=== PATIENT | male | born 1945 | race Caucasian/White ===

== ENCOUNTER → 2017-12-03 08:34 | Outpatient (CLI) | payer MEDICARE, OTHER, SELFPAY ==
[2017-12-03 10:02] LABS: Alanine Aminotransferase 72 IU/L (21-72); Albumin 3.9 g/dL (3.5-5.0); Albumin Globulin Ratio 1.3 (1.0-2.8); Alkaline Phosphatase 65 U/L (38-126); Aspartate Aminotransferase 57 IU/L (17-59); BUN Creatinine Ratio 17.8 (6-22); Bilirubin Total 0.4 mg/dL (0.2-1.3); Blood Urea Nitrogen 16 mg/dL (9-20); Calcium 9.6 mg/dL (8.4-10.2); Carbon Dioxide 31 mmol/L (22-32); Chloride 102 mmol/L (98-107); Cholesterol 186 mg/dL (140-199); Estimated Glomerular Filt Rate > 60.0 mL/min (>60); Glucose 83 mg/dL (80-110); HDL Cholesterol 80 mg/dL (40-60); HEMOLYSIS < 15 (0-50); LDL Cholesterol Calculated 55 mg/dL (<100); Magnesium 1.9 mg/dL (1.6-2.3); Potassium 4.3 mmol/L (3.4-5.1); Sodium 141 mmol/L (137-145); Total Protein 6.9 g/dL (6.3-8.2); Triglycerides 257 mg/dL (35-150)
[2017-12-03 10:33] LABS: Thyroid Stimulating Hormone 1.64 uIU/mL (0.47-4.68)
== END ==
PROVIDERS: PCP Internal Medicine; Visit Provider Internal Medicine Cardiovascular Disease
DX: I10 Essential (primary) hypertension (principal); R00.0 Tachycardia, unspecified; E78.5 Hyperlipidemia, unspecified; C61 Malignant neoplasm of prostate
CPT/HCPCS: 36415; 80053; 80061; 83735; 84153; 84443

== ENCOUNTER → 2018-01-29 13:43 | Outpatient (CLI) | payer MEDICARE, OTHER, SELFPAY ==
[2018-01-29 14:48] LABS: Prostate Specific Antigen 0.615 ng/mL (0.10-4.00)
== END ==
PROVIDERS: Family Provider Internal Medicine; PCP Internal Medicine; Visit Provider Urology
DX: C61 Malignant neoplasm of prostate (principal)
CPT/HCPCS: 36415; 84153

== ENCOUNTER → 2018-04-10 15:48 | Outpatient (CLI) | payer MEDICARE, OTHER, SELFPAY ==
[2018-04-10 18:02] LABS: Prostate Specific Antigen 0.889 ng/mL (0.10-4.00)
== END ==
PROVIDERS: Family Provider Internal Medicine; PCP Internal Medicine; Visit Provider Urology
DX: C61 Malignant neoplasm of prostate (principal)
CPT/HCPCS: 36415; 84153

== ENCOUNTER 2018-06-16 01:01 | Emergency (ER) | payer MEDICARE, OTHER, SELFPAY ==
[2018-06-16 01:12] VITALS: BP 146/94; PULSE 85; RESP 18; TEMP 36.3; O2SAT 96
--- NOTE | 2018-06-16 01:21 | DI.CT.S_ITS ---
PROCEDURE: CT HEAD/BRAIN WO CON INDICATIONS: fall, head injury, alcohol TECHNIQUE: Noncontrast 4.5 mm thick angled axial sections acquired from the foramen magnum to the vertex, with coronal and sagittal reformats. For radiation dose reduction, the following was used: automated exposure control, adjustment of mA and/or kV according to patient size. COMPARISON: None. FINDINGS: Image quality: Excellent. CSF spaces: Basal cisterns are patent. No extra-axial fluid collections. The ventricles are symmetric in size and shape. Brain: No intracranial bleeds or masses. There is cerebral volume loss for age, with resultant ventricular and sulcal prominence. There are periventricular and deep white matter chronic small vessel ischemic changes. There is intracranial internal carotid artery atherosclerosis. Skull and face: Surgical mendez over left high frontal scalp are seen. Calvarium and visualized facial bones appear intact, without suspicious lesions. Sinuses: Visualized sinuses and mastoids are clear. IMPRESSION: #1. No CT evidence of acute intracranial pathology. #2. Age-appropriate atrophy and mild to moderate periventricular white matter likely traumatic changes. #3. Left high frontal scalp laceration with no underlying skull fracture. No discrepancies. Dictated by: Rafita Sol M.D. on 06/16/2018 at 9:09 Approved by: Rafita Sol M.D. on 06/16/2018 at 9:10
--- NOTE | 2018-06-16 01:21 | DI.CT.S_ITS ---
PROCEDURE: CT CERVICAL SPINE WO CON INDICATIONS: fall with head injury, heavy alcohol TECHNIQUE: Noncontrast 3 mm thick sections acquired from the skull base to the T4 level. Sagittal and coronal reformats were then constructed. For radiation dose reduction, the following was used: automated exposure control, adjustment of mA and/or kV according to patient size. COMPARISON: None. FINDINGS: Image quality: Excellent. Bones: There is minimal retrolisthesis of C4 on C5. No acute cervical spine fracture or dislocation is seen. Degenerative endplate changes and bilateral facet hypertrophic changes are noted throughout cervical spine with suggestion of broad-based disc bulge at C3-4 through C6-7 levels causing mild to moderate central canal stenosis and bilateral neuroforaminal narrowing. Visualized superior ribs are intact. Soft tissues: Prevertebral soft tissues are normal in thickness. No paravertebral hematomas. No apical pneumothoraces. IMPRESSION: 1. No acute cervical spine fracture or traumatic spondylolisthesis. 2. Likely degenerative retrolisthesis at C4-5 level. Degenerative disc disease throughout cervical spine. No significant discrepancies. Dictated by: Rafita Sol M.D. on 06/16/2018 at 9:10 Approved by: Rafita Sol M.D. on 06/16/2018 at 9:12
--- NOTE | 2018-06-16 01:49 | ED_ITS ---
HPI - Fall General Chief Complaint: Fall Stated Complaint: GLF, head lac Time Seen by Provider: 06/16/18 01:03 Source: patient, family and EMS Mode of arrival: EMS Limitations: no limitations History of Present Illness HPI Narrative: 73-year-old male nonsmoker with history of prostate cancer presents by EMS for evaluation head injury after he tripped and fell just prior to his arrival. He drinks about half bottle wine per night and a bit of a buzz and in doing so tripped and fell, striking his head. He has full recall of the event denies loss of consciousness, nausea or vomiting. He takes no blood thinners. He denies any neck or back pain. He denies chest pain, shortness of breath or any extremity injuries though he does have some small superficial skin tears his left hand. MD complaint: fall Onset (ago): minute(s) Fall from: standing Fall witnessed: yes, by family Place fall occurred: home Loss of consciousness: none Prolonged down time: no Symptoms prior to fall: none Context: tripped/slipped and alcohol use Location of injury: head Severity: mild Quality: dull Associated symptoms (after fall): denies Related Data Home Medications Medication Instructions Recorded Confirmed tamsulosin 0.4 mg capsule 0.4 mg PO BEDTIME cap 11/02/17 06/16/18 magnesium oxide 400 mg capsule 400 mg PO BID cap 12/27/17 06/16/18 metoprolol succinate ER 25 mg 25 mg PO BID 90 Days #180 tab 12/27/17 06/16/18 tablet,extended release 24 hr alprazolam 0.25 mg PO BID PRN 06/16/18 06/16/18 atorvastatin 40 mg PO DAILY 06/16/18 06/16/18 bupropion HCl 75 mg PO BID 06/16/18 06/16/18 melatonin 2 tab PO BEDTIME 06/16/18 06/16/18 trazodone 50 - 100 mg PO HS PRN 06/16/18 06/16/18 Previous Rx's Medication Instructions Recorded tiotropium bromide [Spiriva with 18 mcg INH 0600 #90 cap 09/04/16 HandiHaler] buspirone 7.5 mg PO BID #60 tab 12/01/16 hydrochlorothiazide 25 mg PO QDAY #30 tab 12/04/16 calcitriol 0.5 mcg PO Q DAY #90 cap 12/11/16 Disabled [address]ing Permit ea #1 01/24/17 salmeterol 50 mcg/dose blister 1 inhalation INHALATION Q12H #60 11/02/17 powder for inhalation each clonazepam 1 mg tablet 1 mg PO Q12H #60 tab 01/09/18 nitroglycerin 0.4 mg sublingual 0.4 mg SUBLINGUAL PRN PRN #4 bot 03/28/18 tablet hydrocortisone 2.5 % topical cream 1 applictn TOP BID #30 gram 05/10/18 Allergies Allergy/AdvReac Type Severity Reaction Status Date / Time No Known Drug Allergies Allergy Verified 05/10/18 11:17 Review of Systems Review of Systems ROS Unobtainable: All systems reviewed & are unremarkable except as noted in HPI and below Constitutional Denies chills, Denies fever(s), Denies lethargy and Denies weakness Eyes Denies change in vision, Denies eye discharge, Denies irritation and Denies loss of vision ENT Ears, Nose, Mouth, and Throat: Denies change in voice, Denies neck pain and Denies sore throat Cardiovascular Denies chest pain, Denies irregular heart rhythm, Denies lightheadedness, Denies palpitations, Denies dyspnea, Denies dyspnea on exertion and Denies orthopnea Respiratory Denies cough, Denies dyspnea, Denies dyspnea on exertion and Denies wheezing Gastrointestinal Gastrointestinal: Denies abdominal pain, Denies change in bowel habits, Denies diarrhea, Denies nausea and Denies vomiting Genitourinary Denies hematuria, Denies flank pain, Denies urinary incontinence and Denies urinary urgency Musculoskeletal Denies neck pain Integumentary/Breasts Denies pruritus, Denies erythema, Denies rash and Reports wounds Neurologic Denies confusion, Denies loss of vision and Denies weakness Psychiatric Denies anxiety, Denies confusion, Denies depression, Denies homicidal ideation and Denies suicidal ideation Endocrine Denies palpitations Hematologic/Lymphatic Denies easy bruising Allergic/Immunologic Denies wheezing Exam Narrative Exam Narrative: GENERAL: 73M is AOx3. GCS 15. Clear speech This is a well- nourished, well-developed patient, in mild distress. HEAD: 7cm linear, deep laceration starting just left of midline and above hairline and extending postiorly. Minimal active bleeding. Once numbed with lido/epi, it is visualized in bloodless field and small galea defect noted. EYES: Pupils equal round and reactive. Extraocular motions intact. No scleral icterus. No injection or drainage. ENT: Nose without bleeding, purulent drainage or septal hematoma. Throat without erythema, tonsillar hypertrophy or exudate. Uvula midline. Airway patent. NECK: Trachea midline. No JVD or lymphadenopathy. Supple, nontender, no meningeal signs. CARDIOVASCULAR: Regular rate and rhythm without murmurs, gallops, or rubs. RESPIRATORY: Clear to auscultation. Breath sounds equal bilaterally. No wheezes, rales, or rhonchi. GASTROINTESTINAL: Abdomen soft, non-tender, nondistended. No hepato- splenomegaly, or palpable masses. No guarding. EXTREMITIES: No clubbing, cyanosis, or edema. No joint tenderness, effusion, or edema noted. SKin tear on dorsum of L hand BACK: Nontender without deformity or crepitance. No flank tenderness. NEURO: AOx3. SKIN: No rash or erythema. Initial Vital Signs Initial Vital Signs: Vital Signs Temperature 97.4 F L 06/16/18 01:12 Pulse Rate 85 06/16/18 01:12 Respiratory Rate 18 06/16/18 01:12 Blood Pressure 146/94 H 06/16/18 01:12 Pulse Oximetry 96 06/16/18 01:12 [facility] Medical History Alcoholism (Chronic) Atherosclerosis of [place] coronary artery of [place] heart without angina pectoris (Chronic 12/22/14) Paroxysmal atrial fibrillation (Chronic 12/22/14) Pulmonary emphysema (Chronic 12/22/14) Essential hypertension (Chronic 12/22/14) Hyperlipidemia (Chronic) Depression (Chronic 12/22/14) Generalized anxiety disorder (Chronic) Atrial flutter (Resolved) Urinary retention (Inactive) Malignant neoplasm of prostate (Chronic 12/22/10) 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 (Inactive 12/22/14) Former smoker (Inactive 01/15/15) Hx of adenomatous colonic polyps (Chronic 12/22/10) MRSA (methicillin resistant staph aureus) culture positive (Inactive) Alcoholism in recovery (Inactive 01/10/16) Surgical History Inguinal hernia (Resolved) History of angioplasty (10/06/14) Status post appendectomy Status post transurethral resection of prostate (~05/2016) Social History Smoking Status: Former smoker Social History Smoking Status: Former smoker Procedures Laceration Repair Laceration 1: Site: scalp Side (If applicable): left Size (cm): 7 Description: linear Depth: involves muscle layer Local Anesthetic: lidocaine 1% and with epi Amount of anesthesia used (mL): 5 Pre-repair: wound explored and irrigated extensively Skin layer closed with: mendez Subcutaneous layer closed with: vicryl Size: 4-0 Number of sutures: 1 Technique: simple, interrupted Course Course Narrative: c collar placed on arrival Orders Ordered: ED Orders 06/16/18 01:21 CT cervical spine wo con Stat CT head/brain wo con Stat Vital Signs - 8 hr 06/16/18 01:12 06/16/18 02:01 Temperature 97.4 F L Pulse Rate 85 82 Respiratory Rate 18 18 Blood Pressure 146/94 H Blood Pressure [Right Arm] 164/85 H Pulse Oximetry 96 97 MDM - Fall Imaging Data CT Head / C Spine: My impression: NAP No bleed No fracture Discharge Plan Departure Patient Disposition: Home Clinical Impression: Laceration of scalp Qualifiers: Encounter type: initial encounter Qualified Code(s): S01.01XA - Laceration without foreign body of scalp, initial encounter Closed head injury Qualifiers: Encounter type: initial encounter Qualified Code(s): S09.90XA - Unspecified injury of head, initial encounter Activity Restrictions/Additional Instructions: *You have been diagnosed with [ scalp laceration ] *What to do: *Take medications as directed *Follow up with your primary care provider in 2-3 days, call for an appointment. Let them know you were seen in the Emergency Department and that we ask that you be seen in follow up *Return to ER if you should have any new, worsening or concerning symptoms Please keep the wound clean and dry to the best of your ability. Please monitor for signs of infection such as redness to the skin or increasing pain. Have the mendez removed by your doctor in about 7 days. If you are unable to get into your doctor, we would be happy to remove the mendez in that same timeframe. Prescriptions: No Action tiotropium bromide [Spiriva with HandiHaler] 18 MCG capsule, w/inhalation device 18 mcg INH 0600 Qty: 90 RF: 3 buspirone 7.5 MG tablet 7.5 mg PO BID Qty: 60 RF: 3 hydrochlorothiazide 25 MG tablet 25 mg PO QDAY Qty: 30 RF: 3 calcitriol 0.5 MCG capsule 0.5 mcg PO Q DAY Qty: 90 RF: 0 Disabled Parking Permit Qty: 1 RF: 0 clonazepam 1 mg tablet 1 mg PO Q12H Qty: 60 RF: 2 tamsulosin [Flomax] 0.4 mg capsule 0.4 mg PO BEDTIME RF: 0 salmeterol [Serevent Diskus] 50 mcg/dose blister with device 1 inhalation INHALATION Q12H Qty: 60 RF: 3 metoprolol succinate 25 mg tablet extended release 24 hr 25 mg PO BID 90 Days Qty: 180 RF: 0 magnesium oxide 400 mg capsule 400 mg PO BID RF: 0 nitroglycerin [Nitrostat] 0.4 mg tablet, sublingual 0.4 mg Sublingual PRN PRN (Reason: chest pain) Qty: 4 RF: PRN hydrocortisone 2.5 % cream 1 applictn TOP BID Qty: 30 RF: 1 bupropion HCl 150 mg tablet sustained-release 12 hr 75 mg PO BID RF: 0 atorvastatin 40 mg Tablet 40 mg PO DAILY RF: 0 alprazolam 0.25 mg Tablet 0.25 mg PO BID PRN (Reason: Anxiety) RF: 0 melatonin 10 mg Tablet 2 tab PO BEDTIME RF: 0 trazodone 50 MG tablet 50 - 100 mg PO HS PRN (Reason: Sleep) RF: 0 Referrals: Tim Pemberton MD [Primary Care Provider] -
[2018-06-16 02:01] VITALS: BP 164/85; PULSE 82; RESP 18; O2SAT 97
--- NOTE | 2018-06-16 02:46 | PC.NURSE ---
c collar removed by Dr. Baker.
[2018-06-16 02:56] VITALS: BP 143/76; PULSE 87; RESP 16; TEMP 36.4; O2SAT 97
== END 2018-06-16 02:57 | disposition home or self-care (01) ==
PROVIDERS: Emergency Provider Emergency Medicine; PCP Internal Medicine
DX: S01.01XA Laceration without foreign body of scalp, initial encounter (principal); S09.90XA Unspecified injury of head, initial encounter; W19.XXXA Unspecified fall, initial encounter
CPT/HCPCS: 12032; 70450; 72125; 99283; 99284

== ENCOUNTER 2018-06-21 13:24 | Emergency (ER) | payer MEDICARE, OTHER, SELFPAY ==
[2018-06-21 13:29] VITALS: BP 179/80; PULSE 88; RESP 17; TEMP 36.6; O2SAT 99; BMI 26.4
--- NOTE | 2018-06-21 13:46 | DI.RAD.S_ITS ---
PROCEDURE: XR CHEST 2V INDICATIONS: chest pain TECHNIQUE: 2 views of the chest were acquired. COMPARISON: None. FINDINGS: Surgical changes and devices: None. Lungs and pleura: Lungs are clear. No pleural effusions or pneumothorax. Mediastinum: Mediastinal contours are normal. Heart size is normal. Bones and chest wall: No suspicious bony abnormalities. Soft tissues appear unremarkable. IMPRESSION: No acute cardiopulmonary disease process. Dictated by: Katrina Crowell MD, PhD on 06/21/2018 at 14:07 Approved by: Katrina Crowell MD, PhD on 06/21/2018 at 14:08
[2018-06-21 14:40] LABS: Add Manual Diff / Slide Review NO; Basophils Absolute Auto 100 /uL (0-100); Basophils Percent Auto 0.7 % (0-2); Eosinophils Absolute Auto 300 /uL (0-450); Eosinophils Percent Auto 3.4 % (2-4); Hematocrit 43.8 % (41-53); Hemoglobin 14.8 g/dL (13.5-17.5); Lymphocytes Absolute Auto 1600 /uL (1100-4500); Lymphocytes Percent Auto 18.2 % (25-40); Mean Corpuscular HGB Conc 33.7 % (30-36); Mean Corpuscular Hemoglobin 33.5 PG (26-34); Mean Corpuscular Volume 99.3 fL (80-100); Monocytes Absolute Auto 700 /uL (0-900); Monocytes Percent Auto 7.8 % (3-14); Neutrophils Absolute Auto 6300 /uL (1500-7000); Neutrophils Percent Auto 69.9 % (50-75); Platelet Count 246 X10^3/uL (150-400); Red Blood Cell Count 4.41 X10^6/uL (4.5-5.9); Red Cell Distribution Width 12.8 % (11.6-14.8); White Blood Cell Count 8.9 X10^3/uL (4.5-11.0)
[2018-06-21 14:52] LABS: Alanine Aminotransferase 87 IU/L (21-72); Albumin 4.4 g/dL (3.5-5.0); Albumin Globulin Ratio 1.3 (1.0-2.8); Alkaline Phosphatase 98 U/L (38-126); Aspartate Aminotransferase 114 IU/L (17-59); BUN Creatinine Ratio 11.3 (6-22); Bilirubin Total 0.7 mg/dL (0.2-1.3); Blood Urea Nitrogen 9 mg/dL (9-20); Calcium 9.6 mg/dL (8.4-10.2); Carbon Dioxide 30 mmol/L (22-32); Chloride 93 mmol/L (98-107); Creatine Kinase 87 U/L (55-170); Estimated Glomerular Filt Rate > 60.0 mL/min (>60); Globulin 3.5 g/dL (1.7-4.1); Glucose 119 mg/dL (80-110); HEMOLYSIS < 15 (0-50); Lipase 283 U/L (23-300); Potassium 3.6 mmol/L (3.4-5.1); Sodium 133 mmol/L (137-145); Total Protein 7.9 g/dL (6.3-8.2)
[2018-06-21 15:00] VITALS: BP 133/79; PULSE 88; RESP 19; O2SAT 96
[2018-06-21 15:04] LABS: Troponin I < 0.012 ng/mL (0.01-0.034)
[2018-06-21] MEDS: ASPIRIN 81 MG TAB 324 MG PO (15:15)
[2018-06-21 15:30] VITALS: BP 127/78; PULSE 86; RESP 22; O2SAT 94
--- NOTE | 2018-06-21 15:39 | ED_ITS ---
HPI - Chest Pain <Tesha Howard PA-C - Last Filed: 06/21/18 22:01> General Chief Complaint: Chest Pain Stated Complaint: CHEST PAIN Time Seen by Provider: 06/21/18 15:37 Source: patient and family Mode of arrival: ambulatory Limitations: no limitations History of Present Illness HPI narrative: This 73-year-old male comes to ED today secondary to right-sided chest pain. He states that he lost his balance getting off the toilet last night which is not unusual for him, and he pitched forward. He came down on the hardwood floor and he thinks he had his hand under his chest, also hit his face. He denies any head contusion or LOC. He denies any headache, vision change, nausea or vomiting today. He states that he thought he was okay last night but then noted pain today when he moved into a reclined position in his easy chair, and also notes pain in the chest with deep breath and cough. He states this is not typical of his previous cardiac pain but given his history thought he should have this checked out. He has not noted any dyspnea or wheeze. He denies any new pain or swelling in his extremities. No abdominal pain or any other new complaints on systems review. He notes that he did have a few drinks last night, did not take his clonazepam due to that. He notes that he is starting in alcoholics anonymous today. He also requests to have mendez removed that were placed here last week. Related Data Home Medications Medication Instructions Recorded Confirmed tamsulosin 0.4 mg capsule 0.4 mg PO BEDTIME cap 11/02/17 06/16/18 magnesium oxide 400 mg capsule 400 mg PO BID cap 12/27/17 06/16/18 metoprolol succinate ER 25 mg 25 mg PO BID 90 Days #180 tab 12/27/17 06/16/18 tablet,extended release 24 hr alprazolam 0.25 mg PO BID PRN 06/16/18 06/16/18 atorvastatin 40 mg PO DAILY 06/16/18 06/16/18 bupropion HCl 75 mg PO BID 06/16/18 06/16/18 melatonin 2 tab PO BEDTIME 06/16/18 06/16/18 trazodone 50 - 100 mg PO HS PRN 06/16/18 06/16/18 Previous Rx's Medication Instructions Recorded tiotropium bromide [Spiriva with 18 mcg INH 0600 #90 cap 09/04/16 HandiHaler] buspirone 7.5 mg PO BID #60 tab 12/01/16 hydrochlorothiazide 25 mg PO QDAY #30 tab 12/04/16 calcitriol 0.5 mcg PO Q DAY #90 cap 12/11/16 Disabled Parking Permit ea #1 01/24/17 salmeterol 50 mcg/dose blister 1 inhalation INHALATION Q12H #60 11/02/17 powder for inhalation each clonazepam 1 mg tablet 1 mg PO Q12H #60 tab 01/09/18 nitroglycerin 0.4 mg sublingual 0.4 mg SUBLINGUAL PRN PRN #4 bot 03/28/18 tablet hydrocortisone 2.5 % topical cream 1 applictn TOP BID #30 gram 05/10/18 Allergies Allergy/AdvReac Type Severity Reaction Status Date / Time No Known Drug Allergies Allergy Verified 05/10/18 11:17 Review of Systems <Tesha Howard PA-C - Last Filed: 06/21/18 22:01> Review of Systems ROS Unobtainable: All systems reviewed & are unremarkable except as noted in HPI and below PFSH <Tesha Howard PA-C - Last Filed: 06/21/18 22:01> Medical History Alcoholism (Chronic) Atherosclerosis of [place] coronary artery of [place] heart without angina pectoris (Chronic 12/22/14) Paroxysmal atrial fibrillation (Chronic 12/22/14) Pulmonary emphysema (Chronic 12/22/14) Essential hypertension (Chronic 12/22/14) Hyperlipidemia (Chronic) Depression (Chronic 12/22/14) Generalized anxiety disorder (Chronic) Atrial flutter (Resolved) Urinary retention (Inactive) Malignant neoplasm of prostate (Chronic 12/22/10) 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 (Inactive 12/22/14) Former smoker (Inactive 01/15/15) Hx of adenomatous colonic polyps (Chronic 12/22/10) MRSA (methicillin resistant staph aureus) culture positive (Inactive) Alcoholism in recovery (Inactive 01/10/16) Surgical History Inguinal hernia (Resolved) History of angioplasty (10/06/14) Status post appendectomy Status post transurethral resection of prostate (~05/2016) Social History Smoking Status: Former smoker Social History Smoking Status: Former smoker Exam <Tesha Howard PA-C - Last Filed: 06/21/18 22:01> Narrative Exam Narrative: GENERAL APPEARANCE: Patient sitting comfortably, in no distress. NECK/THYROID: Neck supple, no JVD. LUNGS: Clear to auscultation bilaterally. CHEST: Moderate tenderness along the right mid anterior to lateral ribs most along the 4th and 5th ribs. No tenderness elsewhere over the chest, anterior right shoulder or clavicle HEART: Regular rate and rhythm without murmur, normal S1, S2, no S3 or S4. Heart tones are somewhat distant ABDOMEN: Soft, NT, ND, + BS x 4 quadrants EXTREMITIES: No edema. No calf tenderness NEUROLOGIC: Alert and oriented, normal speech and coordination. DERMATOLOGIC: No ecchymoses or abrasions noted on the face or chest. He does have well-healed midline frontal wound with mendez in place Initial Vital Signs Initial Vital Signs: Vital Signs Temperature 97.8 F 06/21/18 13:29 Pulse Rate 88 06/21/18 13:29 Respiratory Rate 17 06/21/18 13:29 Blood Pressure 179/80 H 06/21/18 13:29 Pulse Oximetry 99 06/21/18 13:29 <Nani Goodwin DO - Last Filed: 06/22/18 17:59> Initial Vital Signs Initial Vital Signs: Vital Signs Temperature 97.8 F 06/21/18 13:29 Pulse Rate 88 06/21/18 13:29 Respiratory Rate 17 06/21/18 13:29 Blood Pressure 179/80 H 06/21/18 13:29 Pulse Oximetry 99 06/21/18 13:29 Course <Tesha Howard PA-C - Last Filed: 06/21/18 22:01> Orders Ordered: Discontinued Medications Aspirin (Aspirin Chew) 324 mg PO NOW ONE Stop: 06/21/18 13:47 Last Admin: 06/21/18 15:15 Dose: 324 mg Sodium Chloride (Normal Saline 0.9%) 1,000 mls @ 150 mls/hr IV CONT SCOTT Last Admin: 06/21/18 16:21 Dose: Not Given Vital Signs - 8 hr 06/21/18 15:00 06/21/18 15:30 06/21/18 16:36 Pulse Rate 88 86 88 Respiratory Rate 19 22 16 Blood Pressure [Right Arm] 133/79 127/78 160/75 H Pulse Oximetry 96 94 96 <Nani Goodwin DO - Last Filed: 06/22/18 17:59> Orders Ordered: Discontinued Medications Aspirin (Aspirin Chew) 324 mg PO NOW ONE Stop: 06/21/18 13:47 Last Admin: 06/21/18 15:15 Dose: 324 mg Sodium Chloride (Normal Saline 0.9%) 1,000 mls @ 150 mls/hr IV CONT SCOTT Last Admin: 06/21/18 16:21 Dose: Not Given Vital Signs - 8 hr 06/21/18 15:00 06/21/18 15:30 06/21/18 16:36 Pulse Rate 88 86 88 Respiratory Rate 19 22 16 Blood Pressure [Right Arm] 133/79 127/78 160/75 H Pulse Oximetry 96 94 96 MDM - Chest Pain <Tesha Howard PA-C - Last Filed: 06/21/18 22:01> Lab Data Attestation: I reviewed the patient's lab results. Result diagrams: 06/21/18 14:20 06/21/18 14:20 Lab Results 06/21/18 06/21/18 06/21/18 Range/Units 14:20 14:20 15:57 WBC 8.9 (4.5-11.0) X10^3/uL RBC 4.41 L (4.5-5.9) X10^6/uL Hgb 14.8 (13.5-17.5) g/dL Hct 43.8 (41-53) % MCV 99.3 (80-100) fL MCH 33.5 (26-34) PG MCHC 33.7 (30-36) % RDW 12.8 (11.6-14.8) % Plt Count 246 (150-400) X10^3/uL Neut % (Auto) 69.9 (50-75) % Lymph % (Auto) 18.2 L (25-40) % Parmer % (Auto) 7.8 (3-14) % Eos % (Auto) 3.4 (2-4) % Baso % (Auto) 0.7 (0-2) % Neut # (Auto) 6300 (6102-0125) /uL Lymph # (Auto) 1600 (6824-6062) /uL Parmer # (Auto) 700 (0-900) /uL Eos # (Auto) 300 (0-450) /uL Baso # (Auto) 100 (0-100) /uL Sodium 133 L (137-145) mmol/L Potassium 3.6 (3.4-5.1) mmol/L Chloride 93 L (98-107) mmol/L Carbon Dioxide 30 (22-32) mmol/L BUN 9 (9-20) mg/dL Creatinine 0.80 (0.66-1.25) mg/dL Estimated GFR > 60.0 (>60) mL/min BUN/Creatinine Ratio 11.3 (6-22) Glucose 119 H (80-110) mg/dL Calcium 9.6 (8.4-10.2) mg/dL Total Bilirubin 0.7 (0.2-1.3) mg/dL AST 114 H (17-59) IU/L ALT 87 H (21-72) IU/L Alkaline Phosphatase 98 (38-126) U/L Total Creatine Kinase 87 (55-170) U/L CK-MB (CK-2) TNP CK-MB (CK-2) Rel Index TNP Troponin I < 0.012 (0.01-0.034) ng/mL Total Protein 7.9 (6.3-8.2) g/dL Albumin 4.4 (3.5-5.0) g/dL Globulin 3.5 (1.7-4.1) g/dL Albumin/Globulin Ratio 1.3 (1.0-2.8) Lipase 283 (23-300) U/L Urine RBC None seen (0-5/HPF) Urine WBC 10-30/hpf H (0-5/HPF) Ur Squamous Epith Cells 0-1 /hpf Amorphous Sediment 1+ Urine Bacteria Moderate (10-30) H (None) Urine Mucus 1+ H (Negative) Ur Culture Indicated? Specimen cultured Urine Dip Bedside Urine Glucose Negative Bedside Urine Bilirubin - Negative Bedside Urine Ketone - Negative Urine Specific [place] 1.015 Bedside Urine Occult Blood - Negative Bedside Urine pH 7.5 Bedside Urine Protein - Negative Bedside Urine Urobilinogen - Negative Bedside Urine Nitrite - Negative Bedside Urine Leukocytes +++ 500 Esterase Imaging Data Chest x-ray: Radiologist's impression: [address] [address] XRay Report Signed Patient: Papa Perez EMR#: [id number] : 5Acct:[id number] Age/Sex: 73 / MDate of Service: 06/21/18 Loc: ED Accession Number: [id number] Procedure: XR chest 2V Ordering Provider: Nani Goodwin D.O. PROCEDURE: XR CHEST 2V INDICATIONS: chest pain TECHNIQUE: 2 views of the chest were acquired. COMPARISON: None. FINDINGS: Surgical changes and devices: None. Lungs and pleura: Lungs are clear. No pleural effusions or pneumothorax. Mediastinum: Mediastinal contours are normal. Heart size is normal. Bones and chest wall: No suspicious bony abnormalities. Soft tissues appear unremarkable. IMPRESSION: No acute cardiopulmonary disease process. Dictated by: Katrina Crowell MD, PhD on 06/21/2018 at 14:07 Approved by: Katrina Crowell MD, PhD on 06/21/2018 at 14:08 ECG Data Attestation: I personally reviewed and interpreted this ECG as follows: (Normal sinus rhythm with rate 89, normal axis, no ST changes) <Nani Goodwin, DO - Last Filed: 06/22/18 17:59> Lab Data Lab Results 06/21/18 06/21/18 06/21/18 Range/Units 14:20 14:20 15:57 WBC 8.9 (4.5-11.0) X10^3/uL RBC 4.41 L (4.5-5.9) X10^6/uL Hgb 14.8 (13.5-17.5) g/dL Hct 43.8 (41-53) % MCV 99.3 (80-100) fL MCH 33.5 (26-34) PG MCHC 33.7 (30-36) % RDW 12.8 (11.6-14.8) % Plt Count 246 (150-400) X10^3/uL Neut % (Auto) 69.9 (50-75) % Lymph % (Auto) 18.2 L (25-40) % Parmer % (Auto) 7.8 (3-14) % Eos % (Auto) 3.4 (2-4) % Baso % (Auto) 0.7 (0-2) % Neut # (Auto) 6300 (5541-0842) /uL Lymph # (Auto) 1600 (2214-7750) /uL Parmer # (Auto) 700 (0-900) /uL Eos # (Auto) 300 (0-450) /uL Baso # (Auto) 100 (0-100) /uL Sodium 133 L (137-145) mmol/L Potassium 3.6 (3.4-5.1) mmol/L Chloride 93 L (98-107) mmol/L Carbon Dioxide 30 (22-32) mmol/L BUN 9 (9-20) mg/dL Creatinine 0.80 (0.66-1.25) mg/dL Estimated GFR > 60.0 (>60) mL/min BUN/Creatinine Ratio 11.3 (6-22) Glucose 119 H (80-110) mg/dL Calcium 9.6 (8.4-10.2) mg/dL Total Bilirubin 0.7 (0.2-1.3) mg/dL AST 114 H (17-59) IU/L ALT 87 H (21-72) IU/L Alkaline Phosphatase 98 (38-126) U/L Total Creatine Kinase 87 (55-170) U/L CK-MB (CK-2) TNP CK-MB (CK-2) Rel Index TNP Troponin I < 0.012 (0.01-0.034) ng/mL Total Protein 7.9 (6.3-8.2) g/dL Albumin 4.4 (3.5-5.0) g/dL Globulin 3.5 (1.7-4.1) g/dL Albumin/Globulin Ratio 1.3 (1.0-2.8) Lipase 283 (23-300) U/L Urine RBC None seen (0-5/HPF) Urine WBC 10-30/hpf H (0-5/HPF) Ur Squamous Epith Cells 0-1 /hpf Amorphous Sediment 1+ Urine Bacteria Moderate (10-30) H (None) Urine Mucus 1+ H (Negative) Ur Culture Indicated? Specimen cultured Urine Dip Bedside Urine Glucose Negative Bedside Urine Bilirubin - Negative Bedside Urine Ketone - Negative Urine Specific [place] 1.015 Bedside Urine Occult Blood - Negative Bedside Urine pH 7.5 Bedside Urine Protein - Negative Bedside Urine Urobilinogen - Negative Bedside Urine Nitrite - Negative Bedside Urine Leukocytes +++ 500 Esterase Discharge Plan Departure Patient Disposition: Home Clinical Impression: Rib pain on right side, Contusion of chest wall with intact skin, Removal of mendez Discharge Date/Time: 06/21/18 16:45 Interventions: ED Discharge Assessment Last Done: 06/21/18 16:45 Instructions: DI for Rib Contusion Activity Restrictions/Additional Instructions: As we talked about, I think your pain today is due to hitting your ribs on the right side. Please use the incentive spirometer like the respiratory therapist showed you several times daily to make sure you are expanding her lungs. You can had a pillow to your side like I showed you as needed to help with pain. take [id number] Tylenol as needed, and you can use [id number] lidocaine patches as well on the rib area if needed. Please make sure that you return right away should you have any acutely worsening pain, or new symptoms such as difficulty breathing or wheezing as we discussed. Good luck with AA! Prescriptions: No Action tiotropium bromide [Spiriva with HandiHaler] 18 MCG capsule, w/inhalation dev ice 18 mcg INH 0600 Qty: 90 RF: 3 buspirone 7.5 MG tablet 7.5 mg PO BID Qty: 60 RF: 3 hydrochlorothiazide 25 MG tablet 25 mg PO QDAY Qty: 30 RF: 3 calcitriol 0.5 MCG capsule 0.5 mcg PO Q DAY Qty: 90 RF: 0 Disabled Parking Permit Qty: 1 RF: 0 clonazepam 1 mg tablet 1 mg PO Q12H Qty: 60 RF: 2 tamsulosin [Flomax] 0.4 mg capsule 0.4 mg PO BEDTIME RF: 0 salmeterol [Serevent Diskus] 50 mcg/dose blister with device 1 inhalation INHALATION Q12H Qty: 60 RF: 3 metoprolol succinate 25 mg tablet extended release 24 hr 25 mg PO BID 90 Days Qty: 180 RF: 0 magnesium oxide 400 mg capsule 400 mg PO BID RF: 0 nitroglycerin [Nitrostat] 0.4 mg tablet, sublingual 0.4 mg Sublingual PRN PRN (Reason: chest pain) Qty: 4 RF: PRN hydrocortisone 2.5 % cream 1 applictn TOP BID Qty: 30 RF: 1 bupropion HCl 150 mg tablet sustained-release 12 hr 75 mg PO BID RF: 0 atorvastatin 40 mg Tablet 40 mg PO DAILY RF: 0 alprazolam 0.25 mg Tablet 0.25 mg PO BID PRN (Reason: Anxiety) RF: 0 melatonin 10 mg Tablet 2 tab PO BEDTIME RF: 0 trazodone 50 MG tablet 50 - 100 mg PO HS PRN (Reason: Sleep) RF: 0 Referrals: Tim Pemberton MD [Primary Care Provider] - <Nani Goodwin DO - Last Filed: 06/22/18 17:59> Cosign ED Attending Cosignature Attestation: I was immediately available in the department for consultation. This documentation has been reviewed and I agree with assessment and plan. Supervised by Nani Goodwin DO
[2018-06-21 16:27] LABS: RBC Urine None Seen (0-5/HPF)
[2018-06-21 16:36] VITALS: BP 160/75; PULSE 88; RESP 16; O2SAT 96
[2018-06-21 16:38] LABS: Amorphous Sediment Urine 1+; Bacteria Urine Moderate (10-30); Culture Indicated Urine Specimen Cultured; Mucus Urine 1+ (Negative); Squamous Epithelial Cell Urine 0-1 /HPF; WBC Urine 10-30/HPF (0-5/HPF)
== END 2018-06-21 16:45 | disposition home or self-care (01) ==
PROVIDERS: Emergency Medicine; Emergency Provider Internal Medicine; PCP Internal Medicine
DX: R07.81 Pleurodynia (principal); S20.219A Contusion of unspecified front wall of thorax, initial encounter; W19.XXXA Unspecified fall, initial encounter; Z48.02 Encounter for removal of sutures
CPT/HCPCS: 36415; 71046; 80053; 81003; 81015; 82550; 83690; 84484; 85025; 87077; 87086; 87147; 87186; 93005; 99283; 99284

== ENCOUNTER 2018-08-05 08:16 | Emergency (ER) | payer MEDICARE, OTHER, SELFPAY ==
[2018-08-05 08:20] VITALS: BP 111/69; PULSE 62; RESP 19; TEMP 36.6; O2SAT 97; BMI 26.4
[2018-08-05 09:00] VITALS: BP 120/64; PULSE 61; RESP 14; O2SAT 97
--- NOTE | 2018-08-05 09:15 | ED.MALEGU ---
HPI - Male Genitourinary General Chief complaint: Urogenital-Male Stated complaint: 'need a cath very bad' Time Seen by Provider: 08/05/18 08:50 Source: patient and family () Mode of arrival: ambulatory Limitations: no limitations History of Present Illness HPI Narrative: This is a 73-year-old male comes to the emergency department with complaint of inability to urinate. Patient states that he has not urinated since last night. He states he did have a bowel movement this morning a very small amount urine came out when he was straining. Patient denies any fevers. He states he sometimes have chills at night but he states this is been going on for years. States he felt a little short of breath getting ready this morning states that happens occasionally. Patient denies any nausea no vomiting. He typically has loose stools and has been taking Imodium regularly. He denies any constipation. He has known prostate cancer, he is receiving radiation therapy, he also has a known bladder infection he was initially on Macrobid and this was changed to Cipro about 3 days ago secondary to sensitivities. Patient states that he has had some increasing urinary discomfort over the past couple weeks. He states today he was unable to urinate and so came in. He has had prostate biopsies as well as a TURP in the past. He states he used to have a lot of issues with urinary retention until his TURP. He also quit drinking alcohol about 40 days ago and has continued to be successful. He has not had any other medication changes although he was given a medication to help him with urination but the co-pay was too expensive so he did not fill it. He is taking Flomax daily. He sees Dr. Castanon for his urologist, he sees Oncology through [facility] and Dr. Pemberton is his primary care. Related Data Home Medications Medication Instructions Recorded Confirmed tamsulosin 0.4 mg capsule 0.4 mg PO BEDTIME cap 11/02/17 06/27/18 magnesium oxide 400 mg capsule 400 mg PO BID cap 12/27/17 06/27/18 metoprolol succinate ER 25 mg 25 mg PO BID 90 Days #180 tab 12/27/17 06/27/18 tablet,extended release 24 hr alprazolam 0.25 mg PO BID PRN 06/16/18 06/27/18 atorvastatin 40 mg PO DAILY 06/16/18 06/27/18 melatonin 2 tab PO BEDTIME 06/16/18 06/27/18 trazodone 50 - 100 mg PO HS PRN 06/16/18 06/27/18 Previous Rx's Medication Instructions Recorded tiotropium bromide [Spiriva with 18 mcg INH 0600 #90 cap 09/04/16 HandiHaler] buspirone 7.5 mg PO BID #60 tab 12/01/16 hydrochlorothiazide 25 mg PO QDAY #30 tab 12/04/16 calcitriol 0.5 mcg PO Q DAY #90 cap 12/11/16 Disabled Parking Permit ea #1 01/24/17 nitroglycerin 0.4 mg sublingual 0.4 mg SUBLINGUAL PRN PRN #4 bot 03/28/18 tablet hydrocortisone 2.5 % topical cream 1 applictn TOP BID #30 gram 05/10/18 bupropion HCl SR 150 mg tablet,12 75 mg PO BID #180 each 06/26/18 hr sustained-release clonazepam 1 mg tablet 1 mg PO Q12H #60 tab 07/09/18 Allergies Allergy/AdvReac Type Severity Reaction Status Date / Time No Known Drug Allergies Allergy Verified 08/05/18 09:15 Review of Systems Review of Systems ROS Unobtainable: All systems reviewed & are unremarkable except as noted in HPI and below Constitutional Reports chills (Every night for many years), Denies fever(s), Denies lethargy and Denies weakness Cardiovascular Denies chest pain, Denies diaphoresis, Denies syncope, Denies edema, Denies irregular heart rhythm, Denies leg edema, Denies lightheadedness, Denies palpitations, Reports dyspnea (While getting ready this morning. States it happened sometime), Denies dyspnea on exertion and Denies orthopnea Respiratory Denies change in phlegm color, Denies chest congestion, Denies cough, Denies excessive phlegm production, Reports dyspnea (While getting ready this morning. States it happened sometime), Denies dyspnea on exertion and Denies wheezing Gastrointestinal Gastrointestinal: Denies abdominal pain, Denies change in bowel habits, Denies constipation, Denies diarrhea, Reports loose stools, Denies nausea and Denies vomiting Genitourinary Reports as per HPI, Denies hematuria, Reports difficulty urinating, Denies genital pain, Reports dysuria, Denies flank pain, Denies urinary frequency, Reports urinary hesitancy, Denies urinary incontinence and Denies urinary urgency Neurologic Denies syncope and Denies weakness Endocrine Denies palpitations Allergic/Immunologic Denies wheezing PFSH Medical History Alcoholism (Chronic) Atherosclerosis of [place] coronary artery of [place] heart without angina pectoris (Chronic 12/22/14) Paroxysmal atrial fibrillation (Chronic 12/22/14) Pulmonary emphysema (Chronic 12/22/14) Essential hypertension (Chronic 12/22/14) Hyperlipidemia (Chronic) Depression (Chronic 12/22/14) Generalized anxiety disorder (Chronic) Atrial flutter (Resolved) Urinary retention (Inactive) Malignant neoplasm of prostate (Chronic 12/22/10) 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 (Inactive 12/22/14) Former smoker (Inactive 01/15/15) Hx of adenomatous colonic polyps (Chronic 12/22/10) MRSA (methicillin resistant staph aureus) culture positive (Inactive) Alcoholism in recovery (Inactive 01/10/16) Surgical History Inguinal hernia (Resolved) History of angioplasty (10/06/14) Status post appendectomy Status post transurethral resection of prostate (~05/2016) Social History Smoking Status: Former smoker Social History Smoking Status: Former smoker Exam Narrative Exam Narrative: GENERAL: Alert and oriented x three, well-nourished, well-appearing male in mild distress. HEENT: Head normocephalic, atraumatic, EOMI, pupils reactive, face symmetric, moist mucous membranes NECK: Supple, full range of motion CARDIOVASCULAR: Regular rate and rhythm without murmurs, rubs or gallops. RESPIRATORY: Breath sounds equal bilaterally, no wheezes rales or rhonchi. ABDOMEN: Soft, nontender. Normoactive bowel sounds all 4 quadrants. No guarding or rebound, rigidity, no mass : No CVA tenderness. Male: normal external examination, Castanon catheter placed by nursing while I was in the room, no penile discharge or lesions EXTREMITIES: Normal range of motion, no clubbing or edema. Neurovascularly intact NEUROLOGICAL: Cranial nerves II through XII grossly intact. Moving all extremities SKIN: Warm, dry, no petechiae, no rashes or lesions. Initial Vital Signs Initial Vital Signs: Vital Signs Temperature 97.9 F 08/05/18 08:20 Pulse Rate 62 08/05/18 08:20 Respiratory Rate 19 08/05/18 08:20 Blood Pressure 111/69 08/05/18 08:20 Pulse Oximetry 97 08/05/18 08:20 Course Vital Signs - 8 hr 08/05/18 08:20 Temperature 97.9 F Pulse Rate 62 Respiratory Rate 19 Blood Pressure 111/69 Pulse Oximetry 97 MDM - Male Genitourinary Lab Data Lab Results 08/05/18 Range/Units 09:08 Urine Color Yellow Urine Appearance Clear Urine pH 6.5 (4.5-8.0) Ur Specific Bynum 1.015 (1.000-1.035) Urine Protein 1+ H (Negative) Urine Glucose (UA) Negative (Negative) g/dL Urine Ketones Negative (NEGATIVE) Urine Occult Blood Trace-intact (Negative) Urine Nitrate Negative (Negative) Urine Bilirubin Negative (NEGATIVE) Urine Urobilinogen 0.2 (0.2) E.U./dL Ur Leukocyte Esterase Trace H (NEGATIVE) Urine RBC 1-5/hpf (0-5/HPF) Urine WBC 5-10/hpf H (0-5/HPF) Ur Squamous Epith Cells 0-1 /hpf (0-5/HPF) Urine Bacteria Few (2-10) H (None) Ur Culture Indicated? Specimen cultured ECG Data Attestation: I personally reviewed and interpreted this ECG as follows: Prior ECG tracings: available for review Interpretation: Sinus rhythm with sinus arrhythmia, rate of 61 P are 193 QRS 89 and QTC of 454. No ST elevation or depression. The patient has a prior EKG from 06/21/2018 although it did not have sinus arrhythmia. [facility] Narrative Medical decision making narrative: The patient comes in with complaint of urinary retention he had over 300 cc on bladder scan fully catheter was placed he had immediate urine out and had relief. Patient has had 2 antibiotics so a urinalysis was sent, patient is currently on ciprofloxacin but has only been on for 3 days. Patient did have a little bit complaint shortness of breath while he was getting ready, he does have history of cardiac stents we did discuss doing further workup but he defers and states that this is sorted normal for him. Patient and I discussed that we would likely not change his antibiotic. We did discuss pyridium for some of his dysuria type symptoms. He was placed on a medication he is not sure the name was supposed to help with urination, he is already taking Flomax regularly but the co-pay was too large so he did not start this medication. Discharge Plan Departure Patient Disposition: Home Clinical Impression: Acute urinary retention Discharge Date/Time: 08/05/18 10:11 Interventions: ED Discharge Assessment Last Done: 08/05/18 10:09 Instructions: DI for Urinary Retention in Men Activity Restrictions/Additional Instructions: Follow up with Dr. Meredith this week, call for an appointment. Continue home medications as prescribed. Continue your antibiotics. You may take Pyridium 1 tablet every 8 hours as needed. This medication will make your urine bright orange Return to ER for fevers greater than 100.4F, persistent vomiting, new or worsening abdominal pain, shortness of breath, chest pain, pain with urination, if you are having large blood clots or unable to drain urine from your catheter or other new or concerning symptoms. Prescriptions: No Action tiotropium bromide [Spiriva with HandiHaler] 18 MCG capsule, w/inhalation device 18 mcg INH 0600 Qty: 90 RF: 3 buspirone 7.5 MG tablet 7.5 mg PO BID Qty: 60 RF: 3 hydrochlorothiazide 25 MG tablet 25 mg PO QDAY Qty: 30 RF: 3 calcitriol 0.5 MCG capsule 0.5 mcg PO Q DAY Qty: 90 RF: 0 Disabled Parking Permit Qty: 1 RF: 0 bupropion HCl 150 mg tablet sustained-release 12 hr 75 mg PO BID Qty: 180 RF: 0 clonazepam 1 mg tablet 1 mg PO Q12H Qty: 60 RF: 3 tamsulosin [Flomax] 0.4 mg capsule 0.4 mg PO BEDTIME RF: 0 metoprolol succinate 25 mg tablet extended release 24 hr 25 mg PO BID 90 Days Qty: 180 RF: 0 magnesium oxide 400 mg capsule 400 mg PO BID RF: 0 nitroglycerin [Nitrostat] 0.4 mg tablet, sublingual 0.4 mg Sublingual PRN PRN (Reason: chest pain) Qty: 4 RF: PRN hydrocortisone 2.5 % cream 1 applictn TOP BID Qty: 30 RF: 1 atorvastatin 40 mg Tablet 40 mg PO DAILY RF: 0 alprazolam 0.25 mg Tablet 0.25 mg PO BID PRN (Reason: Anxiety) RF: 0 melatonin 10 mg Tablet 2 tab PO BEDTIME RF: 0 trazodone 50 MG tablet 50 - 100 mg PO HS PRN (Reason: Sleep) RF: 0 Referrals: Tim Pemberton MD [Primary Care Provider] -
[2018-08-05 09:34] LABS: Appearance Urine UA CLEAR; Bilirubin Urine UA NEGATIVE (NEGATIVE); Color Urine UA YELLOW; Glucose Urine UA NEGATIVE (Negative); Ketones Urine UA NEGATIVE (NEGATIVE); Leukocyte Esterase Urine UA TRACE (NEGATIVE); Nitrite Urine UA NEGATIVE (Negative); Occult Blood Urine UA TRACE-INTACT (Negative); Protein Urine UA 1+ (Negative); Specific Gravity Urine UA 1.015 (1.000-1.035); Urobilinogen Urine UA 0.2 E.U./dL (0.2); pH Urine UA 6.5 (4.5-8.0)
[2018-08-05 09:37] VITALS: BP 122/58; PULSE 58; RESP 12; O2SAT 98
[2018-08-05 09:47] LABS: Bacteria Urine Few (2-10); Culture Indicated Urine Specimen Cultured; RBC Urine 1-5/HPF (0-5/HPF); Squamous Epithelial Cell Urine 0-1 /HPF (0-5/HPF); WBC Urine 5-10/HPF (0-5/HPF)
== END 2018-08-05 10:11 | disposition home or self-care (01) ==
PROVIDERS: Emergency Provider Emergency Medicine; PCP Internal Medicine
DX: R33.8 Other retention of urine (principal); R06.02 Shortness of breath
CPT/HCPCS: 51701; 51705; 51798; 81001; 87086; 93005; 93010; 99283

== ENCOUNTER → 2018-12-26 14:48 | Outpatient (CLI) | payer MEDICARE, OTHER, SELFPAY ==
[2018-12-26 17:16] LABS: Prostate Specific Antigen < 0.064 ng/mL (0.10-4.00)
== END ==
PROVIDERS: Family Provider Urology; PCP Internal Medicine; Visit Provider Radiology Radiation Oncology
DX: C61 Malignant neoplasm of prostate (principal)
CPT/HCPCS: 36415; 84153

== ENCOUNTER → 2019-04-28 10:47 | Outpatient (CLI) | payer MEDICARE, OTHER, SELFPAY ==
[2019-04-28 12:55] LABS: Alanine Aminotransferase 19 IU/L (<50); Albumin 4.4 g/dL (3.5-5.0); Albumin Globulin Ratio 1.3 (1.0-2.8); Alkaline Phosphatase 72 U/L (38-126); Aspartate Aminotransferase 27 IU/L (17-59); Bilirubin Total 0.5 mg/dL (0.2-1.3); Blood Urea Nitrogen 10 mg/dL (9-20); Calcium 9.8 mg/dL (8.4-10.2); Carbon Dioxide 28 mmol/L (22-32); Chloride 103 mmol/L (98-107); Cholesterol 197 mg/dL (140-199); Estimated Glomerular Filt Rate > 60.0 mL/min (>60); Globulin 3.5 g/dL (1.7-4.1); Glucose 115 mg/dL (80-110); HDL Cholesterol 46 mg/dL (40-60); HEMOLYSIS < 15 (0-50); LDL Cholesterol Calculated 115 mg/dL (<100); Potassium 3.6 mmol/L (3.4-5.1); Sodium 142 mmol/L (137-145); Total Protein 7.9 g/dL (6.3-8.2); Triglycerides 182 mg/dL (35-150)
[2019-04-30 18:04] LABS: PSA Post Prostatectomy 0.02 ng/mL
== END ==
PROVIDERS: PCP Internal Medicine; Referring Provider Internal Medicine; Visit Provider Internal Medicine
DX: E78.5 Hyperlipidemia, unspecified (principal); I10 Essential (primary) hypertension; I48.0 Paroxysmal atrial fibrillation; C61 Malignant neoplasm of prostate
CPT/HCPCS: 36415; 80053; 80061; 84153

== ENCOUNTER 2019-05-22 13:45 | Outpatient (RCR) | payer MEDICARE, OTHER, SELFPAY ==
--- NOTE | 2019-03-27 18:43 | PT.OIE ---
Current Diagnoses Unspecified abnormalities of gait and mobility (03/27/19) Past Medical History (Last Updated 08/08/18 @ 15:10 by Tim Pemberton MD) Alcoholism (Inactive) Alcoholism in recovery (Inactive 01/10/16) Atherosclerosis of [place] coronary artery of [place] heart without angina pectoris (Chronic 12/22/14) Atrial flutter (Resolved) Depression (Chronic 12/22/14) Essential hypertension (Chronic 12/22/14) Former smoker (Inactive 01/15/15) Generalized anxiety disorder (Chronic) Hx of adenomatous colonic polyps (Chronic 12/22/10) Hyperlipidemia (Chronic) Malignant neoplasm of prostate (Chronic 12/22/10) MRSA (methicillin resistant staph aureus) culture positive (Inactive) Paroxysmal atrial fibrillation (Chronic 12/22/14) 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 (Inactive 12/22/14) Pulmonary emphysema (Chronic 12/22/14) Urinary retention (Inactive) Past Surgical History (Last Reviewed 08/05/18 @ 09:19 by Nani Goodwin DO) History of angioplasty (10/06/14) Inguinal hernia (Resolved) Status post appendectomy Status post transurethral resection of prostate (~05/2016) Visit Care Team Role Provider Type Tim Pemberton MD Attending Provider Physician Primary Care Provider Specialty: Internal Medicine Address: [address] [place] [address], [address], [facility] Email: [email or web address] Physical Therapy Initial Evaluation PT-OP-A Visit Information Start: 03/27/19 18:05 Freq: Status: Active Protocol: Document 03/27/19 15:20 HH (Rec: 03/27/19 18:43 [email or web address]) Out-Patient Physical Therapy Visit Information Visit Information Visit Type Initial Evaluation Visit Note Pt's spouse attended session Visit Start Time 15:20 Visit Stop Time 16:00 Total Visit Minutes 40 Visit Number 04/07 Number of SAMPLE CLERK Visits 0 Evaluation Information Evaluation Date 03/27/19 Precautions Precautions Pt has 2 stent surgery due to hx of heart attack COPD PT-OP-B Current Condition Start: 03/27/19 18:05 Freq: Status: Active Protocol: Document 03/27/19 15:20 HH (Rec: 03/27/19 18:43 [email or web address]) Current Condition History of Current Condition Onset Date 3 years ago Current Complaints Poor activity tolerance, decreased balance, fall risks History of Current Condition Pt is a 74 yo presented to clinic with primary c/o poor activity tolerance and decreased balance. Pt stated this is primarily due to his previous heart attack and dx with COPD 3-4 years ago which caused him to have 2 stent surgery. Pt was a former smoker but he stopped 3 years ago and switched to e- cigarette, who reports his lung function has been improving since then as his medical team stated. However, pt stated his endurance and strength has been declining since and he often felt lazy to be physically activie. He currently is only able to tolerate walking for few blocks before rest. He tends to get fatigue from grocery shopping and needed to use cart for support. He also has poor balance who tends to lose his balance while reaching forward and bending down. Pt has a drinking habit for >40 years who recently stopped drinking since June 2018 and has been visiting [facility] support [facility] twice every week. He has been using a hurrycane to amb on uneven surface such as parking lot, grass/ long distance walk, but able to amb without AD at home. 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 To improve activity tolerance in order to grocery shop without rest 2. To improve balance and able to take long steps. Personal Factors Other Personal Factors That May Effect Pt has 2 stent surgery due to Therapy/Recovery hx of heart attack COPD PT-OP-C Subjective Start: 03/27/19 18:05 Freq: Status: Active Protocol: Document 03/27/19 15:20 (Rec: 03/27/19 18:43 [email or web address]) OP-PT Subjective Patient Comments Patient Comments I want to get my stamina better. Patient Questionnaires Lower Extremity Functional Scale LEFS Score 40 LEFS Impairment 40 to 59% Impaired (Score 32- 47) PT-OP-D Balance Start: 03/27/19 18:05 Freq: Status: Active Protocol: Document 03/27/19 15:20 (Rec: 03/27/19 18:43 [email or web address]) Zayas Balance Assessment Evaluation Sitting to Standing Ability Independent w/out Hands Unsupported Stance Safely- 2 minutes Sitting Unsupported, Feet on Floor Safely- 2 minutes Standing to Sitting Ability Safely, Minimal Hand Use Transfer Ability Safely, Minimal Hand Use Unsupported Stance- Eyes Closed Safely, 10 seconds Unsupported Stance- Eyes Open Independent, 1 minute Reaching Forward Standing Safely, 5 inches Pick- Up Object From Floor Supervision Look Behind Shoulder - Standing Shifts Weight Well Turning 360 Degrees Turns slowly, but safely Unsupported Stance, Alternating Feet on (I)- 8 Steps in 20 secs Stair Unsupported Tandem Stance Balance Lost- Step/Stand Unilateral Leg Stance Lifts Leg/Unable to Hold Total Score Zyaas Total Score (out of 56 points) 45 Zayas Impairment Rating 1 to 19% Impaired (Score 45-55 ) PT-OP-E Functional Tests Start: 03/27/19 18:05 Freq: Status: Active Protocol: Document 03/27/19 15:20 (Rec: 03/27/19 18:43 [email or web address]) Functional Tests Dynamic Gait Index (DGI) Score 19 DGI Impairment Rating 20 to <40% Impaired (Score 15- 19) PT-OP-G Mobility & Gait Start: 03/27/19 18:05 Freq: Status: Active Protocol: Document 03/27/19 15:20 (Rec: 03/27/19 18:43 [email or web address]) OP Gait Assessment Gait Deviations General Gait Pattern Wide Based Gait Factors Limiting Gait Function Factors Limiting Gait Function Decreased Activity Tolerance, Poor Balance Comments Gait Comments pt tends to look down to floor during amb Stair Climbing Evaluation Devices Stair Climbing Assistive Devices Right Railing Technique/Endurance Stair Climbing Direction Ascend and Descend Stair Climbing Technique Step Over Step PT-OP-T Assessment and Plan Start: 03/27/19 18:05 Freq: Status: Active Protocol: Document 03/27/19 15:20 (Rec: 03/27/19 18:43 [email or web address]) Physical Therapy Assessment Rehab Potential Rehabilitation Potential Good Evaluation Complexity Number of Personal Factors/Comorbidities 3 or More Number of Body Systems Impaired 3 Clinical Presentation at Evaluation Stable Impairments Impairments Activity Tolerance,Balance, Functional Activities, Functional Mobility,Gait, Posture,Soft Tissue Mobility, Strength,Transfers Goals activity tolerance Impairment 6MWT= will assess on03/28 Mcfp Goal (LTG) Pt will be able to complete LTG Duration 10 weeks DGI Impairment pt scores 19 on DGI Mcfp Goal (LTG) Pt will score >22 for DGI in order to improve his gait stability and dynamic balance, in order to negotiate uneven surface without AD. LTG Duration 10 weeks ZAYAS Impairment pt scores 45 on ZAYAS Mcfp Goal (LTG) Pt will score >50 on ZAYAS to improve his overall balance and reduce his fall risks, in order for him to climb stair without using rails. LTG Duration 10 weeks LEFS Impairment Pt scores 40 for LEFS Short Term Goal (STG) Pt will score >48 (20-39%) on LEFS to improve his quality of life STG Duration 5 weeks Mcfp Goal (LTG) Pt will score >63 (1-19%) on LEFS to improve his overall functional mobility in a safe manner. LTG Duration 10 weeks Assessment Summary Assessment Pt is a mod complexity 74yo male presented to clinic with primariy c/o decreased activity tolerance and balance . Pt has a hx of heart attack, COPD and chronic alcohol abuse. Upon assessment, pt scores 45/56 for ZAYAS and 19/ 24 for DGI which both indicate low fall risks. Pt completed both tests safely and he primarily has difficulty in NBO, head turns during gait, obstacle course and multi tasking during gait. He did c/ o SOB and fatigue after both tests who was unable to complete 6MWT but will assess his endurance during next visit. Pt also has noticeable weakness on RLE during single leg stance which will be assessed as well for next visit. Pt will be a good candidate for skilled therapy to improve his overall cardiovascular endurance, static and dynamic balance, B LE strength and gait efficiency. Physical Therapy Plan Frequency and Duration Frequency of Treatment 2x/Week Duration of Treatment 10 weeks Plan of Care Start Date 03/27/19 Plan of Care End Date 06/10/19 Therapeutic Interventions Therapeutic Interventions Balance Training,Coordination Training,Gait Training,Home Exercise Program,Joint Mobilizations,Manual Therapy, Neuromuscular Re-education, Patient/Caregiver Education, Self-Care/Home Management,Soft Tissue Mobilization,Taping, Therapeutic Activities, Therapeutic Exercises, Vestibular Rehabilitation Modalities Cold Pack/Ice Massage,Electric Stimulation,Hot Packs, Infrared Therapy,Iontophoresis ,Ultrasound Next Visit Focus/Plan Next Note Type Treatment Note Next Visit Plan 6MWT, hip and knee strength, ankle ROM strength check BP/ VSS start with machine bike/ stepper balance board leg press walking
--- NOTE | 2019-03-27 18:43 | PT.OPPOC ---
Physical, Occupational & Speech Therapy At [facility] Current Diagnoses Unspecified abnormalities of gait and mobility (03/27/19) Visit Care Team Role Provider Type Tim Pemberton MD Attending Provider Physician Primary Care Provider Specialty: Internal Medicine Address: [address] [place] [address], [facility] [address], [address] Email: [email or web address] Plan Of Care PT-OP-T Assessment and Plan Start: 03/27/19 18:05 Freq: Status: Active Protocol: Document 03/27/19 15:20 HH (Rec: 03/27/19 18:43 [email or web address]) Physical Therapy Assessment Rehab Potential Rehabilitation Potential Good Evaluation Complexity Number of Personal Factors/Comorbidities 3 or More Number of Body Systems Impaired 3 Clinical Presentation at Evaluation Stable Impairments Impairments Activity Tolerance,Balance, Functional Activities, Functional Mobility,Gait, Posture,Soft Tissue Mobility, Strength,Transfers Goals activity tolerance Impairment 6MWT= will assess on03/28 Senior Living Goal (LTG) Pt will be able to complete LTG Duration 10 weeks DGI Impairment pt scores 19 on DGI Senior Living Goal (LTG) Pt will score >22 for DGI in order to improve his gait stability and dynamic balance, in order to negotiate uneven surface without AD. LTG Duration 10 weeks ZAYAS Impairment pt scores 45 on ZAYAS Technical Sme Goal (LTG) Pt will score >50 on ZAYAS to improve his overall balance and reduce his fall risks, in order for him to climb stair without using rails. LTG Duration 10 weeks LEFS Impairment Pt scores 40 for LEFS Short Term Goal (STG) Pt will score >48 (20-39%) on LEFS to improve his quality of life STG Duration 5 weeks Technical Sme Goal (LTG) Pt will score >63 (1-19%) on LEFS to improve his overall functional mobility in a safe manner. LTG Duration 10 weeks Assessment Summary Assessment Pt is a mod complexity 74yo male presented to clinic with primariy c/o decreased activity tolerance and balance . Pt has a hx of heart attack, COPD and chronic alcohol abuse. Upon assessment, pt scores 45/56 for ZAYAS and 19/ 24 for DGI which both indicate low fall risks. Pt completed both tests safely and he primarily has difficulty in NBO, head turns during gait, obstacle course and multi tasking during gait. He did c/ o SOB and fatigue after both tests who was unable to complete 6MWT but will assess his endurance during next visit. Pt also has noticeable weakness on RLE during single leg stance which will be assessed as well for next visit. Pt will be a good candidate for skilled therapy to improve his overall cardiovascular endurance, static and dynamic balance, B LE strength and gait efficiency. Physical Therapy Plan Frequency and Duration Frequency of Treatment 2x/Week Duration of Treatment 10 weeks Plan of Care Start Date 03/27/19 Plan of Care End Date 06/10/19 Therapeutic Interventions Therapeutic Interventions Balance Training,Coordination Training,Gait Training,Home Exercise Program,Joint Mobilizations,Manual Therapy, Neuromuscular Re-education, Patient/Caregiver Education, Self-Care/Home Management,Soft Tissue Mobilization,Taping, Therapeutic Activities, Therapeutic Exercises, Vestibular Rehabilitation Modalities Cold Pack/Ice Massage,Electric Stimulation,Hot Packs, Infrared Therapy,Iontophoresis ,Ultrasound Next Visit Focus/Plan Next Note Type Treatment Note Next Visit Plan 6MWT, hip and knee strength, ankle ROM strength check BP/ VSS start with machine bike/ stepper balance board leg press walking Plan of Care Dates Plan of Care Start Date 03/27/19 Plan of Care End Date 06/10/19 Electronically Signed by: Josh Colvin PT 03/27/19 [id number] Please Sign and Return: I have reviewed this Plan of Care and certify that the skilled therapy services above are required to meet the patient?s needs. Physician Signature Date Printed Name and Credentials Clinical Instructor Signature Printed Name and Credentials
--- NOTE | 2019-03-28 16:20 | PT.OTN ---
Current Diagnoses Unspecified abnormalities of gait and mobility (03/28/19) Physical Therapy Treatment Note PT-OP-A Visit Information Start: 03/27/19 18:05 Freq: Status: Active Protocol: Document 03/27/19 15:20 (Rec: 03/27/19 18:43 [email or web address]) Out-Patient Physical Therapy Visit Information Visit Information Visit Type Initial Evaluation Visit Note Pt's spouse attended session Visit Start Time 15:20 Visit Stop Time 16:00 Total Visit Minutes 40 Visit Number 04/07 Number of CORRECTIONAL OFFICER Visits 0 Evaluation Information Evaluation Date 03/27/19 Precautions Precautions Pt has 2 stent surgery due to hx of heart attack COPD PT-OP-B Current Condition Start: 03/27/19 18:05 Freq: Status: Active Protocol: Document 03/27/19 15:20 (Rec: 03/27/19 18:43 [email or web address]) Current Condition History of Current Condition Onset Date 3 years ago Current Complaints Poor activity tolerance, decreased balance, fall risks History of Current Condition Pt is a 74 yo presented to clinic with primary c/o poor activity tolerance and decreased balance. Pt stated this is primarily due to his previous heart attack and dx with COPD 3-4 years ago which caused him to have 2 stent surgery. Pt was a former smoker but he stopped 3 years ago and switched to e- cigarette, who reports his lung function has been improving since then as his medical team stated. However, pt stated his endurance and strength has been declining since and he often felt lazy to be physically activie. He currently is only able to tolerate walking for few blocks before rest. He tends to get fatigue from grocery shopping and needed to use cart for support. He also has poor balance who tends to lose his balance while reaching forward and bending down. Pt has a drinking habit for >40 years who recently stopped drinking since June 2018 and has been visiting [facility] support group twice every week. He has been using a hurrycane to amb on uneven surface such as parking lot, grass/ long distance walk, but able to amb without AD at home. 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 To improve activity tolerance in order to grocery shop without rest 2. To improve balance and able to take long steps. Personal Factors Other Personal Factors That May Effect Pt has 2 stent surgery due to Therapy/Recovery hx of heart attack COPD PT-OP-C Subjective Start: 03/27/19 18:05 Freq: Status: Active Protocol: Document 03/28/19 13:45 (Rec: 03/28/19 16:19 [id number]) OP-PT Subjective Patient Comments Patient Comments PT-OP-D Balance Start: 03/27/19 18:05 Freq: Status: Active Protocol: Document 03/27/19 15:20 (Rec: 03/27/19 18:43 [email or web address]) Zayas Balance Assessment Evaluation Sitting to Standing Ability Independent w/out Hands Unsupported Stance Safely- 2 minutes Sitting Unsupported, Feet on Floor Safely- 2 minutes Standing to Sitting Ability Safely, Minimal Hand Use Transfer Ability Safely, Minimal Hand Use Unsupported Stance- Eyes Closed Safely, 10 seconds Unsupported Stance- Eyes Open Independent, 1 minute Reaching Forward Standing Safely, 5 inches Pick- Up Object From Floor Supervision Look Behind Shoulder - Standing Shifts Weight Well Turning 360 Degrees Turns slowly, but safely Unsupported Stance, Alternating Feet on (I)- 8 Steps in 20 secs Stair Unsupported Tandem Stance Balance Lost- Step/Stand Unilateral Leg Stance Lifts Leg/Unable to Hold Total Score Zayas Total Score (out of 56 points) 45 Zayas Impairment Rating 1 to 19% Impaired (Score 45-55 ) PT-OP-E Functional Tests Start: 03/27/19 18:05 Freq: Status: Active Protocol: Document 03/28/19 13:45 (Rec: 03/28/19 16:19 [id number]) Functional Tests 6 Minute Walk Test Distance 851 Device Used none Comments first break at 1min 40 sec jaun, 2nd at 1min 30 sec, 3rd at 40 sec, 4th @30 PT-OP-G Mobility & Gait Start: 03/27/19 18:05 Freq: Status: Active Protocol: Document 03/27/19 15:20 (Rec: 03/27/19 18:43 [email or web address]) OP Gait Assessment Gait Deviations General Gait Pattern Wide Based Gait Factors Limiting Gait Function Factors Limiting Gait Function Decreased Activity Tolerance, Poor Balance Comments Gait Comments pt tends to look down to floor during amb Stair Climbing Evaluation Devices Stair Climbing Assistive Devices Right Railing Technique/Endurance Stair Climbing Direction Ascend and Descend Stair Climbing Technique Step Over Step PT-OP-M Strength Start: 03/27/19 18:05 Freq: Status: Active Protocol: Document 03/28/19 13:45 (Rec: 03/28/19 16:19 [id number]) Hip Strength Hip Manual Muscle Testing Left Flexion (L2) 4+ Good+ Extension (S1) 4 Good Abduction 4 Good Right Flexion (L2) 3+ Fair+ Extension (S1) 3+ Fair+ Abduction 3+ Fair+ Knee Strength Knee Manual Muscle Testing Left Flexion (S2) 4+ Good+ Extension (L3) 4+ Good+ Right Flexion (S2) 4+ Good+ Extension (L3) 4 Good Ankle/Foot Strength Ankle and Foot Manual Muscle Testing Right Dorsiflexion (L4) 4 Good Plantarflexion (S1) 4 Good Left Dorsiflexion (L4) 4 Good Plantarflexion (S1) 4 Good PT-OP-Q Treatments Start: 03/27/19 18:05 Freq: Status: Active Protocol: Document 03/28/19 13:45 (Rec: 03/28/19 16:19 [id number]) Cardio Equipment Recumbent Stepper (Sci-Fit) Duration (Minutes) 5 Resistance RPM 50 Therapeutic Exercises Sitting Exercises seated hip flexion Side bilateral Reps/Minutes 10 x2 Comments cues on avoiding trunk lean Standing Exercises standing hip flexion Side bilateral Equipment Used support on grab bar. Reps/Minutes 10 x2 Comments cues on avoiding trunk lean PT-OP-T Assessment and Plan Start: 03/27/19 18:05 Freq: Status: Active Protocol: Document 03/28/19 13:45 (Rec: 03/28/19 16:19 [id number]) Physical Therapy Assessment Goals activity tolerance Impairment 6MWT= 851 ft without AD Short Term Goal (STG) Pt will be able to complete 1000 ft without AD with 3 breaks for 6 MWT to improve overall stamina for grocery shop and community walking STG Duration 5 weeks Dispatcher Relay Goal (LTG) Pt will be able to complete 1200 ft without AD with 2 breaks for 6 MWT to improve overall stamina for grocery shop and community walking LTG Duration 10 weeks DGI Impairment pt scores 19 on DGI Group Home Goal (LTG) Pt will score >22 for DGI in order to improve his gait stability and dynamic balance, in order to negotiate uneven surface without AD. LTG Duration 10 weeks ZAYAS Impairment pt scores 45 on ZAYAS Group Home Goal (LTG) Pt will score >50 on ZAYAS to improve his overall balance and reduce his fall risks, in order for him to climb stair without using rails. LTG Duration 10 weeks LEFS Impairment Pt scores 40 for LEFS Short Term Goal (STG) Pt will score >48 (20-39%) on LEFS to improve his quality of life STG Duration 5 weeks Dispatcher Relay Goal (LTG) Pt will score >63 (1-19%) on LEFS to improve his overall functional mobility in a safe manner. LTG Duration 10 weeks Assessment Summary Assessment 6MWT= 851 without AD but took 5 rest breaks due to fatigue. HR reached to >90s and O2 Sat at >95%. There's noticeable R hip weakness for flexion and abd 3+/5 which possibly caused his antalgic gait during 6MWT . Added daily walking program x20 mins, seated hip flexion and standing hip flexion for HEP. Physical Therapy Plan Next Visit Focus/Plan Next Note Type Treatment Note Next Visit Plan check tolerance start with machine bike/ stepper hip strengthening flexion and abd balance board leg press walking
--- NOTE | 2019-04-04 16:12 | PT.OTN ---
Current Diagnoses Unspecified abnormalities of gait and mobility (04/04/19) Physical Therapy Treatment Note PT-OP-A Visit Information Start: 03/27/19 18:05 Freq: Status: Active Protocol: Document 04/04/19 13:46 HH (Rec: 04/04/19 15:19 HH [id number]) Out-Patient Physical Therapy Visit Information Visit Information Visit Type Treatment Note Visit Start Time 13:50 Visit Stop Time 14:30 Total Visit Minutes 40 Visit Number 06/05 Number of TALENT ACQUISITION LEAD Visits 0 PT-OP-B Current Condition Start: 03/27/19 18:05 Freq: Status: Active Protocol: Document 03/27/19 15:20 HH (Rec: 03/27/19 18:43 HH [email or web address]) Current Condition History of Current Condition Onset Date 3 years ago Current Complaints Poor activity tolerance, decreased balance, fall risks History of Current Condition Pt is a 74 yo presented to clinic with primary c/o poor activity tolerance and decreased balance. Pt stated this is primarily due to his previous heart attack and dx with COPD 3-4 years ago which caused him to have 2 stent surgery. Pt was a former smoker but he stopped 3 years ago and switched to e- cigarette, who reports his lung function has been improving since then as his medical team stated. However, pt stated his endurance and strength has been declining since and he often felt lazy to be physically activie. He currently is only able to tolerate walking for few blocks before rest. He tends to get fatigue from grocery shopping and needed to use cart for support. He also has poor balance who tends to lose his balance while reaching forward and bending down. Pt has a drinking habit for >40 years who recently stopped drinking since June 2018 and has been visiting [facility] support group twice every week. He has been using a hurrycane to amb on uneven surface such as parking lot, grass/ long distance walk, but able to amb without AD at home. 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 To improve activity tolerance in order to grocery shop without rest 2. To improve balance and able to take long steps. Personal Factors Other Personal Factors That May Effect Pt has 2 stent surgery due to Therapy/Recovery hx of heart attack COPD PT-OP-C Subjective Start: 03/27/19 18:05 Freq: Status: Active Protocol: Document 04/04/19 13:46 HH (Rec: 04/04/19 15:19 [id number]) OP-PT Subjective Patient Comments Patient Comments i havent been doing my ex and walking due to the weather. PT-OP-D Balance Start: 03/27/19 18:05 Freq: Status: Active Protocol: Document 03/27/19 15:20 HH (Rec: 03/27/19 18:43 [email or web address]) Zayas Balance Assessment Evaluation Sitting to Standing Ability Independent w/out Hands Unsupported Stance Safely- 2 minutes Sitting Unsupported, Feet on Floor Safely- 2 minutes Standing to Sitting Ability Safely, Minimal Hand Use Transfer Ability Safely, Minimal Hand Use Unsupported Stance- Eyes Closed Safely, 10 seconds Unsupported Stance- Eyes Open Independent, 1 minute Reaching Forward Standing Safely, 5 inches Pick- Up Object From Floor Supervision Look Behind Shoulder - Standing Shifts Weight Well Turning 360 Degrees Turns slowly, but safely Unsupported Stance, Alternating Feet on (I)- 8 Steps in 20 secs Stair Unsupported Tandem Stance Balance Lost- Step/Stand Unilateral Leg Stance Lifts Leg/Unable to Hold Total Score Zayas Total Score (out of 56 points) 45 Zayas Impairment Rating 1 to 19% Impaired (Score 45-55 ) PT-OP-E Functional Tests Start: 03/27/19 18:05 Freq: Status: Active Protocol: Document 03/28/19 13:45 (Rec: 03/28/19 16:19 [id number]) Functional Tests 6 Minute Walk Test Distance 851 Device Used none Comments first break at 1min 40 sec jaun, 2nd at 1min 30 sec, 3rd at 40 sec, 4th @30 PT-OP-G Mobility & Gait Start: 03/27/19 18:05 Freq: Status: Active Protocol: Document 03/27/19 15:20 (Rec: 03/27/19 18:43 [email or web address]) OP Gait Assessment Gait Deviations General Gait Pattern Wide Based Gait Factors Limiting Gait Function Factors Limiting Gait Function Decreased Activity Tolerance, Poor Balance Comments Gait Comments pt tends to look down to floor during amb Stair Climbing Evaluation Devices Stair Climbing Assistive Devices Right Railing Technique/Endurance Stair Climbing Direction Ascend and Descend Stair Climbing Technique Step Over Step PT-OP-M Strength Start: 03/27/19 18:05 Freq: Status: Active Protocol: Document 03/28/19 13:45 HH (Rec: 03/28/19 16:19 [id number]) Hip Strength Hip Manual Muscle Testing Left Flexion (L2) 4+ Good+ Extension (S1) 4 Good Abduction 4 Good Right Flexion (L2) 3+ Fair+ Extension (S1) 3+ Fair+ Abduction 3+ Fair+ Knee Strength Knee Manual Muscle Testing Left Flexion (S2) 4+ Good+ Extension (L3) 4+ Good+ Right Flexion (S2) 4+ Good+ Extension (L3) 4 Good Ankle/Foot Strength Ankle and Foot Manual Muscle Testing Right Dorsiflexion (L4) 4 Good Plantarflexion (S1) 4 Good Left Dorsiflexion (L4) 4 Good Plantarflexion (S1) 4 Good PT-OP-Q Treatments Start: 03/27/19 18:05 Freq: Status: Active Protocol: Document 04/04/19 13:46 HH (Rec: 04/04/19 15:19 [id number]) Cardio Equipment Recumbent Stepper (Sci-Fit) Duration (Minutes) 5 Resistance RPM 50 Recumbent Bicycle Duration (Minutes) 5 Resistance 5 Gym Equipment Shuttle Recovery SL squat Resistance 50# Shuttle Recovery Platform Stable Reps/Time alternate, B squat Resistance 75# Shuttle Recovery Platform Stable Reps/Time 20 x1 Shuttle Rebound red Exercise Details with gait belt, red color, Reps/Duration 6 mins Comments ankle rock with 1 UE/ w/o support Therapeutic Exercises Standing Exercises toe tap Standing Exercise Name on stairs (6 inch) Side bilateral Reps/Minutes 8 x 3 standing hip flexion Standing Exercise Name 1 UE support Side bilateral Equipment Used support on grab bar, hurdles Reps/Minutes 10 x5 Comments cues on avoiding trunk lean Gait Training Gait Activity interval walking Description 1 min walk f/b 30 secs break x 5 Device Used no AD Surface ground level Comments pt is able to amb ~150 ft every minute PT-OP-T Assessment and Plan Start: 03/27/19 18:05 Freq: Status: Active Protocol: Document 04/04/19 13:46 (Rec: 04/04/19 15:19 [id number]) Physical Therapy Assessment Goals activity tolerance Impairment 6MWT= 851 ft without AD Short Term Goal (STG) Pt will be able to complete 1000 ft without AD with 3 breaks for 6 MWT to improve overall stamina for grocery shop and community walking STG Duration 5 weeks Railroad Car Truck Builder Goal (LTG) Pt will be able to complete 1200 ft without AD with 2 breaks for 6 MWT to improve overall stamina for grocery shop and community walking LTG Duration 10 weeks DGI Impairment pt scores 19 on DGI Alf Goal (LTG) Pt will score >22 for DGI in order to improve his gait stability and dynamic balance, in order to negotiate uneven surface without AD. LTG Duration 10 weeks ZAYAS Impairment pt scores 45 on ZAYAS Alf Goal (LTG) Pt will score >50 on ZAYAS to improve his overall balance and reduce his fall risks, in order for him to climb stair without using rails. LTG Duration 10 weeks LEFS Impairment Pt scores 40 for LEFS Short Term Goal (STG) Pt will score >48 (20-39%) on LEFS to improve his quality of life STG Duration 5 weeks Alf Goal (LTG) Pt will score >63 (1-19%) on LEFS to improve his overall functional mobility in a safe manner. LTG Duration 10 weeks Assessment Summary Assessment Pt wilson tx very well. He tends to take break for every 5-6 mins of therex. Started interval walking program today 1min walk f/b 30 break x 5. Physical Therapy Plan Next Visit Focus/Plan Next Note Type Treatment Note Next Visit Plan check tolerance start with machine bike/ stepper hip strengthening flexion and abd balance board leg press walking
--- NOTE | 2019-04-07 15:14 | PT.OTN ---
Current Diagnoses Unspecified abnormalities of gait and mobility (04/07/19) Physical Therapy Treatment Note PT-OP-A Visit Information Start: 03/27/19 18:05 Freq: Status: Active Protocol: Document 04/07/19 14:30 DCW (Rec: 04/07/19 15:14 DCW [id number]) Out-Patient Physical Therapy Visit Information Visit Information Visit Type Treatment Note Visit Note Pt's spouse attended session Visit Start Time 14:30 Visit Stop Time 15:15 Total Visit Minutes 45 Visit Number 07/06 Number of LICENSED VOCATIONAL NURSE Visits 0 Evaluation Information Evaluation Date 03/27/19 Precautions Precautions Pt has 2 stent surgery due to hx of heart attack COPD PT-OP-B Current Condition Start: 03/27/19 18:05 Freq: Status: Active Protocol: Document 03/27/19 15:20 HH (Rec: 03/27/19 18:43 HH [email or web address]) Current Condition History of Current Condition Onset Date 3 years ago Current Complaints Poor activity tolerance, decreased balance, fall risks History of Current Condition Pt is a 74 yo presented to clinic with primary c/o poor activity tolerance and decreased balance. Pt stated this is primarily due to his previous heart attack and dx with COPD 3-4 years ago which caused him to have 2 stent surgery. Pt was a former smoker but he stopped 3 years ago and switched to e- cigarette, who reports his lung function has been improving since then as his medical team stated. However, pt stated his endurance and strength has been declining since and he often felt lazy to be physically activie. He currently is only able to tolerate walking for few blocks before rest. He tends to get fatigue from grocery shopping and needed to use cart for support. He also has poor balance who tends to lose his balance while reaching forward and bending down. Pt has a drinking habit for >40 years who recently stopped drinking since June 2018 and has been visiting [facility] support group twice every week. He has been using a hurrycane to amb on uneven surface such as parking lot, grass/ long distance walk, but able to amb without AD at home. 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 To improve activity tolerance in order to grocery shop without rest 2. To improve balance and able to take long steps. Personal Factors Other Personal Factors That May Effect Pt has 2 stent surgery due to Therapy/Recovery hx of heart attack COPD PT-OP-C Subjective Start: 03/27/19 18:05 Freq: Status: Active Protocol: Document 04/07/19 14:30 DCW (Rec: 04/07/19 15:14 DCW [id number]) OP-PT Subjective Patient Comments Patient Comments So far it's been going okay. I've been doing the exercises at home, not every day, but probably every other day. I haven't really been able to get out walking because of the snow. PT-OP-D Balance Start: 03/27/19 18:05 Freq: Status: Active Protocol: Document 03/27/19 15:20 HH (Rec: 03/27/19 18:43 HH [email or web address]) Zayas Balance Assessment Evaluation Sitting to Standing Ability Independent w/out Hands Unsupported Stance Safely- 2 minutes Sitting Unsupported, Feet on Floor Safely- 2 minutes Standing to Sitting Ability Safely, Minimal Hand Use Transfer Ability Safely, Minimal Hand Use Unsupported Stance- Eyes Closed Safely, 10 seconds Unsupported Stance- Eyes Open Independent, 1 minute Reaching Forward Standing Safely, 5 inches Pick- Up Object From Floor Supervision Look Behind Shoulder - Standing Shifts Weight Well Turning 360 Degrees Turns slowly, but safely Unsupported Stance, Alternating Feet on (I)- 8 Steps in 20 secs Stair Unsupported Tandem Stance Balance Lost- Step/Stand Unilateral Leg Stance Lifts Leg/Unable to Hold Total Score Zayas Total Score (out of 56 points) 45 Zayas Impairment Rating 1 to 19% Impaired (Score 45-55 ) PT-OP-E Functional Tests Start: 03/27/19 18:05 Freq: Status: Active Protocol: Document 03/28/19 13:45 HH (Rec: 03/28/19 16:19 HH [id number]) Functional Tests 6 Minute Walk Test Distance 851 Device Used none Comments first break at 1min 40 sec jaun, 2nd at 1min 30 sec, 3rd at 40 sec, 4th @30 PT-OP-G Mobility & Gait Start: 03/27/19 18:05 Freq: Status: Active Protocol: Document 03/27/19 15:20 HH (Rec: 03/27/19 18:43 HH [email or web address]) OP Gait Assessment Gait Deviations General Gait Pattern Wide Based Gait Factors Limiting Gait Function Factors Limiting Gait Function Decreased Activity Tolerance, Poor Balance Comments Gait Comments pt tends to look down to floor during amb Stair Climbing Evaluation Devices Stair Climbing Assistive Devices Right Railing Technique/Endurance Stair Climbing Direction Ascend and Descend Stair Climbing Technique Step Over Step PT-OP-M Strength Start: 03/27/19 18:05 Freq: Status: Active Protocol: Document 03/28/19 13:45 HH (Rec: 03/28/19 16:19 HH [id number]) Hip Strength Hip Manual Muscle Testing Left Flexion (L2) 4+ Good+ Extension (S1) 4 Good Abduction 4 Good Right Flexion (L2) 3+ Fair+ Extension (S1) 3+ Fair+ Abduction 3+ Fair+ Knee Strength Knee Manual Muscle Testing Left Flexion (S2) 4+ Good+ Extension (L3) 4+ Good+ Right Flexion (S2) 4+ Good+ Extension (L3) 4 Good Ankle/Foot Strength Ankle and Foot Manual Muscle Testing Right Dorsiflexion (L4) 4 Good Plantarflexion (S1) 4 Good Left Dorsiflexion (L4) 4 Good Plantarflexion (S1) 4 Good PT-OP-Q Treatments Start: 03/27/19 18:05 Freq: Status: Active Protocol: Document 04/07/19 14:30 DCW (Rec: 04/07/19 15:14 DCW [id number]) Cardio Equipment Recumbent Bicycle Duration (Minutes) 5 Resistance 5 Seat Position 8 Gym Equipment Shuttle Recovery SL squat Resistance 50# Shuttle Recovery Platform Stable Reps/Time 2x10 B squat Resistance 75# Shuttle Recovery Platform Stable Reps/Time 2x10 Shuttle Rebound red Exercise Details with gait belt, red color, Reps/Duration 10 mins Comments Wide NAKUL, Staggered Therapeutic Exercises Sitting Exercises Hip Abduction Sitting Exercise Name Abduction Side bilateral Resistance Lv 2 Equipment Used T-band Standing Exercises toe tap Standing Exercise Name on stairs (6 inch) Side bilateral Resistance 3# Reps/Minutes 8 x 3 standing hip flexion Standing Exercise Name 1 UE support Side bilateral Equipment Used support on grab bar, hurdles Reps/Minutes 10 x5 Comments cues on avoiding trunk lean PT-OP-T Assessment and Plan Start: 03/27/19 18:05 Freq: Status: Active Protocol: Document 04/07/19 14:30 DCW (Rec: 04/07/19 15:14 DCW [id number]) Physical Therapy Assessment Goals activity tolerance Impairment 6MWT= 851 ft without AD Short Term Goal (STG) Pt will be able to complete 1000 ft without AD with 3 breaks for 6 MWT to improve overall stamina for grocery shop and community walking STG Duration 5 weeks Mcfp Goal (LTG) Pt will be able to complete 1200 ft without AD with 2 breaks for 6 MWT to improve overall stamina for grocery shop and community walking LTG Duration 10 weeks DGI Impairment pt scores 19 on DGI Envelope Press Operator Goal (LTG) Pt will score >22 for DGI in order to improve his gait stability and dynamic balance, in order to negotiate uneven surface without AD. LTG Duration 10 weeks ZAYAS Impairment pt scores 45 on ZAYAS Mcfp Goal (LTG) Pt will score >50 on ZAYAS to improve his overall balance and reduce his fall risks, in order for him to climb stair without using rails. LTG Duration 10 weeks LEFS Impairment Pt scores 40 for LEFS Short Term Goal (STG) Pt will score >48 (20-39%) on LEFS to improve his quality of life STG Duration 5 weeks Envelope Press Operator Goal (LTG) Pt will score >63 (1-19%) on LEFS to improve his overall functional mobility in a safe manner. LTG Duration 10 weeks Assessment Summary Assessment Pt continues to fatigue quickly during treatment, however is back to work after minimal work break. At this time, pt's fatigue appears to limit him more than his weakness or gait. Physical Therapy Plan Frequency and Duration Frequency of Treatment 2x/Week Duration of Treatment 10 weeks Plan of Care Start Date 03/27/19 Plan of Care End Date 06/10/19 Next Visit Focus/Plan Next Note Type Treatment Note Next Visit Plan hip strengthening flexion and abd balance board leg press walking
--- NOTE | 2019-04-15 17:41 | PT.OTN ---
Current Diagnoses Unspecified abnormalities of gait and mobility (04/15/19) Physical Therapy Treatment Note PT-OP-A Visit Information Start: 03/27/19 18:05 Freq: Status: Active Protocol: Document 04/15/19 16:55 MB (Rec: 04/15/19 17:41 MB [id number]) Out-Patient Physical Therapy Visit Information Visit Information Visit Type Treatment Note Visit Note Pt arrives late to appointment Visit Start Time 16:55 Visit Stop Time 17:40 Total Visit Minutes 45 Visit Number 08/05 Number of MOTOR CHECKER Visits 0 PT-OP-B Current Condition Start: 03/27/19 18:05 Freq: Status: Active Protocol: Document 03/27/19 15:20 HH (Rec: 03/27/19 18:43 HH [email or web address]) Current Condition History of Current Condition Onset Date 3 years ago Current Complaints Poor activity tolerance, decreased balance, fall risks History of Current Condition Pt is a 74 yo presented to clinic with primary c/o poor activity tolerance and decreased balance. Pt stated this is primarily due to his previous heart attack and dx with COPD 3-4 years ago which caused him to have 2 stent surgery. Pt was a former smoker but he stopped 3 years ago and switched to e- cigarette, who reports his lung function has been improving since then as his medical team stated. However, pt stated his endurance and strength has been declining since and he often felt lazy to be physically activie. He currently is only able to tolerate walking for few blocks before rest. He tends to get fatigue from grocery shopping and needed to use cart for support. He also has poor balance who tends to lose his balance while reaching forward and bending down. Pt has a drinking habit for >40 years who recently stopped drinking since June 2018 and has been visiting [facility] support group twice every week. He has been using a hurrycane to amb on uneven surface such as parking lot, grass/ long distance walk, but able to amb without AD at home. 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 To improve activity tolerance in order to grocery shop without rest 2. To improve balance and able to take long steps. Personal Factors Other Personal Factors That May Effect Pt has 2 stent surgery due to Therapy/Recovery hx of heart attack COPD PT-OP-C Subjective Start: 03/27/19 18:05 Freq: Status: Active Protocol: Document 04/15/19 16:55 MB (Rec: 04/15/19 17:41 MB [id number]) OP-PT Subjective Patient Comments Patient Comments Pt states that he is late d/t eye doctor appointment. PT-OP-D Balance Start: 03/27/19 18:05 Freq: Status: Active Protocol: Document 03/27/19 15:20 (Rec: 03/27/19 18:43 HH [email or web address]) Zayas Balance Assessment Evaluation Sitting to Standing Ability Independent w/out Hands Unsupported Stance Safely- 2 minutes Sitting Unsupported, Feet on Floor Safely- 2 minutes Standing to Sitting Ability Safely, Minimal Hand Use Transfer Ability Safely, Minimal Hand Use Unsupported Stance- Eyes Closed Safely, 10 seconds Unsupported Stance- Eyes Open Independent, 1 minute Reaching Forward Standing Safely, 5 inches Pick- Up Object From Floor Supervision Look Behind Shoulder - Standing Shifts Weight Well Turning 360 Degrees Turns slowly, but safely Unsupported Stance, Alternating Feet on (I)- 8 Steps in 20 secs Stair Unsupported Tandem Stance Balance Lost- Step/Stand Unilateral Leg Stance Lifts Leg/Unable to Hold Total Score Zayas Total Score (out of 56 points) 45 Zayas Impairment Rating 1 to 19% Impaired (Score 45-55 ) PT-OP-E Functional Tests Start: 03/27/19 18:05 Freq: Status: Active Protocol: Document 03/28/19 13:45 (Rec: 03/28/19 16:19 [id number]) Functional Tests 6 Minute Walk Test Distance 851 Device Used none Comments first break at 1min 40 sec jaun, 2nd at 1min 30 sec, 3rd at 40 sec, 4th @30 PT-OP-G Mobility & Gait Start: 03/27/19 18:05 Freq: Status: Active Protocol: Document 03/27/19 15:20 (Rec: 03/27/19 18:43 [email or web address]) OP Gait Assessment Gait Deviations General Gait Pattern Wide Based Gait Factors Limiting Gait Function Factors Limiting Gait Function Decreased Activity Tolerance, Poor Balance Comments Gait Comments pt tends to look down to floor during amb Stair Climbing Evaluation Devices Stair Climbing Assistive Devices Right Railing Technique/Endurance Stair Climbing Direction Ascend and Descend Stair Climbing Technique Step Over Step PT-OP-M Strength Start: 03/27/19 18:05 Freq: Status: Active Protocol: Document 03/28/19 13:45 HH (Rec: 03/28/19 16:19 HH [id number]) Hip Strength Hip Manual Muscle Testing Left Flexion (L2) 4+ Good+ Extension (S1) 4 Good Abduction 4 Good Right Flexion (L2) 3+ Fair+ Extension (S1) 3+ Fair+ Abduction 3+ Fair+ Knee Strength Knee Manual Muscle Testing Left Flexion (S2) 4+ Good+ Extension (L3) 4+ Good+ Right Flexion (S2) 4+ Good+ Extension (L3) 4 Good Ankle/Foot Strength Ankle and Foot Manual Muscle Testing Right Dorsiflexion (L4) 4 Good Plantarflexion (S1) 4 Good Left Dorsiflexion (L4) 4 Good Plantarflexion (S1) 4 Good PT-OP-Q Treatments Start: 03/27/19 18:05 Freq: Status: Active Protocol: Document 04/15/19 16:55 MB (Rec: 04/15/19 17:41 MB [id number]) Cardio Equipment Upper Body Ergometer (UBE) Duration (Minutes) 5 Other 2.5' forward and 2.5' backwards Recumbent Stepper (Sci-Fit) Duration (Minutes) 5 Resistance 1.5-2 Gym Equipment Shuttle Recovery SL squat Resistance 62#, 75# Reps/Time 15x2 then 15'x1 Therapeutic Exercises Sitting Exercises Sit to stands Comments 30 sec: 6 reps, also reviewed for HEP and provided handout Gait Training Gait Activity Gait with SPC left hand Comments Pt arrives with tall upright cane in right hand and he moves it every 4 steps. 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 He is able to hold SPC with left hand. 10 trials of gait with SPC in left hand and pt requires tactile and VCs PT-OP-T Assessment and Plan Start: 03/27/19 18:05 Freq: Status: Active Protocol: Document 04/15/19 16:55 MB (Rec: 04/15/19 17:41 MB [id number]) Physical Therapy Assessment Goals activity tolerance Impairment 6MWT= 851 ft without AD Short Term Goal (STG) Pt will be able to complete 1000 ft without AD with 3 breaks for 6 MWT to improve overall stamina for grocery shop and community walking STG Duration 5 weeks Dispatcher Service Or Work Goal (LTG) Pt will be able to complete 1200 ft without AD with 2 breaks for 6 MWT to improve overall stamina for grocery shop and community walking LTG Duration 10 weeks DGI Impairment pt scores 19 on DGI Dispatcher Service Or Work Goal (LTG) Pt will score >22 for DGI in order to improve his gait stability and dynamic balance, in order to negotiate uneven surface without AD. LTG Duration 10 weeks ZAYAS Impairment pt scores 45 on ZAYAS Retirement Goal (LTG) Pt will score >50 on ZAYAS to improve his overall balance and reduce his fall risks, in order for him to climb stair without using rails. LTG Duration 10 weeks LEFS Impairment Pt scores 40 for LEFS Short Term Goal (STG) Pt will score >48 (20-39%) on LEFS to improve his quality of life STG Duration 5 weeks Dispatcher Service Or Work Goal (LTG) Pt will score >63 (1-19%) on LEFS to improve his overall functional mobility in a safe manner. LTG Duration 10 weeks Assessment Summary Assessment Added sit to stands to HEP this date. Initiated UBE for cardio today and to help functional use of left UE to help with arm swing with gait to clear right hip as well as to prepare for using cane in left hand. Physical Therapy Plan Frequency and Duration Frequency of Treatment 2x/Week Duration of Treatment 10 weeks Plan of Care Start Date 03/27/19 Plan of Care End Date 06/10/19 Next Visit Focus/Plan Next Note Type Treatment Note Next Visit Plan hip strengthening flexion and abd balance board con't gait training with cane in left hand, 6MWT
--- NOTE | 2019-04-23 16:02 | PT.OTN ---
Current Diagnoses Unspecified abnormalities of gait and mobility (04/23/19) Physical Therapy Treatment Note PT-OP-A Visit Information Start: 03/27/19 18:05 Freq: Status: Active Protocol: Document 04/23/19 15:16 (Rec: 04/23/19 16:02 [id number]) Out-Patient Physical Therapy Visit Information Visit Information Visit Type Treatment Note Visit Start Time 15:16 Visit Stop Time 16:00 Total Visit Minutes 44 Visit Number 09/05 Number of INSIDE SALES RECRUITER Visits 0 PT-OP-B Current Condition Start: 03/27/19 18:05 Freq: Status: Active Protocol: Document 03/27/19 15:20 HH (Rec: 03/27/19 18:43 [email or web address]) Current Condition History of Current Condition Onset Date 3 years ago Current Complaints Poor activity tolerance, decreased balance, fall risks History of Current Condition Pt is a 74 yo presented to clinic with primary c/o poor activity tolerance and decreased balance. Pt stated this is primarily due to his previous heart attack and dx with COPD 3-4 years ago which caused him to have 2 stent surgery. Pt was a former smoker but he stopped 3 years ago and switched to e- cigarette, who reports his lung function has been improving since then as his medical team stated. However, pt stated his endurance and strength has been declining since and he often felt lazy to be physically activie. He currently is only able to tolerate walking for few blocks before rest. He tends to get fatigue from grocery shopping and needed to use cart for support. He also has poor balance who tends to lose his balance while reaching forward and bending down. Pt has a drinking habit for >40 years who recently stopped drinking since June 2018 and has been visiting [facility] support group twice every week. He has been using a hurrycane to amb on uneven surface such as parking lot, grass/ long distance walk, but able to amb without AD at home. 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 To improve activity tolerance in order to grocery shop without rest 2. To improve balance and able to take long steps. Personal Factors Other Personal Factors That May Effect Pt has 2 stent surgery due to Therapy/Recovery hx of heart attack COPD PT-OP-C Subjective Start: 03/27/19 18:05 Freq: Status: Active Protocol: Document 04/23/19 15:16 (Rec: 04/23/19 16:02 [id number]) OP-PT Subjective Patient Comments Patient Comments Serenity been doing my ex and sit to stand is the easiest since i dont have any problem with that. PT-OP-D Balance Start: 03/27/19 18:05 Freq: Status: Active Protocol: Document 03/27/19 15:20 (Rec: 03/27/19 18:43 [email or web address]) Zayas Balance Assessment Evaluation Sitting to Standing Ability Independent w/out Hands Unsupported Stance Safely- 2 minutes Sitting Unsupported, Feet on Floor Safely- 2 minutes Standing to Sitting Ability Safely, Minimal Hand Use Transfer Ability Safely, Minimal Hand Use Unsupported Stance- Eyes Closed Safely, 10 seconds Unsupported Stance- Eyes Open Independent, 1 minute Reaching Forward Standing Safely, 5 inches Pick- Up Object From Floor Supervision Look Behind Shoulder - Standing Shifts Weight Well Turning 360 Degrees Turns slowly, but safely Unsupported Stance, Alternating Feet on (I)- 8 Steps in 20 secs Stair Unsupported Tandem Stance Balance Lost- Step/Stand Unilateral Leg Stance Lifts Leg/Unable to Hold Total Score Zayas Total Score (out of 56 points) 45 Zyaas Impairment Rating 1 to 19% Impaired (Score 45-55 ) PT-OP-E Functional Tests Start: 03/27/19 18:05 Freq: Status: Active Protocol: Document 03/28/19 13:45 (Rec: 03/28/19 16:19 [id number]) Functional Tests 6 Minute Walk Test Distance 851 Device Used none Comments first break at 1min 40 sec jaun, 2nd at 1min 30 sec, 3rd at 40 sec, 4th @30 PT-OP-G Mobility & Gait Start: 03/27/19 18:05 Freq: Status: Active Protocol: Document 03/27/19 15:20 (Rec: 03/27/19 18:43 [email or web address]) OP Gait Assessment Gait Deviations General Gait Pattern Wide Based Gait Factors Limiting Gait Function Factors Limiting Gait Function Decreased Activity Tolerance, Poor Balance Comments Gait Comments pt tends to look down to floor during amb Stair Climbing Evaluation Devices Stair Climbing Assistive Devices Right Railing Technique/Endurance Stair Climbing Direction Ascend and Descend Stair Climbing Technique Step Over Step PT-OP-M Strength Start: 03/27/19 18:05 Freq: Status: Active Protocol: Document 03/28/19 13:45 (Rec: 03/28/19 16:19 [id number]) Hip Strength Hip Manual Muscle Testing Left Flexion (L2) 4+ Good+ Extension (S1) 4 Good Abduction 4 Good Right Flexion (L2) 3+ Fair+ Extension (S1) 3+ Fair+ Abduction 3+ Fair+ Knee Strength Knee Manual Muscle Testing Left Flexion (S2) 4+ Good+ Extension (L3) 4+ Good+ Right Flexion (S2) 4+ Good+ Extension (L3) 4 Good Ankle/Foot Strength Ankle and Foot Manual Muscle Testing Right Dorsiflexion (L4) 4 Good Plantarflexion (S1) 4 Good Left Dorsiflexion (L4) 4 Good Plantarflexion (S1) 4 Good PT-OP-Q Treatments Start: 03/27/19 18:05 Freq: Status: Active Protocol: Document 04/23/19 15:16 (Rec: 04/23/19 16:02 [id number]) Cardio Equipment Recumbent Bicycle Duration (Minutes) 6 Resistance 5 Seat Position 5 Gym Equipment Shuttle Recovery SL squat Resistance 50# 75# Reps/Time 15x2 for #50 then 15'x1 then 8 x1 Shuttle Rebound red Exercise Details with gait belt, red color, Reps/Duration 5 mins Comments Wide NAKUL, Staggered Therapeutic Exercises Standing Exercises toe tap Standing Exercise Name on stairs (6 inch) Side bilateral Resistance 3# Reps/Minutes 10 x2 Gait Training Gait Activity interval walking Description 6MWT = 788ft today Surface without AD Comments break at 274 ft, 555 ft PT-OP-T Assessment and Plan Start: 03/27/19 18:05 Freq: Status: Active Protocol: Document 04/23/19 15:16 (Rec: 04/23/19 16:02 [id number]) Physical Therapy Assessment Goals activity tolerance Impairment 6MWT= 851 ft without AD Short Term Goal (STG) Pt will be able to complete 1000 ft without AD with 3 breaks for 6 MWT to improve overall stamina for grocery shop and community walking STG Duration 5 weeks Bander And Cellophaner Helper Machine Goal (LTG) Pt will be able to complete 1200 ft without AD with 2 breaks for 6 MWT to improve overall stamina for grocery shop and community walking LTG Duration 10 weeks DGI Impairment pt scores 19 on DGI Bander And Cellophaner Helper Machine Goal (LTG) Pt will score >22 for DGI in order to improve his gait stability and dynamic balance, in order to negotiate uneven surface without AD. LTG Duration 10 weeks ZAYAS Impairment pt scores 45 on ZAYAS Bander And Cellophaner Helper Machine Goal (LTG) Pt will score >50 on ZAYAS to improve his overall balance and reduce his fall risks, in order for him to climb stair without using rails. LTG Duration 10 weeks LEFS Impairment Pt scores 40 for LEFS Short Term Goal (STG) Pt will score >48 (20-39%) on LEFS to improve his quality of life STG Duration 5 weeks Bander And Cellophaner Helper Machine Goal (LTG) Pt will score >63 (1-19%) on LEFS to improve his overall functional mobility in a safe manner. LTG Duration 10 weeks Assessment Summary Assessment 6MWT = 788 ft today without AD which is less than IE. His primary c/o is out of breath and fatigue easily. Pt reports he has not been walking much d/t weather but started to do home exercise more regularly recently. Educated pt to be consistent for walking program at home/ grocery store in order to improve stamina and strength. Pt reports he is not able to afford gym membership. Physical Therapy Plan Next Visit Focus/Plan Next Note Type Treatment Note Next Visit Plan hip strengthening for flexion and abd leg press balance board con't gait training with cane in left hand
--- NOTE | 2019-04-25 14:41 | PT.OTN ---
Current Diagnoses Unspecified abnormalities of gait and mobility (04/25/19) Physical Therapy Treatment Note PT-OP-A Visit Information Start: 03/27/19 18:05 Freq: Status: Active Protocol: Document 04/25/19 13:53 MB (Rec: 04/25/19 14:41 MB [id number]) Out-Patient Physical Therapy Visit Information Visit Information Visit Type Treatment Note Visit Start Time 13:53 Visit Stop Time 16:33 Total Visit Minutes 40 Visit Number 10/05 Number of COMMISSARY REPRESENTATIVE Visits 0 PT-OP-B Current Condition Start: 03/27/19 18:05 Freq: Status: Active Protocol: Document 03/27/19 15:20 HH (Rec: 03/27/19 18:43 HH [email or web address]) Current Condition History of Current Condition Onset Date 3 years ago Current Complaints Poor activity tolerance, decreased balance, fall risks History of Current Condition Pt is a 74 yo presented to clinic with primary c/o poor activity tolerance and decreased balance. Pt stated this is primarily due to his previous heart attack and dx with COPD 3-4 years ago which caused him to have 2 stent surgery. Pt was a former smoker but he stopped 3 years ago and switched to e- cigarette, who reports his lung function has been improving since then as his medical team stated. However, pt stated his endurance and strength has been declining since and he often felt lazy to be physically activie. He currently is only able to tolerate walking for few blocks before rest. He tends to get fatigue from grocery shopping and needed to use cart for support. He also has poor balance who tends to lose his balance while reaching forward and bending down. Pt has a drinking habit for >40 years who recently stopped drinking since June 2018 and has been visiting [facility] support group twice every week. He has been using a hurrycane to amb on uneven surface such as parking lot, grass/ long distance walk, but able to amb without AD at home. 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 To improve activity tolerance in order to grocery shop without rest 2. To improve balance and able to take long steps. Personal Factors Other Personal Factors That May Effect Pt has 2 stent surgery due to Therapy/Recovery hx of heart attack COPD PT-OP-C Subjective Start: 03/27/19 18:05 Freq: Status: Active Protocol: Document 04/25/19 13:53 MB (Rec: 04/25/19 14:41 MB [id number]) OP-PT Subjective Patient Comments Patient Comments Pt states that he thinks that he is doing about the same. He is not having any trouble doing sit to stands but moving forward to get out of recliner is still hard. He has trouble with exercises standing at counter. Pt states that his walking stick works for him and he does not want to change it. PT-OP-D Balance Start: 03/27/19 18:05 Freq: Status: Active Protocol: Document 03/27/19 15:20 HH (Rec: 03/27/19 18:43 [email or web address]) Zayas Balance Assessment Evaluation Sitting to Standing Ability Independent w/out Hands Unsupported Stance Safely- 2 minutes Sitting Unsupported, Feet on Floor Safely- 2 minutes Standing to Sitting Ability Safely, Minimal Hand Use Transfer Ability Safely, Minimal Hand Use Unsupported Stance- Eyes Closed Safely, 10 seconds Unsupported Stance- Eyes Open Independent, 1 minute Reaching Forward Standing Safely, 5 inches Pick- Up Object From Floor Supervision Look Behind Shoulder - Standing Shifts Weight Well Turning 360 Degrees Turns slowly, but safely Unsupported Stance, Alternating Feet on (I)- 8 Steps in 20 secs Stair Unsupported Tandem Stance Balance Lost- Step/Stand Unilateral Leg Stance Lifts Leg/Unable to Hold Total Score Zayas Total Score (out of 56 points) 45 Zayas Impairment Rating 1 to 19% Impaired (Score 45-55 ) PT-OP-E Functional Tests Start: 03/27/19 18:05 Freq: Status: Active Protocol: Document 03/28/19 13:45 (Rec: 03/28/19 16:19 [id number]) Functional Tests 6 Minute Walk Test Distance 851 Device Used none Comments first break at 1min 40 sec jaun, 2nd at 1min 30 sec, 3rd at 40 sec, 4th @30 PT-OP-G Mobility & Gait Start: 03/27/19 18:05 Freq: Status: Active Protocol: Document 03/27/19 15:20 (Rec: 03/27/19 18:43 [email or web address]) OP Gait Assessment Gait Deviations General Gait Pattern Wide Based Gait Factors Limiting Gait Function Factors Limiting Gait Function Decreased Activity Tolerance, Poor Balance Comments Gait Comments pt tends to look down to floor during amb Stair Climbing Evaluation Devices Stair Climbing Assistive Devices Right Railing Technique/Endurance Stair Climbing Direction Ascend and Descend Stair Climbing Technique Step Over Step PT-OP-M Strength Start: 03/27/19 18:05 Freq: Status: Active Protocol: Document 03/28/19 13:45 HH (Rec: 03/28/19 16:19 HH [id number]) Hip Strength Hip Manual Muscle Testing Left Flexion (L2) 4+ Good+ Extension (S1) 4 Good Abduction 4 Good Right Flexion (L2) 3+ Fair+ Extension (S1) 3+ Fair+ Abduction 3+ Fair+ Knee Strength Knee Manual Muscle Testing Left Flexion (S2) 4+ Good+ Extension (L3) 4+ Good+ Right Flexion (S2) 4+ Good+ Extension (L3) 4 Good Ankle/Foot Strength Ankle and Foot Manual Muscle Testing Right Dorsiflexion (L4) 4 Good Plantarflexion (S1) 4 Good Left Dorsiflexion (L4) 4 Good Plantarflexion (S1) 4 Good PT-OP-Q Treatments Start: 03/27/19 18:05 Freq: Status: Active Protocol: Document 04/25/19 13:53 MB (Rec: 04/25/19 14:41 MB [id number]) Cardio Equipment Recumbent Stepper (Sci-Fit) Duration (Minutes) 9 Resistance 2 Therapeutic Exercises Sitting Exercises Sit to stands Comments 30 sec: 6 reps; 8 reps; 8 reps seated hip flexion Comments 18 reps B Standing Exercises standing hip flexion Reps/Minutes 15 Comments R hand asst, then left hand Other Exercises Hamstring stretch in hook lying and standing terminal extension with band Comments Tried stretch, increased pain, d/cd from HEP. Not doing TKE, d/cd HEP PT-OP-T Assessment and Plan Start: 03/27/19 18:05 Freq: Status: Active Protocol: Document 04/25/19 13:53 MB (Rec: 04/25/19 14:41 MB [id number]) Physical Therapy Assessment Goals activity tolerance Impairment 6MWT= 851 ft without AD Short Term Goal (STG) Pt will be able to complete 1000 ft without AD with 3 breaks for 6 MWT to improve overall stamina for grocery shop and community walking STG Duration 5 weeks Residential Goal (LTG) Pt will be able to complete 1200 ft without AD with 2 breaks for 6 MWT to improve overall stamina for grocery shop and community walking LTG Duration 10 weeks DGI Impairment pt scores 19 on DGI Law Librarian Goal (LTG) Pt will score >22 for DGI in order to improve his gait stability and dynamic balance, in order to negotiate uneven surface without AD. LTG Duration 10 weeks ZAYAS Impairment pt scores 45 on ZAYAS Residential Goal (LTG) Pt will score >50 on ZAYAS to improve his overall balance and reduce his fall risks, in order for him to climb stair without using rails. LTG Duration 10 weeks LEFS Impairment Pt scores 40 for LEFS Short Term Goal (STG) Pt will score >48 (20-39%) on LEFS to improve his quality of life STG Duration 5 weeks Law Librarian Goal (LTG) Pt will score >63 (1-19%) on LEFS to improve his overall functional mobility in a safe manner. LTG Duration 10 weeks Assessment Summary Assessment Pt would like to use his walking stick, moving it every two steps in right hand. Ed pt to perform standing march with LUE support for balance. Pt and report concern about left shoulder weakness and less use of left arm and PT agrees that therapy may be helpful for this. Increase reps of sit to stand and quality at home. Physical Therapy Plan Frequency and Duration Frequency of Treatment 2x/Week Duration of Treatment 10 weeks Plan of Care Start Date 03/27/19 Plan of Care End Date 06/10/19 Other Referrals/Consults Referrals/Consults Recommended Follow-up with PCP about referral for PT for left shoulder and elbow weakness s/ p old fracture and post-polio- -to be started after current therapy duration. Next Visit Focus/Plan Next Note Type Treatment Note Next Visit Plan Con't exercise progression to improve LE strength, balance and gait.
--- NOTE | 2019-04-29 15:25 | PT.OTN ---
Current Diagnoses Unspecified abnormalities of gait and mobility (04/29/19) Physical Therapy Treatment Note PT-OP-A Visit Information Start: 03/27/19 18:05 Freq: Status: Active Protocol: Document 04/29/19 14:40 SP (Rec: 04/29/19 15:39 SP [id number]) Out-Patient Physical Therapy Visit Information Visit Information Visit Type Treatment Note Visit Start Time 14:40 Visit Stop Time 15:25 Total Visit Minutes 45 Visit Number 11/05 Number of BELT LOOP CUTTER Visits 1 PT-OP-B Current Condition Start: 03/27/19 18:05 Freq: Status: Active Protocol: Document 03/27/19 15:20 HH (Rec: 03/27/19 18:43 HH [email or web address]) Current Condition History of Current Condition Onset Date 3 years ago Current Complaints Poor activity tolerance, decreased balance, fall risks History of Current Condition Pt is a 74 yo presented to clinic with primary c/o poor activity tolerance and decreased balance. Pt stated this is primarily due to his previous heart attack and dx with COPD 3-4 years ago which caused him to have 2 stent surgery. Pt was a former smoker but he stopped 3 years ago and switched to e- cigarette, who reports his lung function has been improving since then as his medical team stated. However, pt stated his endurance and strength has been declining since and he often felt lazy to be physically activie. He currently is only able to tolerate walking for few blocks before rest. He tends to get fatigue from grocery shopping and needed to use cart for support. He also has poor balance who tends to lose his balance while reaching forward and bending down. Pt has a drinking habit for >40 years who recently stopped drinking since June 2018 and has been visiting [facility] support group twice every week. He has been using a hurrycane to amb on uneven surface such as parking lot, grass/ long distance walk, but able to amb without AD at home. 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 To improve activity tolerance in order to grocery shop without rest 2. To improve balance and able to take long steps. Personal Factors Other Personal Factors That May Effect Pt has 2 stent surgery due to Therapy/Recovery hx of heart attack COPD PT-OP-C Subjective Start: 03/27/19 18:05 Freq: Status: Active Protocol: Document 04/29/19 14:40 SP (Rec: 04/29/19 15:39 SP [id number]) OP-PT Subjective Patient Comments Patient Comments Pt reported little tired tostart off today, was in a haney to get here including dressing and transportation. Pt stated compliant with seated and standing HEP instructed last tx. PT-OP-D Balance Start: 03/27/19 18:05 Freq: Status: Active Protocol: Document 03/27/19 15:20 HH (Rec: 03/27/19 18:43 HH [email or web address]) Ramirez Balance Assessment Evaluation Sitting to Standing Ability Independent w/out Hands Unsupported Stance Safely- 2 minutes Sitting Unsupported, Feet on Floor Safely- 2 minutes Standing to Sitting Ability Safely, Minimal Hand Use Transfer Ability Safely, Minimal Hand Use Unsupported Stance- Eyes Closed Safely, 10 seconds Unsupported Stance- Eyes Open Independent, 1 minute Reaching Forward Standing Safely, 5 inches Pick- Up Object From Floor Supervision Look Behind Shoulder - Standing Shifts Weight Well Turning 360 Degrees Turns slowly, but safely Unsupported Stance, Alternating Feet on (I)- 8 Steps in 20 secs Stair Unsupported Tandem Stance Balance Lost- Step/Stand Unilateral Leg Stance Lifts Leg/Unable to Hold Total Score Ramirez Total Score (out of 56 points) 45 Ramirez Impairment Rating 1 to 19% Impaired (Score 45-55 ) PT-OP-E Functional Tests Start: 03/27/19 18:05 Freq: Status: Active Protocol: Document 03/28/19 13:45 (Rec: 03/28/19 16:19 [id number]) Functional Tests 6 Minute Walk Test Distance 851 Device Used none Comments first break at 1min 40 sec jaun, 2nd at 1min 30 sec, 3rd at 40 sec, 4th @30 PT-OP-G Mobility & Gait Start: 03/27/19 18:05 Freq: Status: Active Protocol: Document 03/27/19 15:20 HH (Rec: 03/27/19 18:43 [email or web address]) OP Gait Assessment Gait Deviations General Gait Pattern Wide Based Gait Factors Limiting Gait Function Factors Limiting Gait Function Decreased Activity Tolerance, Poor Balance Comments Gait Comments pt tends to look down to floor during amb Stair Climbing Evaluation Devices Stair Climbing Assistive Devices Right Railing Technique/Endurance Stair Climbing Direction Ascend and Descend Stair Climbing Technique Step Over Step PT-OP-M Strength Start: 03/27/19 18:05 Freq: Status: Active Protocol: Document 03/28/19 13:45 HH (Rec: 03/28/19 16:19 HH [id number]) Hip Strength Hip Manual Muscle Testing Left Flexion (L2) 4+ Good+ Extension (S1) 4 Good Abduction 4 Good Right Flexion (L2) 3+ Fair+ Extension (S1) 3+ Fair+ Abduction 3+ Fair+ Knee Strength Knee Manual Muscle Testing Left Flexion (S2) 4+ Good+ Extension (L3) 4+ Good+ Right Flexion (S2) 4+ Good+ Extension (L3) 4 Good Ankle/Foot Strength Ankle and Foot Manual Muscle Testing Right Dorsiflexion (L4) 4 Good Plantarflexion (S1) 4 Good Left Dorsiflexion (L4) 4 Good Plantarflexion (S1) 4 Good PT-OP-Q Treatments Start: 03/27/19 18:05 Freq: Status: Active Protocol: Document 04/29/19 14:40 SP (Rec: 04/29/19 15:39 SP [id number]) Cardio Equipment Recumbent Elliptical (Biodex) Duration (Minutes) 6 Resistance 2 Seat Position 10 Therapeutic Exercises Sitting Exercises Sit to stands Comments 30 sec: 6 reps,8 reps, 8 reps Standing Exercises heel raises Equipment Used //bars Reps/Minutes x10 Comments R UE contact standing hip flexion Standing Exercise Name stationary march Equipment Used //bars Reps/Minutes x10 Comments R hand contact Neuro Re-Education Treatment Balance Activities balance walking Details high knee, f/b/side step, hurdles f/s step to pattern Equipment //bars Reps/Duration 20 min Feet together, modified stagger stance Equipment corner posterior, chair front Reps/Duration 30-60 sec Comments Add HEP PT-OP-T Assessment and Plan Start: 03/27/19 18:05 Freq: Status: Active Protocol: Document 04/29/19 14:40 SP (Rec: 04/29/19 15:39 SP [id number]) Physical Therapy Assessment Goals activity tolerance Impairment 6MWT= 851 ft without AD Short Term Goal (STG) Pt will be able to complete 1000 ft without AD with 3 breaks for 6 MWT to improve overall stamina for grocery shop and community walking STG Duration 5 weeks Senior Inspector Goal (LTG) Pt will be able to complete 1200 ft without AD with 2 breaks for 6 MWT to improve overall stamina for grocery shop and community walking LTG Duration 10 weeks DGI Impairment pt scores 19 on DGI Prison Goal (LTG) Pt will score >22 for DGI in order to improve his gait stability and dynamic balance, in order to negotiate uneven surface without AD. LTG Duration 10 weeks RAMIREZ Impairment pt scores 45 on RAMIREZ Senior Inspector Goal (LTG) Pt will score >50 on RAMIREZ to improve his overall balance and reduce his fall risks, in order for him to climb stair without using rails. LTG Duration 10 weeks LEFS Impairment Pt scores 40 for LEFS Short Term Goal (STG) Pt will score >48 (20-39%) on LEFS to improve his quality of life STG Duration 5 weeks Prison Goal (LTG) Pt will score >63 (1-19%) on LEFS to improve his overall functional mobility in a safe manner. LTG Duration 10 weeks Assessment Summary Assessment Pt tolerated tx well, required frequent rest breaks during primarily standing activity today. Progressed BUE //bar support during balance f/b/ side stepping then decreased to 1 UE support on //bar > walking stick then tatiana stepping same progression all with seated rest between 2 sets of each direction for rest recovery. HR 90 bpm with activity. Pt felt comfortable with added NBOS feet together and modified tandem stance back to corner and chair in front for support 30-60 sec of work. Cued for glut facilitation and upright posture for success. Physical Therapy Plan Frequency and Duration Frequency of Treatment 2x/Week Duration of Treatment 10 weeks Plan of Care Start Date 03/27/19 Plan of Care End Date 06/10/19 Therapeutic Interventions Therapeutic Interventions Balance Training,Coordination Training,Gait Training,Home Exercise Program,Joint Mobilizations,Manual Therapy, Neuromuscular Re-education, Patient/Caregiver Education, Self-Care/Home Management,Soft Tissue Mobilization,Taping, Therapeutic Activities, Therapeutic Exercises, Vestibular Rehabilitation Modalities Cold Pack/Ice Massage,Electric Stimulation,Hot Packs, Infrared Therapy,Iontophoresis ,Ultrasound Other Referrals/Consults Referrals/Consults Recommended Follow-up with PCP about referral for PT for left shoulder and elbow weakness s/ p old fracture and post-polio- -to be started after current therapy duration. Next Visit Focus/Plan Next Note Type Treatment Note Next Visit Plan Assess response to biodex warm up and standing therx/ balance activities today and added tandem in corner to HEP. Con't per PT POC: exercise progression to improve LE strength, balance and gait.
--- NOTE | 2019-05-01 18:50 | PT.OTN ---
Current Diagnoses Unspecified abnormalities of gait and mobility (05/01/19) Physical Therapy Treatment Note PT-OP-A Visit Information Start: 03/27/19 18:05 Freq: Status: Active Protocol: Document 05/01/19 15:19 HH (Rec: 05/01/19 18:48 [id number]) Out-Patient Physical Therapy Visit Information Visit Information Visit Type Treatment Note Visit Start Time 15:19 Visit Stop Time 16:00 Total Visit Minutes 41 Visit Number 12/06 Number of EPIC TRAINER Visits 0 PT-OP-B Current Condition Start: 03/27/19 18:05 Freq: Status: Active Protocol: Document 03/27/19 15:20 HH (Rec: 03/27/19 18:43 [email or web address]) Current Condition History of Current Condition Onset Date 3 years ago Current Complaints Poor activity tolerance, decreased balance, fall risks History of Current Condition Pt is a 74 yo presented to clinic with primary c/o poor activity tolerance and decreased balance. Pt stated this is primarily due to his previous heart attack and dx with COPD 3-4 years ago which caused him to have 2 stent surgery. Pt was a former smoker but he stopped 3 years ago and switched to e- cigarette, who reports his lung function has been improving since then as his medical team stated. However, pt stated his endurance and strength has been declining since and he often felt lazy to be physically activie. He currently is only able to tolerate walking for few blocks before rest. He tends to get fatigue from grocery shopping and needed to use cart for support. He also has poor balance who tends to lose his balance while reaching forward and bending down. Pt has a drinking habit for >40 years who recently stopped drinking since June 2018 and has been visiting [facility] support group twice every week. He has been using a hurrycane to amb on uneven surface such as parking lot, grass/ long distance walk, but able to amb without AD at home. 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 To improve activity tolerance in order to grocery shop without rest 2. To improve balance and able to take long steps. Personal Factors Other Personal Factors That May Effect Pt has 2 stent surgery due to Therapy/Recovery hx of heart attack COPD PT-OP-C Subjective Start: 03/27/19 18:05 Freq: Status: Active Protocol: Document 05/01/19 15:19 (Rec: 05/01/19 18:48 [id number]) OP-PT Subjective Patient Comments Patient Comments I do feel less tired recently cause im doing my exercises at least every day or every other day. I could walk longer during grocery shop with shopping cart and i dont have to take 3-4 breaks Patient Reported Progress Improving PT-OP-D Balance Start: 03/27/19 18:05 Freq: Status: Active Protocol: Document 03/27/19 15:20 (Rec: 03/27/19 18:43 [email or web address]) Zayas Balance Assessment Evaluation Sitting to Standing Ability Independent w/out Hands Unsupported Stance Safely- 2 minutes Sitting Unsupported, Feet on Floor Safely- 2 minutes Standing to Sitting Ability Safely, Minimal Hand Use Transfer Ability Safely, Minimal Hand Use Unsupported Stance- Eyes Closed Safely, 10 seconds Unsupported Stance- Eyes Open Independent, 1 minute Reaching Forward Standing Safely, 5 inches Pick- Up Object From Floor Supervision Look Behind Shoulder - Standing Shifts Weight Well Turning 360 Degrees Turns slowly, but safely Unsupported Stance, Alternating Feet on (I)- 8 Steps in 20 secs Stair Unsupported Tandem Stance Balance Lost- Step/Stand Unilateral Leg Stance Lifts Leg/Unable to Hold Total Score Zayas Total Score (out of 56 points) 45 Zayas Impairment Rating 1 to 19% Impaired (Score 45-55 ) PT-OP-E Functional Tests Start: 03/27/19 18:05 Freq: Status: Active Protocol: Document 03/28/19 13:45 (Rec: 03/28/19 16:19 [id number]) Functional Tests 6 Minute Walk Test Distance 851 Device Used none Comments first break at 1min 40 sec jaun, 2nd at 1min 30 sec, 3rd at 40 sec, 4th @30 PT-OP-G Mobility & Gait Start: 03/27/19 18:05 Freq: Status: Active Protocol: Document 03/27/19 15:20 HH (Rec: 03/27/19 18:43 [email or web address]) OP Gait Assessment Gait Deviations General Gait Pattern Wide Based Gait Factors Limiting Gait Function Factors Limiting Gait Function Decreased Activity Tolerance, Poor Balance Comments Gait Comments pt tends to look down to floor during amb Stair Climbing Evaluation Devices Stair Climbing Assistive Devices Right Railing Technique/Endurance Stair Climbing Direction Ascend and Descend Stair Climbing Technique Step Over Step PT-OP-M Strength Start: 03/27/19 18:05 Freq: Status: Active Protocol: Document 03/28/19 13:45 HH (Rec: 03/28/19 16:19 [id number]) Hip Strength Hip Manual Muscle Testing Left Flexion (L2) 4+ Good+ Extension (S1) 4 Good Abduction 4 Good Right Flexion (L2) 3+ Fair+ Extension (S1) 3+ Fair+ Abduction 3+ Fair+ Knee Strength Knee Manual Muscle Testing Left Flexion (S2) 4+ Good+ Extension (L3) 4+ Good+ Right Flexion (S2) 4+ Good+ Extension (L3) 4 Good Ankle/Foot Strength Ankle and Foot Manual Muscle Testing Right Dorsiflexion (L4) 4 Good Plantarflexion (S1) 4 Good Left Dorsiflexion (L4) 4 Good Plantarflexion (S1) 4 Good PT-OP-Q Treatments Start: 03/27/19 18:05 Freq: Status: Active Protocol: Document 05/01/19 15:19 HH (Rec: 05/01/19 18:48 [id number]) Cardio Equipment Recumbent Stepper (Sci-Fit) Duration (Minutes) 6 Resistance 2 Gym Equipment Shuttle Rebound blue Exercise Details normal stance then NBOS Reps/Duration 3 mins Comments with PT perturbations for recovery balance red Exercise Details normal stance Reps/Duration 5 mins Therapeutic Exercises Sitting Exercises Sit to stands Comments 30 sec: 6 reps,8 reps, 8 reps Standing Exercises toe tap Standing Exercise Name 6 inch step Side bilateral Equipment Used ankle weight #3 Reps/Minutes 10 x4 standing hip flexion Standing Exercise Name march Resistance ankle weight #3 Equipment Used //bars Reps/Minutes x10 x 5 Comments R hand contact Gait Training Gait Activity interval walking Description 2 laps of clinic Device Used none Level of Assistance SBA Surface ground level Distance/Duration 190x 2= 380 Comments improved feet clearance after using ankle weights. PT-OP-T Assessment and Plan Start: 03/27/19 18:05 Freq: Status: Active Protocol: Document 05/01/19 15:19 HH (Rec: 05/01/19 18:48 [id number]) Physical Therapy Assessment Goals activity tolerance Impairment 6MWT= 851 ft without AD Short Term Goal (STG) Pt will be able to complete 1000 ft without AD with 3 breaks for 6 MWT to improve overall stamina for grocery shop and community walking STG Duration 5 weeks Egg Gatherer Goal (LTG) Pt will be able to complete 1200 ft without AD with 2 breaks for 6 MWT to improve overall stamina for grocery shop and community walking LTG Duration 10 weeks DGI Impairment pt scores 19 on DGI Egg Gatherer Goal (LTG) Pt will score >22 for DGI in order to improve his gait stability and dynamic balance, in order to negotiate uneven surface without AD. LTG Duration 10 weeks ZAYAS Impairment pt scores 45 on ZAYAS [facility] Goal (LTG) Pt will score >50 on ZAYAS to improve his overall balance and reduce his fall risks, in order for him to climb stair without using rails. LTG Duration 10 weeks LEFS Impairment Pt scores 40 for LEFS Short Term Goal (STG) Pt will score >48 (20-39%) on LEFS to improve his quality of life STG Duration 5 weeks Chcf Goal (LTG) Pt will score >63 (1-19%) on LEFS to improve his overall functional mobility in a safe manner. LTG Duration 10 weeks Assessment Summary Assessment Pt wilson tx very well today. Added ankle weight for standing marching/ toe tap ex followed by gait training without weights and cane. Pt showed significant improvements on feet clearance and stride length. Pt also took less sitting breaks during session today. Physical Therapy Plan Next Visit Focus/Plan Next Note Type Progress Note Next Visit Plan Assess response to biodex warm up and standing therx/ balance activities today and added tandem in corner to HEP. Con't per PT POC: exercise progression to improve LE strength, balance and gait. mobility and balance ex with ankle weight cont toe tap/ hurdles
--- NOTE | 2019-05-06 16:19 | PT.OTN ---
Current Diagnoses Unspecified abnormalities of gait and mobility (05/06/19) Physical Therapy Treatment Note PT-OP-A Visit Information Start: 03/27/19 18:05 Freq: Status: Active Protocol: Document 05/06/19 14:33 HH (Rec: 05/06/19 16:19 [id number]) Out-Patient Physical Therapy Visit Information Visit Information Visit Type Progress Note Visit Start Time 14:33 Visit Stop Time 15:15 Total Visit Minutes 42 Visit Number 01/05 Number of ROUGH RICE GRADER Visits 0 PT-OP-B Current Condition Start: 03/27/19 18:05 Freq: Status: Active Protocol: Document 03/27/19 15:20 HH (Rec: 03/27/19 18:43 HH [email or web address]) Current Condition History of Current Condition Onset Date 3 years ago Current Complaints Poor activity tolerance, decreased balance, fall risks History of Current Condition Pt is a 74 yo presented to clinic with primary c/o poor activity tolerance and decreased balance. Pt stated this is primarily due to his previous heart attack and dx with COPD 3-4 years ago which caused him to have 2 stent surgery. Pt was a former smoker but he stopped 3 years ago and switched to e- cigarette, who reports his lung function has been improving since then as his medical team stated. However, pt stated his endurance and strength has been declining since and he often felt lazy to be physically activie. He currently is only able to tolerate walking for few blocks before rest. He tends to get fatigue from grocery shopping and needed to use cart for support. He also has poor balance who tends to lose his balance while reaching forward and bending down. Pt has a drinking habit for >40 years who recently stopped drinking since June 2018 and has been visiting [facility] support group twice every week. He has been using a hurrycane to amb on uneven surface such as parking lot, grass/ long distance walk, but able to amb without AD at home. 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 To improve activity tolerance in order to grocery shop without rest 2. To improve balance and able to take long steps. Personal Factors Other Personal Factors That May Effect Pt has 2 stent surgery due to Therapy/Recovery hx of heart attack COPD PT-OP-C Subjective Start: 03/27/19 18:05 Freq: Status: Active Protocol: Document 05/06/19 14:33 HH (Rec: 05/06/19 16:19 [id number]) OP-PT Subjective Patient Comments Patient Comments I noticed brooks been walking better and balance better but i just hate the fact that i have to come to therapy since it interrupts my schedule and day and i usually got tired after coming here. Patient Reported Progress Improving PT-OP-D Balance Start: 03/27/19 18:05 Freq: Status: Active Protocol: Document 03/27/19 15:20 HH (Rec: 03/27/19 18:43 [email or web address]) Zayas Balance Assessment Evaluation Sitting to Standing Ability Independent w/out Hands Unsupported Stance Safely- 2 minutes Sitting Unsupported, Feet on Floor Safely- 2 minutes Standing to Sitting Ability Safely, Minimal Hand Use Transfer Ability Safely, Minimal Hand Use Unsupported Stance- Eyes Closed Safely, 10 seconds Unsupported Stance- Eyes Open Independent, 1 minute Reaching Forward Standing Safely, 5 inches Pick- Up Object From Floor Supervision Look Behind Shoulder - Standing Shifts Weight Well Turning 360 Degrees Turns slowly, but safely Unsupported Stance, Alternating Feet on (I)- 8 Steps in 20 secs Stair Unsupported Tandem Stance Balance Lost- Step/Stand Unilateral Leg Stance Lifts Leg/Unable to Hold Total Score Zayas Total Score (out of 56 points) 45 Zayas Impairment Rating 1 to 19% Impaired (Score 45-55 ) PT-OP-E Functional Tests Start: 03/27/19 18:05 Freq: Status: Active Protocol: Document 03/28/19 13:45 (Rec: 03/28/19 16:19 [id number]) Functional Tests 6 Minute Walk Test Distance 851 Device Used none Comments first break at 1min 40 sec jaun, 2nd at 1min 30 sec, 3rd at 40 sec, 4th @30 PT-OP-G Mobility & Gait Start: 03/27/19 18:05 Freq: Status: Active Protocol: Document 03/27/19 15:20 HH (Rec: 03/27/19 18:43 [email or web address]) OP Gait Assessment Gait Deviations General Gait Pattern Wide Based Gait Factors Limiting Gait Function Factors Limiting Gait Function Decreased Activity Tolerance, Poor Balance Comments Gait Comments pt tends to look down to floor during amb Stair Climbing Evaluation Devices Stair Climbing Assistive Devices Right Railing Technique/Endurance Stair Climbing Direction Ascend and Descend Stair Climbing Technique Step Over Step PT-OP-M Strength Start: 03/27/19 18:05 Freq: Status: Active Protocol: Document 03/28/19 13:45 HH (Rec: 03/28/19 16:19 [id number]) Hip Strength Hip Manual Muscle Testing Left Flexion (L2) 4+ Good+ Extension (S1) 4 Good Abduction 4 Good Right Flexion (L2) 3+ Fair+ Extension (S1) 3+ Fair+ Abduction 3+ Fair+ Knee Strength Knee Manual Muscle Testing Left Flexion (S2) 4+ Good+ Extension (L3) 4+ Good+ Right Flexion (S2) 4+ Good+ Extension (L3) 4 Good Ankle/Foot Strength Ankle and Foot Manual Muscle Testing Right Dorsiflexion (L4) 4 Good Plantarflexion (S1) 4 Good Left Dorsiflexion (L4) 4 Good Plantarflexion (S1) 4 Good PT-OP-Q Treatments Start: 03/27/19 18:05 Freq: Status: Active Protocol: Document 05/06/19 14:33 HH (Rec: 05/06/19 16:19 [id number]) Cardio Equipment Recumbent Stepper (Sci-Fit) Duration (Minutes) 6 Resistance 2 Gym Equipment Shuttle Rebound red Exercise Details normal stance followed by staggered stance Reps/Duration 10 mins Therapeutic Exercises Sitting Exercises Sit to stands Comments 30 sec: 6 reps,8 reps, 8 reps Standing Exercises toe tap Standing Exercise Name 6 inch step Side bilateral Equipment Used ankle weight #4 Reps/Minutes 15 x 3 Therapeutic Activity Therapeutic Activity DGI Name 22/24 Comments difficulty with amb with head turns and step over obstacles ZAYAS Comments 50/56 difficulty with single leg stance and NBOS PT-OP-T Assessment and Plan Start: 03/27/19 18:05 Freq: Status: Active Protocol: Document 05/06/19 14:33 HH (Rec: 05/06/19 16:19 [id number]) Physical Therapy Assessment Goals RLE strength Impairment Pt has forefoot drag occasionally during 6MWT Senior Living Goal (LTG) Pt will be able to amb without R foot drag during 6 MWT to reduce fall risk LTG Duration 8 weeks activity tolerance Impairment 6MWT= 851 ft without AD Short Term Goal (STG) Pt will be able to complete 1000 ft without AD with 3 breaks for 6 MWT to improve overall stamina for grocery shop and community walking STG Duration 5 weeks Senior Living Goal (LTG) 05/06 did not assess: Pt will be able to complete 1200 ft without AD with 2 breaks for 6 MWT to improve overall stamina for grocery shop and community walking LTG Duration 10 weeks DGI Impairment pt scores 19 on DGI Senior Living Goal (LTG) 05/06 goal met: Pt scores 22 for DGI today in order to improve his gait stability and dynamic balance, in order to negotiate uneven surface without AD. LTG Duration 10 weeks ZAYAS Impairment pt scores 45 on ZAYAS Unemployment Benefits Claims Taker Goal (LTG) 05/06 goal met: Pt scores 50 on ZAYAS today to improve his overall balance and reduce his fall risks, in order for him to climb stair without using rails. LTG Duration 10 weeks LEFS Impairment Pt scores 40 for LEFS Short Term Goal (STG) Pt will score >48 (20-39%) on LEFS to improve his quality of life STG Duration 5 weeks Senior Living Goal (LTG) 05/06 did not assess: Pt will score >63 (1-19%) on LEFS to improve his overall functional mobility in a safe manner. LTG Duration 10 weeks Assessment Summary Assessment Pt showed improvements with ZAYAS = 50/56 and DGI 22/24 today. However, pt stated participating therapy is very time consuming and wants to discontinue. Explained to him being consistent to physical activity will help improving overall endurance and reducing fall risks. Pt agreed to reduce therapy visits to once every 2 weeks. Dis with pt's to be compliant in HEP and acquire ankle weights for LE strengthening. Physical Therapy Plan Frequency and Duration Frequency of Treatment Every Other Week Duration of Treatment 8 weeks Plan of Care Start Date 05/06/19 Plan of Care End Date 07/05/19 Next Visit Focus/Plan Next Note Type Progress Note Next Visit Plan cont balance board to facilitate ankle strategy BLE strengthening with ankle weights gait training with ankle weight head turns during gait. NBOS
--- NOTE | 2019-05-22 15:28 | PT.OPPOC ---
Physical, Occupational & Speech Therapy At [facility] Current Diagnoses Unspecified abnormalities of gait and mobility (05/22/19) Visit Care Team Role Provider Type Tim Pemberton MD Attending Provider Physician Primary Care Provider Specialty: Internal Medicine Address: [address] [place] [address], [address], [place], [address] Email: [email or web address] Plan Of Care PT-OP-T Assessment and Plan Start: 03/27/19 18:05 Freq: Status: Active Protocol: Document 05/22/19 13:45 HH (Rec: 05/22/19 15:28 HH [email or web address]) Physical Therapy Assessment Goals RLE strength Impairment Pt has forefoot drag occasionally during 6MWT Mcc Goal (LTG) 05/21 : goal met pt was able to amb without R foot drag during 6 MWT to reduce fall risk LTG Duration 8 weeks activity tolerance Impairment 6MWT= 851 ft without AD Short Term Goal (STG) Pt will be able to complete 1000 ft without AD with 3 breaks for 6 MWT to improve overall stamina for grocery shop and community walking STG Duration 5 weeks Mcc Goal (LTG) 05/21 cont to assess Pt completed 788ft without AD. He did not c/o SOB but LLE fatigue Pt will be able to complete 1200 ft without AD with 2 breaks for 6 MWT to improve overall stamina for grocery shop and community walking LTG Duration 10 weeks DGI Impairment pt scores 19 on DGI Serials Librarian Goal (LTG) 05/06 goal met: Pt scores 22 for DGI today in order to improve his gait stability and dynamic balance, in order to negotiate uneven surface without AD. LTG Duration 10 weeks ZAYAS Impairment pt scores 45 on ZAYAS Mcc Goal (LTG) 05/06 goal met: Pt scores 50 on ZAYAS today to improve his overall balance and reduce his fall risks, in order for him to climb stair without using rails. LTG Duration 10 weeks LEFS Impairment Pt scores 40 for LEFS Short Term Goal (STG) 05/21 goal met Pt scores 54 (20-39%) on LEFS to improve his quality of life STG Duration 5 weeks Mcc Goal (LTG) 05/06 did not assess: Pt will score >63 (1-19%) on LEFS to improve his overall functional mobility in a safe manner. LTG Duration 10 weeks Assessment Summary Assessment Pt shows improved cardiovascular endurance without c/o SOB during 6MWT but did have some LLE weakness today. He also shows reduced foot drag on RLE. Added marching in place with ankle weights, step up and single leg stance. Pt will cont benefit from skilled therapy to promote cardiovascular endurance and B LE strengthening to reduce fall risks. Physical Therapy Plan Frequency and Duration Frequency of Treatment Every Other Week Duration of Treatment 8 weeks Plan of Care Start Date 05/06/19 Plan of Care End Date 07/05/19 Next Visit Focus/Plan Next Note Type Treatment Note Next Visit Plan cont balance board to facilitate ankle strategy BLE strengthening with ankle weights gait training with ankle weight head turns during gait. NBOS Plan of Care Dates Plan of Care Start Date 05/06/19 Plan of Care End Date 07/05/19 Electronically Signed by: Josh Colvin, PT 05/22/19 [id number] Please Sign and Return: I have reviewed this Plan of Care and certify that the skilled therapy services above are required to meet the patient?s needs. Physician Signature Date Printed Name and Credentials Clinical Instructor Signature Printed Name and Credentials
--- NOTE | 2019-05-22 15:28 | PT.OTN ---
Current Diagnoses Unspecified abnormalities of gait and mobility (05/22/19) Physical Therapy Treatment Note PT-OP-A Visit Information Start: 03/27/19 18:05 Freq: Status: Active Protocol: Document 05/22/19 13:45 HH (Rec: 05/22/19 15:28 HH [email or web address]) Out-Patient Physical Therapy Visit Information Visit Information Visit Type Treatment Note Visit Note last visit 05/06 Visit Start Time 13:45 Visit Stop Time 14:29 Total Visit Minutes 44 Visit Number 02/05 Number of FLAP CURER Visits 0 PT-OP-B Current Condition Start: 03/27/19 18:05 Freq: Status: Active Protocol: Document 03/27/19 15:20 HH (Rec: 03/27/19 18:43 HH [email or web address]) Current Condition History of Current Condition Onset Date 3 years ago Current Complaints Poor activity tolerance, decreased balance, fall risks History of Current Condition Pt is a 74 yo presented to clinic with primary c/o poor activity tolerance and decreased balance. Pt stated this is primarily due to his previous heart attack and dx with COPD 3-4 years ago which caused him to have 2 stent surgery. Pt was a former smoker but he stopped 3 years ago and switched to e- cigarette, who reports his lung function has been improving since then as his medical team stated. However, pt stated his endurance and strength has been declining since and he often felt lazy to be physically activie. He currently is only able to tolerate walking for few blocks before rest. He tends to get fatigue from grocery shopping and needed to use cart for support. He also has poor balance who tends to lose his balance while reaching forward and bending down. Pt has a drinking habit for >40 years who recently stopped drinking since June 2018 and has been visiting [facility]a support group twice every week. He has been using a hurrycane to amb on uneven surface such as parking lot, grass/ long distance walk, but able to amb without AD at home. 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 To improve activity tolerance in order to grocery shop without rest 2. To improve balance and able to take long steps. Personal Factors Other Personal Factors That May Effect Pt has 2 stent surgery due to Therapy/Recovery hx of heart attack COPD PT-OP-C Subjective Start: 03/27/19 18:05 Freq: Status: Active Protocol: Document 05/22/19 13:45 HH (Rec: 05/22/19 15:28 [email or web address]) OP-PT Subjective Patient Comments Patient Comments Brooks been doing all my home exercises and i bought ankle weights to walk around the house. My said brooks doing better in my heel toe pattern lately. I also went to see my draft roller picker yesterday and they were pleased with my progress. Patient Reported Progress Improving Patient Questionnaires Lower Extremity Functional Scale LEFS Score 54 LEFS Impairment 20 to 39% Impaired (Score 48- 62) PT-OP-D Balance Start: 03/27/19 18:05 Freq: Status: Active Protocol: Document 03/27/19 15:20 HH (Rec: 03/27/19 18:43 [email or web address]) Zayas Balance Assessment Evaluation Sitting to Standing Ability Independent w/out Hands Unsupported Stance Safely- 2 minutes Sitting Unsupported, Feet on Floor Safely- 2 minutes Standing to Sitting Ability Safely, Minimal Hand Use Transfer Ability Safely, Minimal Hand Use Unsupported Stance- Eyes Closed Safely, 10 seconds Unsupported Stance- Eyes Open Independent, 1 minute Reaching Forward Standing Safely, 5 inches Pick- Up Object From Floor Supervision Look Behind Shoulder - Standing Shifts Weight Well Turning 360 Degrees Turns slowly, but safely Unsupported Stance, Alternating Feet on (I)- 8 Steps in 20 secs Stair Unsupported Tandem Stance Balance Lost- Step/Stand Unilateral Leg Stance Lifts Leg/Unable to Hold Total Score Zayas Total Score (out of 56 points) 45 Zayas Impairment Rating 1 to 19% Impaired (Score 45-55 ) PT-OP-E Functional Tests Start: 03/27/19 18:05 Freq: Status: Active Protocol: Document 05/22/19 13:45 HH (Rec: 05/22/19 15:28 [email or web address]) Functional Tests 6 Minute Walk Test Distance 788 Device Used none Comments did not c.o SOB, but fatigue on LLE PT-OP-G Mobility & Gait Start: 03/27/19 18:05 Freq: Status: Active Protocol: Document 03/27/19 15:20 HH (Rec: 03/27/19 18:43 [email or web address]) OP Gait Assessment Gait Deviations General Gait Pattern Wide Based Gait Factors Limiting Gait Function Factors Limiting Gait Function Decreased Activity Tolerance, Poor Balance Comments Gait Comments pt tends to look down to floor during amb Stair Climbing Evaluation Devices Stair Climbing Assistive Devices Right Railing Technique/Endurance Stair Climbing Direction Ascend and Descend Stair Climbing Technique Step Over Step PT-OP-M Strength Start: 03/27/19 18:05 Freq: Status: Active Protocol: Document 03/28/19 13:45 HH (Rec: 03/28/19 16:19 HH [id number]) Hip Strength Hip Manual Muscle Testing Left Flexion (L2) 4+ Good+ Extension (S1) 4 Good Abduction 4 Good Right Flexion (L2) 3+ Fair+ Extension (S1) 3+ Fair+ Abduction 3+ Fair+ Knee Strength Knee Manual Muscle Testing Left Flexion (S2) 4+ Good+ Extension (L3) 4+ Good+ Right Flexion (S2) 4+ Good+ Extension (L3) 4 Good Ankle/Foot Strength Ankle and Foot Manual Muscle Testing Right Dorsiflexion (L4) 4 Good Plantarflexion (S1) 4 Good Left Dorsiflexion (L4) 4 Good Plantarflexion (S1) 4 Good PT-OP-Q Treatments Start: 03/27/19 18:05 Freq: Status: Active Protocol: Document 05/22/19 13:45 HH (Rec: 05/22/19 15:28 [email or web address]) Gym Equipment Shuttle Rebound red Exercise Details normal stance Reps/Duration 10 mins Comments static first then PT provides perturbation Therapeutic Exercises Standing Exercises SLS Side bilateral Reps/Minutes 3 sec hold x 8 Comments next to grab bar step up Side bilateral Reps/Minutes 12 x 2 Comments for HEP with ankle weights toe tap Standing Exercise Name 6 inch step Side bilateral Equipment Used ankle weight #4 Reps/Minutes 15 x 3 Comments for HEP with ankle weights PT-OP-T Assessment and Plan Start: 03/27/19 18:05 Freq: Status: Active Protocol: Document 05/22/19 13:45 HH (Rec: 05/22/19 15:28 [email or web address]) Physical Therapy Assessment Goals RLE strength Impairment Pt has forefoot drag occasionally during 6MWT Custodial Goal (LTG) 3/5 : goal met pt was able to amb without R foot drag during 6 MWT to reduce fall risk LTG Duration 8 weeks activity tolerance Impairment 6MWT= 851 ft without AD Short Term Goal (STG) Pt will be able to complete 1000 ft without AD with 3 breaks for 6 MWT to improve overall stamina for grocery shop and community walking STG Duration 5 weeks Finance Consultant Goal (LTG) 05/21 cont to assess Pt completed 788ft without AD. He did not c/o SOB but LLE fatigue Pt will be able to complete 1200 ft without AD with 2 breaks for 6 MWT to improve overall stamina for grocery shop and community walking LTG Duration 10 weeks DGI Impairment pt scores 19 on DGI Custodial Goal (LTG) 05/06 goal met: Pt scores 22 for DGI today in order to improve his gait stability and dynamic balance, in order to negotiate uneven surface without AD. LTG Duration 10 weeks ZAYAS Impairment pt scores 45 on ZAYAS Custodial Goal (LTG) 05/06 goal met: Pt scores 50 on ZAYAS today to improve his overall balance and reduce his fall risks, in order for him to climb stair without using rails. LTG Duration 10 weeks LEFS Impairment Pt scores 40 for LEFS Short Term Goal (STG) 05/21 goal met Pt scores 54 (20-39%) on LEFS to improve his quality of life STG Duration 5 weeks Finance Consultant Goal (LTG) 05/06 did not assess: Pt will score >63 (1-19%) on LEFS to improve his overall functional mobility in a safe manner. LTG Duration 10 weeks Assessment Summary Assessment Pt shows improved cardiovascular endurance without c/o SOB during 6MWT but did have some LLE weakness today. He also shows reduced foot drag on RLE. Added marching in place with ankle weights, step up and single leg stance. Pt will cont benefit from skilled therapy to promote cardiovascular endurance and B LE strengthening to reduce fall risks. Physical Therapy Plan Frequency and Duration Frequency of Treatment Every Other Week Duration of Treatment 8 weeks Plan of Care Start Date 05/06/19 Plan of Care End Date 07/05/19 Next Visit Focus/Plan Next Note Type Treatment Note Next Visit Plan cont balance board to facilitate ankle strategy BLE strengthening with ankle weights gait training with ankle weight head turns during gait. NBOS
--- NOTE | 2019-11-20 15:57 | PT.OPDS ---
Current Diagnoses Unspecified abnormalities of gait and mobility (05/22/19) Visit Care Team Role Provider Type Tim Pemberton MD Attending Provider Physician Primary Care Provider Specialty: Internal Medicine Address: [address] [place] [address], [address], [address] Email: [email or web address] Visit Number Visit Number 02/05 Discharge Summary PT-OP-T Assessment and Plan Start: 03/27/19 18:05 Freq: Status: Active Protocol: Document 11/20/19 15:56 HH (Rec: 11/20/19 15:57 [email or web address]) Physical Therapy Plan Discharge Physical Therapy Discharge Reasons No Longer Attending PT Discharge Comments Pt no longer attending PT since COVID 19 outbreak. D/c from PT
== END 2019-11-25 10:45 ==
LOC: PHYS 13:45
PROVIDERS: PCP Internal Medicine; Visit Provider Internal Medicine
DX: R26.9 Unspecified abnormalities of gait and mobility (principal)
CPT/HCPCS: 97110; 97112; 97116; 97162; 97530

== ENCOUNTER → 2019-06-06 12:50 | Outpatient (CLI) | payer MEDICARE, OTHER, SELFPAY ==
--- NOTE | 2019-06-06 12:51 | DI.US.S_ITS ---
PROCEDURE: US CAROTID DOPPLER BI INDICATIONS: OCCLUSION AND STENOSIS OF CAROTID ARTERIES TECHNIQUE: Color and pulse Doppler interrogation was performed of both carotid systems, with image documentation and velocity measurements. COMPARISON: [facility], , CAROTID ARTERY DOPPLER BILAT, 07/06/2015, 11:24. FINDINGS: Stenosis calculations are based on SRU (Society of Radiologists in Ultrasound) criteria. Right side: Brachial blood pressure: 118/73 mm Hg. Common carotid artery peak systolic velocity: 80 cm/sec. Internal carotid artery peak systolic velocity: 146 cm/sec. Internal carotid artery end diastolic velocity: 33 cm/sec. External carotid artery peak systolic velocity: 124 cm/sec. ICA/CCA peak systolic ratio: 1.8 . Hansen scale imaging description: Heavy, chronic mixed calcified and noncalcified plaque in the proximal right internal carotid artery causing a moderate subjective luminal stenosis, mild peak systolic velocity elevation, and spectral broadening of the distal waveform. Percent internal carotid artery stenosis: 50-69%.. Vertebral artery: Flow direction is antegrade. Left side: Brachial blood pressure: 117/73 mm Hg. Common carotid artery peak systolic velocity: 90 cm/sec. Internal carotid artery peak systolic velocity: 96 cm/sec. Internal carotid artery end diastolic velocity: 34 cm/sec. External carotid artery peak systolic velocity: 125 cm/sec. ICA/CCA peak systolic ratio: 1.1. Hansen scale imaging description: Heavy calcific plaque at the left carotid bulb and extending into the left external carotid artery origin. There is mild spectral broadening of the distal waveform in the internal carotid artery without peak systolic velocity elevation. Percent internal carotid artery stenosis: Less than 50%.. Vertebral artery: Flow direction is antegrade. IMPRESSION: 1. Slight progression of proximal right ICA stenosis based on peak systolic velocity of the internal carotid artery waveform. The stenosis is now estimated at between 50 and 69%, previously less than 50%. 2. Less than 50% left ICA stenosis. 3. Stable, mild bilateral external carotid artery stenosis. 4. Antegrade vertebral artery flow bilaterally. Dictated by: Madai Ceballos M.D. on 06/06/2019 at 14:49 Approved by: Madai Ceballos M.D. on 06/06/2019 at 14:58
== END ==
PROVIDERS: PCP Internal Medicine; Referring Provider Internal Medicine Cardiovascular Disease; Visit Provider Internal Medicine Cardiovascular Disease
DX: I65.23 Occlusion and stenosis of bilateral carotid arteries (principal)
CPT/HCPCS: 93880

== ENCOUNTER → 2019-08-07 16:17 | Outpatient (CLI) | payer MEDICARE, OTHER, SELFPAY ==
[2019-08-07 18:41] LABS: Prostate Specific Antigen < 0.064 ng/mL (0.10-4.00)
== END ==
PROVIDERS: PCP Internal Medicine; Referring Provider Radiology Radiation Oncology; Visit Provider Radiology Radiation Oncology
DX: C61 Malignant neoplasm of prostate (principal)
CPT/HCPCS: 36415; 84153

== ENCOUNTER → 2019-12-01 11:26 | Outpatient (CLI) | payer OTHER, MEDICARE, SELFPAY ==
[2019-12-01 12:18] LABS: Alanine Aminotransferase 37 IU/L (<50); Albumin 4.3 g/dL (3.5-5.0); Albumin Globulin Ratio 1.3 (1.0-2.8); Alkaline Phosphatase 63 U/L (38-126); Aspartate Aminotransferase 34 IU/L (17-59); BUN Creatinine Ratio 11.7 (6-22); Bilirubin Total 0.5 mg/dL (0.2-1.3); Blood Urea Nitrogen 11 mg/dL (9-20); Calcium 9.8 mg/dL (8.4-10.2); Carbon Dioxide 34 mmol/L (22-32); Chloride 97 mmol/L (98-107); Cholesterol 238 mg/dL (140-199); Estimated Glomerular Filt Rate > 60.0 mL/min (>60); Globulin 3.3 g/dL (1.7-4.1); Glucose 119 mg/dL (80-110); HDL Cholesterol 60 mg/dL (40-60); HEMOLYSIS < 15 (0-50); LDL Cholesterol Calculated 131 mg/dL (<100); Potassium 3.9 mmol/L (3.4-5.1); Sodium 138 mmol/L (137-145); Total Protein 7.6 g/dL (6.3-8.2); Triglycerides 235 mg/dL (35-150)
[2019-12-01 14:09] LABS: Add Manual Diff / Slide Review NO; Basophils Absolute Auto 0 /uL (0-100); Basophils Percent Auto 0.6 % (0-2); Eosinophils Absolute Auto 200 /uL (0-450); Eosinophils Percent Auto 3.2 % (2-4); Hematocrit 45.4 % (41-53); Hemoglobin 15.1 g/dL (13.5-17.5); Lymphocytes Absolute Auto 1900 /uL (1100-4500); Lymphocytes Percent Auto 25.3 % (25-40); Mean Corpuscular HGB Conc 33.2 % (30-36); Mean Corpuscular Hemoglobin 29.9 PG (26-34); Mean Corpuscular Volume 90.1 fL (80-100); Monocytes Absolute Auto 700 /uL (0-900); Monocytes Percent Auto 8.5 % (3-14); Neutrophils Absolute Auto 4800 /uL (1500-7000); Neutrophils Percent Auto 62.4 % (50-75); Platelet Count 268 X10^3/uL (150-400); Red Blood Cell Count 5.04 X10^6/uL (4.5-5.9); Red Cell Distribution Width 12.7 % (11.6-14.8); White Blood Cell Count 7.7 X10^3/uL (4.5-11.0)
[2019-12-02 06:36] LABS: PSA Ultrasensitive 0.076 ng/mL (0.000-4.000)
== END ==
PROVIDERS: PCP Internal Medicine; Referring Provider Internal Medicine; Visit Provider Internal Medicine
DX: I25.10 Atherosclerotic heart disease of native coronary artery without angina pectoris (principal); C61 Malignant neoplasm of prostate; E78.5 Hyperlipidemia, unspecified; I10 Essential (primary) hypertension; I48.0 Paroxysmal atrial fibrillation
CPT/HCPCS: 36415; 80053; 80061; 84153; 85025

== ENCOUNTER → 2020-05-27 11:20 | Outpatient (CLI) | payer MEDICARE, OTHER, SELFPAY ==
[2020-05-27 12:00] LABS: Add Manual Diff / Slide Review NO; Basophils Absolute Auto 100 /uL (0-100); Basophils Percent Auto 0.9 % (0-2); Eosinophils Absolute Auto 100 /uL (0-450); Eosinophils Percent Auto 1.5 % (2-4); Hematocrit 44.9 % (41-53); Hemoglobin 15.2 g/dL (13.5-17.5); Lymphocytes Absolute Auto 1800 /uL (1100-4500); Lymphocytes Percent Auto 20.3 % (25-40); Mean Corpuscular HGB Conc 33.9 % (30-36); Mean Corpuscular Hemoglobin 30.6 PG (26-34); Mean Corpuscular Volume 90.2 fL (80-100); Monocytes Absolute Auto 700 /uL (0-900); Monocytes Percent Auto 7.4 % (3-14); Neutrophils Absolute Auto 6200 /uL (1500-7000); Neutrophils Percent Auto 69.9 % (50-75); Platelet Count 273 X10^3/uL (150-400); Red Blood Cell Count 4.97 X10^6/uL (4.5-5.9); Red Cell Distribution Width 12.7 % (11.6-14.8); White Blood Cell Count 8.9 X10^3/uL (4.5-11.0)
[2020-05-27 12:16] LABS: Alanine Aminotransferase 25 IU/L (<50); Albumin 4.3 g/dL (3.5-5.0); Albumin Globulin Ratio 1.3 (1.0-2.8); Alkaline Phosphatase 67 U/L (38-126); Aspartate Aminotransferase 26 IU/L (17-59); BUN Creatinine Ratio 10.8 (6-22); Bilirubin Total 0.4 mg/dL (0.2-1.3); Blood Urea Nitrogen 8 mg/dL (9-20); Calcium 9.5 mg/dL (8.4-10.2); Carbon Dioxide 29 mmol/L (22-32); Chloride 98 mmol/L (98-107); Cholesterol 183 mg/dL (140-199); Estimated Glomerular Filt Rate > 60.0 mL/min (>60); Globulin 3.3 g/dL (1.7-4.1); Glucose 122 mg/dL (80-110); HDL Cholesterol 56 mg/dL (40-60); HEMOLYSIS < 15 (0-50); LDL Cholesterol Calculated 95 mg/dL (<100); Potassium 3.4 mmol/L (3.4-5.1); Sodium 134 mmol/L (137-145); Total Protein 7.6 g/dL (6.3-8.2); Triglycerides 158 mg/dL (35-150)
[2020-05-27 12:45] LABS: Prostate Specific Antigen 0.105 ng/mL (0.10-4.00)
[2020-05-27 13:34] LABS: TSH w/ Reflex to FT4 0.55 uIU/mL (0.47-4.68)
== END ==
PROVIDERS: PCP Internal Medicine; Referring Provider Internal Medicine; Visit Provider Internal Medicine
DX: E78.5 Hyperlipidemia, unspecified (principal); C61 Malignant neoplasm of prostate; I10 Essential (primary) hypertension; I25.10 Atherosclerotic heart disease of native coronary artery without angina pectoris; J43.9 Emphysema, unspecified; Z95.5 Presence of coronary angioplasty implant and graft
CPT/HCPCS: 80053; 80061; 84153; 84443; 85025

== ENCOUNTER → 2020-05-28 13:40 | Outpatient (CLI) | payer MEDICARE, OTHER, SELFPAY ==
[2020-05-28] MEDS: COVID-19 VACC, Ad26(JANSSEN)/PF 0.5 ML IM (13:43)
== END ==
PROVIDERS: PCP Internal Medicine; Visit Provider Internal Medicine
DX: Z23 Encounter for immunization (principal)
CPT/HCPCS: 0031A; 91303

== ENCOUNTER → 2020-12-01 10:45 | Outpatient (CLI) | payer MEDICARE, OTHER, SELFPAY ==
[2020-12-01 11:59] LABS: Alanine Aminotransferase 20 IU/L (<50); Albumin 4.5 g/dL (3.5-5.0); Albumin Globulin Ratio 1.5 (1.0-2.8); Alkaline Phosphatase 64 U/L (38-126); Aspartate Aminotransferase 26 IU/L (17-59); BUN Creatinine Ratio 12.5 (6-22); Bilirubin Total 0.6 mg/dL (0.2-1.3); Blood Urea Nitrogen 9 mg/dL (9-20); Carbon Dioxide 31 mmol/L (22-32); Chloride 93 mmol/L (98-107); Cholesterol 234 mg/dL (140-199); Estimated Glomerular Filt Rate > 60.0 mL/min (>60); Globulin 3.1 g/dL (1.7-4.1); Glucose 109 mg/dL (80-110); HDL Cholesterol 74 mg/dL (40-60); HEMOLYSIS < 15 (0-50); LDL Cholesterol Calculated 132 mg/dL (<100); Potassium 3.7 mmol/L (3.4-5.1); Sodium 132 mmol/L (137-145); Total Protein 7.6 g/dL (6.3-8.2); Triglycerides 140 mg/dL (35-150)
[2020-12-01 12:30] LABS: Prostate Specific Antigen 0.252 ng/mL (0.10-4.00)
== END ==
PROVIDERS: PCP Internal Medicine; Referring Provider Internal Medicine; Visit Provider Internal Medicine
DX: I10 Essential (primary) hypertension (principal); C61 Malignant neoplasm of prostate; E78.2 Mixed hyperlipidemia
CPT/HCPCS: 36415; 80053; 80061; 84153

== ENCOUNTER → 2021-02-28 12:09 | Outpatient (CLI) | payer MEDICARE, OTHER, SELFPAY ==
[2021-02-28 14:45] LABS: BUN Creatinine Ratio 12.5 (6-22); Blood Urea Nitrogen 10 mg/dL (9-20); Calcium 9.8 mg/dL (8.4-10.2); Carbon Dioxide 33 mmol/L (22-32); Chloride 101 mmol/L (98-107); Cholesterol 169 mg/dL (140-199); Estimated Glomerular Filt Rate > 60.0 mL/min (>60); Glucose 107 mg/dL (80-110); HDL Cholesterol 66 mg/dL (40-60); HEMOLYSIS < 15 (0-50); LDL Cholesterol Calculated 82 mg/dL (<100); Potassium 4.4 mmol/L (3.4-5.1); Sodium 139 mmol/L (137-145); Triglycerides 106 mg/dL (35-150)
[2021-03-01 10:41] LABS: Osmolality, Serum 291 mOsmol/kg (280-301)
== END ==
PROVIDERS: PCP Internal Medicine; Referring Provider Internal Medicine Cardiovascular Disease; Visit Provider Internal Medicine Cardiovascular Disease
DX: I10 Essential (primary) hypertension (principal); E78.1 Pure hyperglyceridemia
CPT/HCPCS: 36415; 80048; 80061; 83930

== ENCOUNTER 2021-03-24 11:59 | Emergency (ER) | payer MEDICARE, OTHER, SELFPAY ==
[2021-03-24 12:20] VITALS: BP 130/72; PULSE 82; RESP 15; TEMP 36.2; O2SAT 97; BMI 23.7
--- NOTE | 2021-03-24 12:24 | DI.RAD.S_ITS ---
PROCEDURE: XR HAND LT MIN 3V INDICATIONS: hand injury TECHNIQUE: 3 views of the hand(s) acquired. COMPARISON: None. FINDINGS: Bones: No acute, displaced fracture. Third proximal interphalangeal joint space loss and osteophytosis. Moderate arthrosis of the 1st carpometacarpal articulation. Carpal bones are normally aligned. No suspicious bony lesions. Soft tissues: No suspicious soft tissue calcifications. IMPRESSION: No acute osseous abnormality. Dictated by: Galo Hamilton M.D. on 03/24/2021 at 13:11 Approved by: Galo Hamilton M.D. on 03/24/2021 at 13:12
--- NOTE | 2021-03-24 14:07 | ED_ITS ---
HPI - Wound/Laceration General Chief Complaint: Wound/Laceration Stated Complaint: Fall last night- needs stitches Time Seen by Provider: 03/24/21 14:07 Source: patient Mode of arrival: Ambulatory History of Present Illness HPI narrative: 76-year-old male daily smoker with history of emphysema, hyperlipidemia, hypertension, anxiety presents with family in the chief complaint of a superficial skin tear on the dorsum of the middle finger of his left hand. He states that last evening he was attempting to get off the toilet and lost his balance and fell, thus injuring his finger. He denies any head, neck or back pain. He denies other prodromal symptoms such as dizziness, weakness or lightheadedness. He states it was merely a brief clutsy episode. He and family cleaned it well at home and are here for concern of possible underlying injury or potential for stitches. He is otherwise well and free of complaint Related Data Home Medications Medication Instructions Recorded Confirmed magnesium oxide 400 mg PO BID cap 12/27/17 03/01/21 melatonin 10 mg tablet 2 tab PO BEDTIME 06/16/18 03/01/21 phenazopyridine 95 mg tablet (Azo 95 mg PO TID 10/31/18 03/01/21 Urinary Pain Relief) Previous Rx's Medication Instructions Recorded hydrochlorothiazide 25 mg tablet 25 mg PO QDAY #30 tab 12/04/16 Disabled Parking Permit ea #1 01/24/17 hydrocortisone 2.5 % topical cream 1 applictn TOP BID #30 gram 10/31/18 atorvastatin 40 mg tablet 40 mg PO DAILY #90 tab 10/16/19 tamsulosin 0.4 mg capsule (Flomax) 0.4 mg PO BID #180 cap 10/16/19 trazodone 50 mg tablet See Rx Instructions .ROUTE 03/15/20 .COMPLEX #180 tablet cholecalciferol (vitamin D3) 25 25 mcg PO DAILY #90 cap 03/22/20 mcg (1,000 unit) capsule metoprolol succinate 25 mg 25 mg PO BID #180 tab 04/01/20 tablet,extended release 24 hr mometasone 200 mcg/actuation HFA 2 puff INHALATION BID #39 g 04/13/20 aerosol inhaler tiotropium bromide 18 mcg capsule 18 mcg INHALATION 0600 #90 cap 04/23/20 with inhalation device (Spiriva with HandiHaler) clonazepam 1 mg tablet 1 mg PO Q12H #60 tab 09/27/20 nitroglycerin 0.4 mg sublingual 0.4 mg SL Q5M PRN #60 tab 11/16/20 tablet sertraline 100 mg tablet 150 mg PO DAILY #135 tab 03/01/21 Allergies Allergy/AdvReac Type Severity Reaction Status Date / Time No Known Drug Allergies Allergy Verified 03/24/21 12:20 Review of Systems Review of Systems Narrative: GENERAL: Denies chills, fatigue, malaise, fever, sweats. HEENT: Denies sinus pain, ear pain, sore throat, difficulty swallowing, dizziness. RESPIRATORY: Denies dyspnea, cough, wheezing, hemoptysis, sputum. CARDIOVASCULAR: Denies chest pain, palpitations, orthopnea, edema, GASTROINTESTINAL: Denies nausea, vomiting, abdominal pain, diarrhea, constipation, melena. : Denies dysuria, frequency, incontinence, hematuria, urinary retention. MUSCULOSKELETAL: See HPI SKIN: See HPI NEUROLOGIC: Denies weakness, headache, numbness, change in speech, confusion, seizures, incoordination. PSYCHIATRIC: No concerning psychosocial issues. 12 point review of systems is negative except for those stated above Patient History Medical History (Updated 03/24/21 @ 14:16 by Carter Baker DO) Alcoholism Alcoholism in recovery (01/10/16) Aphthous ulcer of tongue Atherosclerosis of [place] coronary artery of [place] heart without angina pectoris (12/22/14) Atrial flutter Depression (12/22/14) Essential hypertension (12/22/14) Former smoker (01/15/15) Generalized anxiety disorder Hx of adenomatous colonic polyps (12/22/10) Hyperlipidemia Lower urinary tract symptoms Malignant neoplasm of prostate (12/22/10) MRSA (methicillin resistant staph aureus) culture positive Paroxysmal atrial fibrillation (12/22/14) 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 (12/22/14) Pulmonary emphysema (12/22/14) Tremor Urinary retention Surgical History History of angioplasty (10/06/14) Inguinal hernia Status post appendectomy Status post transurethral resection of prostate (~05/2016) Social History Smoking Status: Current every day smoker Smoking Status: Current every day smoker tobacco type: vaping alcohol intake frequency: holidays/special occasions only Substance Use Type: does not use Exam Narrative Exam Narrative: GEN: AOx3 and in mild distress, GCS 15 EYES: Pupils are equal, round, and reactive to light and accommodation. Extraoccular muscles are intact bilaterally. There is no subconjunctival hemorrhage or exudate. CHEST: Lungs are clear to auscultation bilaterally and free of wheezes, rales, or rhonchi. Heart rate is regular rhythm, there are no murmurs, clicks, rubs, or gallops. There is no chest wall tenderness. ABD: Abdomen is soft and nontender. There is no guarding or rebound. Bowel sounds are normal in all 4 quadrants. There is no mass or organomegaly. EXT: Full, slightly painful range of motion of the fingers of his left hand with some ecchymosis surrounding the MCP of the middle finger. There is a superficial skin tear approximately 1.5 cm and length, the skin is very thin and not appropriate for sutures. SKIN: Warm, pink, and dry. No erythema or rash Initial Vital Signs Initial Vital Signs: Vital Signs Temperature 97.2 F L 03/24/21 12:20 Pulse Rate 82 03/24/21 12:20 Respiratory Rate 15 03/24/21 12:20 Blood Pressure 130/72 03/24/21 12:20 Pulse Oximetry 97 03/24/21 12:20 Course Orders Ordered: ED Orders 03/24/21 12:24 XR hand LT min 3V Stat Vital Signs Vital signs: Vital Signs - 8 hr 03/24/21 12:20 Temperature 97.2 F L Pulse Rate 82 Respiratory Rate 15 Blood Pressure 130/72 Pulse Oximetry 97 Discharge Plan Departure Patient Disposition: Home Clinical Impression: Skin tear Instructions: DI for Minor Laceration Activity Restrictions/Additional Instructions: *You have been diagnosed with [mild skin tear. As we discussed, your skin is very thin, and sutures are not an option. *What to do: *Please continue to take your regular medications as directed. [ ] New medication prescriptions sent to your pharmacy: [ ] [ ] New medication written as a paper prescription [ x] No new medications given *Please follow up with your primary care provider in 2-3 days, call for an appointment. Let them know you were seen in the Emergency Department and that we ask that you be seen in follow up. We will electronically transmit a record of today's note *Return to Emergency Department if you should have any new, worsening or concerning symptoms, such as [increase bleeding, drainage, redness, swelling, red streaks extending from the wound or other concerns Prescriptions: No Action hydrochlorothiazide 25 MG tablet 25 mg PO QDAY Qty: 30 3RF Disabled Parking Permit Qty: 1 0RF atorvastatin 40 mg tablet 40 mg PO DAILY Qty: 90 0RF tamsulosin [Flomax] 0.4 mg capsule 0.4 mg PO BID Qty: 180 0RF trazodone 50 mg tablet See Rx Instructions .ROUTE .COMPLEX Qty: 180 3RF Dose Instruction: TAKE 1 TO 2 TABLETS BY MOUTH AT BEDTIME NEEDED FOR SLEEP Rx Instructions: TAKE 1 TO 2 TABLETS BY MOUTH AT BEDTIME NEEDED FOR SLEEP cholecalciferol (vitamin D3) 25 mcg (1,000 unit) capsule 25 mcg PO DAILY Qty: 90 3RF metoprolol succinate 25 mg tablet extended release 24 hr 25 mg PO BID Qty: 180 3RF mometasone 200 mcg/actuation HFA aerosol inhaler 2 puff INHALATION BID Qty: 39 3RF Spiriva with HandiHaler 18 mcg capsule, w/inhalation device 18 mcg inhalation 0600 Qty: 90 1RF clonazepam 1 mg tablet 1 mg PO Q12H Qty: 60 3RF magnesium oxide 400 mg capsule 400 mg PO BID 0RF nitroglycerin 0.4 mg tablet, sublingual 0.4 mg SL Q5M PRN (Reason: chest pain) Qty: 60 3RF Rx Instructions: until response; do not exceed 3 doses per episode sertraline 100 mg tablet 150 mg PO DAILY Qty: 135 3RF phenazopyridine [Azo Urinary Pain Relief] 95 mg tablet 95 mg PO TID 0RF hydrocortisone 2.5 % cream 1 applictn TOP BID Qty: 30 1RF melatonin 10 mg Tablet 2 tab PO BEDTIME 0RF Referrals: Tim Pemberton MD [Primary Care Provider] -
--- NOTE | 2021-03-24 15:29 | CM.MNRNOTE ---
Wound cleaned and steri strips applied by MARIA E Lujan
== END 2021-03-24 14:34 | disposition home or self-care (01) ==
PROVIDERS: Emergency Provider Emergency Medicine; PCP Internal Medicine
DX: S61.213A Laceration without foreign body of left middle finger without damage to nail, initial encounter (principal); F17.290 Nicotine dependence, other tobacco product, uncomplicated; W19.XXXA Unspecified fall, initial encounter; Y93.89 Activity, other specified
CPT/HCPCS: 73130; 99281; 99283

== ENCOUNTER 2021-06-16 14:30 | Outpatient (RCR) | payer MEDICARE, OTHER, SELFPAY ==
--- NOTE | 2021-05-02 16:00 | PT.OPPOC ---
Physical, Occupational & Speech Therapy At [facility] Current Diagnoses Unspecified abnormalities of gait and mobility (05/02/21) Visit Care Team Role Provider Type Tim Pemberton MD Attending Provider Physician Family Provider Primary Care Provider Referring Provider Specialty: Internal Medicine Address: [address] [place] [address], [address], [facility] Email: [email or web address] Plan Of Care PT-OP-T Assessment and Plan Start: 04/27/21 14:26 Freq: Status: Active Protocol: Document 05/02/21 14:30 AMB (Rec: 05/08/21 10:38 AMB [id number]) Physical Therapy Assessment Rehab Potential Rehabilitation Potential Good Evaluation Complexity Number of Personal Factors/Comorbidities 3 or More Number of Body Systems Impaired 4 or More Clinical Presentation at Evaluation Evolving Impairments Impairments Activity Tolerance,Balance, Functional Activities, Functional Mobility,Gait, Strength,Transfers Goals Two Impairment Gait Short Term Goal (STG) aPpa will ambulate with a FWW for 2 minutes without LOB or fear of falling over smooth terrain. STG Duration 4 weeks Assisted Goal (LTG) Papa will ambulate with a FWW for 6 minutes without LOB or fear of falling over smooth terrain. LTG Duration 8 weeks One Impairment Transfers Short Term Goal (STG) Papa will be independent with all bed mobility. STG Duration 4 weeks Stencil Printer Goal (LTG) Papa will move from sit to stand from a low surface ( level of toilet) with UE support and good body mechanics. LTG Duration 8 weeks Assessment Summary Assessment Papa is a 76yo M who attends physical therapy with worsening gait and balance and long history of falls. He had difficulty with all narrow base balance, with both eyes closed and head turns causing falls. His medical history makes him SOB easily and this also decreases his mobility. His history of polio (weak UE) makes using a walker more challenging, but he did show the ability to do so during evaluation. He tolerated only 150 feet of ambulation before fatiguing. He will benefit from physical therapy for strength, balance and gait training to decrease his risk of future falls. Physical Therapy Plan Frequency and Duration Frequency of Treatment 2x/Week Duration of Treatment 8 weeks Plan of Care Start Date 05/02/21 Plan of Care End Date 06/27/21 Therapeutic Interventions Therapeutic Interventions Aquatic Therapy,Balance Training,Gait Training,Home Exercise Program,Manual Therapy,Neuromuscular Re- education,Self-Care/Home Management,Therapeutic Activities,Therapeutic Exercises Next Visit Focus/Plan Next Note Type Treatment Note Next Visit Plan Try standard walker per pt request Plan of Care Dates Plan of Care Start Date 05/02/21 Plan of Care End Date 06/27/21 Electronically Signed by: Germaine Yoder, PT 05/08/21 7922 Please Sign and Return: I have reviewed this Plan of Care and certify that the skilled therapy services above are required to meet the patient?s needs. Physician Signature Date Printed Name and Credentials Clinical Instructor Signature Printed Name and Credentials
--- NOTE | 2021-05-02 16:00 | PT.OIE ---
Current Diagnoses Unspecified abnormalities of gait and mobility (05/02/21) Past Medical History (Last Updated 04/25/21 @ 16:23 by Ladarius Krishnamurthy MD) Alcoholism Alcoholism in recovery (01/10/16) Aphthous ulcer of tongue Atherosclerosis of [place] coronary artery of [place] heart without angina pectoris (12/22/14) Atrial flutter Depression (12/22/14) Essential hypertension (12/22/14) Former smoker (01/15/15) Generalized anxiety disorder History of chemotherapy History of radiation therapy Hx of adenomatous colonic polyps (12/22/10) Hyperlipidemia Lower urinary tract symptoms Malignant neoplasm of prostate (12/22/10) MRSA (methicillin resistant staph aureus) culture positive Nocturia Paroxysmal atrial fibrillation (12/22/14) 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 (12/22/14) Pulmonary emphysema (12/22/14) Tremor Urinary frequency Urinary retention Past Surgical History (Last Reviewed 04/25/21 @ 16:20 by Ladarius Krishnamurthy MD) History of angioplasty (10/06/14) Inguinal hernia Status post appendectomy Status post transurethral resection of prostate (~05/2016) Visit Care Team Role Provider Type Tim Pemberton MD Attending Provider Physician Family Provider Primary Care Provider Referring Provider Specialty: Internal Medicine Address: [address] [place] [address], [address], [facility] Email: [email or web address] Physical Therapy Initial Evaluation PT-OP-A Visit Information Start: 04/27/21 14:26 Freq: Status: Active Protocol: Document 05/02/21 14:28 AMB (Rec: 05/02/21 14:55 AMB [id number]) Out-Patient Physical Therapy Visit Information Visit Information Visit Type Initial Evaluation Visit Start Time 14:30 Visit Stop Time 15:15 Total Visit Minutes 45 Visit Number 1 PT-OP-B Current Condition Start: 04/27/21 14:26 Freq: Status: Active Protocol: Document 05/02/21 14:28 AMB (Rec: 05/02/21 14:55 AMB [id number]) Current Condition History of Current Condition Onset Date 2 years Current Complaints history of falling History of Current Condition Papa attends with his Betsy. 5 falls in the last 6 months, some times has difficulty getting up from bed . COPD causes shortness or breath which limits his walking, currently walking laps around the car in the garage. Wanting to learn how to use walker. Denies dizziness. Getting out of bed in the middle of the night can cause falls, also the bathroom. Does get lightheaded when sitting up quickly. Denies numbness/ tingling but does endorse weakness. Was previously in PT 2 years ago, but stopped due to covid shut down and now feels balance is worse. Treatment Goals Patient/Caregiver Goals Decrease falls Prior Functional Status Baseline Function- ADL's Modified Independent Baseline Function- Mobility Modified Independent Current Functional Impairments (Reported) Functional Limitations- ADL's multiple falls- falls getting out of bed, difficulty with bed mobility, difficulty with sit to stand from toilet ( needs UE support), difficulty with floor transfer (needs environmental support, did need to call paramedics once). 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 PT-OP-C Subjective Start: 04/27/21 14:26 Freq: Status: Active Protocol: Document 05/02/21 14:30 AMB (Rec: 05/02/21 15:45 AMB [id number]) Patient Questionnaires ABC- Activity Specific Balance Confidence Scale ABC Score 19 ABC Functional Impairment 80 to <100% Impaired (Score 1- 20) Dizziness Handicap Inventory DHI Score 92 DHI Functional Impairment 80 to 99% Impaired (Score 80- 99) OP-PT Pain Assessment Comments Pain Comments 8/10 pain in left hip, 5/10 in left knee, 6/10 in back PT-OP-D Balance Start: 04/27/21 14:26 Freq: Status: Active Protocol: Document 05/02/21 14:30 AMB (Rec: 05/02/21 15:45 AMB [id number]) Balance Tests Other Other Balance Tests Performed NBOS: EC- fall posterior. NBOS: EO horizontal HT: 10 seconds. EO vertical head turns-= fall posterior PT-OP-G Mobility & Gait Start: 04/27/21 14:26 Freq: Status: Active Protocol: Document 05/02/21 14:30 AMB (Rec: 05/02/21 15:45 AMB [id number]) OP Gait Assessment Comments Gait Comments Pt attends with tall SPC with WBOS, but also a FWW. He is worried about the wheels on the FWW. He fatigues after 150' of ambulation, becomes short of breath. PT-OP-J Posture/Palpation/Skin Start: 04/27/21 14:26 Freq: Status: Active Protocol: Document 05/02/21 14:30 AMB (Rec: 05/02/21 15:45 AMB [id number]) Posture Evaluation Comments Posture Comments moderate/severe thoracic kyphosis PT-OP-M Strength Start: 04/27/21 14:26 Freq: Status: Active Protocol: Document 05/02/21 14:30 AMB (Rec: 05/02/21 15:45 AMB [id number]) Hip Strength Hip Manual Muscle Testing Right Flexion (L2) 4 Good Extension (S1) 3 Fair Abduction 4- Good- Left Flexion (L2) 4 Good Extension (S1) 3 Fair Abduction 4- Good- Knee Strength Knee Manual Muscle Testing Right Flexion (S2) 4 Good Extension (L3) 4 Good Left Flexion (S2) 4 Good Extension (L3) 4 Good Ankle/Foot Strength Ankle and Foot Manual Muscle Testing Right Dorsiflexion (L4) 4 Good Plantarflexion (S1) 4 Good Left Dorsiflexion (L4) 4 Good Plantarflexion (S1) 4 Good PT-OP-T Assessment and Plan Start: 04/27/21 14:26 Freq: Status: Active Protocol: Document 05/02/21 14:30 AMB (Rec: 05/08/21 10:38 AMB [id number]) Physical Therapy Assessment Rehab Potential Rehabilitation Potential Good Evaluation Complexity Number of Personal Factors/Comorbidities 3 or More Number of Body Systems Impaired 4 or More Clinical Presentation at Evaluation Evolving Impairments Impairments Activity Tolerance,Balance, Functional Activities, Functional Mobility,Gait, Strength,Transfers Goals Two Impairment Gait Short Term Goal (STG) Papa will ambulate with a FWW for 2 minutes without LOB or fear of falling over smooth terrain. STG Duration 4 weeks Associate Merchandise Planner Goal (LTG) Papa will ambulate with a FWW for 6 minutes without LOB or fear of falling over smooth terrain. LTG Duration 8 weeks One Impairment Transfers Short Term Goal (STG) Papa will be independent with all bed mobility. STG Duration 4 weeks Associate Merchandise Planner Goal (LTG) Papa will move from sit to stand from a low surface ( level of toilet) with UE support and good body mechanics. LTG Duration 8 weeks Assessment Summary Assessment Papa is a 76yo M who attends physical therapy with worsening gait and balance and long history of falls. He had difficulty with all narrow base balance, with both eyes closed and head turns causing falls. His medical history makes him SOB easily and this also decreases his mobility. His history of polio (weak UE) makes using a walker more challenging, but he did show the ability to do so during evaluation. He tolerated only 150 feet of ambulation before fatiguing. He will benefit from physical therapy for strength, balance and gait training to decrease his risk of future falls. Physical Therapy Plan Frequency and Duration Frequency of Treatment 2x/Week Duration of Treatment 8 weeks Plan of Care Start Date 05/02/21 Plan of Care End Date 06/27/21 Therapeutic Interventions Therapeutic Interventions Aquatic Therapy,Balance Training,Gait Training,Home Exercise Program,Manual Therapy,Neuromuscular Re- education,Self-Care/Home Management,Therapeutic Activities,Therapeutic Exercises Next Visit Focus/Plan Next Note Type Treatment Note Next Visit Plan Try standard walker per pt request
--- NOTE | 2021-05-10 13:01 | PT.OTN ---
Current Diagnoses Unspecified abnormalities of gait and mobility (05/10/21) Physical Therapy Treatment Note PT-OP-A Visit Information Start: 04/27/21 14:26 Freq: Status: Active Protocol: Document 05/10/21 11:15 AMB (Rec: 05/10/21 12:49 AMB [id number]) Out-Patient Physical Therapy Visit Information Visit Information Visit Type Treatment Note Visit Start Time 11:15 Visit Stop Time 12:00 Total Visit Minutes 45 Visit Number 2 PT-OP-B Current Condition Start: 04/27/21 14:26 Freq: Status: Active Protocol: Document 05/02/21 14:28 AMB (Rec: 05/02/21 14:55 AMB [id number]) Current Condition History of Current Condition Onset Date 2 years Current Complaints history of falling History of Current Condition Papa attends with his Betsy. 5 falls in the last 6 months, some times has difficulty getting up from bed . COPD causes shortness or breath which limits his walking, currently walking laps around the car in the garage. Wanting to learn how to use walker. Denies dizziness. Getting out of bed in the middle of the night can cause falls, also the bathroom. Does get lightheaded when sitting up quickly. Denies numbness/ tingling but does endorse weakness. Was previously in PT 2 years ago, but stopped due to covid shut down and now feels balance is worse. Treatment Goals Patient/Caregiver Goals Decrease falls Prior Functional Status Baseline Function- ADL's Modified Independent Baseline Function- Mobility Modified Independent Current Functional Impairments (Reported) Functional Limitations- ADL's multiple falls- falls getting out of bed, difficulty with bed mobility, difficulty with sit to stand from toilet ( needs UE support), difficulty with floor transfer (needs environmental support, did need to call paramedics once). 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 PT-OP-C Subjective Start: 04/27/21 14:26 Freq: Status: Active Protocol: Document 05/10/21 11:15 AMB (Rec: 05/10/21 12:49 AMB [id number]) OP-PT Subjective Patient Comments Patient Comments Papa attends stating he had a near fall this morning getting up from toilet. PT-OP-D Balance Start: 04/27/21 14:26 Freq: Status: Active Protocol: Document 05/02/21 14:30 AMB (Rec: 05/02/21 15:45 AMB [id number]) Balance Tests Other Other Balance Tests Performed NBOS: EC- fall posterior. NBOS: EO horizontal HT: 10 seconds. EO vertical head turns-= fall posterior PT-OP-G Mobility & Gait Start: 04/27/21 14:26 Freq: Status: Active Protocol: Document 05/02/21 14:30 AMB (Rec: 05/02/21 15:45 AMB [id number]) OP Gait Assessment Comments Gait Comments Pt attends with tall SPC with WBOS, but also a FWW. He is worried about the wheels on the FWW. He fatigues after 150' of ambulation, becomes short of breath. PT-OP-J Posture/Palpation/Skin Start: 04/27/21 14:26 Freq: Status: Active Protocol: Document 05/02/21 14:30 AMB (Rec: 05/02/21 15:45 AMB [id number]) Posture Evaluation Comments Posture Comments moderate/severe thoracic kyphosis PT-OP-M Strength Start: 04/27/21 14:26 Freq: Status: Active Protocol: Document 05/02/21 14:30 AMB (Rec: 05/02/21 15:45 AMB [id number]) Hip Strength Hip Manual Muscle Testing Right Flexion (L2) 4 Good Extension (S1) 3 Fair Abduction 4- Good- Left Flexion (L2) 4 Good Extension (S1) 3 Fair Abduction 4- Good- Knee Strength Knee Manual Muscle Testing Right Flexion (S2) 4 Good Extension (L3) 4 Good Left Flexion (S2) 4 Good Extension (L3) 4 Good Ankle/Foot Strength Ankle and Foot Manual Muscle Testing Right Dorsiflexion (L4) 4 Good Plantarflexion (S1) 4 Good Left Dorsiflexion (L4) 4 Good Plantarflexion (S1) 4 Good PT-OP-Q Treatments Start: 04/27/21 14:26 Freq: Status: Active Protocol: Document 05/10/21 11:15 AMB (Rec: 02/22/22 13:01 AMB [id number]) Gym Equipment Shuttle Recovery B squat Resistance 75# Shuttle Recovery Platform Stable Reps/Time 2x10 Therapeutic Exercises Standing Exercises 3 Standing Exercise Name sit to stand Reps/Minutes 10x2 Comments cues for hand placement 1 Standing Exercise Name Standing hip extension Reps/Minutes 2x10 Comments tried t band but that was too much Gait Training Gait Activity standard walking Description 40' Device Used standard walker Level of Assistance CGA Surface smooth Comments instruction in safety with turning Neuro Re-Education Treatment Balance Activities Feet together, modified stagger stance Equipment corner posterior, chair front Reps/Duration 30-60 sec Comments Add HEP-- start with NBOS for now PT-OP-T Assessment and Plan Start: 04/27/21 14:26 Freq: Status: Active Protocol: Document 05/10/21 11:15 AMB (Rec: 05/10/21 13:[address] [facility] [id number]) Physical Therapy Assessment Assessment Summary Assessment Papa fatigues quickly, but was able to improve with standard walking training with instruction. Discussed sit to stand and balance exercise (with walker in front and chair behind) as current HEP. Physical Therapy Plan Next Visit Focus/Plan Next Note Type Treatment Note Next Visit Plan Follow up on HEP (sit to stand and NBOS HT Eo).
--- NOTE | 2021-05-12 15:49 | PT.OTN ---
Current Diagnoses Unspecified abnormalities of gait and mobility (05/12/21) Physical Therapy Treatment Note PT-OP-A Visit Information Start: 04/27/21 14:26 Freq: Status: Active Protocol: Document 05/12/21 13:46 AMB (Rec: 05/12/21 14:31 AMB [id number]) Out-Patient Physical Therapy Visit Information Visit Information Visit Type Treatment Note Visit Start Time 13:45 Visit Stop Time 14:30 Total Visit Minutes 45 Visit Number 3 PT-OP-B Current Condition Start: 04/27/21 14:26 Freq: Status: Active Protocol: Document 05/02/21 14:28 AMB (Rec: 05/02/21 14:55 AMB [id number]) Current Condition History of Current Condition Onset Date 2 years Current Complaints history of falling History of Current Condition Papa attends with his Betsy. 5 falls in the last 6 months, some times has difficulty getting up from bed . COPD causes shortness or breath which limits his walking, currently walking laps around the car in the garage. Wanting to learn how to use walker. Denies dizziness. Getting out of bed in the middle of the night can cause falls, also the bathroom. Does get lightheaded when sitting up quickly. Denies numbness/ tingling but does endorse weakness. Was previously in PT 2 years ago, but stopped due to covid shut down and now feels balance is worse. Treatment Goals Patient/Caregiver Goals Decrease falls Prior Functional Status Baseline Function- ADL's Modified Independent Baseline Function- Mobility Modified Independent Current Functional Impairments (Reported) Functional Limitations- ADL's multiple falls- falls getting out of bed, difficulty with bed mobility, difficulty with sit to stand from toilet ( needs UE support), difficulty with floor transfer (needs environmental support, did need to call paramedics once). 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 PT-OP-C Subjective Start: 04/27/21 14:26 Freq: Status: Active Protocol: Document 05/12/21 13:46 AMB (Rec: 05/12/21 14:31 AMB [id number]) OP-PT Subjective Patient Comments Patient Comments Papa and his attend PT, stating he has been doing his exercises. PT-OP-D Balance Start: 04/27/21 14:26 Freq: Status: Active Protocol: Document 05/02/21 14:30 AMB (Rec: 05/02/21 15:45 AMB [id number]) Balance Tests Other Other Balance Tests Performed NBOS: EC- fall posterior. NBOS: EO horizontal HT: 10 seconds. EO vertical head turns-= fall posterior PT-OP-G Mobility & Gait Start: 04/27/21 14:26 Freq: Status: Active Protocol: Document 05/02/21 14:30 AMB (Rec: 05/02/21 15:45 AMB [id number]) OP Gait Assessment Comments Gait Comments Pt attends with tall SPC with WBOS, but also a FWW. He is worried about the wheels on the FWW. He fatigues after 150' of ambulation, becomes short of breath. PT-OP-J Posture/Palpation/Skin Start: 04/27/21 14:26 Freq: Status: Active Protocol: Document 05/02/21 14:30 AMB (Rec: 05/02/21 15:45 AMB [id number]) Posture Evaluation Comments Posture Comments moderate/severe thoracic kyphosis PT-OP-M Strength Start: 04/27/21 14:26 Freq: Status: Active Protocol: Document 05/02/21 14:30 AMB (Rec: 05/02/21 15:45 AMB [id number]) Hip Strength Hip Manual Muscle Testing Right Flexion (L2) 4 Good Extension (S1) 3 Fair Abduction 4- Good- Left Flexion (L2) 4 Good Extension (S1) 3 Fair Abduction 4- Good- Knee Strength Knee Manual Muscle Testing Right Flexion (S2) 4 Good Extension (L3) 4 Good Left Flexion (S2) 4 Good Extension (L3) 4 Good Ankle/Foot Strength Ankle and Foot Manual Muscle Testing Right Dorsiflexion (L4) 4 Good Plantarflexion (S1) 4 Good Left Dorsiflexion (L4) 4 Good Plantarflexion (S1) 4 Good PT-OP-Q Treatments Start: 04/27/21 14:26 Freq: Status: Active Protocol: Document 05/12/21 13:45 AMB (Rec: 05/12/21 15:47 AMB [id number]) Therapeutic Exercises Sitting Exercises LAQ Resistance 4# Reps/Minutes 2x10 Standing Exercises 2 Standing Exercise Name hip abduction at railing Reps/Minutes 2x10 Comments HEP 3 Standing Exercise Name sit to stand Reps/Minutes 10x2 Comments cues for hand placement, nose over toes 1 Standing Exercise Name Standing hip extension Reps/Minutes 2x10 Comments HEP Neuro Re-Education Treatment Balance Activities Feet together, modified stagger stance Equipment corner posterior, chair front Reps/Duration 30-60 sec Comments Add HEP-- start with NBOS for now-- tried to add foam today, pt nervous did need Herminio PT-OP-T Assessment and Plan Start: 04/27/21 14:26 Freq: Status: Active Protocol: Document 05/12/21 13:45 AMB (Rec: 05/12/21 15:47 AMB [id number]) Physical Therapy Assessment Goals Two Impairment Gait Short Term Goal (STG) Papa will ambulate with a FWW for 2 minutes without LOB or fear of falling over smooth terrain. STG Duration 4 weeks Scale Attendant Goal (LTG) Papa will ambulate with a FWW for 6 minutes without LOB or fear of falling over smooth terrain. LTG Duration 8 weeks One Impairment Transfers Short Term Goal (STG) Papa will be independent with all bed mobility. STG Duration 4 weeks Scale Attendant Goal (LTG) Papa will move from sit to stand from a low surface ( level of toilet) with UE support and good body mechanics. LTG Duration 8 weeks Assessment Summary Assessment Papa was very nervous with foam balance, did need Herminio with it. Continues to fatigue quickly. Extended time with mechanics of sit to stand, encouraged nose over toes posture. Physical Therapy Plan Next Visit Focus/Plan Next Note Type Treatment Note Next Visit Plan follow up on HEP (standing hip ext, abd) LAQ with 4# ankle weights
--- NOTE | 2021-05-16 13:02 | PT.OTN ---
Current Diagnoses Unspecified abnormalities of gait and mobility (05/16/21) Physical Therapy Treatment Note PT-OP-A Visit Information Start: 04/27/21 14:26 Freq: Status: Active Protocol: Document 05/16/21 12:17 SP (Rec: 05/16/21 13:23 SP [id number]) Out-Patient Physical Therapy Visit Information Visit Information Visit Type Treatment Note Visit Note attended tx. Visit Start Time 12:17 Visit Stop Time 13:02 Total Visit Minutes 45 Visit Number 4 Number of FIELD ARTILLERY RADAR OPERATOR Visits 1 PT-OP-B Current Condition Start: 04/27/21 14:26 Freq: Status: Active Protocol: Document 05/02/21 14:28 AMB (Rec: 05/02/21 14:55 AMB [id number]) Current Condition History of Current Condition Onset Date 2 years Current Complaints history of falling History of Current Condition Papa attends with his Betsy. 5 falls in the last 6 months, some times has difficulty getting up from bed . COPD causes shortness or breath which limits his walking, currently walking laps around the car in the garage. Wanting to learn how to use walker. Denies dizziness. Getting out of bed in the middle of the night can cause falls, also the bathroom. Does get lightheaded when sitting up quickly. Denies numbness/ tingling but does endorse weakness. Was previously in PT 2 years ago, but stopped due to covid shut down and now feels balance is worse. Treatment Goals Patient/Caregiver Goals Decrease falls Prior Functional Status Baseline Function- ADL's Modified Independent Baseline Function- Mobility Modified Independent Current Functional Impairments (Reported) Functional Limitations- ADL's multiple falls- falls getting out of bed, difficulty with bed mobility, difficulty with sit to stand from toilet ( needs UE support), difficulty with floor transfer (needs environmental support, did need to call paramedics once). 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 PT-OP-C Subjective Start: 04/27/21 14:26 Freq: Status: Active Protocol: Document 05/16/21 12:17 SP (Rec: 05/16/21 13:23 SP [id number]) OP-PT Subjective Patient Comments Patient Comments Papa and his attend PT, stating he has been doing his exercises, did . PT-OP-D Balance Start: 04/27/21 14:26 Freq: Status: Active Protocol: Document 05/02/21 14:30 AMB (Rec: 05/02/21 15:45 AMB [id number]) Balance Tests Other Other Balance Tests Performed NBOS: EC- fall posterior. NBOS: EO horizontal HT: 10 seconds. EO vertical head turns-= fall posterior PT-OP-G Mobility & Gait Start: 04/27/21 14:26 Freq: Status: Active Protocol: Document 05/02/21 14:30 AMB (Rec: 05/02/21 15:45 AMB [id number]) OP Gait Assessment Comments Gait Comments Pt attends with tall SPC with WBOS, but also a FWW. He is worried about the wheels on the FWW. He fatigues after 150' of ambulation, becomes short of breath. PT-OP-J Posture/Palpation/Skin Start: 04/27/21 14:26 Freq: Status: Active Protocol: Document 05/02/21 14:30 AMB (Rec: 05/02/21 15:45 AMB [id number]) Posture Evaluation Comments Posture Comments moderate/severe thoracic kyphosis PT-OP-M Strength Start: 04/27/21 14:26 Freq: Status: Active Protocol: Document 05/02/21 14:30 AMB (Rec: 05/02/21 15:45 AMB [id number]) Hip Strength Hip Manual Muscle Testing Right Flexion (L2) 4 Good Extension (S1) 3 Fair Abduction 4- Good- Left Flexion (L2) 4 Good Extension (S1) 3 Fair Abduction 4- Good- Knee Strength Knee Manual Muscle Testing Right Flexion (S2) 4 Good Extension (L3) 4 Good Left Flexion (S2) 4 Good Extension (L3) 4 Good Ankle/Foot Strength Ankle and Foot Manual Muscle Testing Right Dorsiflexion (L4) 4 Good Plantarflexion (S1) 4 Good Left Dorsiflexion (L4) 4 Good Plantarflexion (S1) 4 Good PT-OP-Q Treatments Start: 04/27/21 14:26 Freq: Status: Active Protocol: Document 05/16/21 12:17 SP (Rec: 05/16/21 13:23 SP [id number]) Therapeutic Exercises Sitting Exercises HS curl Sitting Exercise Name assessed for HEP- add next tx w/ band Side bilateral Resistance TB #1 Reps/Minutes x10 Comments stated more challenging with LLE. LAQ Resistance 4# Reps/Minutes 2x10 Comments good pacing form Standing Exercises 2 Standing Exercise Name hip abduction at railing Reps/Minutes 2x10 Comments HEP 3 Standing Exercise Name sit to stand Reps/Minutes 10x2 Comments cues for hand placement, hip hinge, nose over toes 1 Standing Exercise Name Standing hip extension Reps/Minutes 2x10 Comments HEP Gait Training Gait Activity standard walking Description 204' Device Used standard FWW Level of Assistance CGA- Min Surface firm Distance/Duration 1 large lap around clinic Treatment Focus Safety with turning, body positioning in FWW, alignment, foot clearance Comments Cued body closer to back legs of FWW, slow safe pacing receiprocal stepping w/ eccentric RLE heel strike to w / awareness of tall alignment and WB between BLE, tends to list to R. Neuro Re-Education Treatment Balance Activities Feet together, modified stagger stance Details in PT only Surface firm Equipment //bars, mirror Reps/Duration 8 min total Comments * Firm: NBOS, stagger w/ head turns- CG- 10%A with intermittent cues for body posturing center improve WB between BLE, tends to list to R. *Blue foam- WBOS head forward 45 sec with cues, Stagger: CG- 10%A- L foot forward, more challenging RLE forward 25%A. Self-Care/Home Management Treatment Education Patient Education Posture,Safety Other Education DIscussed with pt and hold off on postural balance at home, due to not having gait belt, pt needs Min A for safety recovery. Both verbalized understanding and in agreement until get gait belt for home. FIELD ARTILLERY RADAR OPERATOR suggested there is one with handles as well if feel would be helpful. will look into [employer] vs [employer]. PT-OP-T Assessment and Plan Start: 04/27/21 14:26 Freq: Status: Active Protocol: Document 05/16/21 12:17 SP (Rec: 05/16/21 13:23 SP [id number]) Physical Therapy Assessment Goals Two Impairment Gait Short Term Goal (STG) Papa will ambulate with a FWW for 2 minutes without LOB or fear of falling over smooth terrain. STG Duration 4 weeks Coil Former Goal (LTG) Papa will ambulate with a FWW for 6 minutes without LOB or fear of falling over smooth terrain. LTG Duration 8 weeks One Impairment Transfers Short Term Goal (STG) Papa will be independent with all bed mobility. STG Duration 4 weeks Residential Goal (LTG) Papa will move from sit to stand from a low surface ( level of toilet) with UE support and good body mechanics. LTG Duration 8 weeks Assessment Summary Assessment Pt required CG- Min A during again and standing throughout this tx. He improved with use of mirror for body alignment corrections with education cues for increase WB into LLE, able to add head turns with support. Cued for tall alignment during HEP, tends to lean forward, better post cues. Pt able to complete longer distance gait with cues for posturing, safety turns, eccentric heel stike RLE. Physical Therapy Plan Frequency and Duration Frequency of Treatment 2x/Week Duration of Treatment 8 weeks Plan of Care Start Date 05/02/21 Plan of Care End Date 06/27/21 Therapeutic Interventions Therapeutic Interventions Aquatic Therapy,Balance Training,Gait Training,Home Exercise Program,Manual Therapy,Neuromuscular Re- education,Self-Care/Home Management,Therapeutic Activities,Therapeutic Exercises Next Visit Focus/Plan Next Note Type Treatment Note Next Visit Plan Response to last tx. Gait with FWW. Safety FWW during transfers. Assess step taps for increase SLS. POC: Continue HEP review with resistance if able.
--- NOTE | 2021-05-19 15:27 | PT.OTN ---
Current Diagnoses Unspecified abnormalities of gait and mobility (05/19/21) Physical Therapy Treatment Note PT-OP-A Visit Information Start: 04/27/21 14:26 Freq: Status: Active Protocol: Document 05/19/21 14:33 AMB (Rec: 05/19/21 15:27 AMB [id number]) Out-Patient Physical Therapy Visit Information Visit Information Visit Type Treatment Note Visit Start Time 14:30 Visit Stop Time 15:15 Total Visit Minutes 45 Visit Number 5 PT-OP-B Current Condition Start: 04/27/21 14:26 Freq: Status: Active Protocol: Document 05/02/21 14:28 AMB (Rec: 05/02/21 14:55 AMB [id number]) Current Condition History of Current Condition Onset Date 2 years Current Complaints history of falling History of Current Condition Papa attends with his Betsy. 5 falls in the last 6 months, some times has difficulty getting up from bed . COPD causes shortness or breath which limits his walking, currently walking laps around the car in the garage. Wanting to learn how to use walker. Denies dizziness. Getting out of bed in the middle of the night can cause falls, also the bathroom. Does get lightheaded when sitting up quickly. Denies numbness/ tingling but does endorse weakness. Was previously in PT 2 years ago, but stopped due to covid shut down and now feels balance is worse. Treatment Goals Patient/Caregiver Goals Decrease falls Prior Functional Status Baseline Function- ADL's Modified Independent Baseline Function- Mobility Modified Independent Current Functional Impairments (Reported) Functional Limitations- ADL's multiple falls- falls getting out of bed, difficulty with bed mobility, difficulty with sit to stand from toilet ( needs UE support), difficulty with floor transfer (needs environmental support, did need to call paramedics once). 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 PT-OP-C Subjective Start: 04/27/21 14:26 Freq: Status: Active Protocol: Document 05/19/21 14:33 AMB (Rec: 05/19/21 15:27 AMB [id number]) OP-PT Subjective Patient Comments Patient Comments Papa walked for about 15 minutes yesterday around the car, needed a couple of standing rest breaks. PT-OP-D Balance Start: 04/27/21 14:26 Freq: Status: Active Protocol: Document 05/02/21 14:30 AMB (Rec: 05/02/21 15:45 AMB [id number]) Balance Tests Other Other Balance Tests Performed NBOS: EC- fall posterior. NBOS: EO horizontal HT: 10 seconds. EO vertical head turns-= fall posterior PT-OP-G Mobility & Gait Start: 04/27/21 14:26 Freq: Status: Active Protocol: Document 05/02/21 14:30 AMB (Rec: 05/02/21 15:45 AMB [id number]) OP Gait Assessment Comments Gait Comments Pt attends with tall SPC with WBOS, but also a FWW. He is worried about the wheels on the FWW. He fatigues after 150' of ambulation, becomes short of breath. PT-OP-J Posture/Palpation/Skin Start: 04/27/21 14:26 Freq: Status: Active Protocol: Document 05/02/21 14:30 AMB (Rec: 05/02/21 15:45 AMB [id number]) Posture Evaluation Comments Posture Comments moderate/severe thoracic kyphosis PT-OP-M Strength Start: 04/27/21 14:26 Freq: Status: Active Protocol: Document 05/02/21 14:30 AMB (Rec: 05/02/21 15:45 AMB [id number]) Hip Strength Hip Manual Muscle Testing Right Flexion (L2) 4 Good Extension (S1) 3 Fair Abduction 4- Good- Left Flexion (L2) 4 Good Extension (S1) 3 Fair Abduction 4- Good- Knee Strength Knee Manual Muscle Testing Right Flexion (S2) 4 Good Extension (L3) 4 Good Left Flexion (S2) 4 Good Extension (L3) 4 Good Ankle/Foot Strength Ankle and Foot Manual Muscle Testing Right Dorsiflexion (L4) 4 Good Plantarflexion (S1) 4 Good Left Dorsiflexion (L4) 4 Good Plantarflexion (S1) 4 Good PT-OP-Q Treatments Start: 04/27/21 14:26 Freq: Status: Active Protocol: Document 05/19/21 14:33 AMB (Rec: 05/19/21 15:27 AMB [id number]) Therapeutic Exercises Sitting Exercises hip ER Sitting Exercise Name #3 t band Reps/Minutes 10 Standing Exercises 5 Standing Exercise Name mini lunges Reps/Minutes 2x10 Comments at railing 4 Standing Exercise Name mini squat Reps/Minutes 2x10 Comments at railing stair tap up Reps/Minutes 2x10 Comments holding onto railing 2 Standing Exercise Name hip abduction at railing Reps/Minutes 2x10 Comments HEP Gait Training Gait Activity standard walking Description 100 x 2 Device Used standard FWW Level of Assistance CGA- Min Surface firm Distance/Duration 2 small laps around clinic Treatment Focus Safety with turning, body positioning in FWW, alignment, foot clearance Comments Cued body closer to back legs of FWW, slow safe pacing receiprocal stepping w/ eccentric RLE heel strike to w / awareness of tall alignment and WB between BLE, tends to list to R. Neuro Re-Education Treatment Balance Activities Feet together, modified stagger stance Details in PT only Surface firm Equipment railing Reps/Duration 10 min total Comments * Firm: NBOS, head turns- slow with intermittent cues for body posturing center improve WB between BLE, tends to list to R. Eyes closed - 10 sec pt opens eyes to avoid LOB PT-OP-T Assessment and Plan Start: 04/27/21 14:26 Freq: Status: Active Protocol: Document 05/19/21 14:33 AMB (Rec: 05/19/21 15:27 AMB [id number]) Physical Therapy Assessment Goals Two Impairment Gait Short Term Goal (STG) Papa will ambulate with a FWW for 2 minutes without LOB or fear of falling over smooth terrain. STG Duration 4 weeks Intermediate Goal (LTG) Papa will ambulate with a FWW for 6 minutes without LOB or fear of falling over smooth terrain. LTG Duration 8 weeks One Impairment Transfers Short Term Goal (STG) Papa will be independent with all bed mobility. STG Duration 4 weeks Library Supervisor Goal (LTG) Papa will move from sit to stand from a low surface ( level of toilet) with UE support and good body mechanics. LTG Duration 8 weeks Assessment Summary Assessment Papa reports he felt good after last visit, got a good workout, a little sore but not bad. Also reports he feels he has a lot of exercises at home so did not add to HEP today per his request. Physical Therapy Plan Next Visit Focus/Plan Next Note Type Treatment Note Next Visit Plan Response to last tx. Gait with FWW. Safety FWW during transfers. . follow up with re bed rail and toilet riser.
--- NOTE | 2021-05-24 15:17 | PT.OTN ---
Addendum entered and electronically signed by Maddison Blue PTA 05/24/21 15:54: Car transfer mgt education: backing up fully with FWW then reach for passenger's seat to sit. MEDIA OPERATOR suggested can get a car transfer handle for safety mgt support in/out car. stated will look for one, would be helpful for pt. Original Note: Current Diagnoses Unspecified abnormalities of gait and mobility (05/24/21) Physical Therapy Treatment Note PT-OP-A Visit Information Start: 04/27/21 14:26 Freq: Status: Active Protocol: Document 05/24/21 14:37 SP (Rec: 05/24/21 15:53 SP [id number]) Out-Patient Physical Therapy Visit Information Visit Information Visit Type Treatment Note Visit Note Follow up next tx: did install bed rails and toilet riser per pt request last tx. Visit Start Time 14:37 Visit Stop Time 15:17 Total Visit Minutes 40 Visit Number 6 Number of MEDIA OPERATOR Visits 1 PT-OP-B Current Condition Start: 04/27/21 14:26 Freq: Status: Active Protocol: Document 05/02/21 14:28 AMB (Rec: 05/02/21 14:55 AMB [id number]) Current Condition History of Current Condition Onset Date 2 years Current Complaints history of falling History of Current Condition Papa attends with his Betsy. 5 falls in the last 6 months, some times has difficulty getting up from bed . COPD causes shortness or breath which limits his walking, currently walking laps around the car in the garage. Wanting to learn how to use walker. Denies dizziness. Getting out of bed in the middle of the night can cause falls, also the bathroom. Does get lightheaded when sitting up quickly. Denies numbness/ tingling but does endorse weakness. Was previously in PT 2 years ago, but stopped due to covid shut down and now feels balance is worse. Treatment Goals Patient/Caregiver Goals Decrease falls Prior Functional Status Baseline Function- ADL's Modified Independent Baseline Function- Mobility Modified Independent Current Functional Impairments (Reported) Functional Limitations- ADL's multiple falls- falls getting out of bed, difficulty with bed mobility, difficulty with sit to stand from toilet ( needs UE support), difficulty with floor transfer (needs environmental support, did need to call paramedics once). 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 PT-OP-C Subjective Start: 04/27/21 14:26 Freq: Status: Active Protocol: Document 05/24/21 14:37 SP (Rec: 05/24/21 15:53 SP [id number]) OP-PT Subjective Patient Comments Patient Comments Pt stated walked around the car 10x before feet started hurting, didn't have the most comfortable shoes on with FWW on level surface with no stand rest breaks. Pt reported Patient Reported Progress Improving PT-OP-D Balance Start: 04/27/21 14:26 Freq: Status: Active Protocol: Document 05/02/21 14:30 AMB (Rec: 05/02/21 15:45 AMB [id number]) Balance Tests Other Other Balance Tests Performed NBOS: EC- fall posterior. NBOS: EO horizontal HT: 10 seconds. EO vertical head turns-= fall posterior PT-OP-G Mobility & Gait Start: 04/27/21 14:26 Freq: Status: Active Protocol: Document 05/02/21 14:30 AMB (Rec: 05/02/21 15:45 AMB [id number]) OP Gait Assessment Comments Gait Comments Pt attends with tall SPC with WBOS, but also a FWW. He is worried about the wheels on the FWW. He fatigues after 150' of ambulation, becomes short of breath. PT-OP-J Posture/Palpation/Skin Start: 04/27/21 14:26 Freq: Status: Active Protocol: Document 05/02/21 14:30 AMB (Rec: 05/02/21 15:45 AMB [id number]) Posture Evaluation Comments Posture Comments moderate/severe thoracic kyphosis PT-OP-M Strength Start: 04/27/21 14:26 Freq: Status: Active Protocol: Document 05/02/21 14:30 AMB (Rec: 05/02/21 15:45 AMB [id number]) Hip Strength Hip Manual Muscle Testing Right Flexion (L2) 4 Good Extension (S1) 3 Fair Abduction 4- Good- Left Flexion (L2) 4 Good Extension (S1) 3 Fair Abduction 4- Good- Knee Strength Knee Manual Muscle Testing Right Flexion (S2) 4 Good Extension (L3) 4 Good Left Flexion (S2) 4 Good Extension (L3) 4 Good Ankle/Foot Strength Ankle and Foot Manual Muscle Testing Right Dorsiflexion (L4) 4 Good Plantarflexion (S1) 4 Good Left Dorsiflexion (L4) 4 Good Plantarflexion (S1) 4 Good PT-OP-Q Treatments Start: 04/27/21 14:26 Freq: Status: Active Protocol: Document 05/24/21 14:37 SP (Rec: 05/24/21 15:53 SP [id number]) Cardio Equipment Recumbent Bicycle Duration (Minutes) 5 Resistance 4>5 Seat Position see 5 Other 31>40 RPM, 1.0 miles Therapeutic Exercises Standing Exercises 3 Standing Exercise Name sit to stand Resistance AROM Equipment Used mesh chair 18 height Reps/Minutes 10x before required rest and stated to tired to do 2nd set Comments occasional cues hand placement , max hip hinge forward, slow descent Gait Training Gait Activity PF step training Description ascend/ descend 1 PF step Device Used //bars, fWW Level of Assistance CGA inside 6 step, curb CG-5% A Distance/Duration x4 reps //bars, 4 reps curb end tx outside Treatment Focus body spacial awareness edge step, sequencing BLE/ FWW, safety ascend/desc Comments Pt requires cues for body and FWW closer to edge step before ascend/descend to decrease forward reach, improved balance but needs contact to FWW to be sure safe positioning on/off step, especially with mask donned. standard walking Description 100 x 2 Device Used standard FWW Level of Assistance SBA-CGA Surface firm Distance/Duration waiting room to inside clinic, inside clinic outside curb ( incline/decline) Treatment Focus Safety with turning, body positioning in FWW, alignment, foot clearance Comments Cued body closer to back legs of FWW, slow safe pacing receiprocal stepping w/ eccentric RLE heel strike to w / awareness of tall alignment and WB between BLE, tends to list to R. Neuro Re-Education Treatment Balance Activities multiple hurdles Details step to Surface firm Equipment 4 hurdles Reps/Duration x3 laps Comments CG-5-10% A 1st 2 laps, 25%A 3rd lap step up/ back down Details tall posture, wt shift, balance recovery Equipment 6 step, //bars Reps/Duration 5 leading each LE up/ back down Comments pt leans to R during descend retro w/ RLE requires R lateral support with cues for hurdles Details single tatiana: f/b Surface firm Equipment //bars, CGA- Min A Reps/Duration 5 reps each LE Comments initially need use 1 UE, then no UE: CG- Herminio balance recovery, cued tall posture- decrease LLE stance time Self-Care/Home Management Treatment Education Patient Education Body Mechanics,Fall Risk, Posture,Safety Caregiver Education Provided pt and education on safety PF step mgt with FWW: importance of propping door open then staying behind pt ascending, then front descend step for safety, may need support for FWW safety placement to decrease risk for falls. PT-OP-T Assessment and Plan Start: 04/27/21 14:26 Freq: Status: Active Protocol: Document 05/24/21 14:37 SP (Rec: 05/24/21 15:53 SP [id number]) Physical Therapy Assessment Goals Two Impairment Gait Short Term Goal (STG) Papa will ambulate with a FWW for 2 minutes without LOB or fear of falling over smooth terrain. STG Duration 4 weeks [facility] Goal (LTG) Papa will ambulate with a FWW for 6 minutes without LOB or fear of falling over smooth terrain. LTG Duration 8 weeks One Impairment Transfers Short Term Goal (STG) Papa will be independent with all bed mobility. STG Duration 4 weeks [facility] Goal (LTG) Papa will move from sit to stand from a low surface ( level of toilet) with UE support and good body mechanics. LTG Duration 8 weeks Assessment Summary Assessment Pt improved stability tatiana stepping 1 UE> no UE support x2 laps then tired required 1 UE support. Pt improved ascend /descend 1 PF step but requries cuing for body and FWW closer to front step for stability FWW repositioning. Provided education on importance of propping door open with something else and staying behind pt ascending, then front descend step for safety, may need support for FWW safety placement. Physical Therapy Plan Frequency and Duration Frequency of Treatment 2x/Week Duration of Treatment 8 weeks Plan of Care Start Date 05/02/21 Plan of Care End Date 06/27/21 Therapeutic Interventions Therapeutic Interventions Aquatic Therapy,Balance Training,Gait Training,Home Exercise Program,Manual Therapy,Neuromuscular Re- education,Self-Care/Home Management,Therapeutic Activities,Therapeutic Exercises Next Visit Focus/Plan Next Note Type Treatment Note Next Visit Plan Response to last tx and continue: PF step mgt (into house/ 's office), in PT tatiana/ step up/downs functional balance for step mgt. POC: Gait with FWW including turns. Safety FWW during transfers.
--- NOTE | 2021-05-26 15:29 | PT.OTN ---
Current Diagnoses Unspecified abnormalities of gait and mobility (05/26/21) Physical Therapy Treatment Note PT-OP-A Visit Information Start: 04/27/21 14:26 Freq: Status: Active Protocol: Document 05/26/21 14:30 AMB (Rec: 05/26/21 15:26 AMB [id number]) Out-Patient Physical Therapy Visit Information Visit Information Visit Type Treatment Note Visit Start Time 14:30 Visit Stop Time 15:15 Total Visit Minutes 45 Visit Number 7 Number of FLIGHT TEST SHOP MECHANIC Visits 0 PT-OP-B Current Condition Start: 04/27/21 14:26 Freq: Status: Active Protocol: Document 05/02/21 14:28 AMB (Rec: 05/02/21 14:55 AMB [id number]) Current Condition History of Current Condition Onset Date 2 years Current Complaints history of falling History of Current Condition Papa attends with his Betsy. 5 falls in the last 6 months, some times has difficulty getting up from bed . COPD causes shortness or breath which limits his walking, currently walking laps around the car in the garage. Wanting to learn how to use walker. Denies dizziness. Getting out of bed in the middle of the night can cause falls, also the bathroom. Does get lightheaded when sitting up quickly. Denies numbness/ tingling but does endorse weakness. Was previously in PT 2 years ago, but stopped due to covid shut down and now feels balance is worse. Treatment Goals Patient/Caregiver Goals Decrease falls Prior Functional Status Baseline Function- ADL's Modified Independent Baseline Function- Mobility Modified Independent Current Functional Impairments (Reported) Functional Limitations- ADL's multiple falls- falls getting out of bed, difficulty with bed mobility, difficulty with sit to stand from toilet ( needs UE support), difficulty with floor transfer (needs environmental support, did need to call paramedics once). 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 PT-OP-C Subjective Start: 04/27/21 14:26 Freq: Status: Active Protocol: Document 05/26/21 14:30 AMB (Rec: 05/26/21 15:26 AMB [id number]) OP-PT Subjective Patient Comments Patient Comments Hasn't had the bed railing installed yet, hoping for son to come over and do it. PT-OP-D Balance Start: 04/27/21 14:26 Freq: Status: Active Protocol: Document 05/02/21 14:30 AMB (Rec: 05/02/21 15:45 AMB [id number]) Balance Tests Other Other Balance Tests Performed NBOS: EC- fall posterior. NBOS: EO horizontal HT: 10 seconds. EO vertical head turns-= fall posterior PT-OP-G Mobility & Gait Start: 04/27/21 14:26 Freq: Status: Active Protocol: Document 05/02/21 14:30 AMB (Rec: 05/02/21 15:45 AMB [id number]) OP Gait Assessment Comments Gait Comments Pt attends with tall SPC with WBOS, but also a FWW. He is worried about the wheels on the FWW. He fatigues after 150' of ambulation, becomes short of breath. PT-OP-J Posture/Palpation/Skin Start: 04/27/21 14:26 Freq: Status: Active Protocol: Document 05/02/21 14:30 AMB (Rec: 05/02/21 15:45 AMB [id number]) Posture Evaluation Comments Posture Comments moderate/severe thoracic kyphosis PT-OP-M Strength Start: 04/27/21 14:26 Freq: Status: Active Protocol: Document 05/02/21 14:30 AMB (Rec: 05/02/21 15:45 AMB [id number]) Hip Strength Hip Manual Muscle Testing Right Flexion (L2) 4 Good Extension (S1) 3 Fair Abduction 4- Good- Left Flexion (L2) 4 Good Extension (S1) 3 Fair Abduction 4- Good- Knee Strength Knee Manual Muscle Testing Right Flexion (S2) 4 Good Extension (L3) 4 Good Left Flexion (S2) 4 Good Extension (L3) 4 Good Ankle/Foot Strength Ankle and Foot Manual Muscle Testing Right Dorsiflexion (L4) 4 Good Plantarflexion (S1) 4 Good Left Dorsiflexion (L4) 4 Good Plantarflexion (S1) 4 Good PT-OP-Q Treatments Start: 04/27/21 14:26 Freq: Status: Active Protocol: Document 05/26/21 14:30 AMB (Rec: 05/26/21 15:26 AMB [id number]) Gym Equipment Shuttle Recovery B squat Resistance 75# Shuttle Recovery Platform Stable Reps/Time 2x10 Therapeutic Exercises Standing Exercises 4 Standing Exercise Name mini squat Reps/Minutes 2x10 Comments at railing stair tap up Reps/Minutes 2x10 Comments holding onto railing Gait Training Gait Activity standard walking Description 100 x 2 Device Used standard FWW Level of Assistance SBA-CGA Surface firm Distance/Duration laps around clinic Treatment Focus Safety with turning, body positioning in FWW, alignment, foot clearance Comments Cued body closer to back legs of FWW, slow safe pacing receiprocal stepping w/ eccentric RLE heel strike to w / awareness of tall alignment and WB between BLE, tends to list to R. Neuro Re-Education Treatment Balance Activities Feet together, modified stagger stance Details in PT only Surface firm Equipment railing Reps/Duration 10 min total Comments * Firm: NBOS, head turns- slow with intermittent cues for body posturing center improve WB between BLE, tends to list to R. Eyes closed - 10 sec pt opens eyes to avoid LOB PT-OP-T Assessment and Plan Start: 04/27/21 14:26 Freq: Status: Active Protocol: Document 05/26/21 14:30 AMB (Rec: 05/26/21 15:26 AMB [id number]) Physical Therapy Assessment Goals Two Impairment Gait Short Term Goal (STG) Papa will ambulate with a FWW for 2 minutes without LOB or fear of falling over smooth terrain. STG Duration 4 weeks Halfway Goal (LTG) Papa will ambulate with a FWW for 6 minutes without LOB or fear of falling over smooth terrain. LTG Duration 8 weeks One Impairment Transfers Short Term Goal (STG) Papa will be independent with all bed mobility. STG Duration 4 weeks Router Tender Goal (LTG) Papa will move from sit to stand from a low surface ( level of toilet) with UE support and good body mechanics. LTG Duration 8 weeks Assessment Summary Assessment Pt continues to fatigue easily . has not set up home for safety yet, states she is hoping son will be able to help, did order handle for car transfer safety. Both patient and state that safety with step from garage into house is improving. Physical Therapy Plan Next Visit Focus/Plan Next Note Type Treatment Note Next Visit Plan Response to last tx and continue: PF step mgt (into house/ 's office), in PT tatiana/ step up/downs functional balance for step mgt. POC: Gait with FWW including turns. Safety FWW during transfers.
--- NOTE | 2021-05-30 15:15 | PT.OTN ---
Current Diagnoses Unspecified abnormalities of gait and mobility (05/30/21) Physical Therapy Treatment Note PT-OP-A Visit Information Start: 04/27/21 14:26 Freq: Status: Active Protocol: Document 05/30/21 14:34 SP (Rec: 05/30/21 15:30 SP [id number]) Out-Patient Physical Therapy Visit Information Visit Information Visit Type Treatment Note Visit Start Time 14:34 Visit Stop Time 15:15 Total Visit Minutes 41 Visit Number 8 Number of TIP STRETCHER Visits 1 PT-OP-B Current Condition Start: 04/27/21 14:26 Freq: Status: Active Protocol: Document 05/02/21 14:28 AMB (Rec: 05/02/21 14:55 AMB [id number]) Current Condition History of Current Condition Onset Date 2 years Current Complaints history of falling History of Current Condition Papa attends with his Betsy. 5 falls in the last 6 months, some times has difficulty getting up from bed . COPD causes shortness or breath which limits his walking, currently walking laps around the car in the garage. Wanting to learn how to use walker. Denies dizziness. Getting out of bed in the middle of the night can cause falls, also the bathroom. Does get lightheaded when sitting up quickly. Denies numbness/ tingling but does endorse weakness. Was previously in PT 2 years ago, but stopped due to covid shut down and now feels balance is worse. Treatment Goals Patient/Caregiver Goals Decrease falls Prior Functional Status Baseline Function- ADL's Modified Independent Baseline Function- Mobility Modified Independent Current Functional Impairments (Reported) Functional Limitations- ADL's multiple falls- falls getting out of bed, difficulty with bed mobility, difficulty with sit to stand from toilet ( needs UE support), difficulty with floor transfer (needs environmental support, did need to call paramedics once). 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 PT-OP-C Subjective Start: 04/27/21 14:26 Freq: Status: Active Protocol: Document 05/30/21 14:34 SP (Rec: 05/30/21 15:30 SP [id number]) OP-PT Subjective Patient Comments Patient Comments Pt stated I walked to the bathroom and back when woke up and that tired me out. Pt stated is able to ascend/ descend PF step better since practiced with and she helps him if needed using fWW. She found something to proper door open. PT-OP-D Balance Start: 04/27/21 14:26 Freq: Status: Active Protocol: Document 05/02/21 14:30 AMB (Rec: 05/02/21 15:45 AMB [id number]) Balance Tests Other Other Balance Tests Performed NBOS: EC- fall posterior. NBOS: EO horizontal HT: 10 seconds. EO vertical head turns-= fall posterior PT-OP-G Mobility & Gait Start: 04/27/21 14:26 Freq: Status: Active Protocol: Document 05/02/21 14:30 AMB (Rec: 05/02/21 15:45 AMB [id number]) OP Gait Assessment Comments Gait Comments Pt attends with tall SPC with WBOS, but also a FWW. He is worried about the wheels on the FWW. He fatigues after 150' of ambulation, becomes short of breath. PT-OP-J Posture/Palpation/Skin Start: 04/27/21 14:26 Freq: Status: Active Protocol: Document 05/02/21 14:30 AMB (Rec: 05/02/21 15:45 AMB [id number]) Posture Evaluation Comments Posture Comments moderate/severe thoracic kyphosis PT-OP-M Strength Start: 04/27/21 14:26 Freq: Status: Active Protocol: Document 05/02/21 14:30 AMB (Rec: 05/02/21 15:45 AMB [id number]) Hip Strength Hip Manual Muscle Testing Right Flexion (L2) 4 Good Extension (S1) 3 Fair Abduction 4- Good- Left Flexion (L2) 4 Good Extension (S1) 3 Fair Abduction 4- Good- Knee Strength Knee Manual Muscle Testing Right Flexion (S2) 4 Good Extension (L3) 4 Good Left Flexion (S2) 4 Good Extension (L3) 4 Good Ankle/Foot Strength Ankle and Foot Manual Muscle Testing Right Dorsiflexion (L4) 4 Good Plantarflexion (S1) 4 Good Left Dorsiflexion (L4) 4 Good Plantarflexion (S1) 4 Good PT-OP-Q Treatments Start: 04/27/21 14:26 Freq: Status: Active Protocol: Document 05/30/21 14:34 SP (Rec: 05/30/21 15:30 SP [id number]) Gym Equipment Shuttle Recovery B squat Resistance 75# Shuttle Recovery Platform Stable Reps/Time x20, x10 Therapeutic Exercises Sitting Exercises LAQ Sitting Exercise Name HEP review Side bilateral Resistance 4# leg wt Equipment Used mesh chair Reps/Minutes 2x3 Comments good pacing form- states performs w/ 3# wts at home for marching in FWW Standing Exercises 4 Standing Exercise Name mini squat Reps/Minutes 2x10- brief stand rest between sets Comments at railing stair tap up Standing Exercise Name step tap x10 total Equipment Used L HR taps Reps/Minutes 2x10 Comments holding onto railing- pt stated trying not to bicycle racer rail hard Therapeutic Activity Therapeutic Activity transfers Reps/Minutes x4 Comments Improved backing up fully w/ FWW L>R to allow reaching back easier after cues, slow descent chair better. Gait Training Gait Activity standard walking Description 170 x 2 Device Used standard FWW Level of Assistance SBA-CGA Surface firm Distance/Duration 2 laps in clinic, 50 ftx2 (to & from waiting room) Treatment Focus Safety with turning, body positioning in FWW, alignment, foot clearance Comments Cued body closer to back legs of FWW, slow safe pacing receiprocal stepping w/ eccentric RLE heel strike to w / awareness of tall alignment and WB between BLE, tends to list to R. Pt stated trying not to bicycle racer FWW hard. Cued to position trunk near back leg of FWW and center with sticker front of FWW to decrease listing to R. Neuro Re-Education Treatment Balance Activities step up/ back down Details tall posture, wt shift, balance recovery Equipment 6 step, L HR NEWS CAMERAMAN on R (Mod A) Reps/Duration x10 reps total alternating Comments pt leans to R during descend retro w/ RLE requires R lateral support with cues for centering self, pt commented, I am trying not to bicycle racer hard. PT-OP-T Assessment and Plan Start: 04/27/21 14:26 Freq: Status: Active Protocol: Document 05/30/21 14:34 SP (Rec: 05/30/21 15:30 SP [id number]) Physical Therapy Assessment Goals Two Impairment Gait Short Term Goal (STG) Papa will ambulate with a FWW for 2 minutes without LOB or fear of falling over smooth terrain. STG Duration 4 weeks Bowling Ball Weigher And Packer Goal (LTG) Papa will ambulate with a FWW for 6 minutes without LOB or fear of falling over smooth terrain. LTG Duration 8 weeks One Impairment Transfers Short Term Goal (STG) Papa will be independent with all bed mobility. STG Duration 4 weeks Detention Goal (LTG) Papa will move from sit to stand from a low surface ( level of toilet) with UE support and good body mechanics. LTG Duration 8 weeks Assessment Summary Assessment Pt improves with self corrections lessen bicycle racer on FWW / rail during activity. More aware pivot turns, has to stop and pivot FWW around with better stability than turn while walking. Pt requires seated rest breaks between activities for recovery. Good hydration 3- 3/4 cups during tx, states gets dry mouth. Improved quad/hip abd facilitation during step tap/ step up/downs w/ LUE on rail. Physical Therapy Plan Frequency and Duration Frequency of Treatment 2x/Week Duration of Treatment 8 weeks Plan of Care Start Date 05/02/21 Plan of Care End Date 06/27/21 Therapeutic Interventions Therapeutic Interventions Aquatic Therapy,Balance Training,Gait Training,Home Exercise Program,Manual Therapy,Neuromuscular Re- education,Self-Care/Home Management,Therapeutic Activities,Therapeutic Exercises Next Visit Focus/Plan Next Note Type Treatment Note Next Visit Plan Continue transfers centering/ back fully with FWW and safety turns during gait.
--- NOTE | 2021-06-02 14:58 | PT.OTN ---
Current Diagnoses Unspecified abnormalities of gait and mobility (06/02/21) Physical Therapy Treatment Note PT-OP-A Visit Information Start: 04/27/21 14:26 Freq: Status: Active Protocol: Document 06/02/21 14:00 AMB (Rec: 06/02/21 14:58 AMB [id number]) Out-Patient Physical Therapy Visit Information Visit Information Visit Type Progress Note Visit Start Time 14:34 Visit Stop Time 15:15 Total Visit Minutes 41 Visit Number 9 Number of CRIMINAL INVESTIGATIVE AGENT Visits 0 PT-OP-B Current Condition Start: 04/27/21 14:26 Freq: Status: Active Protocol: Document 05/02/21 14:28 AMB (Rec: 05/02/21 14:55 AMB [id number]) Current Condition History of Current Condition Onset Date 2 years Current Complaints history of falling History of Current Condition Papa attends with his Betsy. 5 falls in the last 6 months, some times has difficulty getting up from bed . COPD causes shortness or breath which limits his walking, currently walking laps around the car in the garage. Wanting to learn how to use walker. Denies dizziness. Getting out of bed in the middle of the night can cause falls, also the bathroom. Does get lightheaded when sitting up quickly. Denies numbness/ tingling but does endorse weakness. Was previously in PT 2 years ago, but stopped due to covid shut down and now feels balance is worse. Treatment Goals Patient/Caregiver Goals Decrease falls Prior Functional Status Baseline Function- ADL's Modified Independent Baseline Function- Mobility Modified Independent Current Functional Impairments (Reported) Functional Limitations- ADL's multiple falls- falls getting out of bed, difficulty with bed mobility, difficulty with sit to stand from toilet ( needs UE support), difficulty with floor transfer (needs environmental support, did need to call paramedics once). 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 PT-OP-C Subjective Start: 04/27/21 14:26 Freq: Status: Active Protocol: Document 06/02/21 14:00 AMB (Rec: 06/02/21 14:58 AMB [id number]) OP-PT Subjective Patient Comments Patient Comments Pt admits it is hard for him to do his HEP, energy tate. HE does feel like he is getting a bit better with balance at home. PT-OP-D Balance Start: 04/27/21 14:26 Freq: Status: Active Protocol: Document 05/02/21 14:30 AMB (Rec: 05/02/21 15:45 AMB [id number]) Balance Tests Other Other Balance Tests Performed NBOS: EC- fall posterior. NBOS: EO horizontal HT: 10 seconds. EO vertical head turns-= fall posterior PT-OP-G Mobility & Gait Start: 04/27/21 14:26 Freq: Status: Active Protocol: Document 05/02/21 14:30 AMB (Rec: 05/02/21 15:45 AMB [id number]) OP Gait Assessment Comments Gait Comments Pt attends with tall SPC with WBOS, but also a FWW. He is worried about the wheels on the FWW. He fatigues after 150' of ambulation, becomes short of breath. PT-OP-J Posture/Palpation/Skin Start: 04/27/21 14:26 Freq: Status: Active Protocol: Document 05/02/21 14:30 AMB (Rec: 05/02/21 15:45 AMB [id number]) Posture Evaluation Comments Posture Comments moderate/severe thoracic kyphosis PT-OP-M Strength Start: 04/27/21 14:26 Freq: Status: Active Protocol: Document 05/02/21 14:30 AMB (Rec: 05/02/21 15:45 AMB [id number]) Hip Strength Hip Manual Muscle Testing Right Flexion (L2) 4 Good Extension (S1) 3 Fair Abduction 4- Good- Left Flexion (L2) 4 Good Extension (S1) 3 Fair Abduction 4- Good- Knee Strength Knee Manual Muscle Testing Right Flexion (S2) 4 Good Extension (L3) 4 Good Left Flexion (S2) 4 Good Extension (L3) 4 Good Ankle/Foot Strength Ankle and Foot Manual Muscle Testing Right Dorsiflexion (L4) 4 Good Plantarflexion (S1) 4 Good Left Dorsiflexion (L4) 4 Good Plantarflexion (S1) 4 Good PT-OP-Q Treatments Start: 02/09/22 14:26 Freq: Status: Active Protocol: Document 06/02/21 14:00 AMB (Rec: 06/02/21 14:58 AMB [id number]) Gym Equipment Shuttle Recovery B squat Resistance 75# Shuttle Recovery Platform Stable Reps/Time 2x15 Therapeutic Exercises Sitting Exercises hip ER Sitting Exercise Name #3 t band Reps/Minutes 2x10 Standing Exercises 4 Standing Exercise Name mini squat Reps/Minutes 2x10- brief stand rest between sets Comments at railing stair tap up Standing Exercise Name step tap Equipment Used L HR taps Reps/Minutes 2x10 Comments holding onto railing- pt stated trying not to personalization specialist rail hard 2 Standing Exercise Name hip abduction at railing Reps/Minutes 2x10 Comments HEP 1 Standing Exercise Name Standing hip extension Reps/Minutes 2x10 Comments HEP Gait Training Gait Activity PF step training Description ascend/ descend 1 step Device Used //bars, fWW Level of Assistance CGA inside 6 step, Distance/Duration x4 reps //bars, 4 reps curb end tx outside Treatment Focus body spacial awareness edge step, sequencing BLE/ FWW, safety ascend/desc Comments Pt requires cues for body and FWW closer to edge step before ascend/descend to decrease forward reach, improved balance but needs contact to FWW to be sure safe positioning on/off step, standard walking Description 170 x 2 Device Used standard FWW Level of Assistance SBA-CGA Surface firm Distance/Duration 2 laps in clinic, 50 ftx2 (to & from waiting room) Treatment Focus Safety with turning, body positioning in FWW, alignment, foot clearance Comments Cued body closer to back legs of FWW, slow safe pacing reciprocal stepping w/ eccentric RLE heel strike to w / awareness of tall alignment and WB between BLE, tends to list to R. Pt stated trying not to personalization specialist FWW hard. Cued to position trunk near back leg of FWW and center with sticker front of FWW to decrease listing to R. PT-OP-T Assessment and Plan Start: 04/27/21 14:26 Freq: Status: Active Protocol: Document 06/02/21 14:00 AMB (Rec: 06/02/21 14:58 AMB [id number]) Physical Therapy Assessment Goals Two Impairment Gait Short Term Goal (STG) Papa will ambulate with a FWW for 2 minutes without LOB or fear of falling over smooth terrain. STG Duration MET Dry Cell And Battery Assembler Goal (LTG) Papa will ambulate with a FWW for 6 minutes without LOB or fear of falling over smooth terrain. LTG Duration 8 weeks One Impairment Transfers Short Term Goal (STG) Papa will be independent with all bed mobility. STG Duration 4 weeks Dry Cell And Battery Assembler Goal (LTG) Papa will move from sit to stand from a low surface ( level of toilet) with UE support and good body mechanics. PROGRESS MADE- Able to do from standard chair - lower toilet requires heavier UE support LTG Duration 8 weeks Assessment Summary Assessment Papa admits he has been dealing with unintentional weight loss about 20#. He blames this on ill fitting dentures, although did have a cough after drinking thin liquids, encouraged to discuss with PCP. Educated pt on role of weightloss and loss of muscle mass. Pt overall has improved his tolerance for exercise and gait. He admits he is using his SPC at home at times, but does feel more stable with with FWW. We are still waiting for family to put together bed rail and get appropriate elevated toilet seat to make mobility at home safer. Physical Therapy Plan Next Visit Focus/Plan Next Note Type Treatment Note Next Visit Plan Continue transfers centering/ back fully with FWW and safety turns during gait.
--- NOTE | 2021-06-06 15:18 | PT.OTN ---
Current Diagnoses Unspecified abnormalities of gait and mobility (06/06/21) Physical Therapy Treatment Note PT-OP-A Visit Information Start: 04/27/21 14:26 Freq: Status: Active Protocol: Document 06/06/21 14:36 SP (Rec: 06/06/21 15:59 SP [id number]) Out-Patient Physical Therapy Visit Information Visit Information Visit Type Treatment Note Visit Note in waiting room during appt. Visit Start Time 14:36 Visit Stop Time 15:18 Total Visit Minutes 42 Visit Number 10 Number of FIRE EXTINGUISHER REPAIRER Visits 1 PT-OP-B Current Condition Start: 04/27/21 14:26 Freq: Status: Active Protocol: Document 05/02/21 14:28 AMB (Rec: 05/02/21 14:55 AMB [id number]) Current Condition History of Current Condition Onset Date 2 years Current Complaints history of falling History of Current Condition Papa attends with his Betsy. 5 falls in the last 6 months, some times has difficulty getting up from bed . COPD causes shortness or breath which limits his walking, currently walking laps around the car in the garage. Wanting to learn how to use walker. Denies dizziness. Getting out of bed in the middle of the night can cause falls, also the bathroom. Does get lightheaded when sitting up quickly. Denies numbness/ tingling but does endorse weakness. Was previously in PT 2 years ago, but stopped due to covid shut down and now feels balance is worse. Treatment Goals Patient/Caregiver Goals Decrease falls Prior Functional Status Baseline Function- ADL's Modified Independent Baseline Function- Mobility Modified Independent Current Functional Impairments (Reported) Functional Limitations- ADL's multiple falls- falls getting out of bed, difficulty with bed mobility, difficulty with sit to stand from toilet ( needs UE support), difficulty with floor transfer (needs environmental support, did need to call paramedics once). 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 PT-OP-C Subjective Start: 04/27/21 14:26 Freq: Status: Active Protocol: Document 06/06/21 14:36 SP (Rec: 06/06/21 15:59 SP [id number]) OP-PT Subjective Patient Comments Patient Comments Pt stated walking around car once every 2-3 days lately, should do daily. Pt stated a bed rail is now installed and stated helpful to sitting. Extra time spent safety education pivoting FWW fully independent positioning from steps, losses balance back step on L during L turn lift repositioning FWW same time, CG- Min A recovery. Improved LLE foot clearance during gait with min cues for higher step for safety clearance, no scuffing and times over wt shift turning L during L turn w/ FWW, close SBA-CGA for safety. PT-OP-D Balance Start: 04/27/21 14:26 Freq: Status: Active Protocol: Document 05/02/21 14:30 AMB (Rec: 05/02/21 15:45 AMB [id number]) Balance Tests Other Other Balance Tests Performed NBOS: EC- fall posterior. NBOS: EO horizontal HT: 10 seconds. EO vertical head turns-= fall posterior PT-OP-G Mobility & Gait Start: 04/27/21 14:26 Freq: Status: Active Protocol: Document 05/02/21 14:30 AMB (Rec: 05/02/21 15:45 AMB [id number]) OP Gait Assessment Comments Gait Comments Pt attends with tall SPC with WBOS, but also a FWW. He is worried about the wheels on the FWW. He fatigues after 150' of ambulation, becomes short of breath. PT-OP-J Posture/Palpation/Skin Start: 04/27/21 14:26 Freq: Status: Active Protocol: Document 05/02/21 14:30 AMB (Rec: 05/02/21 15:45 AMB [id number]) Posture Evaluation Comments Posture Comments moderate/severe thoracic kyphosis PT-OP-M Strength Start: 04/27/21 14:26 Freq: Status: Active Protocol: Document 05/02/21 14:30 AMB (Rec: 05/02/21 15:45 AMB [id number]) Hip Strength Hip Manual Muscle Testing Right Flexion (L2) 4 Good Extension (S1) 3 Fair Abduction 4- Good- Left Flexion (L2) 4 Good Extension (S1) 3 Fair Abduction 4- Good- Knee Strength Knee Manual Muscle Testing Right Flexion (S2) 4 Good Extension (L3) 4 Good Left Flexion (S2) 4 Good Extension (L3) 4 Good Ankle/Foot Strength Ankle and Foot Manual Muscle Testing Right Dorsiflexion (L4) 4 Good Plantarflexion (S1) 4 Good Left Dorsiflexion (L4) 4 Good Plantarflexion (S1) 4 Good PT-OP-Q Treatments Start: 04/27/21 14:26 Freq: Status: Active Protocol: Document 06/06/21 14:36 SP (Rec: 06/06/21 15:59 SP [id number]) Gym Equipment Shuttle Recovery B squat Resistance 75# Shuttle Recovery Platform Stable Reps/Time 2x15 Therapeutic Activity Therapeutic Activity supine<>stand Name via log roll and bridging techniques Reps/Minutes x1 Comments good form, uses pillow bwtn BLE self, given per pt request due to body pillow at home and comfort. transfers Reps/Minutes x4 Comments Improved backing up fully with cues w/ FWW L>R to allow reaching back easier after cues, slow descent chair better. Education on small repositioning FWW during turns between step for improved balance, Mod cuing. Gait Training Gait Activity PF step training Description ascend/ descend 1 step Device Used //bars, fWW Level of Assistance CGA inside 6 step, Distance/Duration x4 reps //bars, 4 reps curb end tx outside Treatment Focus body spacial awareness edge step, sequencing BLE/ FWW, safety ascend/desc Comments Pt requires cues for body and FWW closer to edge step before ascend/descend to decrease forward reach, improved balance but needs contact to FWW to be sure safe positioning on/off step. Today needed cues for pivot feet then FWW not together due to LOB retro and R Min A recovery . standard walking Description 170 x 2 Device Used standard FWW Level of Assistance CGA, 5%A during R turns Surface firm Distance/Duration 2 laps in clinic, 50 ftx2 (to & from waiting room) Treatment Focus Safety with turning, body positioning in FWW, alignment, foot clearance Comments Cued body closer to back legs of FWW, slow safe pacing reciprocal stepping w/ LLE foot clearance w/ awareness of tall alignment and WB between BLE, tends to list to R. Pt stated trying not to street inspector FWW hard. Cued to position trunk near back leg of FWW. PT-OP-T Assessment and Plan Start: 04/27/21 14:26 Freq: Status: Active Protocol: Document 06/06/21 14:36 SP (Rec: 06/06/21 15:59 SP [id number]) Physical Therapy Assessment Goals Two Impairment Gait Short Term Goal (STG) Papa will ambulate with a FWW for 2 minutes without LOB or fear of falling over smooth terrain. STG Duration MET Manual Arts Therapy Teacher Goal (LTG) Papa will ambulate with a FWW for 6 minutes without LOB or fear of falling over smooth terrain. LTG Duration 8 weeks One Impairment Transfers Short Term Goal (STG) Papa will be independent with all bed mobility. 06/06/21: progressing SBA on small table: pt able to complete sit<>SL R<> LR L to Supine<> SL L<> sidelying, cued for position little further away from EOtable for safety before complete return to sit. STG Duration 4 weeks -progressing [facility] Goal (LTG) Papa will move from sit to stand from a low surface ( level of toilet) with UE support and good body mechanics. PROGRESS MADE- Able to do from standard chair - lower toilet requires heavier UE support LTG Duration 8 weeks Assessment Summary Assessment Pt SBA during sit<> supine, effort LR and bridging techniques able to do, cued safety further away from EOB before sit. Requires max cues for small step pivoting then FWW repositioning back fully with proper hand placement. Safety sequencing and body/FWW positioning cues on/ off curb with FWW CG- 5%A. Physical Therapy Plan Frequency and Duration Frequency of Treatment 2x/Week Duration of Treatment 8 weeks Plan of Care Start Date 05/02/21 Plan of Care End Date 06/27/21 Therapeutic Interventions Therapeutic Interventions Aquatic Therapy,Balance Training,Gait Training,Home Exercise Program,Manual Therapy,Neuromuscular Re- education,Self-Care/Home Management,Therapeutic Activities,Therapeutic Exercises Next Visit Focus/Plan Next Note Type Treatment Note Next Visit Plan Continue transfers centering/ back fully with FWW, repositioning FWW independent feet during pivot and safety turns during gait.
--- NOTE | 2021-06-09 15:38 | PT.OTN ---
Current Diagnoses Unspecified abnormalities of gait and mobility (06/09/21) Physical Therapy Treatment Note PT-OP-A Visit Information Start: 04/27/21 14:26 Freq: Status: Active Protocol: Document 06/09/21 14:55 AMB (Rec: 06/09/21 15:38 AMB [id number]) Out-Patient Physical Therapy Visit Information Visit Information Visit Type Treatment Note Visit Note in waiting room during appt. Visit Start Time 14:34 Visit Stop Time 15:15 Total Visit Minutes 41 Visit Number 11 Number of RECONSTRUCTIVE DENTIST Visits 0 PT-OP-B Current Condition Start: 04/27/21 14:26 Freq: Status: Active Protocol: Document 05/02/21 14:28 AMB (Rec: 05/02/21 14:55 AMB [id number]) Current Condition History of Current Condition Onset Date 2 years Current Complaints history of falling History of Current Condition Papa attends with his Betsy. 5 falls in the last 6 months, some times has difficulty getting up from bed . COPD causes shortness or breath which limits his walking, currently walking laps around the car in the garage. Wanting to learn how to use walker. Denies dizziness. Getting out of bed in the middle of the night can cause falls, also the bathroom. Does get lightheaded when sitting up quickly. Denies numbness/ tingling but does endorse weakness. Was previously in PT 2 years ago, but stopped due to covid shut down and now feels balance is worse. Treatment Goals Patient/Caregiver Goals Decrease falls Prior Functional Status Baseline Function- ADL's Modified Independent Baseline Function- Mobility Modified Independent Current Functional Impairments (Reported) Functional Limitations- ADL's multiple falls- falls getting out of bed, difficulty with bed mobility, difficulty with sit to stand from toilet ( needs UE support), difficulty with floor transfer (needs environmental support, did need to call paramedics once). 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 PT-OP-C Subjective Start: 04/27/21 14:26 Freq: Status: Active Protocol: Document 06/09/21 14:55 AMB (Rec: 06/09/21 15:38 AMB [id number]) OP-PT Subjective Patient Comments Patient Comments Pt states did HEP earlier today, had a mild LOB at the kitchen sink with leg exercises, but was able to catch himself with UEs without issue. PT-OP-D Balance Start: 04/27/21 14:26 Freq: Status: Active Protocol: Document 05/02/21 14:30 AMB (Rec: 05/02/21 15:45 AMB [id number]) Balance Tests Other Other Balance Tests Performed NBOS: EC- fall posterior. NBOS: EO horizontal HT: 10 seconds. EO vertical head turns-= fall posterior PT-OP-G Mobility & Gait Start: 04/27/21 14:26 Freq: Status: Active Protocol: Document 05/02/21 14:30 AMB (Rec: 05/02/21 15:45 AMB [id number]) OP Gait Assessment Comments Gait Comments Pt attends with tall SPC with WBOS, but also a FWW. He is worried about the wheels on the FWW. He fatigues after 150' of ambulation, becomes short of breath. PT-OP-J Posture/Palpation/Skin Start: 04/27/21 14:26 Freq: Status: Active Protocol: Document 05/02/21 14:30 AMB (Rec: 05/02/21 15:45 AMB [id number]) Posture Evaluation Comments Posture Comments moderate/severe thoracic kyphosis PT-OP-M Strength Start: 04/27/21 14:26 Freq: Status: Active Protocol: Document 05/02/21 14:30 AMB (Rec: 05/02/21 15:45 AMB [id number]) Hip Strength Hip Manual Muscle Testing Right Flexion (L2) 4 Good Extension (S1) 3 Fair Abduction 4- Good- Left Flexion (L2) 4 Good Extension (S1) 3 Fair Abduction 4- Good- Knee Strength Knee Manual Muscle Testing Right Flexion (S2) 4 Good Extension (L3) 4 Good Left Flexion (S2) 4 Good Extension (L3) 4 Good Ankle/Foot Strength Ankle and Foot Manual Muscle Testing Right Dorsiflexion (L4) 4 Good Plantarflexion (S1) 4 Good Left Dorsiflexion (L4) 4 Good Plantarflexion (S1) 4 Good PT-OP-Q Treatments Start: 04/27/21 14:26 Freq: Status: Active Protocol: Document 06/09/21 14:55 AMB (Rec: 06/09/21 15:38 AMB [id number]) Therapeutic Exercises Standing Exercises 4 Standing Exercise Name mini squat Reps/Minutes 2x10- brief stand rest between sets Comments at railing 2 Standing Exercise Name hip abduction at railing Reps/Minutes 2x10 Comments HEP Gait Training Gait Activity PF step training Description ascend/ descend 1 step Device Used //bars, fWW Level of Assistance CGA inside 6 step, Distance/Duration x4 reps //bars, 4 reps curb end tx outside Treatment Focus body spacial awareness edge step, sequencing BLE/ FWW, safety ascend/desc Comments Pt requires cues for body and FWW closer to edge step before ascend/descend to decrease forward reach, improved balance but needs contact to FWW to be sure safe positioning on/off step. standard walking Description 170 x 2 Device Used standard FWW Level of Assistance CGA, 5%A during R turns Surface firm Distance/Duration 2 laps in clinic, 50 ftx2 (to & from waiting room) Treatment Focus Safety with turning, body positioning in FWW, alignment, foot clearance Comments Cued body closer to back legs of FWW, slow safe pacing reciprocal stepping w/ LLE foot clearance w/ awareness of tall alignment and WB between BLE, tends to list to R. Pt stated trying not to tack welder FWW hard. Cued to position trunk near back leg of FWW. Try to decrease looking straight down at feet. Neuro Re-Education Treatment Balance Activities step up/ back down Details tall posture, wt shift, balance recovery Equipment 6 step, L HR ACCOUNT UNDERWRITER on R (Mod A) Reps/Duration x10 reps total alternating Comments pt leans to R during descend retro w/ RLE requires R lateral support with cues for centering self Feet together, modified stagger stance Details in PT only Surface firm Equipment railing Reps/Duration 10 min total Comments * Firm: NBOS, head turns- slow with intermittent cues for body posturing center improve WB between BLE, tends to list to R. Eyes closed - 10 sec pt opens eyes to avoid LOB PT-OP-T Assessment and Plan Start: 04/27/21 14:26 Freq: Status: Active Protocol: Document 06/09/21 14:55 AMB (Rec: 06/09/21 15:38 [facility] [id number]) Physical Therapy Assessment Goals Two Impairment Gait Short Term Goal (STG) Papa will ambulate with a FWW for 2 minutes without LOB or fear of falling over smooth terrain. STG Duration MET Chemical Blender Goal (LTG) Papa will ambulate with a FWW for 6 minutes without LOB or fear of falling over smooth terrain. LTG Duration 8 weeks One Impairment Transfers Short Term Goal (STG) Papa will be independent with all bed mobility. 06/06/21: progressing SBA on small table: pt able to complete sit<>SL R<> LR L to Supine<> SL L<> sidelying, cued for position little further away from EOtable for safety before complete return to sit. STG Duration 4 weeks -progressing Intermediate Goal (LTG) Papa will move from sit to stand from a low surface ( level of toilet) with UE support and good body mechanics. PROGRESS MADE- Able to do from standard chair - lower toilet requires heavier UE support LTG Duration 8 weeks Assessment Summary Assessment Papa put forth good effort today, safer with sit to stand about 75% of the time, but does still have LOB on occassion when not fully concentrating on movement. Physical Therapy Plan Next Visit Focus/Plan Next Note Type Treatment Note Next Visit Plan Continue transfers centering/ back fully with FWW, repositioning FWW independent feet during pivot and safety turns during gait.
--- NOTE | 2021-06-13 15:38 | PT.OTN ---
Current Diagnoses Unspecified abnormalities of gait and mobility (06/13/21) Physical Therapy Treatment Note PT-OP-A Visit Information Start: 04/27/21 14:26 Freq: Status: Active Protocol: Document 06/13/21 14:30 AMB (Rec: 06/13/21 15:38 AMB [id number]) Out-Patient Physical Therapy Visit Information Visit Information Visit Type Treatment Note Visit Note in waiting room during appt. Visit Start Time 14:31 Visit Stop Time 15:15 Total Visit Minutes 44 Visit Number 13 Number of MEAT SCRUBBER Visits 0 PT-OP-B Current Condition Start: 04/27/21 14:26 Freq: Status: Active Protocol: Document 05/02/21 14:28 AMB (Rec: 05/02/21 14:55 AMB [id number]) Current Condition History of Current Condition Onset Date 2 years Current Complaints history of falling History of Current Condition Papa attends with his Betsy. 5 falls in the last 6 months, some times has difficulty getting up from bed . COPD causes shortness or breath which limits his walking, currently walking laps around the car in the garage. Wanting to learn how to use walker. Denies dizziness. Getting out of bed in the middle of the night can cause falls, also the bathroom. Does get lightheaded when sitting up quickly. Denies numbness/ tingling but does endorse weakness. Was previously in PT 2 years ago, but stopped due to covid shut down and now feels balance is worse. Treatment Goals Patient/Caregiver Goals Decrease falls Prior Functional Status Baseline Function- ADL's Modified Independent Baseline Function- Mobility Modified Independent Current Functional Impairments (Reported) Functional Limitations- ADL's multiple falls- falls getting out of bed, difficulty with bed mobility, difficulty with sit to stand from toilet ( needs UE support), difficulty with floor transfer (needs environmental support, did need to call paramedics once). 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 PT-OP-C Subjective Start: 04/27/21 14:26 Freq: Status: Active Protocol: Document 06/13/21 14:30 AMB (Rec: 06/13/21 15:38 AMB [id number]) OP-PT Subjective Patient Comments Patient Comments Pt continues to spend most of his day in his recliner. REports taking sinemet for restless legs and that is helping with his sleep, hoping that helps with his energy level. PT-OP-D Balance Start: 04/27/21 14:26 Freq: Status: Active Protocol: Document 05/02/21 14:30 AMB (Rec: 05/02/21 15:45 AMB [id number]) Balance Tests Other Other Balance Tests Performed NBOS: EC- fall posterior. NBOS: EO horizontal HT: 10 seconds. EO vertical head turns-= fall posterior PT-OP-G Mobility & Gait Start: 04/27/21 14:26 Freq: Status: Active Protocol: Document 05/02/21 14:30 AMB (Rec: 05/02/21 15:45 AMB [id number]) OP Gait Assessment Comments Gait Comments Pt attends with tall SPC with WBOS, but also a FWW. He is worried about the wheels on the FWW. He fatigues after 150' of ambulation, becomes short of breath. PT-OP-J Posture/Palpation/Skin Start: 04/27/21 14:26 Freq: Status: Active Protocol: Document 05/02/21 14:30 AMB (Rec: 05/02/21 15:45 AMB [id number]) Posture Evaluation Comments Posture Comments moderate/severe thoracic kyphosis PT-OP-M Strength Start: 04/27/21 14:26 Freq: Status: Active Protocol: Document 05/02/21 14:30 AMB (Rec: 05/02/21 15:45 AMB [id number]) Hip Strength Hip Manual Muscle Testing Right Flexion (L2) 4 Good Extension (S1) 3 Fair Abduction 4- Good- Left Flexion (L2) 4 Good Extension (S1) 3 Fair Abduction 4- Good- Knee Strength Knee Manual Muscle Testing Right Flexion (S2) 4 Good Extension (L3) 4 Good Left Flexion (S2) 4 Good Extension (L3) 4 Good Ankle/Foot Strength Ankle and Foot Manual Muscle Testing Right Dorsiflexion (L4) 4 Good Plantarflexion (S1) 4 Good Left Dorsiflexion (L4) 4 Good Plantarflexion (S1) 4 Good PT-OP-Q Treatments Start: 04/27/21 14:26 Freq: Status: Active Protocol: Document 06/13/21 14:30 AMB (Rec: 06/13/21 15:38 AMB [id number]) Therapeutic Exercises Standing Exercises 4 Standing Exercise Name mini squat Reps/Minutes 2x10- brief stand rest between sets Comments at railing Gait Training Gait Activity PF step training Description ascend/ descend 1 step Device Used //bars, fWW Level of Assistance CGA inside 6 step, Distance/Duration x4 reps //bars, 4 reps curb end tx outside Treatment Focus body spacial awareness edge step, sequencing BLE/ FWW, safety ascend/desc Comments Pt requires cues for body and FWW closer to edge step before ascend/descend to decrease forward reach, improved balance but needs contact to FWW to be sure safe positioning on/off step. standard walking Description 170 x 3 Device Used standard FWW Level of Assistance CGA, 5%A during R turns Surface firm Distance/Duration 2 laps in clinic, 50 ftx2 (to & from waiting room) Treatment Focus Safety with turning, body positioning in FWW, alignment, foot clearance Comments Cued body closer to back legs of FWW, slow safe pacing reciprocal stepping w/ LLE foot clearance w/ awareness of tall alignment and WB between BLE, tends to list to R. Pt stated trying not to oim consultant FWW hard. Cued to position trunk near back leg of FWW. Try to decrease looking straight down at feet. 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 Eyes closed - 10 sec pt opens eyes to avoid LOB PT-OP-T Assessment and Plan Start: 04/27/21 14:26 Freq: Status: Active Protocol: Document 06/13/21 14:30 AMB (Rec: 06/13/21 15:38 AMB [id number]) Physical Therapy Assessment Goals Two Impairment Gait Short Term Goal (STG) Papa will ambulate with a FWW for 2 minutes without LOB or fear of falling over smooth terrain. STG Duration MET Custodial Goal (LTG) Papa will ambulate with a FWW for 6 minutes without LOB or fear of falling over smooth terrain. LTG Duration 8 weeks One Impairment Transfers Short Term Goal (STG) Papa will be independent with all bed mobility. 06/06/21: progressing SBA on small table: pt able to complete sit<>SL R<> LR L to Supine<> SL L<> sidelying, cued for position little further away from EOtable for safety before complete return to sit. STG Duration 4 weeks -progressing Custodial Goal (LTG) Papa will move from sit to stand from a low surface ( level of toilet) with UE support and good body mechanics. PROGRESS MADE- Able to do from standard chair - lower toilet requires heavier UE support LTG Duration 8 weeks Assessment Summary Assessment Papa reports he is doing his exercises at home. His feels that he continues to do less and have a bit of a delcline. Discussed trying to keep time in the recliner to a minimum, as a few minutes of exercises will not make up for hours of sitting. Physical Therapy Plan Next Visit Focus/Plan Next Note Type Treatment Note Next Visit Plan Consider aquatic if pt and interested. Continue transfers centering/ back fully with FWW, repositioning FWW independent feet during pivot and safety turns during gait.
--- NOTE | 2021-06-16 15:47 | PT.OTN ---
Current Diagnoses Unspecified abnormalities of gait and mobility (06/16/21) Physical Therapy Treatment Note PT-OP-A Visit Information Start: 04/27/21 14:26 Freq: Status: Active Protocol: Document 06/16/21 14:30 AMB (Rec: 06/16/21 15:47 AMB [id number]) Out-Patient Physical Therapy Visit Information Visit Information Visit Type Discharge Summary Visit Start Time 14:30 Visit Stop Time 15:15 Total Visit Minutes 45 Visit Number 14 PT-OP-B Current Condition Start: 04/27/21 14:26 Freq: Status: Active Protocol: Document 05/02/21 14:28 AMB (Rec: 05/02/21 14:55 AMB [id number]) Current Condition History of Current Condition Onset Date 2 years Current Complaints history of falling History of Current Condition Papa attends with his Betsy. 5 falls in the last 6 months, some times has difficulty getting up from bed . COPD causes shortness or breath which limits his walking, currently walking laps around the car in the garage. Wanting to learn how to use walker. Denies dizziness. Getting out of bed in the middle of the night can cause falls, also the bathroom. Does get lightheaded when sitting up quickly. Denies numbness/ tingling but does endorse weakness. Was previously in PT 2 years ago, but stopped due to covid shut down and now feels balance is worse. Treatment Goals Patient/Caregiver Goals Decrease falls Prior Functional Status Baseline Function- ADL's Modified Independent Baseline Function- Mobility Modified Independent Current Functional Impairments (Reported) Functional Limitations- ADL's multiple falls- falls getting out of bed, difficulty with bed mobility, difficulty with sit to stand from toilet ( needs UE support), difficulty with floor transfer (needs environmental support, did need to call paramedics once). 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 PT-OP-C Subjective Start: 04/27/21 14:26 Freq: Status: Active Protocol: Document 06/16/21 14:30 AMB (Rec: 06/16/21 15:47 AMB [id number]) OP-PT Subjective Patient Comments Patient Comments Pt reports mild improvement in energy level. No questions about HEP. Does not use FWW at night because it is difficult to get into the bathroom. PT-OP-D Balance Start: 04/27/21 14:26 Freq: Status: Active Protocol: Document 05/02/21 14:30 AMB (Rec: 05/02/21 15:45 AMB [id number]) Balance Tests Other Other Balance Tests Performed NBOS: EC- fall posterior. NBOS: EO horizontal HT: 10 seconds. EO vertical head turns-= fall posterior PT-OP-G Mobility & Gait Start: 04/27/21 14:26 Freq: Status: Active Protocol: Document 05/02/21 14:30 AMB (Rec: 05/02/21 15:45 AMB [id number]) OP Gait Assessment Comments Gait Comments Pt attends with tall SPC with WBOS, but also a FWW. He is worried about the wheels on the FWW. He fatigues after 150' of ambulation, becomes short of breath. PT-OP-J Posture/Palpation/Skin Start: 04/27/21 14:26 Freq: Status: Active Protocol: Document 05/02/21 14:30 AMB (Rec: 05/02/21 15:45 AMB [id number]) Posture Evaluation Comments Posture Comments moderate/severe thoracic kyphosis PT-OP-M Strength Start: 04/27/21 14:26 Freq: Status: Active Protocol: Document 05/02/21 14:30 AMB (Rec: 05/02/21 15:45 AMB [id number]) Hip Strength Hip Manual Muscle Testing Right Flexion (L2) 4 Good Extension (S1) 3 Fair Abduction 4- Good- Left Flexion (L2) 4 Good Extension (S1) 3 Fair Abduction 4- Good- Knee Strength Knee Manual Muscle Testing Right Flexion (S2) 4 Good Extension (L3) 4 Good Left Flexion (S2) 4 Good Extension (L3) 4 Good Ankle/Foot Strength Ankle and Foot Manual Muscle Testing Right Dorsiflexion (L4) 4 Good Plantarflexion (S1) 4 Good Left Dorsiflexion (L4) 4 Good Plantarflexion (S1) 4 Good PT-OP-Q Treatments Start: 04/27/21 14:26 Freq: Status: Active Protocol: Document 06/16/21 14:30 AMB (Rec: 06/16/21 15:47 AMB [id number]) Therapeutic Exercises Standing Exercises 4 Standing Exercise Name mini squat Reps/Minutes 2x10- brief stand rest between sets Comments at railing Gait Training Gait Activity standard walking Description 170 x 3 Device Used standard FWW Level of Assistance SBA Surface firm Distance/Duration 2 laps in clinic, 50 ftx2 (to & from waiting room) Treatment Focus Safety with turning, body positioning in FWW, alignment, foot clearance Comments Cued body closer to back legs of FWW, slow safe pacing reciprocal stepping w/ LLE foot clearance w/ awareness of tall alignment and WB between BLE, tends to list to R. 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 Cued to position trunk near back leg of FWW. Try to decrease looking straight down at feet. Self-Care/Home Management Treatment Education Other Education Education re walker usage at night for getting into the bathroom. Tried to turn wheels around, but walker was not able to do so. Could try standard walker PT-OP-T Assessment and Plan Start: 04/27/21 14:26 Freq: Status: Active Protocol: Document 06/16/21 14:30 AMB (Rec: 06/16/21 15:47 AMB [id number]) Physical Therapy Assessment Goals Two Impairment Gait Short Term Goal (STG) Papa will ambulate with a FWW for 2 minutes without LOB or fear of falling over smooth terrain. STG Duration MET Call Center Team Leader Goal (LTG) Papa will ambulate with a FWW for 6 minutes without LOB or fear of falling over smooth terrain. LTG Duration -Rest breaks needed but can achieve One Impairment Transfers Short Term Goal (STG) Papa will be independent with all bed mobility. STG Duration MET Call Center Team Leader Goal (LTG) Papa will move from sit to stand from a low surface ( level of toilet) with UE support and good body mechanics. PROGRESS MADE- Able to do from standard chair - lower toilet requires heavier UE support LTG Duration 8 weeks Assessment Summary Assessment SpO2 remains high throughout activity. Pt reports he would consider going to community exercise class at [facility], not interested in the pool at this point. Not interested in pulmonary rehab as he tried it previously. Will continue with HEP and encouraged in walking in the community where there are benches. Discussed walker usage at night with , suggested standard walker at night as that would be a bit narrower. Instructed pt he is welcome to return in the future if he needs more PT, but that he should work on community ambulation and exercise at this point. Physical Therapy Plan Discharge Physical Therapy Discharge Reasons Goals Met
== END 2021-06-21 14:03 | disposition home or self-care (01) ==
LOC: PHYS 14:30
PROVIDERS: Family Provider Internal Medicine; PCP Internal Medicine; Referring Provider Internal Medicine; Visit Provider Internal Medicine
DX: R26.9 Unspecified abnormalities of gait and mobility (principal)
CPT/HCPCS: 97110; 97112; 97116; 97162; 97530; 97535

== ENCOUNTER → 2021-08-01 10:38 | Outpatient (CLI) | payer MEDICARE, OTHER, SELFPAY ==
[2021-08-01 13:49] LABS: Alanine Aminotransferase 16 IU/L (<50); Albumin 4.2 g/dL (3.5-5.0); Albumin Globulin Ratio 1.4 (1.0-2.8); Alkaline Phosphatase 68 U/L (38-126); Aspartate Aminotransferase 22 IU/L (17-59); BUN Creatinine Ratio 12.2 (6-22); Bilirubin Total 0.3 mg/dL (0.2-1.3); Blood Urea Nitrogen 10 mg/dL (9-20); Calcium 9.3 mg/dL (8.4-10.2); Carbon Dioxide 27 mmol/L (22-32); Chloride 103 mmol/L (98-107); Cholesterol 153 mg/dL (140-199); Estimated Glomerular Filt Rate > 60 mL/min (>60); Globulin 2.9 g/dL (1.7-4.1); Glucose 104 mg/dL (80-110); HDL Cholesterol 73 mg/dL (40-60); HEMOLYSIS < 15 (0-50); LDL Cholesterol Calculated 58 mg/dL (<100); Potassium 4.4 mmol/L (3.4-5.1); Sodium 135 mmol/L (137-145); Total Protein 7.1 g/dL (6.3-8.2); Triglycerides 112 mg/dL (35-150)
[2021-08-02 05:47] LABS: PSA Ultrasensitive 0.212 ng/mL (0.000-4.000)
== END ==
PROVIDERS: Family Provider Internal Medicine; PCP Internal Medicine; Referring Provider Radiology Radiation Oncology; Visit Provider Radiology Radiation Oncology
DX: E78.5 Hyperlipidemia, unspecified (principal); C61 Malignant neoplasm of prostate; I10 Essential (primary) hypertension; J43.9 Emphysema, unspecified; R25.1 Tremor, unspecified
CPT/HCPCS: 80053; 80061; 84153

== ENCOUNTER 2021-08-10 14:46 | Emergency (ER) | payer MEDICARE, OTHER, SELFPAY ==
--- NOTE | 2021-08-10 | DI.RAD.S_ITS ---
PROCEDURE: XR FOREARM LT 2V INDICATIONS: PAIN TECHNIQUE: 2 views of the forearm were acquired. COMPARISON: [facility], , FOREARM LEFT, 10/25/2015, 2:12. FINDINGS: Bones: No acute fractures or dislocations. Prior healed fractures of the ulna x2. No suspicious bony lesions. Soft tissues: No suspicious soft tissue calcifications or masses. IMPRESSION: No acute osseous abnormality. Healed ulnar fractures. Dictated by: Olivier Anne M.D. on 08/10/2021 at 16:10 Approved by: Olivier Anne M.D. on 08/10/2021 at 16:12
[2021-08-10 15:00] VITALS: BP 122/60; PULSE 59; RESP 24; TEMP 36.3; O2SAT 98
--- NOTE | 2021-08-10 15:03 | DI.RAD.S_ITS ---
PROCEDURE: XR SHOULDER LT MIN 2V INDICATIONS: fall TECHNIQUE: 3 views of the shoulder were [facility]. [facility] 14[facility] 2 [facility], 02/28/2014, 12:31. FINDINGS: Bones: No fractures identified. No dislocations. No suspicious bony lesions. Visualized ribs appear intact. Soft tissues: No suspicious soft tissue calcifications. IMPRESSION: No acute osseous abnormality identified. Dictated by: Olivier Anne M.D. on 08/10/2021 at 16:07 Approved by: Olivier Anne M.D. on 08/10/2021 at 16:09
--- NOTE | 2021-08-10 15:03 | DI.RAD.S_ITS ---
PROCEDURE: XR HUMERUS LT 2V INDICATIONS: fall TECHNIQUE: 2 views of the humerus were acquired. COMPARISON: [facility], CR, XR SHOULDER LT MIN 2V, 08/10/2021, 14:55. FINDINGS: Bones: No fractures or dislocations. No suspicious bony lesions. Soft tissues: No suspicious soft tissue calcifications. IMPRESSION: No acute osseous abnormality. Dictated by: Olivier Anne M.D. on 08/10/2021 at 16:10 Approved by: Olivier Anne M.D. on 08/10/2021 at 16:10
--- NOTE | 2021-08-10 15:03 | DI.RAD.S_ITS ---
PROCEDURE: XR ELBOW LT MIN 3V INDICATIONS: fall TECHNIQUE: 3 views of the elbow were acquired. COMPARISON: None. FINDINGS: Bones: No acute fractures or dislocations. Nearly completely healed segmental ulnar shaft fracture. No suspicious bony lesions. Soft tissues: No elbow joint effusion. No suspicious soft tissue calcifications. IMPRESSION: 1. No evidence acute bony abnormality of the left elbow. 2. Almost completely healed segmental ulnar shaft fracture. Dictated by: Maynor Dhaliwal M.D. on 08/10/2021 at 16:21 Approved by: Maynor Dhaliwal M.D. on 08/10/2021 at 16:22
--- NOTE | 2021-08-10 17:00 | ED.UPPEXIN ---
HPI - Extremity Injury (Upper) General Chief Complaint: Extremity Injury, Upper Stated Complaint: Fell on lt shoulder Time Seen by Provider: 08/10/21 16:12 Source: patient and family Mode of arrival: Ambulatory Limitations: no limitations History of Present Illness HPI narrative: Patient fell at home about 10:00 a.m. this morning. He stumbled, went down his left shoulder. There was no head or neck injury. He has no back pain, chest pain, or difficulty breathing. He was not feeling weak or dizzy, he simply stumbled and fell. He hit the floor. He has an abrasion on his left velasco, however, He is up and ambulatory without discomfort other than left shoulder. He denies recent illness. He denies palpitations, cough, fever chills. 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 He has no acute weakness. He has a history of prior left arm fractures. Related Data Home Medications Medication Instructions Recorded Confirmed magnesium oxide 400 mg PO BID cap 12/27/17 06/14/21 melatonin 10 mg tablet 2 tab PO BEDTIME 06/16/18 06/14/21 phenazopyridine 95 mg tablet (Azo 95 mg PO TID 10/31/18 06/14/21 Urinary Pain Relief) sertraline 100 mg tablet 100 mg PO DAILY tab 06/07/21 06/14/21 Previous Rx's Medication Instructions Recorded hydrochlorothiazide 25 mg tablet 25 mg PO QDAY #30 tab 12/04/16 Disabled Parking Permit ea #1 01/24/17 hydrocortisone 2.5 % topical cream 1 applictn TOP BID #30 gram 10/31/18 atorvastatin 40 mg tablet 40 mg PO DAILY #90 tab 10/16/19 tamsulosin 0.4 mg capsule (Flomax) 0.4 mg PO BID #180 cap 10/16/19 cholecalciferol (vitamin D3) 25 25 mcg PO DAILY #90 cap 03/22/20 mcg (1,000 unit) capsule metoprolol succinate 25 mg 25 mg PO BID #180 tab 04/01/20 tablet,extended release 24 hr mometasone 200 mcg/actuation HFA 2 puff INHALATION BID #39 g 04/13/20 aerosol inhaler tiotropium bromide 18 mcg capsule 18 mcg INHALATION 0600 #90 cap 04/23/20 with inhalation device (Spiriva with HandiHaler) nitroglycerin 0.4 mg sublingual 0.4 mg SL Q5M PRN #60 tab 11/16/20 tablet trazodone 50 mg tablet See Rx Instructions .ROUTE 06/09/21 .COMPLEX #180 tablet carbidopa 25 mg-levodopa 100 mg 1 tab PO BEDTIME #30 tab 07/01/21 tablet clonazepam 1 mg tablet 1 mg PO Q12H #60 tab 07/01/21 Allergies Allergy/AdvReac Type Severity Reaction Status Date / Time No Known Drug Allergies Allergy Verified 06/14/21 15:44 Review of Systems Review of Systems ROS Unobtainable: All systems reviewed & are unremarkable except as noted in HPI and below Patient History Medical History Alcoholism Alcoholism in recovery (01/10/16) Atherosclerosis of [place] coronary artery of [place] heart without angina pectoris (12/22/14) Atrial flutter Depression (12/22/14) Essential hypertension (12/22/14) Former smoker (01/15/15) Generalized anxiety disorder History of radiation therapy Hx of adenomatous colonic polyps (12/22/10) Hyperlipidemia Lower urinary tract symptoms Malignant neoplasm of prostate (12/22/10) MRSA (methicillin resistant staph aureus) culture positive Nocturia Paroxysmal atrial fibrillation (12/22/14) 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 (12/22/14) Pulmonary emphysema (12/22/14) Tremor Urinary frequency Urinary retention Surgical History History of angioplasty (10/06/14) Inguinal hernia Status post appendectomy Status post transurethral resection of prostate (~05/2016) Family History Mother Blood disease Hyperlipidemia Hypertension Hearing impairment Father Cancer Social History Smoking Status: Current every day smoker Smoking Status: Current every day smoker tobacco type: vaping alcohol intake frequency: holidays/special occasions only Substance Use Type: does not use Exam Initial Vital Signs Initial Vital Signs: Vital Signs Temperature 97.4 F L 08/10/21 15:00 Pulse Rate 59 L 08/10/21 15:00 Respiratory Rate 24 08/10/21 15:00 Blood Pressure 122/60 08/10/21 15:00 Pulse Oximetry 98 08/10/21 15:00 Const General: cooperative, comfortable, well developed, well groomed and No acute distress [facility] Head: normal to inspection, normocephalic and atraumatic Neck Neck: full ROM, No lymphadenopathy and No tender Chest Chest: No localized rib tenderness with anteroposterior compression Resp Auscultation: clear to auscultation bilaterally Cardio Rate: regular rate Rhythm: regular rhythm Heart Sounds: S1 normal, S2 normal, no click, no gallops, no murmurs and no rubs Back/Spine/Pelvis Back: normal to inspection and No back tenderness Skin General: no rashes or lesions noted Neuro General: patient alert, patient awake, patient oriented x3 and no focal motor deficits Extrem Other: Left anterior shoulder tenderness with palpation at the AC joint. No laxity. Limited internal rotation and abduction due to pain. No palpable defects in the humerus. No discomfort in left elbow, forearm, wrist or hand. Left radial pulse is normal. Right arm is atraumatic. No hip, knee, or ankle pain. He has a small abrasion on the left anterior tibia that is not hurting him. Psych Mental Status: mental status grossly normal Course Course Course Narrative: Left shoulder, left humerus, left elbow left forearm x-rays show no acute bony injury. By exam he has a left AC strain. He is placed in a sling, his left arm is neurovascularly intact. Orders Ordered: ED Orders 08/10/21 15:03 XR elbow LT min 3V Stat XR humerus LT 2V Stat XR shoulder LT min 2V Stat Vital Signs Vital signs: Vital Signs - 8 hr 08/10/21 15:00 Temperature 97.4 F L Pulse Rate 59 L Respiratory Rate 24 Blood Pressure 122/60 Pulse Oximetry 98 MDM - Extremity Injury (Upper) Imaging Data Left shoulder x-ray: Radiologist's Impression: PROCEDURE:? XR SHOULDER LT MIN 2V ? INDICATIONS:? fall ? TECHNIQUE:? 3 views of the shoulder were acquired.? ? COMPARISON:? [facility], , XR HUMERUS LT 2V, 08/10/2021, 14:55.? [facility], , SHOULDER MINIMUM 2 VIEW LEFT, 02/28/2014, 12:31. ? FINDINGS:? ? Bones:? No fractures identified.? No dislocations.? No suspicious bony lesions.? Visualized ribs appear intact.? ? Soft tissues:? No suspicious soft tissue calcifications.? ? IMPRESSION:? No acute osseous abnormality identified. ? ? Dictated by: Olivier Anne M.D. on 08/10/2021 at 16:07 ? ? Approved by: Olivier Anne M.D. on 08/10/2021 at 16:09 ? Left humerus x-ray: Radiologist's Impression: No acute osseous injury Left elbow x-ray: Radiologist's Impression: 1. No evidence acute bony abnormality of the left elbow. ? 2. Almost completely healed segmental ulnar shaft fracture.? Left forearm x-ray: Radiologist's Impression: No acute osseous abnormality. Healed ulnar fractures. Discharge Plan Departure Patient Disposition: Home Clinical Impression: Sprain of left acromioclavicular joint, initial encounter Activity Restrictions/Additional Instructions: Use the sling as needed. Tylenol or Advil as needed for pain. Apply ice over the left shoulder frequently for the next 2 days. Follow-up with your doctor in 2 weeks if the shoulder is not improving. Prescriptions: No Action hydrochlorothiazide 25 MG tablet 25 mg PO QDAY Qty: 30 3RF Disabled Parking Permit Qty: 1 0RF atorvastatin 40 mg tablet 40 mg PO DAILY Qty: 90 0RF tamsulosin [Flomax] 0.4 mg capsule 0.4 mg PO BID Qty: 180 0RF cholecalciferol (vitamin D3) 25 mcg (1,000 unit) capsule 25 mcg PO DAILY Qty: 90 3RF metoprolol succinate 25 mg tablet extended release 24 hr 25 mg PO BID Qty: 180 3RF mometasone 200 mcg/actuation HFA aerosol inhaler 2 puff INHALATION BID Qty: 39 3RF Spiriva with HandiHaler 18 mcg capsule, w/inhalation device 18 mcg inhalation 0600 Qty: 90 1RF trazodone 50 mg tablet See Rx Instructions .ROUTE .COMPLEX Qty: 180 3RF Dose Instruction: TAKE 1 TO 2 TABLETS BY MOUTH AT BEDTIME NEEDED FOR SLEEP Rx Instructions: TAKE 1 TO 2 TABLETS BY MOUTH AT BEDTIME NEEDED FOR SLEEP clonazepam 1 mg tablet 1 mg PO Q12H Qty: 60 3RF carbidopa-levodopa 25-100 mg tablet 1 tab PO BEDTIME Qty: 30 3RF magnesium oxide 400 mg capsule 400 mg PO BID 0RF nitroglycerin 0.4 mg tablet, sublingual 0.4 mg SL Q5M PRN (Reason: chest pain) Qty: 60 3RF Rx Instructions: until response; do not exceed 3 doses per episode phenazopyridine [Azo Urinary Pain Relief] 95 mg tablet 95 mg PO TID 0RF hydrocortisone 2.5 % cream 1 applictn TOP BID Qty: 30 1RF sertraline 100 mg tablet 100 mg PO DAILY 0RF melatonin 10 mg Tablet 2 tab PO BEDTIME 0RF Referrals: Tim Pemberton MD [Primary Care Provider] -
[2021-08-10 17:30] VITALS: BP 130/64; PULSE 60; RESP 20; TEMP 36.4; O2SAT 98
== END 2021-08-10 17:30 | disposition home or self-care (01) ==
PROVIDERS: Emergency Provider Emergency Medicine; Family Provider Internal Medicine; PCP Internal Medicine
DX: S43.52XA Sprain of left acromioclavicular joint, initial encounter (principal); W18.30XA Fall on same level, unspecified, initial encounter
CPT/HCPCS: 73030; 73060; 73080; 73090; 99283

== ENCOUNTER → 2022-01-12 15:49 | Outpatient (CLI) | payer MEDICARE, OTHER, SELFPAY | PROVIDERS: Family Provider Internal Medicine; PCP Internal Medicine; Visit Provider Urology | DX: C61 Malignant neoplasm of prostate (principal); R33.9 Retention of urine, unspecified; R39.9 Unspecified symptoms and signs involving the genitourinary system; R35.1 Nocturia; R82.81 Pyuria; Z87.898 Personal history of other specified conditions | CPT/HCPCS: 51798; 81002; 87086; 99214 ==

== ENCOUNTER 2022-03-06 01:18 | Emergency (ER) | payer MEDICARE, OTHER, SELFPAY ==
[2022-03-06 01:24] VITALS: BP 150/67; PULSE 61; RESP 18; TEMP 36.6; O2SAT 99; BMI 23.3
--- NOTE | 2022-03-06 01:39 | DI.CT.S_ITS ---
PROCEDURE: CT HEAD/BRAIN WO CON INDICATIONS: Fall TECHNIQUE: Noncontrast 4.5 mm thick angled axial sections acquired from the foramen magnum to the vertex, with coronal and sagittal reformats. For radiation dose reduction, the following was used: automated exposure control, adjustment of mA and/or kV according to patient size. COMPARISON: [facility], CT, CT HEAD/BRAIN WO CON, 06/16/2018, 1:31. FINDINGS: Image quality: Excellent. CSF spaces: Basal cisterns are patent. No extra-axial fluid collections. There is mild to moderate cerebral volume loss, with resultant ventricular and sulcal prominence. Brain: No intracranial hemorrhage, mass, or mass effect. There are subcortical, periventricular and deep white matter hypodensities consistent with mild chronic small vessel ischemic changes. The piper-white matter junction appears preserved. There is intracranial internal carotid artery atherosclerosis. Skull and face: Calvarium and visualized facial bones appear intact, without suspicious lesions. Sinuses: Visualized sinuses and mastoids are clear. IMPRESSION: 1. No acute intracranial abnormality. 2. Mild to moderate cerebral volume loss and mild chronic white matter small vessel ischemic changes. Dictated by: Inocencio Ba M.D. on 03/06/2022 at 1:53 Approved by: Inocencio Ba M.D. on 03/06/2022 at 1:55
--- NOTE | 2022-03-06 03:23 | ED.FALL ---
HPI - Fall General Chief Complaint: Fall Stated Complaint: fell/left hand injury Time Seen by Provider: 03/06/22 03:23 Source: patient and family Mode of arrival: Ambulatory History of Present Illness HPI Narrative: This is a 76-year-old male with known coronary artery disease with prior cardiac stents, hypertension, atrial fibrillation who was ambulating with his walker when he lost his balance and fell. Patient states he was walking to the bathroom in his home and caught his hand between the wall and the walker. Patient states he has loss of skin over the dorsum of his hand and left elbow. He states he may or may not have hit his head he is unsure he states he did not fall very hard. He is not any anticoagulants such as aspirin, Plavix or other thinners. He denies neck back for chest pain, no back flank or abdominal pain. No chest pain or shortness of breath. No nausea or vomiting. States he is had a little bit of a viral upper respiratory cold but insists he does not have influenza. He denies nausea or vomiting, denies any new GI or urinary symptoms. Patient has had cardiac stents, ablation. He denies any drug allergies. He and his state he is had multiple skin tears in the past. Patient defers workup or testing for influenza or other infection. Related Data Home Medications Medication Instructions Recorded Confirmed magnesium oxide 400 mg PO BID 12/27/17 01/12/22 phenazopyridine 95 mg tablet (Azo 95 mg PO TID 10/31/18 01/12/22 Urinary Pain Relief) sertraline 100 mg tablet 100 mg PO DAILY 06/07/21 01/12/22 hydrochlorothiazide 12.5 mg tablet 12.5 mg PO DAILY 09/06/21 01/12/22 Previous Rx's Medication Instructions Recorded Disabled Parking Permit ea ##1 01/24/17 hydrocortisone 2.5 % topical cream 1 applictn topical BID #30 grams 10/31/18 atorvastatin 40 mg tablet 40 mg PO DAILY #90 tabs 10/16/19 tamsulosin 0.4 mg capsule (Flomax) 0.4 mg PO BID #180 caps 10/16/19 metoprolol succinate 25 mg 25 mg PO BID #180 tabs 04/01/20 tablet,extended release 24 hr mometasone 200 mcg/actuation HFA 2 puff inhalation BID #39 grams 04/13/20 aerosol inhaler tiotropium bromide 18 mcg capsule 18 mcg inhalation 0600 #90 caps 04/23/20 with inhalation device (Spiriva with HandiHaler) nitroglycerin 0.4 mg sublingual 0.4 mg sublingual Q5M PRN chest 11/16/20 tablet pain #60 tabs trazodone 50 mg tablet See Rx Instructions .Route 06/09/21 .COMPLEX #180 tabs clonazepam 1 mg tablet 1 mg PO Q12H #60 tabs 07/01/21 carbidopa ER 50 mg-levodopa 200 mg 1 tab PO BID #180 tabs 02/14/22 tablet,extended release Allergies Allergy/AdvReac Type Severity Reaction Status Date / Time No Known Drug Allergies Allergy Verified 03/06/22 01:24 Review of Systems Review of Systems ROS Unobtainable: All systems reviewed & are unremarkable except as noted in HPI and below Patient History Medical History Alcoholism Alcoholism in recovery (01/10/16) Atherosclerosis of [place] coronary artery of [place] heart without angina pectoris (12/22/14) Atrial flutter Depression (12/22/14) Essential hypertension (12/22/14) Former smoker (01/15/15) Generalized anxiety disorder History of radiation therapy Hx of adenomatous colonic polyps (12/22/10) Hyperlipidemia Lower urinary tract symptoms Malignant neoplasm of prostate (12/22/10) MRSA (methicillin resistant staph aureus) culture positive Paroxysmal atrial fibrillation (12/22/14) 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 (12/22/14) Pulmonary emphysema (12/22/14) Tremor Urinary retention Surgical History History of angioplasty (10/06/14) Inguinal hernia Status post appendectomy Status post transurethral resection of prostate (~05/2016) Family History Mother Blood disease Hyperlipidemia Hypertension Hearing impairment Father Cancer Social History Smoking Status: Current every day smoker Smoking Status: Current every day smoker tobacco type: vaping alcohol intake frequency: holidays/special occasions only Substance Use Type: does not use Exam Narrative Exam Narrative: GEN: Elderly male, alert and oriented, patient appears to be in mild distress. HEENT: Atraumatic, pupils are equal round reactive to light, extraocular movements are intact, nares are clear, TMs are clear with no fluid, there is no conjunctival pallor. Throat is clear without any exudates, erythema, tonsillar enlargement or uvular deviation, no cervical vertebral tenderness. HEART: Regular rate and rhythm without murmur, clicks, rubs. LUNGS:Lungs clear to auscultation, no wheezes, rales, crackles, chest moves symmetrically ABD:bowel sounds normal, soft, non-tender, no guarding, rebound, rigidity, no masses noted, no hepatosplenomegaly :No CVA tenderness MSCL: Non-tender, no muscle atrophy, muscles strength 5/5 upper and lower extremities, full range of motion NEURO:CN 2-12 intact, sensation normal SKIN: Patient has large full-thickness skin tear on the dorsum of the left hand that is approximately 5 cm in length about 3 cm at its widest point, it is irregular and there is a large flap of skin which is not able to be placed down. There is a smaller skin tear just adjacent that is about 1 x 2 cm. Soft tissue is intact. No bony tenderness. Patient also has a small 1 x 2 cm very irregular patchy skin tear with complete loss of the skin external left elbow. Initial Vital Signs Initial Vital Signs: Vital Signs Temperature 97.8 F 03/06/22 01:24 Pulse Rate 61 03/06/22 01:24 Respiratory Rate 18 03/06/22 01:24 Blood Pressure 150/67 H 03/06/22 01:24 Pulse Oximetry 99 03/06/22 01:24 Oxygen Delivery Method 03/06/22 01:24 Course Orders Ordered: ED Orders 03/06/22 01:39 CT head/brain wo con Stat Discontinued Medications Bacitracin (Bacitracin Oint 0.9 Gm Pckt) 2 applic TOP NOW ONE Stop: 03/06/22 03:41 Last Admin: 03/06/22 04:18 Dose: 2 applic Documented By: MCKAYLA Vital Signs Vital signs: Vital Signs - 8 hr 03/06/22 01:24 03/06/22 04:25 Temperature 97.8 F 97.5 F L Pulse Rate 61 72 Respiratory Rate 18 16 Blood Pressure 150/67 H 144/78 H Pulse Oximetry 99 98 Oxygen Delivery Method Room Air Room Air MDM - Fall Imaging Data CT scan - head: Radiologist's Impression: Close Head CT (Signed) Inocencio Ba - 03/06/22 Shoulder X-Ray (Signed) Call,Olivier - 08/10/21 Humerus X-Ray (Signed) Call,Olivier - 08/10/21 Elbow X-Ray (Signed) IsraMaynor - 08/10/21 Forearm X-Ray (Signed) Call,Olivier - 08/10/21 Hand X-Ray (Signed) Galo Hamilton - 03/24/21 Carotid Doppler Study (Signed) Madai Ceballos - 06/06/19 Chest X-Ray (Signed) Katrina Crowell - 06/21/[address] (Signed) Rafita Sol - 06/16/[address] (Signed) Rafita Sol - 06/16/18 Launch?[place] [address] CT Scan Report Signed Patient: Papa Serrano Jr MR#: [id number] : 1945 Acct:[id number] Age/Sex: 76 / M Date of Service: 03/06/22 Loc: Accession Number: [id number] ?? Procedure: CT head/brain wo con Ordering Provider: Nani Goodwin D.O. PROCEDURE:? CT HEAD/BRAIN WO CON ? INDICATIONS:? Fall ? TECHNIQUE:? Noncontrast 4.5 mm thick angled axial sections acquired from the foramen magnum to the vertex, with coronal and sagittal reformats.? For radiation dose reduction, the following was used:? automated exposure control, adjustment of mA and/or kV according to patient size.? ? COMPARISON:? [facility], CT, CT HEAD/BRAIN WO CON, 06/16/2018, 1:31. ? FINDINGS:? Image quality:? Excellent.? ? CSF spaces:? Basal cisterns are patent.? No extra-axial fluid collections.? There is mild to moderate cerebral volume loss, with resultant ventricular and sulcal prominence.? ? Brain:? No intracranial hemorrhage, mass, or mass effect.? There are subcortical, periventricular and deep white matter hypodensities consistent with mild chronic small vessel ischemic changes.? The piper-white matter junction appears preserved.? There is intracranial internal carotid artery atherosclerosis.? ? Skull and face:? Calvarium and visualized facial bones appear intact, without suspicious lesions.? ? Sinuses:? Visualized sinuses and mastoids are clear.? ? IMPRESSION:? ? 1. No acute intracranial abnormality. ? 2. Mild to moderate cerebral volume loss and mild chronic white matter small vessel ischemic changes.? ? Dictated by: Inocencio Ba M.D. on 03/06/2022 at 1:53 ? ? Approved by: Inocencio Ba M.D. on 03/06/2022 at 1:55?? MDM Narrative Medical decision making narrative: This is a 76-year-old male with large skin tear on the dorsum of the hand,. There may not have hit his head he is not any anticoagulants but based on his age of 76 any appears quite frail head CT obtained which is negative. There was a large flap of macerated skin which was removed. Patient had triple antibiotic ointment placed and patient had nonadherent dressing with Kerlix at the hand and elbow by myself. Reviewed wound care instructions with patient and . All questions answered. Discharge Plan Departure Patient Disposition: Home Clinical Impression: ISTAP type 3 skin tear of left hand, ISTAP type 3 skin tear of left elbow Activity Restrictions/Additional Instructions: Follow-up with your physician if you are skin tears are not starting to heal over the next 1-2 weeks. Wound Care: Keep wound(s) clean and dry. Wash daily with soap and water only. Use a topical triple antibiotic ointment to the open skin on your skin tear, replace when changing your dressing. If wound condition worsens (increased/expanding redness, developing fluid blisters, or worsening pain), either contact your doctor for an urgent re-assessment , or return to the Emergency Department. Return if fever greater than 100.4 Fahrenheit, increased swelling, increasing pain or worsening symptoms such as increased discharge or spreading redness. Prescriptions: No Action Disabled Parking Permit Qty: 1 0RF atorvastatin 40 mg tablet 40 mg PO DAILY Qty: 90 0RF tamsulosin [Flomax] 0.4 mg capsule 0.4 mg PO BID Qty: 180 0RF metoprolol succinate 25 mg tablet extended release 24 hr 25 mg PO BID Qty: 180 3RF mometasone 200 mcg/actuation HFA aerosol inhaler 2 puff INHALATION BID Qty: 39 3RF Spiriva with HandiHaler 18 mcg capsule, w/inhalation device 18 mcg inhalation 0600 Qty: 90 1RF trazodone 50 mg tablet See Rx Instructions .ROUTE .COMPLEX Qty: 180 3RF Dose Instruction: TAKE 1 TO 2 TABLETS BY MOUTH AT BEDTIME NEEDED FOR SLEEP Rx Instructions: TAKE 1 TO 2 TABLETS BY MOUTH AT BEDTIME NEEDED FOR SLEEP clonazepam 1 mg tablet 1 mg PO Q12H Qty: 60 3RF carbidopa-levodopa 50-200 mg tablet extended release 1 tab PO BID Qty: 180 3RF magnesium oxide 400 mg capsule 400 mg PO BID nitroglycerin 0.4 mg tablet, sublingual 0.4 mg SL Q5M PRN (Reason: chest pain) Qty: 60 3RF Rx Instructions: until response; do not exceed 3 doses per episode phenazopyridine [Azo Urinary Pain Relief] 95 mg tablet 95 mg PO TID hydrocortisone 2.5 % cream 1 applictn TOP BID Qty: 30 1RF sertraline 100 mg tablet 100 mg PO DAILY hydrochlorothiazide 12.5 mg tablet 12.5 mg PO DAILY Referrals: Tim Pemberton MD [Primary Care Provider] - Visit Report Forms: Patient Portal/API
[2022-03-06] MEDS: BACITRACIN OINT 0.9 GM PCKT 2 APPLIC TOP (04:18)
[2022-03-06 04:25] VITALS: BP 144/78; PULSE 72; RESP 16; TEMP 36.4; O2SAT 98
== END 2022-03-06 04:10 | disposition home or self-care (01) ==
PROVIDERS: Emergency Provider Emergency Medicine; Family Provider Internal Medicine; PCP Internal Medicine
DX: S61.412A Laceration without foreign body of left hand, initial encounter (principal); S51.012A Laceration without foreign body of left elbow, initial encounter; W01.198A Fall on same level from slipping, tripping and stumbling with subsequent striking against other object, initial encounter
CPT/HCPCS: 70450; 99283

== ENCOUNTER 2022-05-16 15:02 | Inpatient (IN) | payer MEDICARE, OTHER, SELFPAY ==
[2022-05-16] VITALS (17 sets, daily range): BP systolic 129–187; BP diastolic 60–84; PULSE 68–85; RESP 15–33; TEMP 36.7–36.9; O2SAT 95–98; BMI 23.7
--- NOTE | 2022-05-16 15:44 | DI.CT.S_ITS ---
PROCEDURE: CT HEAD/BRAIN WO CON INDICATIONS: falls on ASA TECHNIQUE: Noncontrast 4.5 mm thick angled axial sections acquired from the foramen magnum to the vertex, with coronal and sagittal reformats. For radiation dose reduction, the following was used: automated exposure control, adjustment of mA and/or kV according to patient size. COMPARISON: [facility], CT, CT HEAD/BRAIN WO CON, 06/16/2018, 1:31. [facility], CT, CT HEAD/BRAIN WO CON, 03/06/2022, 1:43. FINDINGS: Image quality: Excellent. CSF spaces: Basal cisterns are patent. No extra-axial fluid collections. The ventricles are symmetric in size and shape. Brain: No intracranial bleeds or masses. There is cerebral volume loss for age, with resultant ventricular and sulcal prominence. There are periventricular and deep white matter chronic small vessel ischemic changes. There is intracranial internal carotid artery atherosclerosis. Skull and face: Calvarium and visualized facial bones appear intact, without suspicious lesions. Sinuses: Visualized sinuses and mastoids are clear. IMPRESSION: No acute intracranial hemorrhage is seen. No acute intracranial process is seen. Dictated by: Colt Cazares M.D. on 05/16/2022 at 15:41 Approved by: Colt Cazares M.D. on 05/16/2022 at 15:42
--- NOTE | 2022-05-16 15:46 | DI.RAD.S_ITS ---
PROCEDURE: XR RIBS LT MIN 3V W CXR1V INDICATIONS: fall injury TECHNIQUE: 4 views of the left ribs were acquired, along with a single view chest. COMPARISON: None. FINDINGS: Surgical changes and devices: None. Bones and chest wall: Displaced posterior left 8th, 9th and 10th rib fractures. No suspicious bony lesions. Overlying soft tissues appear unremarkable. Left humerus is dislocated. Lungs and pleura: No pleural effusions or pneumothorax. Lungs appear clear. Mediastinum: Mediastinal contours appear normal. Heart size is normal. IMPRESSION: Left 8th, 9th and 10th rib fractures. Left shoulder dislocation. Recommend dedicated left shoulder x-ray series for definitive characterization. Dictated by: Katrina Crowell MD, PhD on 05/16/2022 at 16:09 Approved by: Katrina Crowell MD, PhD on 05/16/2022 at 16:11
--- NOTE | 2022-05-16 18:35 | ED_ITS ---
HPI - Fall General Chief Complaint: Trauma Stated Complaint: sent by [facility] Time Seen by Provider: 05/16/22 18:28 Source: patient Mode of arrival: Family Vehicle History of Present Illness HPI Narrative: Patient is a 77-year-old male history of polio which has affected his left arm, chronic left arm dislocation, Parkinson's, hyperlipidemia, coronary artery disease, atrial fibrillation ambulating with his walker last night trying to go to the restroom when he fell. He rate for the dresser fell onto his left side. Complaining of left-sided chest pain. reports that he fell once last week what but was not evaluated he did briefly his head. He reports that he was in his normal state of health yesterday. He denies any fever or chills. No chest pain dizziness lightheadedness nausea vomiting abdominal pain fever or chills. Related Data Home Medications Medication Instructions Recorded Confirmed magnesium oxide 400 mg PO BID 12/27/17 05/16/22 sertraline 100 mg tablet 100 mg PO DAILY 06/07/21 05/16/22 hydrochlorothiazide 12.5 mg tablet 12.5 mg PO DAILY 09/06/21 05/16/22 Previous Rx's Medication Instructions Recorded atorvastatin 40 mg tablet 40 mg PO DAILY #90 tabs 10/16/19 tamsulosin 0.4 mg capsule (Flomax) 0.4 mg PO BID #180 caps 10/16/19 metoprolol succinate 25 mg 25 mg PO BID #180 tabs 04/01/20 tablet,extended release 24 hr mometasone 200 mcg/actuation HFA 2 puff inhalation BID #39 grams 04/13/20 aerosol inhaler nitroglycerin 0.4 mg sublingual 0.4 mg sublingual Q5M PRN chest 11/16/20 tablet pain #60 tabs trazodone 50 mg tablet See Rx Instructions .Route 06/09/21 .COMPLEX #180 tabs clonazepam 1 mg tablet 1 mg PO Q12H #60 tabs 07/01/21 carbidopa ER 50 mg-levodopa 200 mg 1 tab PO BID #180 tabs 02/14/22 tablet,extended release Allergies Allergy/AdvReac Type Severity Reaction Status Date / Time No Known Drug Allergies Allergy Verified 05/16/22 15:43 Review of Systems Review of Systems ROS Unobtainable: All systems reviewed & are unremarkable except as noted in HPI and below Patient History Medical History Alcoholism Alcoholism in recovery (01/10/16) Atherosclerosis of [place] coronary artery of [place] heart without angina pectoris (12/22/14) Atrial flutter Depression (12/22/14) Essential hypertension (12/22/14) Former smoker (01/15/15) Generalized anxiety disorder History of radiation therapy Hx of adenomatous colonic polyps (12/22/10) Hyperlipidemia Lower urinary tract symptoms Malignant neoplasm of prostate (12/22/10) MRSA (methicillin resistant staph aureus) culture positive Paroxysmal atrial fibrillation (12/22/14) 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 (12/22/14) Pulmonary emphysema (12/22/14) Tremor Urinary retention Surgical History History of angioplasty (10/06/14) Inguinal hernia Status post appendectomy Status post transurethral resection of prostate (~05/2016) Family History Mother Blood disease Hyperlipidemia Hypertension Hearing impairment Father Cancer Social History household members: spouse Smoking Status: Current every day smoker alcohol intake: current Smoking Status: Current every day smoker tobacco type: cigarettes and e-cigarettes alcohol intake frequency: 0-2 drinks per day Substance Use Type: does not use Exam Initial Vital Signs Initial Vital Signs: Vital Signs Temperature 98.1 F 05/16/22 15:37 Pulse Rate 85 05/16/22 15:37 Respiratory Rate 19 05/16/22 15:37 Blood Pressure 129/60 05/16/22 15:37 Pulse Oximetry 98 05/16/22 15:37 Oxygen Delivery Method 05/16/22 15:37 GENERAL: Alert pleasant 77-year-old male HEENT: Head atraumatic,EOMI, pupils reactive, face symmetric, moist mucous membranes CARDIOVASCULAR: Regular rate and rhythm without murmurs, rubs or gallops. RESPIRATORY: Breath sounds equal bilaterally, no wheezes rales or rhonchi. No paradoxical movement in no contusion tender to touch left-sided ABDOMEN: Soft, nontender. Normoactive bowel sounds all 4 quadrants. No guarding or rebound. : No CVA tenderness EXTREMITIES: Normal range of motion, no clubbing or edema. Neurovascularly intact. Left shoulder muscle atrophy a distal radial pulse intact moving fingers, left shoulder deformity NEUROLOGICAL: Alert and oriented x4.Normal gait and speech. 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 Course Orders Ordered: ED Orders 05/16/22 18:38 Complete Blood Count AUTO DIFF Stat Comprehensive Metabolic Panel Stat Lipase Stat Magnesium Stat Partial Thromboplastin Time Stat Prothrombin Time INR Stat Troponin & CK Cardiac Panel Stat 05/16/22 18:42 CT cervical spine wo con Stat CT chest wo con Stat 05/16/22 20:22 COVID19 -Nasal RAPID/Pre-Proc Stat 05/16/22 21:22 Consult to Physician Stat Acetaminophen (Acetaminophen 325 Mg Tablet) 650 mg PO Q6H PRN PRN Reason: Fever/Mild Pain (1-3) Al Hydrox/Mg Hydrox/Simethicone (Mag Hydrox/Alum/Simeth 30 Ml Udc) 30 ml PO Q6HR PRN PRN Reason: Dyspepsia Atorvastatin Calcium (Atorvastatin 20 Mg Tablet) 40 mg PO DAILY [facility] Budesonide (Budesonide 0.5 Mg/2 Ml Neb) 0.5 mg INH RTBID SCOTT Carbidopa/Levodopa (Carbidopa-Levodopa Er 50/200 Tablet) 1 each PO BID [facility] Clonazepam (Clonazepam 0.5 Mg Tablet) 1 mg PO Q12H [facility] Last Admin: 05/16/22 23:27 Dose: 1 mg Documented By: AGW Enoxaparin Sodium (Enoxaparin 40 Mg/0.4 Ml Syringe) 40 mg SUBCUT DAILY [facility] Hydromorphone HCl (Hydromorphone 2 Mg Tablet) 2 mg PO Q4HR PRN PRN Reason: Pain, Moderate (4-6) Hydromorphone HCl (Hydromorphone 0.5 Mg Inj) 0.5 mg IV Q2H PRN PRN Reason: Pain, Severe (7-10) Ipratropium [place] (Ipratropium 0.5 Mg/2.5 Ml Neb) 0.5 mg INH [id number] [facility] Magnesium Hydroxide (Magnesium Hydroxide 30 Ml Udc) 30 ml PO DAILY PRN PRN Reason: Constipation Metoprolol Succinate (Metoprolol Er 25 Mg Tablet) 25 mg PO BID [facility] Naloxone HCl (Naloxone 0.4 Mg/Ml Vial) 0.2 mg IV Q2MIN PRN PRN Reason: Opiate Reversal Nicotine (Nicotine 21 Mg Patch) 21 mg TOP DAILY [facility] Nitroglycerin (Nitroglycerin 0.4 Mg Sl Tab) 0.4 mg SL Q5M PRN PRN Reason: chest pain Ondansetron HCl (Ondansetron 4 Mg/2 Ml Inj) 4 mg IV Q8HR PRN PRN Reason: Nausea And Vomiting Sertraline HCl (Sertraline 50 Mg Tablet) 100 mg PO DAILY [facility] Tamsulosin HCl (Tamsulosin 0.4 Mg Capsule) 0.4 mg PO BID [facility] Trazodone HCl (Trazodone 50 Mg Tablet) 50 mg PO BEDTIME PRN PRN Reason: Insomnia Trazodone HCl (Trazodone 100 Mg Tablet) 100 mg PO BEDTIME PRN PRN Reason: Insomnia Last Admin: 05/16/22 23:27 Dose: 100 mg Documented By: ANKIT Discontinued Medications Lidocaine HCl (Lidocaine 2% (Glydo) 6 Ml Gel) 6 ml TOP NOW ONE Stop: 05/16/22 19:25 Last Admin: 05/16/22 19:27 Dose: 6 ml Documented By: REANNA Lidocaine HCl (Lidocaine 2% (Glydo) 6 Ml Gel) 6 ml TOP NOW ONE Stop: 05/16/22 21:44 Last Admin: 05/16/22 21:46 Dose: 6 ml Documented By: REANNA Morphine Sulfate (Morphine 2 Mg/Ml Inj) 2 mg IV NOW ONE Stop: 05/16/22 18:43 Last Admin: 05/16/22 19:26 Dose: 2 mg Documented By: REANNA Morphine Sulfate (Morphine 4 Mg/Ml Inj) 4 mg IV NOW ONE Stop: 05/16/22 22:23 Last Admin: 05/16/22 22:26 Dose: 4 mg Documented By: REANNA Nicotine (Nicotine 21 Mg Patch) 21 mg TOP NOW ONE Stop: 05/16/22 23:18 Last Admin: 05/16/22 23:29 Dose: 21 mg Documented By: ANKIT Vital Signs Vital signs: Vital Signs - 8 hr 05/16/22 19:00 05/16/22 19:01 05/16/22 19:01 Pulse Rate 69 71 Respiratory Rate 33 H 24 Blood Pressure 150/67 H Pulse Oximetry 97 98 Oxygen Delivery Method 05/16/22 19:30 05/16/22 19:36 05/16/22 19:36 Pulse Rate 84 83 Respiratory Rate 18 18 Blood Pressure 153/75 H Pulse Oximetry 97 97 Oxygen Delivery Method 05/16/22 20:00 05/16/22 20:00 05/16/22 20:30 Pulse Rate 80 Respiratory Rate 31 H Blood Pressure 139/65 187/84 H Pulse Oximetry 97 Oxygen Delivery Method 05/16/22 20:30 05/16/22 21:00 05/16/22 21:01 Pulse Rate 84 77 76 Respiratory Rate 20 26 H 22 Blood Pressure Pulse Oximetry 95 98 97 Oxygen Delivery Method Room Air 05/16/22 21:01 Pulse Rate Respiratory Rate Blood Pressure 147/63 H Pulse Oximetry Oxygen Delivery Method MDM - Fall Lab Data 05/16/22 18:38 05/16/22 18:38 Labs: Lab Results 05/16/22 05/16/22 05/16/22 Range/Units 18:38 18:38 18:38 WBC 9.0 (4.5-11.0) X10^3/uL RBC 4.46 L (4.5-5.9) X10^6/uL Hgb 12.2 L (13.5-17.5) g/dL Hct 37.3 L (41-53) % MCV 83.7 (80-100) fL MCH 27.3 (26-34) PG MCHC 32.7 (30-36) % RDW 13.7 (11.6-14.8) % Plt Count 276 (150-400) X10^3/uL Neut % (Auto) 72.1 (50-75) % Lymph % (Auto) 15.4 L (25-40) % [place] % (Auto) 10.3 (3-14) % Eos % (Auto) 0.7 L (2-4) % Baso % (Auto) 1.5 (0-2) % Neut # (Auto) 6500 (4430-8767) /uL Lymph # (Auto) 1400 (5115-6686) /uL [place] # (Auto) 900 (0-900) /uL Eos # (Auto) 100 (0-450) /uL Baso # (Auto) 100 (0-100) /uL PT 12.2 (10.1-12.7) SECONDS INR 1.1 (0.9-1.3) APTT 26 (26-36) SECONDS Sodium 136 L (137-145) mmol/L Potassium 3.6 (3.4-5.1) mmol/L Chloride 96 L (98-107) mmol/L Carbon Dioxide 29 (22-32) mmol/L BUN 12 (9-20) mg/dL Creatinine 0.84 (0.66-1.25) mg/dL Estimated GFR > 60 (>60) mL/min BUN/Creatinine Ratio 14.3 (6-22) Glucose 107 (80-110) mg/dL Calcium 9.0 (8.4-10.2) mg/dL Magnesium 1.9 (1.6-2.3) mg/dL Total Bilirubin 0.7 (0.2-1.3) mg/dL AST 19 (17-59) IU/L ALT 8 (<50) IU/L Alkaline Phosphatase 96 (38-126) U/L Total Creatine Kinase 212 H (55-170) U/L CK-MB (CK-2) 2.64 H (<2.37) ng/mL CK-MB (CK-2) Rel Index 1.2 L (1.5-5.0) % Troponin I < 0.012 (0.01-0.034) ng/mL Total Protein 7.7 (6.3-8.2) g/dL Albumin 4.3 (3.5-5.0) g/dL Globulin 3.4 (1.7-4.1) g/dL Albumin/Globulin Ratio 1.3 (1.0-2.8) Lipase 104 (23-300) U/L SARS-CoV-2 (PCR) (Negative) 05/16/22 Range/Units 20:22 WBC (4.5-11.0) X10^3/uL RBC (4.5-5.9) X10^6/uL Hgb (13.5-17.5) g/dL Hct (41-53) % MCV (80-100) fL MCH (26-34) PG MCHC (30-36) % RDW (11.6-14.8) % Plt Count (150-400) X10^3/uL Neut % (Auto) (50-75) % Lymph % (Auto) (25-40) % [place] % (Auto) (3-14) % Eos % (Auto) (2-4) % Baso % (Auto) (0-2) % Neut # (Auto) (2511-8877) /uL Lymph # (Auto) (8725-7646) /uL [place] # (Auto) (0-900) /uL Eos # (Auto) (0-450) /uL Baso # (Auto) (0-100) /uL PT (10.1-12.7) SECONDS INR (0.9-1.3) APTT (26-36) SECONDS Sodium (137-145) mmol/L Potassium (3.4-5.1) mmol/L Chloride (98-107) mmol/L Carbon Dioxide (22-32) mmol/L BUN (9-20) mg/dL Creatinine (0.66-1.25) mg/dL Estimated GFR (>60) mL/min BUN/Creatinine Ratio (6-22) Glucose (80-110) mg/dL Calcium (8.4-10.2) mg/dL Magnesium (1.6-2.3) mg/dL Total Bilirubin (0.2-1.3) mg/dL AST (17-59) IU/L ALT (<50) IU/L Alkaline Phosphatase (38-126) U/L Total Creatine Kinase (55-170) U/L CK-MB (CK-2) (<2.37) ng/mL CK-MB (CK-2) Rel Index (1.5-5.0) % Troponin I (0.01-0.034) ng/mL Total Protein (6.3-8.2) g/dL Albumin (3.5-5.0) g/dL Globulin (1.7-4.1) g/dL Albumin/Globulin Ratio (1.0-2.8) Lipase (23-300) U/L SARS-CoV-2 (PCR) Negative (Negative) Imaging Data CT scan - head: Radiologist's Impression: PROCEDURE:? CT HEAD/BRAIN WO CON ? INDICATIONS:? falls on ASA ? TECHNIQUE:? Noncontrast 4.5 mm thick angled axial sections acquired from the foramen magnum to the vertex, with coronal and sagittal reformats.? For radiation dose reduction, the following was used:? automated exposure control, adjustment of mA and/or kV according to patient size.? ? COMPARISON:? [facility], CT, CT HEAD/BRAIN WO CON, 06/16/2018, 1:31.? [facility], CT, CT HEAD/BRAIN WO CON, 03/06/2022, 1:43. ? FINDINGS:? Image quality:? Excellent.? ? CSF spaces:? Basal cisterns are patent.? No extra-axial fluid collections.? The ventricles are symmetric in size and shape.? ? Brain:? No intracranial bleeds or masses.? There is cerebral volume loss for age, with resultant ventricular and sulcal prominence.? There are periventricular and deep white matter chronic small vessel ischemic changes.? There is intracranial internal carotid artery atherosclerosis.? ? Skull and face:? Calvarium and visualized facial bones appear intact, without suspicious lesions.? ? Sinuses:? Visualized sinuses and mastoids are clear.? ? ? IMPRESSION:? No acute intracranial hemorrhage is seen.? ? No acute intracranial process is seen.? ? ? Dictated by: Colt Cazares M.D. on 05/16/2022 at 15:41 ? ? Approved by: Colt Cazares M.D. on 05/16/2022 at 15:42 Chest x-ray: Radiologist's Impression: PROCEDURE:? XR RIBS LT MIN 3V W CXR1V ? INDICATIONS:? fall injury ? TECHNIQUE:? 4 views of the left ribs were acquired, along with a single view chest.? ? COMPARISON:? None. ? FINDINGS:? ? Surgical changes and devices:? None.? ? Bones and chest wall:? Displaced posterior left 8th, 9th and 10th rib fractures.? No suspicious bony lesions.? Overlying soft tissues appear unremarkable.? Left humerus is dislocated.? ? Lungs and pleura:? No pleural effusions or pneumothorax.? Lungs appear clear.? ? Mediastinum:? Mediastinal contours appear normal.? Heart size is normal.? ? ? IMPRESSION:? ? Left 8th, 9th and 10th rib fractures. ? Left shoulder dislocation.? Recommend dedicated left shoulder x-ray series for definitive characterization. ? ? Dictated by: Katrina Crowell MD, PhD on 05/16/2022 at 16:09 ? ? CT - cervical spine: Radiologist's Impression: PROCEDURE:? CT CERVICAL SPINE WO CON ? INDICATIONS:? fall ? TECHNIQUE:? Noncontrast 3 mm thick sections acquired from the skull base to the T4 level.? Sagittal and coronal reformats were then constructed.? For radiation dose reduction, the following was used:? automated exposure control, adjustment of mA and/or kV according to patient size.? ? COMPARISON:? [facility], CT, CT CERVICAL SPINE WO CON, 06/16/2018, 1:31. ? FINDINGS:? Image quality:? Excellent.? ? Bones:? No fractures or dislocations.? Loss of disc height, degenerative endplate changes and bilateral facet hypertrophic changes are noted throughout cervical spine.? Dorsal disc osteophyte complex formation at C3-4 through C6-7 levels are noted causing [id number] central canal stenosis and bilateral neural foraminal narrowing.? Visualized superior ribs are intact.? ? Soft tissues:? Prevertebral soft tissues are normal in thickness.? No paravertebral hematomas.? No apical pneumothoraces.? ? ? IMPRESSION:? 1. No acute cervical spine fracture or dislocation.? 2. Degenerative disc disease throughout cervical spine as above.? ? ? Dictated by: Rafita Sol M.D. on 05/16/2022 at 19:27 ? ? CT scan - chest: Radiologist's Impression: PROCEDURE:? CT CHEST WO CON ? INDICATIONS:? multiple rib fractures ? TECHNIQUE: Noncontrast 5 mm thick sections acquired from the pulmonary apices to the posterior costophrenic angles.? 1 mm lung window, 5 mm thick coronal and sagittal and 7 mm axial MIP reformats were then acquired.? For radiation dose reduction, the following was used:? automated exposure control, adjustment of mA and/or kV according to patient size.? ? COMPARISON:? [facility], CR, XR RIBS LT MIN 3V W CXR1V, 05/16/2022, 15:52. ? FINDINGS:? Image quality:? Excellent.? ? Lungs and pleura:? Dependent atelectasis in posterior aspect of bilateral lung hdez are seen.? Ill-defined airspace opacities are noted in posterior and lateral periphery of left lower lobe and left lingular segment.? No pleural effusions or p neumothorax.? Central and peripheral airways are patent and normal in caliber.? ? Mediastinum:? Heart size is normal.? No pericardial effusion.? No mediastinal hematoma.? Moderate atherosclerotic disease in coronary vessels are seen.? No mediastinal adenopathy by size criteria.? Thoracic aorta and central pulmonary arteries are normal in size.? Esophagus is normal in caliber.? No hiatal hernia.? ? Bones and chest wall:? Comminuted and slightly displaced fracture involving left posterior 8th rib is seen.? Displaced fractures are also seen involving left posterior 9th, 10th and 11th ribs.? Mild adjacent pleural thickening is noted.? Chronic appearing anterior wedge compression deformity at T12 level is seen with up to 30% loss of T12 vertebral body height.? No suspicious bony lesions.? No other vertebral body compression fractures.? No axillary or supraclavicular adenopathy by size criteria.? Thyroid gland is within normal limits..? ? Abdomen:? Visualized upper abdominal solid organs and bowel loops appear normal in the absence of contrast.? ? IMPRESSION:? 1. Displaced left posterior 8th through 11th rib fractures as described above.? ? 2. Adjacent pleural thickening and ill-defined airspace opacities in posterior and lateral periphery of left mid to lower lung field suggestive of pulmonary contusion.? No pleural effusion or pneumothorax.? Airway is patent. ? 3. No mediastinal or hilar lymphadenopathy.? No mediastinal hematoma.? Heart size is enlarged, no pericardial effusion. ? 4. Chronic appearing anterior wedge compression deformity at T12 level.? ? ? Dictated by: Rafita Sol M.D. on 05/16/2022 at 19:28 ? ? ECG Data Interpretation: Normal sinus rhythm rate 71 MN interval 170 QRS [address] changes no T- wave inversions similar to previous EKGs MDM Narrative Medical decision making narrative: Patient is 69-year-old male who typically walks with a walker ground level mechanical fall onto his left side. Found to have multiple rib fractures he is on aspirin daily. No evidence of pneumothorax. He is not hypoxic. Head CT C- spine are negative. Chest CT confirms multiple rib fractures. Blood work is otherwise reassuring without significant leukocytosis or anemia although hemoglobin today is 12.2 hematocrit 37.3 previously 15.2 and 44.9 respectively. Patient is having some pain. Which is controlled with morphine and Dilaudid. Patient is weak at baseline needing walker and help at home. With multiple rib fractures may require rehab. Also reasonable to admit to monitor for pulmonary contusion and hypoxia. Dr. Siddiqi updated on patient's symptoms test results request consultation and medicine to admit. Currently recommends pulmonary toilet Dr. Wharton updated on patient's symptoms test results surgery to consult Discharge Plan Departure Patient Disposition: Admitted as Observation Clinical Impression: Multiple fractures of ribs Admit Date/Time: 05/16/22 21:22 Admit Provider: David Wharton
--- NOTE | 2022-05-16 18:42 | DI.CT.S_ITS ---
PROCEDURE: CT CHEST WO CON INDICATIONS: multiple rib fractures TECHNIQUE: Noncontrast 5 mm thick sections acquired from the pulmonary apices to the posterior costophrenic angles. 1 mm lung window, 5 mm thick coronal and sagittal and 7 mm axial MIP reformats were then acquired. For radiation dose reduction, the following was used: automated exposure control, adjustment of mA and/or kV according to patient size. COMPARISON: [facility], CR, XR RIBS LT MIN 3V W CXR1V, 05/16/2022, 15:52. FINDINGS: Image quality: Excellent. Lungs and pleura: Dependent atelectasis in posterior aspect of bilateral lung hdez are seen. Ill-defined airspace opacities are noted in posterior and lateral periphery of left lower lobe and left lingular segment. No pleural effusions or pneumothorax. Central and peripheral airways are patent and normal in caliber. Mediastinum: Heart size is normal. No pericardial effusion. No mediastinal hematoma. Moderate atherosclerotic disease in coronary vessels are seen. No mediastinal adenopathy by size criteria. Thoracic aorta and central pulmonary arteries are normal in size. Esophagus is normal in caliber. No hiatal hernia. Bones and chest wall: Comminuted and slightly displaced fracture involving left posterior 8th rib is seen. Displaced fractures are also seen involving left posterior 9th, 10th and 11th ribs. Mild adjacent pleural thickening is noted. Chronic appearing anterior wedge compression deformity at T12 level is seen with up to 30% loss of T12 vertebral body height. No suspicious bony lesions. No other vertebral body compression fractures. No axillary or supraclavicular adenopathy by size criteria. Thyroid gland is within normal limits.. Abdomen: Visualized upper abdominal solid organs and bowel loops appear normal in the absence of contrast. IMPRESSION: 1. Displaced left posterior 8th through 11th rib fractures as described above. 2. Adjacent pleural thickening and ill-defined airspace opacities in posterior and lateral periphery of left mid to lower lung field suggestive of pulmonary contusion. No pleural effusion or pneumothorax. Airway is patent. 3. No mediastinal or hilar lymphadenopathy. No mediastinal hematoma. Heart size is enlarged, no pericardial effusion. 4. Chronic appearing anterior wedge compression deformity at T12 level. Dictated by: Rafita Sol M.D. on 05/16/2022 at 19:28 Approved by: Rafita Sol M.D. on 05/16/2022 at 19:42
--- NOTE | 2022-05-16 18:42 | DI.CT.S_ITS ---
PROCEDURE: CT CERVICAL SPINE WO CON INDICATIONS: fall TECHNIQUE: Noncontrast 3 mm thick sections acquired from the skull base to the T4 level. Sagittal and coronal reformats were then constructed. For radiation dose reduction, the following was used: automated exposure control, adjustment of mA and/or kV according to patient size. COMPARISON: [facility], CT, CT CERVICAL SPINE WO CON, 06/16/2018, 1:31. FINDINGS: Image quality: Excellent. Bones: No fractures or dislocations. Loss of disc height, degenerative endplate changes and bilateral facet hypertrophic changes are noted throughout cervical spine. Dorsal disc osteophyte complex formation at C3-4 through C6-7 levels are noted causing [id number] central canal stenosis and bilateral neural foraminal narrowing. Visualized superior ribs are intact. Soft tissues: Prevertebral soft tissues are normal in thickness. No paravertebral hematomas. No apical pneumothoraces. IMPRESSION: 1. No acute cervical spine fracture or dislocation. 2. Degenerative disc disease throughout cervical spine as above. Dictated by: Rafita Sol M.D. on 05/16/2022 at 19:27 Approved by: Rafita Sol M.D. on 05/16/2022 at 19:28
[2022-05-16 18:52] LABS: Add Manual Diff / Slide Review NO; Basophils Absolute Auto 100 /uL (0-100); Basophils Percent Auto 1.5 % (0-2); Eosinophils Absolute Auto 100 /uL (0-450); Eosinophils Percent Auto 0.7 % (2-4); Hematocrit 37.3 % (41-53); Hemoglobin 12.2 g/dL (13.5-17.5); Lymphocytes Absolute Auto 1400 /uL (1100-4500); Lymphocytes Percent Auto 15.4 % (25-40); Mean Corpuscular HGB Conc 32.7 % (30-36); Mean Corpuscular Hemoglobin 27.3 PG (26-34); Mean Corpuscular Volume 83.7 fL (80-100); Monocytes Absolute Auto 900 /uL (0-900); Monocytes Percent Auto 10.3 % (3-14); Neutrophils Absolute Auto 6500 /uL (1500-7000); Neutrophils Percent Auto 72.1 % (50-75); Platelet Count 276 X10^3/uL (150-400); Red Blood Cell Count 4.46 X10^6/uL (4.5-5.9); Red Cell Distribution Width 13.7 % (11.6-14.8)
[2022-05-16 18:54] LABS: INR 1.1 (0.9-1.3); Prothrombin Time 12.2 SECONDS (10.1-12.7)
[2022-05-16 18:58] LABS: PTT Partial Thromboplastin Tim 26 SECONDS (26-36)
[2022-05-16 19:00] LABS: Alanine Aminotransferase 8 IU/L (<50); Albumin 4.3 g/dL (3.5-5.0); Albumin Globulin Ratio 1.3 (1.0-2.8); Alkaline Phosphatase 96 U/L (38-126); Aspartate Aminotransferase 19 IU/L (17-59); BUN Creatinine Ratio 14.3 (6-22); Bilirubin Total 0.7 mg/dL (0.2-1.3); Blood Urea Nitrogen 12 mg/dL (9-20); Carbon Dioxide 29 mmol/L (22-32); Chloride 96 mmol/L (98-107); Creatine Kinase 212 U/L (55-170); Estimated Glomerular Filt Rate > 60 mL/min (>60); Globulin 3.4 g/dL (1.7-4.1); Glucose 107 mg/dL (80-110); HEMOLYSIS < 15 (0-50); Lipase 104 U/L (23-300); Magnesium 1.9 mg/dL (1.6-2.3); Potassium 3.6 mmol/L (3.4-5.1); Sodium 136 mmol/L (137-145); Total Protein 7.7 g/dL (6.3-8.2)
[2022-05-16 19:12] LABS: Troponin I < 0.012 ng/mL (0.01-0.034)
[2022-05-16 19:15] LABS: CKMB % Relative Index 1.2 % (1.5-5.0); Creatine Kinase MB 2.64 ng/mL (<2.37)
[2022-05-16] MEDS: MORPHINE 2 MG/ML INJ IV (19:26)
[2022-05-16] MEDS: LIDOCAINE 2% (GLYDO) 6 ML GEL TOP ×2 (19:27→21:46)
--- NOTE | 2022-05-16 19:45 | PC.NURSE ---
pt self caths at home unable to void, c/o need to urinate, pt in/out cath with 14fr cath with an 300 ml returned of louisa colored urine
[2022-05-16 20:39] LABS: COVID19 -Nasal RAPID Negative (Negative)
--- NOTE | 2022-05-16 21:59 | PC.NURSE ---
pt self caths at home requesting every hr to have his bladder emptied explained to pt that this increases the risk for infection. pt requesting to leave the catheter inserted
[2022-05-16 22:16] LABS: Bacteria Urine Occasional (0-1); Culture Indicated Urine Specimen Cultured; RBC Urine 5-10/HPF (0-5/HPF); WBC Urine 10-30/HPF (0-5/HPF)
[2022-05-16] MEDS: MORPHINE 4 MG/ML INJ IV (22:26)
[2022-05-16] MEDS: clonazePAM 0.5 MG TABLET 1 MG PO (23:27)
[2022-05-16] MEDS: TRAZODONE 100 MG TABLET PO (23:27)
[2022-05-16] MEDS: NICOTINE 21 MG PATCH TOP (23:29)
[2022-05-17] VITALS (12 sets, daily range): BP systolic 85–155; BP diastolic 44–73; PULSE 57–86; RESP 12–18; TEMP 36.6–36.9; O2SAT 92–95
--- NOTE | 2022-05-17 01:47 | PC.NURSE ---
Admit/ NOC Shift Note- Patient arrived to room via stretcher from ER at 2245. Admit questions done, medications reviewed, physical assessment done, and skin check completed. Patient oriented to bed and bed controls, room, lights, phone, bathroom, menu, and call marrero/ TV remote. Patient has history of smoking, patient set off bed alarm wanting to get to his E-Cig. Patient advised several time E-Cigs are not allowed to be used while at the hospital. Called Dr. Wharton and recieved new order for Nictine patch 21mg. Patch placed to right upper arm. Safety measures in place. bed alarm activated. call marrero and phone within reach. will continue to monitor.
[2022-05-17 06:13] LABS: Add Manual Diff / Slide Review NO; Basophils Absolute Auto 100 /uL (0-100); Basophils Percent Auto 0.8 % (0-2); Eosinophils Absolute Auto 100 /uL (0-450); Hematocrit 33.8 % (41-53); Lymphocytes Absolute Auto 1000 /uL (1100-4500); Lymphocytes Percent Auto 13.8 % (25-40); Mean Corpuscular HGB Conc 32.6 % (30-36); Mean Corpuscular Hemoglobin 27.2 PG (26-34); Mean Corpuscular Volume 83.6 fL (80-100); Monocytes Absolute Auto 900 /uL (0-900); Monocytes Percent Auto 12.5 % (3-14); Neutrophils Absolute Auto 5100 /uL (1500-7000); Neutrophils Percent Auto 70.9 % (50-75); Platelet Count 239 X10^3/uL (150-400); Red Blood Cell Count 4.04 X10^6/uL (4.5-5.9); Red Cell Distribution Width 13.9 % (11.6-14.8); White Blood Cell Count 7.2 X10^3/uL (4.5-11.0)
--- NOTE | 2022-05-17 06:49 | P.HP_ITS ---
History of Present Illness History of Present Illness Date Patient Seen: 05/17/22 Time Patient Seen: 06:49 Chief complaint: sent by [facility] Narrative: 77-year-old male well known to me with multiple medical problems admitted via emergency department after falling at home fracturing several ribs and being unsafe to go home. Not appear to have any more serious injuries after falling based on ER evaluation, which included cervical spine CT chest and head CT. Patient was hemodynamically stable etcetera. Patient not on chronic anticoagulation for his paroxysmal atrial fibrillation because of his issue with falls Patient with significant unsteadiness / instability on his feet likely secondary to multiple etiologies but primarily including his alcohol use disorder and long-term consequences of same Patient History Medical History Alcoholism Alcoholism in recovery (01/10/16) Atherosclerosis of [place] coronary artery of [place] heart without angina pectoris (12/22/14) Atrial flutter Depression (12/22/14) Essential hypertension (12/22/14) Former smoker (01/15/15) Generalized anxiety disorder History of radiation therapy Hx of adenomatous colonic polyps (12/22/10) Hyperlipidemia Lower urinary tract symptoms Malignant neoplasm of prostate (12/22/10) MRSA (methicillin resistant staph aureus) culture positive Paroxysmal atrial fibrillation (12/22/14) 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 (12/22/14) Pulmonary emphysema (12/22/14) Tremor Urinary retention Surgical History History of angioplasty (10/06/14) Inguinal hernia Status post appendectomy Status post transurethral resection of prostate (~05/2016) Family & Social History Family History Mother Blood disease Hyperlipidemia Hypertension Hearing impairment Father Cancer Social History: household members spouse Prior Living Arrangements House Safety & Behavioral: Feels Safe in Current Yes Environment Been Physically Hurt or No Threatened By a Person Tobacco & Substance use: Tobacco type e-cigarettes Smoking Status Current every day smoker alcohol intake current alcohol intake frequency 0-2 drinks per day Substance Use Type does not use Meds Home Medications and Allergies Home Medications Medication Instructions Recorded Confirmed Type magnesium oxide 400 mg PO BID 12/27/17 05/16/22 History atorvastatin 40 mg tablet 40 mg PO DAILY #90 tabs 10/16/19 05/16/22 Rx tamsulosin 0.4 mg capsule (Flomax) 0.4 mg PO BID #180 caps 10/16/19 05/16/22 Rx metoprolol succinate 25 mg 25 mg PO BID #180 tabs 04/01/20 05/16/22 Rx tablet,extended release 24 hr mometasone 200 mcg/actuation HFA 2 puff inhalation BID #39 grams 04/13/20 05/16/22 Rx aerosol inhaler nitroglycerin 0.4 mg sublingual 0.4 mg sublingual Q5M PRN chest 11/16/20 05/16/22 Rx tablet pain #60 tabs sertraline 100 mg tablet 100 mg PO DAILY 06/07/21 05/16/22 History trazodone 50 mg tablet See Rx Instructions .Route 06/09/21 05/16/22 Rx .COMPLEX #180 tabs clonazepam 1 mg tablet 1 mg PO Q12H #60 tabs 07/01/21 05/16/22 Rx hydrochlorothiazide 12.5 mg tablet 12.5 mg PO DAILY 09/06/21 05/16/22 History carbidopa ER 50 mg-levodopa 200 mg 1 tab PO BID #180 tabs 02/14/22 05/16/22 Rx tablet,extended release Allergies Allergy/AdvReac Type Severity Reaction Status Date / Time No Known Drug Allergies Allergy Verified 05/16/22 15:43 Review of Systems Review of Systems ROS: Yes All systems reviewed with the patient and are negative except as otherwise documented Exam Vital Signs (past 8 hours): - 05/17/22 02:29 Temperature 98.2 F Pulse Rate 74 Respiratory Rate 17 Blood Pressure 115/54 L Pulse Oximetry 94 Oxygen Flow Rate 0 Oxygen Delivery Method Room Air Oxygen Flow Rate 0 Narrative Exam Narrative: Elderly male sitting up in bedside chair in no obvious distress with obvious b ruising on his left hand with left forearm wrapped in gauze HEENT unremarkable Lungs-diminished breath sounds Heart-regular rate and rhythm Abdomen-benign Extremities-bruising an early eschar formation dorsum left hand, left forearm wrapped in gauze at site of skin tear Objective ECG Impression: Sinus rhythm, basically no change from previous Imaging CT scan - chest: Radiologist's impression: PROCEDURE:? CT CHEST WO CON ? INDICATIONS:? multiple rib fractures ? TECHNIQUE: Noncontrast 5 mm thick sections acquired from the pulmonary apices to the posterior costophrenic angles.? 1 mm lung window, 5 mm thick coronal and sagittal and 7 mm axial MIP reformats were then acquired.? For radiation dose reduction, the following was used:? automated exposure control, adjustment of mA and/or kV according to patient size.? ? COMPARISON:? [facility], CR, XR RIBS LT MIN 3V W [id number], 05/16/2022, 15:52. ? FINDINGS:? Image quality:? Excellent.? ? Lungs and pleura:? Dependent atelectasis in posterior aspect of bilateral lung hdez are seen.? Ill-defined airspace opacities are noted in posterior and lateral periphery of left lower lobe and left lingular segment.? No pleural effusions or pneumothorax .? Central and peripheral airways are patent and normal in caliber.? ? Mediastinum:? Heart size is normal.? No pericardial effusion.? No mediastinal hematoma.? Moderate atherosclerotic disease in coronary vessels are seen.? No mediastinal adenopathy by size criteria.? Thoracic aorta and central pulmonary arteries are normal in size.? Esophagus is normal in caliber.? No hiatal hernia.? ? Bones and chest wall:? Comminuted and slightly displaced fracture involving left posterior 8th rib is seen.? Displaced fractures are also seen involving left posterior 9th, 10th and 11th ribs.? Mild adjacent pleural thickening is noted.? Chronic appearing anterior wedge compression deformity at T12 level is seen with up to 30% loss of T12 vertebral body height.? No suspicious bony lesions.? No other vertebral body compression fractures.? No axillary or supraclavicular adenopathy by size criteria.? Thyroid gland is within normal limits..? ? Abdomen:? Visualized upper abdominal solid organs and bowel loops appear normal in the absence of contrast.? ? IMPRESSION:? 1. Displaced left posterior 8th through 11th rib fractures as described above.? ? 2. Adjacent pleural thickening and ill-defined airspace opacities in posterior and lateral periphery of left mid to lower lung field suggestive of pulmonary c ontusion.? No pleural effusion or pneumothorax.? Airway is patent. ? 3. No mediastinal or hilar lymphadenopathy.? No mediastinal hematoma.? Heart size is enlarged, no pericardial effusion. ? 4. Chronic appearing anterior wedge compression deformity at T12 level.? CT scan - Cervical Spine: Radiologist's impression: PROCEDURE:? CT CERVICAL SPINE WO CON ? INDICATIONS:? fall ? TECHNIQUE:? Noncontrast 3 mm thick sections acquired from the skull base to the T4 level.? Sagittal and coronal reformats were then constructed.? For radiation dose reduction, the following was used:? automated exposure control, adjustment of mA and/or kV according to patient size.? ? COMPARISON:? [facility], CT, CT CERVICAL SPINE WO CON, 06/16/2018, 1:31. ? FINDINGS:? Image quality:? Excellent.? ? Bones:? No fractures or dislocations.? Loss of disc height, degenerative endplate changes and bilateral facet hypertrophic changes are noted throughout cervical spine.? Dorsal disc osteophyte complex formation at C3-4 through C6-7 levels are noted causing [id number] central canal stenosis and bilateral neural foraminal narrowing.? Visualized superior ribs are intact.? ? Soft tissues:? Prevertebral soft tissues are normal in thickness.? No par avertebral hematomas.? No apical pneumothoraces.? ? ? IMPRESSION:? 1. No acute cervical spine fracture or dislocation.? 2. Degenerative disc disease throughout cervical spine as above.? ? CT scan - head: Radiologist's impression: PROCEDURE:? CT HEAD/BRAIN WO CON ? INDICATIONS:? falls on ASA ? TECHNIQUE:? Noncontrast 4.5 mm thick angled axial sections acquired from the foramen magnum to the vertex, with coronal and sagittal reformats.? For radiation dose reduction, the following was used:? automated exposure control, adjustment of mA and/or kV according to patient size.? ? COMPARISON:? [facility], CT, CT HEAD/BRAIN WO CON, 06/16/2018, 1:31.? [facility], CT, CT HEAD/BRAIN WO CON, 03/06/2022, 1:43. ? FINDINGS:? Image quality:? Excellent.? ? CSF spaces:? Basal cisterns are patent.? No extra-axial fluid collections.? The ventricles are symmetric in size and shape.? ? Brain:? No intracranial bleeds or masses.? There is cerebral volume loss for age, with resultant ventricular and sulcal prominence.? There are periventricular and deep white matter chronic small vessel ischemic changes.? There is intracranial internal carotid artery atherosclerosis.? ? Skull and face:? Calvarium and visualized facial bones appear intact, without suspicious lesions.? ? Sinuses:? Visualized sinuses and mastoids are clear.? ? ? IMPRESSION:? No acute intracranial hemorrhage is seen.? ? No acute intracranial process is seen.? ? Labs 05/18/22 05:12 05/18/22 05:12 Labs: Laboratory Results - last 24 hr 05/16/22 05/16/22 05/16/22 18:38 18:38 18:38 WBC 9.0 RBC 4.46 L Hgb 12.2 L Hct 37.3 L MCV 83.7 MCH 27.3 MCHC 32.7 RDW 13.7 Plt Count 276 Neut % (Auto) 72.1 Lymph % (Auto) 15.4 L Amador % (Auto) 10.3 Eos % (Auto) 0.7 L Baso % (Auto) 1.5 Neut # (Auto) 6500 Lymph # (Auto) 1400 Amador # (Auto) 900 Eos # (Auto) 100 Baso # (Auto) 100 PT 12.2 INR 1.1 APTT 26 Sodium 136 L Potassium 3.6 Chloride 96 L Carbon Dioxide 29 BUN 12 Creatinine 0.84 Estimated GFR > 60 BUN/Creatinine Ratio 14.3 Glucose 107 Calcium 9.0 Magnesium 1.9 Total Bilirubin 0.7 AST 19 ALT 8 Alkaline Phosphatase 96 Total Creatine Kinase 212 H CK-MB (CK-2) 2.64 H CK-MB (CK-2) Rel Index 1.2 L Troponin I < 0.012 Total Protein 7.7 Albumin 4.3 Globulin 3.4 Albumin/Globulin Ratio 1.3 Lipase 104 Urine RBC Urine WBC Urine Bacteria Ur Culture Indicated? SARS-CoV-2 (PCR) 05/16/22 05/16/22 20:22 22:00 WBC RBC Hgb Hct MCV MCH MCHC RDW Plt Count Neut % (Auto) Lymph % (Auto) Amador % (Auto) Eos % (Auto) Baso % (Auto) Neut # (Auto) Lymph # (Auto) [place] # (Auto) Eos # (Auto) Baso # (Auto) PT INR APTT Sodium Potassium Chloride Carbon Dioxide BUN Creatinine Estimated GFR BUN/Creatinine Ratio Glucose Calcium Magnesium Total Bilirubin AST ALT Alkaline Phosphatase Total Creatine Kinase CK-MB (CK-2) CK-MB (CK-2) Rel Index Troponin I Total Protein Albumin Globulin Albumin/Globulin Ratio Lipase Urine RBC 5-10/hpf H Urine WBC 10-30/hpf H Urine Bacteria Occasional (0-1) Ur Culture Indicated? Specimen cultured SARS-CoV-2 (PCR) Negative Assessment & Plan Assessment & Plan narrative: 1. Ground level fall with multiple rib fractures as noted. Fortunately patient is not show evidence of more serious chest wall injury at this point. CT suggest possible pulmonary contusion but no hypoxia or other active symptoms. He is hemodynamically stable no evidence of active bleeding etcetera. Supportive care would be most appropriate at this point. May well benefit from longterm placement when ready for discharge. Will need skilled therapies while here in the hospital. Will need to balance pain management with side effects opiates including weakness and increased instability on his feet 2. Hypertension - patient's blood pressure relatively stable. Continue patient's usual meds. 3. COPD- patient appears to be stable from respiratory standpoint despite his chest wall injuries as above. Continue to monitor 4. History of coronary artery disease - stable at this point no evidence involvement of his known coronary disease with his presentation or current status. Continue usual medications for secondary prevention 5. History of alcohol use disorder - patient continues to use lower levels of alcohol. Demonstrates serious long-term consequences of his alcohol use which is probably the leading etiology for his instability on his feet. Monitor for any evidence of withdrawal and at that point institute CIWA protocol. However patient's alcohol consumption seems to be dramatically less than it was at 1 point and I am not overly worried that he will have significant withdrawal, but at the first sign of any sort of symptoms will institute CIWA protocol 6. History of urinary retention, bladder outlet obstruction - patient previously required catheter placement but is unable to void on his own more recently. Continue monitor carefully specially with his ongoing issues with ambulation and new injury etcetera. 7. VTE prophylaxis - Lovenox seems appropriate despite his fallen injuries as no evidence of any hemodynamic instability no evidence of active bleeding etcetera. I do believe he is quite high risk of development of venous thromboembolism and believe that anticoagulation with Lovenox is more likely to be beneficial than harmful 8. Code status-patient requests full code status COVID-19 COVID-19 status: Negative Result date/Date tested (Pos, Neg/Pending): 05/16/22 Quality VTE Deep Vein Thrombosis/Pulmonary Embolism Present on Admission: No
[2022-05-17 06:56] LABS: Alanine Aminotransferase 9 IU/L (<50); Albumin 3.8 g/dL (3.5-5.0); Albumin Globulin Ratio 1.3 (1.0-2.8); Alkaline Phosphatase 85 U/L (38-126); Aspartate Aminotransferase 19 IU/L (17-59); BUN Creatinine Ratio 16.2 (6-22); Bilirubin Total 0.5 mg/dL (0.2-1.3); Blood Urea Nitrogen 12 mg/dL (9-20); Calcium 8.6 mg/dL (8.4-10.2); Carbon Dioxide 30 mmol/L (22-32); Chloride 96 mmol/L (98-107); Estimated Glomerular Filt Rate > 60 mL/min (>60); Glucose 112 mg/dL (80-110); HEMOLYSIS < 15 (0-50); Potassium 3.2 mmol/L (3.4-5.1); Sodium 133 mmol/L (137-145); Total Protein 6.8 g/dL (6.3-8.2)
[2022-05-17] MEDS: HYDROMORPHONE 2 MG TABLET PO (07:26)
[2022-05-17] MEDS: BUDESONIDE 0.5 MG/2 ML NEB INH ×2 (09:04→19:23)
[2022-05-17] MEDS: IPRATROPIUM 0.5 MG/2.5 ML NEB INH ×3 (09:04→19:23)
[2022-05-17] MEDS: ATORVASTATIN 20 MG TABLET 40 MG PO (09:04)
[2022-05-17] MEDS: SERTRALINE 50 MG TABLET 100 MG PO (09:05)
[2022-05-17] MEDS: METOPROLOL ER 25 MG TABLET PO (09:05)
[2022-05-17] MEDS: MAGNESIUM OXIDE 400 MG TABLET PO ×2 (09:05→20:57)
[2022-05-17] MEDS: TAMSULOSIN 0.4 MG CAPSULE PO ×2 (09:05→20:57)
[2022-05-17] MEDS: NICOTINE 21 MG PATCH TOP (09:05)
[2022-05-17] MEDS: hydroCHLOROthiazide 25 MG TABLET 12.5 MG PO (09:05)
[2022-05-17] MEDS: ENOXAPARIN 40 MG/0.4 ML SYRINGE SUBCUT (09:05)
[2022-05-17] MEDS: CARBIDOPA-LEVODOPA ER 50/200 TABLET 1 EACH PO ×2 (09:06→20:57)
[2022-05-17] MEDS: OXYCODONE IR 5 MG TABLET PO ×2 (09:37→12:48)
[2022-05-17] MEDS: ACETAMINOPHEN 325 MG TABLET 650 MG PO (09:37)
[2022-05-17] MEDS: clonazePAM 0.5 MG TABLET 1 MG PO ×2 (09:37→22:56)
--- NOTE | 2022-05-17 10:21 | CM.DANOTE ---
Addendum entered by CHERYL David 05/17/22 13:36: ADD: Per PT, pt was able to participate in ambulating with FWW and SBA/CGA until he attempts to turn and has LOB and very high fall risk and fatigued quickly. Only able to ambulate in room. Home with 24/7 assist and HH vs SNF. SW met bedside with pt again once spouse arrived and discussed above and she confirms pt does not ambulate long distances at baseline either and fall risk and mostly happens at night. SW provided the SNF/HH Choice list via paper and ipad and discussed the services and coverage for HH and SNF. Spouse confirms that pt has no SNF hx but did benefit from HH previously. SW provided the Senior Resource Guidebook to spouse as well with earmarked PP CG agency list. Spouse states pt is also established with [facility] in [facility] and has assigned [place] SW who has assisted to get pt some DME like bed rails, life alert, etc.. and SW encouraged spouse to also reach out to see if pt qualifies for in-home assist if needed and spouse confirms she will. OT to work with pt after lunch with spouse present and spouse plans to be bedside in the morning for MD rounds and also be present for PT/OT CG training again in the AM towards determining HH vs SNF. Spouse will review the Choice list and SW encouraged if considering SNF to make at least 2-3 preferences. Plan: SW to meet bedside with pt and spouse again in the AM after MD and PT/OT towards confirming HH vs SNF. CHERYL David Original Note: Patient is a 77 yo male who was admitted on 05/16/22 for GLF with rib fxs. Pt has [facility] and [facility] [place] for insurance and his PCP is Dr. Tim Pemberton. EMR was reviewed. Per MD, pt with multiple rib fxs and admitted for pain management and on CIWA protocol for ETOH but unlikely to have withdrawals. Pt typically self caths at home, so currently on mchugh cath while admitted for urinary retention. PT/OT ordered and pending. SW met bedside with pt and explained role and he confirms he lives in [place] with his spouse and is mostly independent at baseline with ADL's but does not drive and spouse provides transport. Pt states he has a walker at home but has a hard time using it as he can get dizzy at baseline and tends to squint one eye closed alot during conversation. Pt states spouse is healthy and more active than he is and would be able to provide some assist. Pt's son Anibal lives locally and can assist sometimes but is a company pilot and fairly busy with work. Pt denies any formal DPOA but would assign his spouse. Pt denies any hx of SNF but states he has used HH before and feels it can be very helpful and pt hopeful for d/c to home with spouse assist and new HH referral as he doesn't think he would like SNF stay. Plan: SW to follow closely for PT/OT eval and recommendations to determine HH vs SNF and pt preference is home with HH. CHERYL David Discharge Planning/Care Management CM Discharge Assessment Start: 05/17/22 10:15 Freq: Status: Active Protocol: Document 05/17/22 10:15 BF (Rec: 05/17/22 10:21 BF [id number]) Discharge Planning Assessment Assigned Mac Operator CHERYL Weiss DPOA/Assigned Designee Name informally spouse Betsy Contact Information [phone] Advance Directives? No Advance Directives on File No History Provided By Patient,Medical Record Has Patient been admitted in last 30 No days? Prior Living Arrangements House Household Members spouse Type of transporation used prior to Relies on Others admit Comment Spouse provides transport Independent with ADL's Yes: mostly Is patient alert and oriented? Yes Needs Assistance With Meal Prep,Managing Medications ,Home Chores / Shopping Caregiver for Another No DME Already Rented / Owned FWW / Walker Patient/Family Preference Fpc Facility,Home with Home Health Comment SNF vs HH pending progress with PT/OT, pt wants home with HH Barriers to Discharge Yes Comment OBS Status, likely may not qualify for COVID waiver to SNF Discharge Plan Home with Home Health Additional Comment Pending PT/OT eval and recommendations Whiteboard Updated in Patient Room with Yes name and ext. # of Mac Operator Review Status In Process Please Provide Date Initial DC 05/17/22 Assessment Was Performed Next Review Type Continued Stay Review
[2022-05-17] MEDS: POTASSIUM CHLORIDE 20 MEQ TAB 40 MEQ PO ×2 (11:10→17:33)
--- NOTE | 2022-05-17 11:35 | OT.IPNOTE ---
Pt having low BP readings, therefore to hold on OT eval. To check on pt later in PM if BP improves.
--- NOTE | 2022-05-17 11:49 | PT.IIE ---
Surgical History (Last Reviewed 05/17/22 @ 08:02 by Tim Pemberton MD) History of angioplasty (10/06/14) Inguinal hernia Status post appendectomy Status post transurethral resection of prostate (~05/2016) Medical History (Last Reviewed 05/17/22 @ 08:02 by Tim Pemberton MD) Alcoholism Alcoholism in recovery (01/10/16) Atherosclerosis of [place] coronary artery of [place] heart without angina pectoris (12/22/14) Atrial flutter Depression (12/22/14) Essential hypertension (12/22/14) Former smoker (01/15/15) Generalized anxiety disorder History of radiation therapy Hx of adenomatous colonic polyps (12/22/10) Hyperlipidemia Lower urinary tract symptoms Malignant neoplasm of prostate (12/22/10) MRSA (methicillin resistant staph aureus) culture positive Paroxysmal atrial fibrillation (12/22/14) 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 (12/22/14) Pulmonary emphysema (12/22/14) Tremor Urinary retention Physical Therapy Inpatient Evaluation/Re-Eval M1 PT/OT-IP Prior Functional Status Start: 05/17/22 11:30 Freq: NEEDED Status: Active Protocol: Document 05/17/22 11:30 AMB (Rec: 05/17/22 11:49 AMB [id number]) Medical Review Prior Functional Status Medical History Reviewed Yes Activities of Daily Living and IADL's Pt states his is strong and helps him with most IADLs Social History Household Members spouse Living Arrangements House Number of Floors (Floors) One Floor Home Environment Walk in Shower Home Equipment Front Wheel Walker M2 PT-IP Current Condition Start: 05/17/22 11:30 Freq: NEEDED Status: Active Protocol: Document 05/17/22 11:30 AMB (Rec: 05/17/22 11:49 AMB [id number]) Physical Therapy Current Condition Current Condition Evaluation Date 05/17/22 Treatment Diagnosis GLF c rib fx, weakness, frequent falls Onset Date 05/16/22 M3 PT-IP Subjective Start: 05/17/22 11:30 Freq: NEEDED Status: Active Protocol: Document 05/17/22 11:30 AMB (Rec: 05/17/22 11:49 AMB [id number]) Subjective Physical Therapy Visit Type Type Initial Evaluation Visit Start Time 11:00 Visit Stop Time 11:30 Total Visit Minutes 30 Physical Therapy Visit Comments Patient Comments Pt states pain is 7/10 in L ribs, sitting in recliner. States he does not have parkinsons. Therapy Pain Assessment Pain When Pain Assessed At Rest Pain Present Pain Present Pain Reported Location Left chest Intensity 7 Scale Used Numeric (0 - 10) M4 PT-IP Mobility and Gait Start: 05/17/22 11:30 Freq: NEEDED Status: Active Protocol: Document 05/17/22 11:30 AMB (Rec: 05/17/22 11:49 AMB [id number]) PT-Transfer Assessment Sit to and From Stand Sit to and from Stand Contact Guard Assistance,1 Person Assistance,Use of Upper Extremities Equipment Transfer Assistive Device Gait Belt,Front Wheeled Walker Transfers Transfer Destination Chair Transfer Technique Stand Step Pivot Transfer Ability Level of Assist Contact Guard Assistance Comments Mobility Comments Papa had polio at age 1 and it affected his L UE strength. He was able to move from sit to stand with good form to FWW from recliner and CGA. Needed cues for turning walker for safety to move from stand to sit. Gait Assessment Gait Gait Assistance Required: Minimum Assistance Distance (Feet) 10 Assistive Devices Assistive Device Gait Belt,Front Wheeled Walker Gait Deviations General Gait Pattern Antalgic,Ataxic,Decreased Stride Length,Decreased Feet Clearance,Festinating Factors Limiting Gait Function Factors Limiting Gait Function Decreased Activity Tolerance, Decreased Strength,Limited Range of Motion,Pain,Poor Balance,Poor Safety Awareness Comments Gait Comments Papa tolerated ambulating 5', then needed Min/ModA due to a LOB when he was trying to turn the FWW. He then stated he was fatigued and his rib pain was increasing, so we turned around to go back to his chair. He again needed ModA to prevent another LOB with changing directions, but then was able to ambulate with CGA back to his chair. PT-Balance Assessment Sitting Balance and Reactions Static Sitting Balance Ability Fair Dynamic Sitting Balance Ability Fair Standing Balance and Reactions Static Standing Balance Ability Poor Dynamic Standing Balance Ability Poor M5 PT-IP Objective Assessments Start: 05/17/22 11:30 Freq: NEEDED Status: Active Protocol: Document 05/17/22 11:30 AMB (Rec: 05/17/22 11:49 AMB [id number]) Strength Upper Extremity Strength Assessment Left Impaired Lower Extremity Strength Hip 3 Knee 3 Ankle 3 Comments Strength Comments Pt able to move LEs against gravity M6 PT-IP Treatment Start: 05/17/22 11:30 Freq: NEEDED Status: Active Protocol: Document 05/17/22 11:30 AMB (Rec: 05/17/22 11:49 AMB [id number]) Physical Therapy Treatment Education Education Provided Safety M7 PT-IP Assessment and Plan Start: 05/17/22 11:30 Freq: NEEDED Status: Active Protocol: Document 05/17/22 11:30 AMB (Rec: 05/17/22 11:49 AMB [id number]) PT Summary Assessment and Plan Potential Rehabilitation Potential Good Status of Condition at Evaluation Stable Summary Impairments Pain,Strength,Balance,Tone, Cognition,Bed Mobility, Transfers,Gait Assessment Summary Papa falls frequently at home . This time he fell and fractured L sided ribs. He was getting up at night with his walker to urinate. He states he has tried to use a urinal but can't. He does not have stairs and his has been acting as his caregiver, but with his continued falls this may be getting to be an unsafe situation at this point . Pt had two LOB when ambulating 10' with PT that required ModA to recover from. They both occurred while trying to turn the FWW. Depending on how pt progresses , SNF stay would be safer, could consider home with if is amenable to and can afford 24hr caregiver being present in the home. Goals Bed Mobility Goal Contact Guard Assistance Transfer Goal Standby Assistance Gait Goal Contact Guard Assistance Gait Distance 100 Days to Meet Goals 5 Frequency of Treatment Frequency Of Treatment Once a Day Treatment Plan Physical Therapy Treatment Plan Bed Mobility Training,Transfer Training,Gait Training, Therapeutic Exercise,Balance Retraining,Discharge Planning, Neuromuscular Re-ed Other Recommendations and Next Treatment assess bed mobility. Progress Focus gait training. Recommendations To Nursing Amount of Assist Needed 1 Person Assist Discharge Recommendations PT Discharge Recommendations Home vs SNF Transportation Needs at Discharge Wheelchair/Cabulance
--- NOTE | 2022-05-17 14:39 | OT.IP.EVAL ---
Past Medical History (Last Reviewed 05/17/22 @ 08:02 by Tim Pemberton MD) Alcoholism Alcoholism in recovery (01/10/16) Atherosclerosis of [place] coronary artery of [place] heart without angina pectoris (12/22/14) Atrial flutter Depression (12/22/14) Essential hypertension (12/22/14) Former smoker (01/15/15) Generalized anxiety disorder History of radiation therapy Hx of adenomatous colonic polyps (12/22/10) Hyperlipidemia Lower urinary tract symptoms Malignant neoplasm of prostate (12/22/10) MRSA (methicillin resistant staph aureus) culture positive Paroxysmal atrial fibrillation (12/22/14) 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 (12/22/14) Pulmonary emphysema (12/22/14) Tremor Urinary retention Surgical History (Last Reviewed 05/17/22 @ 08:02 by Tim Pemberton MD) History of angioplasty (10/06/14) Inguinal hernia Status post appendectomy Status post transurethral resection of prostate (~05/2016) Occupational Therapy Inpatient Evaluation/Re-Eval M1 PT/OT-IP Prior Functional Status Start: 05/17/22 11:30 Freq: NEEDED Status: Complete Protocol: Document 05/17/22 11:30 AMB (Rec: 05/17/22 11:49 AMB [id number]) Medical Review Prior Functional Status Medical History Reviewed Yes Activities of Daily Living and IADL's Pt states his is strong and helps him with most IADLs Social History Household Members spouse Living Arrangements House Number of Floors (Floors) One Floor Home Environment Walk in Shower Home Equipment Front Wheel Walker M1 PT/OT-IP Prior Functional Status Start: 05/17/22 15:56 Freq: NEEDED Status: Active Protocol: Document 05/17/22 14:10 [facility] (Rec: 05/17/22 16:18 [facility] [id number]) Medical Review Prior Functional Status Medical History Reviewed Yes Mobility and Gait Pt uses a FWW at home and prior MOD I on his own. Activities of Daily Living and IADL's Pt states his is strong and helps him with most IADLs Social History Household Members spouse Living Arrangements House Number of Floors (Floors) One Floor Home Environment Walk in Shower Home Equipment Front Wheel Walker M2 OT-IP Current Condition Start: 05/17/22 15:56 Freq: Status: Active Protocol: Document 05/17/22 14:10 [facility] (Rec: 05/17/22 16:18 [facility] [id number]) Occupational Therapy Current Condition Current Condition Evaluation Date 05/17/22 Treatment Diagnosis GLF with Rib fx, weakness Diagnosis Onset Date 05/16/22 M3 OT- IP Subjective and Pain Start: 05/17/22 15:56 Freq: Status: Active Protocol: Document 05/17/22 14:10 [facility] (Rec: 05/17/22 16:18 [facility] [id number]) OT- Subjective Occupational Therapy Visit Type Type Initial Evaluation Visit Start Time 14:10 Visit Stop Time 14:39 Total Visit Minutes 29 Occupational Therapy Visit Comments Patient Comments Pt agreed to get up and pt's in the room. Patient/Caregiver Goals Pt wanting to go home, but wanting pt to go to skilled rehab as pt is a high fall risk now. OT Pain Assessment Pain When Pain Assessed During Mobility Pain Present Pain Present Pain Reported M4 OT- IP ADL's Start: 05/17/22 15:56 Freq: Status: Active Protocol: Document 05/17/22 14:10 [facility] (Rec: 05/17/22 16:18 [facility] [id number]) OT [id number] Comments OT Self-Feeding Comments Pt needing assist for set-up. Pt coughing on water but not sitting upright, to further assess and see if there is a possible need for speech therapy. OT ADL-Grooming Comments OT Grooming Comments NOt performed. OT ADL-Oral Care Comments Oral Care Comments Not performed. OT ADL-Dressing General Eval Lower Body Dressing Ability Maximum Assistance Areas Needing Assistance Socks OT ADL-Toileting General Evaluation Toileting Ability Total Assistance Comments OT Toileting Comments Castanon in place OT ADL-Bathing Comments OT Bathing Comments NOt performed. Sponge bath more appropriate at this time due to decreased balance and endurance. M5 OT- IP IADL's Start: 05/17/22 15:56 Freq: Status: Active Protocol: Document 05/17/22 14:10 [facility] (Rec: 05/17/22 16:18 [facility] [id number]) OT-Instrumental Activities of Daily Living Home Safety Awareness Awareness of Need for Assistance at Home Decreased Awareness Home Safety Comments Pt's has been assisting pt with IADL needs prior and is very supportive. Medication Management Medication Management Caregiver Administers Money Management Money Management Caregiver Provides Assistance Meal Preparation Meal Preparation Caregiver Provides Assist Housing Quality Standard Inspector Housing Quality Standard Inspector Caregiver Provides Assist M6 OT- IP Functional Cognition Start: 05/17/22 15:56 Freq: Status: Active Protocol: Document 05/17/22 14:10 [facility] (Rec: 05/17/22 16:18 [facility] [id number]) Cognitive Factors Limiting Selfcare Function Cognitive Ability Level of Alertness Alert,Drowsy Patient Orientation Name Attention Span Ability Capable of Focused Attention, Unable to Sustain Attention Ability to Follow Commands Able to Follow One Step Commands with Increased Time, Able to Follow One Step Commands with Repetition Cognitive Comments Cognitive Assessment Comments Pt very sleepy and needing cues for safety for FWW. Pt able to follow commands. OT- Vision and Hearing OT- Hearing Assessment OT- Hearing Assessment Hearing Impaired OT- Vision Assessment Visual Acuity Glasses All The Time M7 OT- IP Mobility and Balance Start: 05/17/22 15:56 Freq: Status: Active Protocol: Document 05/17/22 14:10 [facility] (Rec: 05/17/22 16:18 [facility] [id number]) OT- Bed Mobility Assessment Rolling Type of Rolling Roll to Right Supine to Sit Supine to Sit Assist Standby Assistance Sit to Supine Sit to Supine Assist Moderate Assistance OT-Transfer Assessment Sit to and From Stand Sit to and from Stand Moderate Assistance Transfers Transfer Ability Moderate Assistance,1 Person Assistance,2 Person Assistance Technique Transfer Destination Bed Transfer Technique Stand Step Pivot Devices Transfer Assistive Devices Gait Belt,Front Wheeled Walker Comments Mobility Comments Increased time and heavy use of bed rail to get to the edge of the bed and use of momentum. Pt needing MAXA to help get back into bed for his trunk and legs. Able to educated pt's to sherlyn/ doff the gait belt and assist pt for transfers and mobility. MODA to stand to the FWW and tends to lean on his heels and also needing therapist to help as well from CGA to MODA for his balance. Pt needing assist to guide the FWW, for his balance , vc to stand upright as pt tends to lean to the left and his left hand tends to slip down on the handle. OT- Balance Assessment Sitting Balance and Reactions Static Sitting Balance Ability Poor Dynamic Sitting Balance Ability Poor Standing Balance and Reactions Static Standing Balance Ability Poor Dynamic Standing Balance Ability Poor Comments Other Balance Tests/Deviations/Treatment MODA for sitting balance as pt : is very flexed at his trunk, neck and laterally lean to the left. M8 OT- IP Objective Assessments Start: 05/17/22 15:56 Freq: Status: Active Protocol: Document 05/17/22 14:10 [facility] (Rec: 05/17/22 16:18 [facility] [id number]) OT Gross Range of Motion Upper Extremity Range of Motion Assessment Left Impaired ROM Impairments Pt has had polio at age 1 which has affected his left hand OT Strength Upper Extremity Strength Assessment Left Impaired M9 OT- IP Assessment and Plan Start: 05/17/22 15:56 Freq: Status: Active Protocol: Document 05/17/22 14:10 [facility] (Rec: 05/17/22 16:18 [facility] [id number]) OT Summary Assessment and Plan Potential Rehabilitation Potential Good Analytic Complexity at Evaluation Moderate Summary OT Impairments Pain,Strength,Balance, Functional Cognition, Functional Mobility,Self- Feeding,Grooming,Dressing, Toileting,Bathing,Toilet Transfers,Shower Transfers, Activity Tolerance Progress Towards Goals Slow Progress due to Pain,Slow Progress due to Medical Issues,Slow Progress due to Activity Tolerance,Slow Progress due to Cognition Assessment Summary Pt MOD complexity and main barriers are pain, decreased balance, strength and prior was NICOLAS for all his ADL and mobility needs and has had 5 falls since March per his . Pt will greatly benefit from skilled rehab as pt's current level is too great for his to assist. Able to initiate caregiver training and needing to assist pt's for transfer and mobility with FWW due to decreased balance. Goals Grooming Goal Standby Assistance Dressing Goal Standby Assistance Toileting Goal Standby Assistance Bathing Goal Minimal Assistance Toilet Transfer Goal Standby Assistance Shower Transfer Goal Standby Assistance Days to Meet Goals 20 Frequency of Treatment Frequency Of Treatment Once a Day Treatment Plan OT Treatment Plan ADL Training,Functional Cognition Training,Functional Mobility,Patient/Family Education,Discharge Planning Other Treatment Recommendations and Next grooming needs while sitting Treatment Focus on the edge of the bed Discharge Recommendations OT Discharge Recommendations SNF Rehab Transportation Needs at Discharge Wheelchair/Cabulance
[2022-05-17] MEDS: HYDROMORPHONE 0.5 MG INJ IV ×2 (17:33→20:56)
--- NOTE | 2022-05-17 20:36 | PM.CN ---
History of Present Illness Consult details Date Patient Seen: 05/17/22 Time Patient Seen: 20:36 Chief complaint: sent by [facility] Reason for consult: Rib fractures Narrative: Patient is a 77-year-old man with a history of polio and Parkinson's disease who sustained a ground level fall yesterday. He did not hit his head or lose consciousness and is complaining of left chest pain. On arrival to the emergency room he is hemodynamically stable. He is not on anticoagulation. CT of head neck and chest were performed which identified Left rib fractures 8 through 11, and possible pulmonary contusion. Since admission he reports that his pain is well controlled and a review of his vital signs show that he is oxygenating well without use of supplemental oxygen. Meds Home Medications and Allergies Home Medications Medication Instructions Recorded Confirmed Type magnesium oxide 400 mg PO BID 12/27/17 05/16/22 History atorvastatin 40 mg tablet 40 mg PO DAILY #90 tabs 10/16/19 05/16/22 Rx tamsulosin 0.4 mg capsule (Flomax) 0.4 mg PO BID #180 caps 10/16/19 05/16/22 Rx metoprolol succinate 25 mg 25 mg PO BID #180 tabs 04/01/20 05/16/22 Rx tablet,extended release 24 hr mometasone 200 mcg/actuation HFA 2 puff inhalation BID #39 grams 04/13/20 05/16/22 Rx aerosol inhaler nitroglycerin 0.4 mg sublingual 0.4 mg sublingual Q5M PRN chest 11/16/20 05/16/22 Rx tablet pain #60 tabs sertraline 100 mg tablet 100 mg PO DAILY 06/07/21 05/16/22 History trazodone 50 mg tablet See Rx Instructions .Route 06/09/21 05/16/22 Rx .COMPLEX #180 tabs clonazepam 1 mg tablet 1 mg PO Q12H #60 tabs 07/01/21 05/16/22 Rx hydrochlorothiazide 12.5 mg tablet 12.5 mg PO DAILY 09/06/21 05/16/22 History carbidopa ER 50 mg-levodopa 200 mg 1 tab PO BID #180 tabs 02/14/22 05/16/22 Rx tablet,extended release Allergies Allergy/AdvReac Type Severity Reaction Status Date / Time No Known Drug Allergies Allergy Verified 02/28/23 15:43 Exam Vital Signs (past 8 hours): - 05/17/22 15:04 05/17/22 16:00 05/17/22 19:24 Temperature 98.1 F Pulse Rate 71 66 66 Respiratory Rate 12 17 18 Blood Pressure 99/63 Pulse Oximetry 93 94 95 Oxygen Delivery Method Room Air Room Air Oxygen Flow Rate 0 Oxygen Delivery Method Room Air Oxygen Flow Rate 0 Narrative Exam Narrative: GENERAL: Thin gentleman appearing stated age in no acute distress, drowsy HEENT: Normocephalic, atraumatic. No scleral icterus NECK: Full range of motion. No evidence of cervical lymphadenopathy or JVD. CHEST: Rising symmetrically. No audible wheezes CARDIOVASCULAR: Warm and well perfused. Regular rate ABDOMEN: Soft, non-tender, non-distended Objective Labs 05/17/22 04:49 05/17/22 04:49 Labs: Laboratory Results - last 24 hr 05/16/22 05/16/22 05/17/22 20:22 22:00 04:49 WBC 7.2 RBC 4.04 L Hgb 11.0 L Hct 33.8 L MCV 83.6 MCH 27.2 MCHC 32.6 RDW 13.9 Plt Count 239 Neut % (Auto) 70.9 Lymph % (Auto) 13.8 L Rich % (Auto) 12.5 Eos % (Auto) 2.0 Baso % (Auto) 0.8 Neut # (Auto) 5100 Lymph # (Auto) 1000 L Rich # (Auto) 900 Eos # (Auto) 100 Baso # (Auto) 100 Sodium Potassium Chloride Carbon Dioxide BUN Creatinine Estimated GFR BUN/Creatinine Ratio Glucose Calcium Total Bilirubin AST ALT Alkaline Phosphatase Total Protein Albumin Globulin Albumin/Globulin Ratio Urine RBC 5-10/hpf H Urine WBC 10-30/hpf H Urine Bacteria Occasional (0-1) Ur Culture Indicated? Specimen cultured SARS-CoV-2 (PCR) Negative 05/17/22 04:49 WBC RBC Hgb Hct MCV MCH MCHC RDW Plt Count Neut % (Auto) Lymph % (Auto) Rich % (Auto) Eos % (Auto) Baso % (Auto) Neut # (Auto) Lymph # (Auto) Rich # (Auto) Eos # (Auto) Baso # (Auto) Sodium 133 L Potassium 3.2 L Chloride 96 L Carbon Dioxide 30 BUN 12 Creatinine 0.74 Estimated GFR > 60 BUN/Creatinine Ratio 16.2 Glucose 112 H Calcium 8.6 Total Bilirubin 0.5 AST 19 ALT 9 Alkaline Phosphatase 85 Total Protein 6.8 Albumin 3.8 Globulin 3.0 Albumin/Globulin Ratio 1.3 Urine RBC Urine WBC Urine Bacteria Ur Culture Indicated? SARS-CoV-2 (PCR) [facility] Medical History Alcoholism Alcoholism in recovery (01/10/16) Atherosclerosis of [place] coronary artery of [place] heart without angina pectoris (12/22/14) Atrial flutter Depression (12/22/14) Essential hypertension (12/22/14) Former smoker (01/15/15) Generalized anxiety disorder History of radiation therapy Hx of adenomatous colonic polyps (12/22/10) Hyperlipidemia Lower urinary tract symptoms Malignant neoplasm of prostate (12/22/10) MRSA (methicillin resistant staph aureus) culture positive Paroxysmal atrial fibrillation (12/22/14) 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 (12/22/14) Pulmonary emphysema (12/22/14) Tremor Urinary retention Surgical History History of angioplasty (10/06/14) Inguinal hernia Status post appendectomy Status post transurethral resection of prostate (~05/2016) Family History Mother Blood disease Hyperlipidemia Hypertension Hearing impairment Father Cancer Social History household members: spouse Tobacco & Substance Use Smoking Status: Current every day smoker alcohol intake: current Assessment & Plan Assessment and plan (1) Multiple fractures of ribs: Status: Acute Assessment & Plan narrative: 77-year-old man status post ground level fall hemodynamically stable not on anticoagulation with multiple rib fractures. CT chest head and C-spine are reviewed and demonstrate left rib fractures 8 through 11 and possible pulmonary contusion. There is no evidence of intrathoracic hemorrhage or pneumothorax. He requires multi modal pain control, incentive spirometry and observation to ensure that the possible pulmonary contusion does not worsen. Pain is currently well controlled and his breathing is adequate not requiring supplemental oxygen. No surgical intervention is necessary, please call with questions. Time Spent With Patient Critical Care time: I spent a total of [] minutes of critical care time on this patient's care today; this time is exclusive of procedural time.
[2022-05-18] VITALS (15 sets, daily range): BP systolic 79–139; BP diastolic 39–60; PULSE 72–92; RESP 16–20; TEMP 36.4–37.1; O2SAT 91–97
[2022-05-18] MEDS: OXYCODONE IR 5 MG TABLET PO ×4 (00:08→21:47)
[2022-05-18] MEDS: ACETAMINOPHEN 325 MG TABLET 650 MG PO (00:09)
[2022-05-18 05:53] LABS: Hemoglobin 10.7 g/dL (13.5-17.5)
[2022-05-18 06:02] LABS: BUN Creatinine Ratio 22.9 (6-22); Blood Urea Nitrogen 19 mg/dL (9-20); Calcium 8.4 mg/dL (8.4-10.2); Carbon Dioxide 30 mmol/L (22-32); Chloride 98 mmol/L (98-107); Estimated Glomerular Filt Rate > 60 mL/min (>60); Glucose 108 mg/dL (80-110); HEMOLYSIS < 15 (0-50); Potassium 4.2 mmol/L (3.4-5.1); Sodium 131 mmol/L (137-145)
--- NOTE | 2022-05-18 07:00 | PC.NURSE ---
BP running low - see flow sheet. Urine output 250 for 12 hr shift via urinary catheter. Paged Dr Miller through answering service x 2, no return call yet.
--- NOTE | 2022-05-18 07:27 | P.PN_ITS ---
Subjective Subjective Date Patient Seen: 05/18/22 Time Patient Seen: 07:28 Interval history: Patient without any particular issues This morning is somewhat hypotensive with a blood pressure of about 100 systolic. Had very limited urine output in the last several hours. Does continue to have Castanon catheter in place Up with physical therapy pretty weak and shaky specially as he tries to turn with his walker. Skilled therapies think he would certainly benefit from penitentiary placement unless there is dramatic improvement prior to discharge. Patient is somewhat hesitant about this No evidence of alcohol withdrawal at this point Exam Vital Signs (past 8 hours): - 05/18/22 00:00 05/18/22 05:21 05/18/22 05:42 Temperature 97.9 F 97.5 F L Pulse Rate 78 79 74 Respiratory Rate 16 17 Blood Pressure 116/47 L 93/39 L 79/44 L Pulse Oximetry 92 91 Oxygen Flow Rate 0 0 05/18/22 05:50 05/18/22 06:05 05/18/22 06:20 Temperature Pulse Rate 75 82 76 Respiratory Rate 16 16 Blood Pressure 94/40 L 109/48 L 105/48 L Pulse Oximetry 92 93 92 Oxygen Flow Rate 0 0 0 05/18/22 06:35 05/18/22 07:05 Temperature Pulse Rate 75 80 Respiratory Rate Blood Pressure 97/46 L 101/58 L Pulse Oximetry 92 Oxygen Flow Rate 0 Oxygen Delivery Method Room Air Oxygen Flow Rate 0 Objective Labs 05/18/22 05:12 05/18/22 05:12 Labs: Laboratory Results - last 24 hr 05/18/22 05/18/22 05:12 05:12 Hgb 10.7 L Hct 33.0 L Sodium 131 L Potassium 4.2 Chloride 98 Carbon Dioxide 30 BUN 19 Creatinine 0.83 Estimated GFR > 60 BUN/Creatinine Ratio 22.9 H Glucose 108 Calcium 8.4 PFSH Medical History Alcoholism Alcoholism in recovery (01/10/16) Atherosclerosis of [place] coronary artery of [place] heart without angina pectoris (12/22/14) Atrial flutter Depression (12/22/14) Essential hypertension (12/22/14) Former smoker (01/15/15) Generalized anxiety disorder History of radiation therapy Hx of adenomatous colonic polyps (12/22/10) Hyperlipidemia Lower urinary tract symptoms Malignant neoplasm of prostate (12/22/10) MRSA (methicillin resistant staph aureus) culture positive Paroxysmal atrial fibrillation (12/22/14) 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 Ground level fall with chest wall injuries and evidence of possible pulmonary contusion-patient does not show evidence of any progression of disease or issues. Still quite weak and shaky on his feet will likely require penitentiary placement. Continue skilled therapies while here in the hospital 2. Hypertension-patient is somewhat hypotensive with limited oral intake. Perhaps some element of volume depletion. Will hold his hydrochlorothiazide which is primarily for hypertension and give him some IV fluids, 1 L, and re- evaluate 3. COPD-stable, despite rib fracture chest wall injury 4. Disposition-I agree patient would best be served by going to penitentiary unless there is dramatic improvement. He clearly is going to require another 24 hours in the hospital given his modest hypotension and limited urine output as above continue with skilled therapies. Will continue this discussion with patient and spouse Quality VTE Deep Vein Thrombosis/Pulmonary Embolism Present on Admission: No
[2022-05-18] MEDS: TAMSULOSIN 0.4 MG CAPSULE PO ×2 (08:55→21:17)
[2022-05-18] MEDS: LACTATED RINGERS 1,000 ML 125 ML IV (08:56)
[2022-05-18] MEDS: ATORVASTATIN 20 MG TABLET 40 MG PO (08:56)
[2022-05-18] MEDS: CARBIDOPA-LEVODOPA ER 50/200 TABLET 1 EACH PO ×2 (08:56→21:17)
[2022-05-18] MEDS: IPRATROPIUM 0.5 MG/2.5 ML NEB INH ×2 (08:56→15:27)
[2022-05-18] MEDS: MAGNESIUM OXIDE 400 MG TABLET PO ×2 (08:56→21:17)
[2022-05-18] MEDS: BUDESONIDE 0.5 MG/2 ML NEB INH (08:56)
[2022-05-18] MEDS: SERTRALINE 50 MG TABLET 100 MG PO (08:56)
[2022-05-18] MEDS: NICOTINE 21 MG PATCH TOP (08:57)
[2022-05-18] MEDS: ENOXAPARIN 40 MG/0.4 ML SYRINGE SUBCUT (08:57)
--- NOTE | 2022-05-18 09:17 | PC.NURSE ---
Addendum entered by Lois Diaz R.N. 05/18/22 18:35: Patient had a fall after he was on the commode. Patient has been using his call marrero appropriately all day and he has been alert and oriented x3. POLICE DISPATCHER left call marrero in his hand and explained to patient that he needed to use his call marrero when he was done. Patient was lying on his back, he states that he bumped his head on the floor or the wall. He has a slight bump to l.temporal area. He is complaining of left rib pain. When asked why he got up by himself, he stated to the senior technical recruiter because I thought that I could do it myself. is aware and he sais to watch patient tonight. He will be in tomorrow to see him. Tim RN an Haim RN picked up patient and he ambulated back to bed. He is comfortable in bed. Addendum entered by Lois Diaz R.N. 05/18/22 16:26: Given 1 oxycodone for pain to ribs, helpful with discomfort. Patient worked with physical therapy and is now sitting up in the chair and reading his felipe. Original Note: Assess- Patient is pleasant but confused x1. He did answer all questions right. Patient has hx of polio and has a contractured l.hand. He does have pain to this area when touched. He has bilateral fine crackles to his bases and is on room air. He denies any sob.
--- NOTE | 2022-05-18 09:28 | CM.DPC ---
Addendum entered by CHERYL David 05/18/22 15:39: ADD: SW left msg for spouse to determine if she toured SNFs and preferences. SAMMIE spoke to Marilu at [facility] and she confirms spouse toured and she will make final review to determine if they can accept pt at d/c. JASONCSV left msg stating they might be able to accept but needing a little more information. SAMMIE left msg for Jessenia at [facility] inquiring if spouse toured and if they had reviewed and could accept. Molly and [facility] also have referral. BF Original Note: DCP SNF planning Per MD, pt not yet stable for discharge and also feels pt would benefit from SNF at d/c. Per PT/OT, feel pt high fall risk and with rib fx and weakness recommending SNF before return home. SW met bedside with pt and spouse again and they confirm SNF likely needed, although pt still hopeful to d/c home if possible. Spouse reviewed the SNF Choice list again and plans to tour both [facility] and [facility] this morning and aware it is also based on bed availability and acceptance. Spouse agreeable to SNF referrals and then will call SW to update on her top SNF preferences. SW made referrals to [facility], [facility], [facility], [facility] and [facility]. PASRR completed. Plan: SW to follow for SNF reviews for likely d/c tomorrow Fri if pt medically stable. SW to follow for further PT/OT today. CHERYL David
[2022-05-18] MEDS: clonazePAM 0.5 MG TABLET 1 MG PO ×2 (12:20→22:42)
--- NOTE | 2022-05-18 14:45 | OT.IP.TRT ---
Current Diagnoses Multiple fractures of ribs, unspecified side, initial encounter for closed fracture (05/16/22) Occupational Therapy Treatment Note M2 OT-IP Current Condition Start: 05/17/22 15:56 Freq: Status: Active Protocol: Document 05/17/22 14:10 [facility] (Rec: 05/17/22 16:18 [facility] [id number]) Occupational Therapy Current Condition Current Condition Evaluation Date 05/17/22 Treatment Diagnosis GLF with Rib fx, weakness Diagnosis Onset Date 05/16/22 M3 OT- IP Subjective and Pain Start: 05/17/22 15:56 Freq: Status: Active Protocol: Document 05/18/22 14:18 [facility] (Rec: 05/18/22 15:16 [facility] [id number]) OT- Subjective Occupational Therapy Visit Type Type Treatment Note Visit Start Time 14:18 Visit Stop Time 14:45 Total Visit Minutes 27 Occupational Therapy Visit Comments Patient Comments Pt agreed to try the platform for LUE support with FWW. Patient/Caregiver Goals Pt very adamant of going home. OT Pain Assessment Pain When Pain Assessed During Mobility Pain Present Pain Present Pain Reported M4 OT- IP ADL's Start: 05/17/22 15:56 Freq: Status: Active Protocol: Document 05/18/22 14:18 [facility] (Rec: 05/18/22 15:16 [facility] [id number]) OT [id number] Comments OT Self-Feeding Comments Pt states having no issue today for eating and did not observe any coughing while drinking his liquids today. OT ADL-Grooming General Evaluation Grooming Ability Standby Assistance Areas Needing Assistance Retrieving/Set-up of Grooming Items OT ADL-Oral Care General Eval Oral Care Ability Standby Assistance Areas of Assistance Retrieving/Set-Up of Items Comments Oral Care Comments set- up assist and able to do while seated OT ADL-Dressing General Eval Lower Body Dressing Ability Maximum Assistance Areas Needing Assistance Socks OT ADL-Toileting Comments OT Toileting Comments not performed OT ADL-Bathing Comments OT Bathing Comments not performed M5 OT- IP IADL's Start: 05/17/22 15:56 Freq: Status: Active Protocol: Document 05/17/22 14:10 [facility] (Rec: 05/17/22 16:18 [facility] [id number]) OT-Instrumental Activities of Daily Living Home Safety Awareness Awareness of Need for Assistance at Home Decreased Awareness Home Safety Comments Pt's has been assisting pt with IADL needs prior and is very supportive. Medication Management Medication Management Caregiver Administers Money Management Money Management Caregiver Provides Assistance Meal Preparation Meal Preparation Caregiver Provides Assist Roller Die Cutting Machine Operator Roller Die Cutting Machine Operator Caregiver Provides Assist M6 OT- IP Functional Cognition Start: 05/17/22 15:56 Freq: Status: Active Protocol: Document 05/18/22 14:18 [facility] (Rec: 05/18/22 15:16 [facility] [id number]) Cognitive Factors Limiting Selfcare Function Cognitive Ability Level of Alertness Alert Patient Orientation Name Attention Span Ability Capable of Focused Attention, Unable to Sustain Attention Ability to Follow Commands Able to Follow One Step Commands with Increased Time, Able to Follow One Step Commands with Repetition Memory Description Short Term Impaired Cognitive Comments Cognitive Assessment Comments Pt not recalling that he just got pain medications from the nurse. Pt needing cue to safety with FWW and to weight shift so able to move his feet . OT- Vision and Hearing OT- Hearing Assessment OT- Hearing Assessment Hearing Impaired OT- Vision Assessment Visual Acuity Glasses All The Time M7 OT- IP Mobility and Balance Start: 05/17/22 15:56 Freq: Status: Active Protocol: Document 05/18/22 14:18 [facility] (Rec: 05/18/22 15:16 [facility] [id number]) OT- Bed Mobility Assessment Rolling Type of Rolling Roll to Right Supine to Sit Supine to Sit Assist Standby Assistance,Head of Bed Elevated OT-Transfer Assessment Sit to and From Stand Sit to and from Stand Moderate Assistance Transfers Transfer Ability Minimal Assistance,Moderate Assistance Technique Transfer Destination Bed,Chair Transfer Technique Stand Step Pivot Devices Transfer Assistive Devices Gait Belt,Platform Walker Comments Mobility Comments SBA to get to the edge of the bed, PREETI to stand to FWW and assist to help place his LUE on the platform. Initially pt needing PREETI for steadying and then as pt tires, needing assist for balance and to help guide the FWW, also assist to help turn and weight shift. At this time safer for nursing to have 2 person assist for pt for mobility needs with the platform. OT- Balance Assessment Sitting Balance and Reactions Static Sitting Balance Ability Good Dynamic Sitting Balance Ability Fair Standing Balance and Reactions Static Standing Balance Ability Fair Dynamic Standing Balance Ability Poor Comments Other Balance Tests/Deviations/Treatment Pt able to sit on the edge of : the bed on his own. Pt while seated still laterally leans to the left and with head flexed. Pt able to stand taller with the platform walker. M8 OT- IP Objective Assessments Start: 05/17/22 15:56 Freq: Status: Active Protocol: Document 05/17/22 14:10 [facility] (Rec: 05/17/22 16:18 [facility] [id number]) OT Gross Range of Motion Upper Extremity Range of Motion Assessment Left Impaired ROM Impairments Pt has had polio at age 1 which has affected his left hand OT Strength Upper Extremity Strength Assessment Left Impaired M9 OT- IP Assessment and Plan Start: 05/17/22 15:56 Freq: Status: Active Protocol: Document 05/18/22 14:18 [facility] (Rec: 05/18/22 15:16 [facility] [id number]) OT Summary Assessment and Plan Potential Rehabilitation Potential Good Analytic Complexity at Evaluation Moderate Summary OT Impairments Pain,Strength,Balance, Functional Cognition, Functional Mobility,Self- Feeding,Grooming,Dressing, Toileting,Bathing,Toilet Transfers,Shower Transfers, Activity Tolerance Progress Towards Goals Progressing Toward Goals Assessment Summary Pt able to stand more upright with the platform walker for LUE support. Pt still needing skilled assist for weight shifting, steadying, and assist to help move the FWW as pt tires. Pt would greatly benefit from skilled rehab especially since pt has had 5 falls since March. Goals Grooming Goal Standby Assistance Dressing Goal Standby Assistance Toileting Goal Standby Assistance Bathing Goal Minimal Assistance Toilet Transfer Goal Standby Assistance Shower Transfer Goal Standby Assistance Days to Meet Goals 19 Frequency of Treatment Frequency Of Treatment Once a Day Treatment Plan OT Treatment Plan ADL Training,Functional Cognition Training,Functional Mobility,Patient/Family Education,Discharge Planning Other Treatment Recommendations and Next Transfer to toilet with PREETI Treatment Focus with platform walker, MOD for toileting needs. Discharge Recommendations OT Discharge Recommendations SNF Rehab Transportation Needs at Discharge Wheelchair/Cabulance
--- NOTE | 2022-05-18 15:57 | PT.IPTN ---
Current Diagnoses Multiple fractures of ribs, unspecified side, initial encounter for closed fracture (05/16/22) Physical Therapy Treatment Note M2 PT-IP Current Condition Start: 05/17/22 11:30 Freq: NEEDED Status: Active Protocol: Document 05/18/22 15:37 [facility] (Rec: 05/18/22 16:44 [facility] [id number]) Physical Therapy Current Condition Current Condition Evaluation Date 05/17/22 Treatment Diagnosis GLF c rib fx, weakness, frequent falls Onset Date 05/16/22 M3 PT-IP Subjective Start: 05/17/22 11:30 Freq: NEEDED Status: Active Protocol: Document 05/18/22 15:37 [facility] (Rec: 05/18/22 16:44 [facility] [id number]) Subjective Physical Therapy Visit Type Type Treatment Note Visit Start Time 15:37 Visit Stop Time 15:57 Total Visit Minutes 20 Notes Vitals: seated in chair: 110/64 HR 86 SaO2 95% on RA LAST TURNER provided 2nd person IV pole mgt then increased physical assist when needed during gait. Number of DRUG CLERK Visits 1 Physical Therapy Visit Comments Patient Comments Pt agreeable to working with therapy. Patient Goals Return home with spouse and son to assist him. Pt declined recommendation of SNF. Therapy Pain Assessment Pain When Pain Assessed During Mobility Pain Present Pain Present Pain Reported Location Left chest Scale Used moderate during mobility Description With Movement Pain Behaviors Facial Grimacing Pain Management Techniques Distraction,Modification of Treatment,Re-positioning, Timing of Activity with Medications M4 PT-IP Mobility and Gait Start: 05/17/22 11:30 Freq: NEEDED Status: Active Protocol: Document 05/18/22 15:37 [facility] (Rec: 05/18/22 16:44 [facility] [id number]) PT-Bed Mobility Assessment Sit to Supine Sit to Supine Maximum Assistance,1 Person Assistance,Bedrails Scooting Scooting Up and Down in Bed Maximum Assistance PT-Transfer Assessment Sit to and From Stand Sit to and from Stand Maximum Assistance,2 Person Assistance,Use of Upper Extremities Equipment Transfer Assistive Device Gait Belt,Platform Walker Orthotic/Prosthetic Devices or Brace: No Transfers Transfer Destination Bed Transfer Technique pt ambulated with PFWW Transfer Ability Level of Assist Moderate Assistance,Maximum Assistance,2 Person Assistance ,Use of Upper Extremities Comments Mobility Comments Scoot to EO chair CG/Min A. Pt self LUE on platform STS Max A x2 come to standing, Min A standing balance while LAST TURNER assisted secure L forearm. Gait round end bed to R side modified stagger step, Mod/Max A x1 (2nd person manage IV pole) for trunk stability and intermittent cues for taller posturing, occasional initially for PFWW repositioning and obstacle navigation, once R EOB increased trunk wt shift trunk required Max A 2 persons, max cues and quad facilitation tapping to sequence each LE/ PFWW lateral movement. Stand> sit Mod/Max A x2 slow sit onto EOB. Sit>supine Max A x1 for BLEs into bed and upper trunk centering. Max A x2 to scoot up in bed via transfer pad. Pt had call light and all needs in reach before left. Bed alarmed due to high fall risk. Pt will require SNF rehab for progress strength and mobility. Gait Assessment Gait Gait Assistance Required: Moderate Assistance,Maximum Assistance,2 Person Assist Distance (Feet) 12 Able to Maintain Weight Bearing Status Yes During Gait Assistive Devices Assistive Device Gait Belt,Front Wheeled Walker Gait Deviations General Gait Pattern Antalgic,Ataxic,Decreased Stride Length,Decreased Feet Clearance,Festinating,Flexed Trunk,Lateral Trunk Lean,Step- to Gait Factors Limiting Gait Function Factors Limiting Gait Function Decreased Activity Tolerance, Decreased Strength,Difficulty Following Directions, Incoordination,Limited Range of Motion,Pain,Poor Balance, Poor Safety Awareness Comments Gait Comments see mobility comments Stair Climbing Assessment Comments Stair Climbing Comments 1 step from garage to house need to assess when able go home. Unable to assess due to decrease strength. PT-Balance Assessment Sitting Balance and Reactions Static Sitting Balance Ability Fair Dynamic Sitting Balance Ability Fair Standing Balance and Reactions Static Standing Balance Ability Fair Dynamic Standing Balance Ability Poor Device Used PFWW M5 PT-IP Objective Assessments Start: 05/17/22 11:30 Freq: NEEDED Status: Active Protocol: Document 05/17/22 11:30 [facility] (Rec: 05/17/22 11:49 AMB [id number]) Strength Upper Extremity Strength Assessment Left Impaired Lower Extremity Strength Hip 3 Knee 3 Ankle 3 Comments Strength Comments Pt able to move LEs against gravity M6 PT-IP Treatment Start: 05/17/22 11:30 Freq: NEEDED Status: Active Protocol: Document 05/18/22 15:37 [facility] (Rec: 05/18/22 16:44 [facility] [id number]) Physical Therapy Treatment Education Education Provided Safety M7 PT-IP Assessment and Plan Start: 05/17/22 11:30 Freq: NEEDED Status: Active Protocol: Document 05/18/22 15:37 [facility] (Rec: 05/18/22 16:44 [facility] [id number]) PT Summary Assessment and Plan Potential Rehabilitation Potential Good Status of Condition at Evaluation Stable Summary Impairments Pain,Strength,Balance,Tone, Cognition,Bed Mobility, Transfers,Gait Progress Towards Goals Slow Progress due to Pain,Slow Progress due to Activity Tolerance Assessment Summary Pt requires Max A x1 initally progressed to 2 person with support for PFWW mgt and Max cues sequencing BLE/PFWW. Max A during bed mob. Recommending transfers only PFWW with nursing 2 persons, not consistant. Recommending SNF for progress strength and functional mobility. Goals Bed Mobility Goal Contact Guard Assistance Transfer Goal Standby Assistance Gait Goal Contact Guard Assistance Gait Distance 100 Days to Meet Goals 5 Frequency of Treatment Frequency Of Treatment Once a Day Treatment Plan Physical Therapy Treatment Plan Bed Mobility Training,Transfer Training,Gait Training, Therapeutic Exercise,Balance Retraining,Discharge Planning, Neuromuscular Re-ed Other Recommendations and Next Treatment bed mob, transfers, gait w/ Focus PFWW further distance, increased standing endurance. Recommendations To Nursing Amount of Assist Needed 2 Person Assist Discharge Recommendations PT Discharge Recommendations SNF Rehab Transportation Needs at Discharge Wheelchair/Cabulance
[2022-05-18] MEDS: CARBIDOPA-LEVODOPA 25/100 TABLET 1 EACH PO (21:17)
[2022-05-19] MEDS: TRAZODONE 50 MG TABLET PO (00:59)
[2022-05-19] MEDS: OXYCODONE IR 5 MG TABLET PO ×2 (00:59→14:18)
[2022-05-19 03:45] VITALS: BP 99/43; PULSE 91; RESP 15; TEMP 37.1; O2SAT 90
[2022-05-19 07:00] VITALS: BP 135/60; PULSE 90; RESP 16; TEMP 36.7; O2SAT 93
--- NOTE | 2022-05-19 07:32 | P.PN_ITS ---
Subjective Subjective Date Patient Seen: 05/19/22 Time Patient Seen: 07:33 Interval history: Patient had a non injury fall in the bathroom last evening. Obviously still very weak and unsteady on his feet. Modestly hypotensive although this is not outside of his usual range, he has a bit of a wide variability in blood pressures as an outpatient when in his usual steady state Also a tiny bit more hypoxic but not requiring any oxygen No real new complaints from patient No evidence of alcohol withdrawal, no shakiness no confusion disorientation or more significant CUSTOMER SERVICES COORDINATOR symptoms etcetera. Does seem maybe a bit sleepy/sedated. Perhaps due to the oxycodone given for his rib pain Exam Vital Signs (past 8 hours): - 05/18/22 23:40 05/19/22 03:45 Temperature 98.8 F 98.7 F Pulse Rate 92 H 91 H Respiratory Rate 20 15 Blood Pressure 122/51 L 99/43 L Pulse Oximetry 94 90 L Oxygen Flow Rate 0 0 Oxygen Delivery Method Room Air Oxygen Flow Rate 0 Objective Labs 05/18/22 05:12 05/18/22 05:12 [facility] Medical History Alcoholism Alcoholism in recovery (01/10/16) Atherosclerosis of [place] coronary artery of [place] heart without angina pectoris (12/22/14) Atrial flutter Depression (12/22/14) Essential hypertension (12/22/14) Former smoker (01/15/15) Generalized anxiety disorder History of radiation therapy Hx of adenomatous colonic polyps (12/22/10) Hyperlipidemia Lower urinary tract symptoms Malignant neoplasm of prostate (12/22/10) MRSA (methicillin resistant staph aureus) culture positive Paroxysmal atrial fibrillation (12/22/14) 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 Ground level fall with chest wall injuries and evidence of possible pulmonary contusion-patient appears to be relatively stable. Need to encourage deep breathing in use of incentive spirometry especially given the rib fractures etcetera. This is likely source of his very mild hypoxia Still quite weak and shaky on his feet and as per skilled therapies require residential placement at this time, which is not surprising 2. Hypertension-patient is somewhat hypotensive with limited oral intake. Perhaps some element of volume depletion. Continue off IV fluids at this point. Hold his hydrochlorothiazide and continue to monitor. I have also reduced his metoprolol by 50% to 25 mg once a day. Heart rate is increased slightly likely secondary to this 3. COPD-stable, despite rib fracture chest wall injury, continue to monitor 4. Disposition-patient will need placement in residential. At this point he is probably medically clear to go and can be discharged as soon as an accepting facility can be determined Quality VTE Deep Vein Thrombosis/Pulmonary Embolism Present on Admission: No
--- NOTE | 2022-05-19 08:34 | P.DS_ITS ---
History of Present Illness History of Present Illness Date Patient Seen: 05/19/22 Time Patient Seen: 08:34 Chief complaint: sent by [facility] Narrative: 77-year-old male well known to me with multiple medical problems admitted via emergency department after falling at home fracturing several ribs and being unsafe to go home. Not appear to have any more serious injuries after falling based on ER evaluation, which included cervical spine CT chest and head CT. Patient was hemodynamically stable etcetera. Patient not on chronic anticoagulation for his paroxysmal atrial fibrillation because of his issue with falls Patient with significant unsteadiness / instability on his feet likely secondary to multiple etiologies but primarily including his alcohol use disorder and long-term consequences of same Discharge Providers Provider Date of admission: 05/16/22 21:22 Discharge Date: 05/19/22 Primary care physician: Tim Pemberton MD Consults: 05/16/22 21:22 Consult to Physician Stat Comment: Consulting Provider: Abilio Siddiqi Reason for consultation: rib fractures trauma Has provider been notified: Yes 05/17/22 06:46 Consult to Discharge Planning Routine Comment: Consult to Physical Therapy Evaluate & Treat Comment: Physician Instructions: Evaluate and Treat 05/17/22 09:43 Consult to Occupational Therapy Evaluate & Treat Comment: Physician Instructions: Evaluate and treat Discharge provider: Tim Pemberton MD Summary Hospital Course Discharge Diagnosis: 1. Ground level fall 2. Multiple rib fractures left side 3. Pulmonary contusion secondary to fall and rib fractures, no hypoxia 4. Paroxysmal atrial fibrillation 5. COPD 6. Hypertension 7. Alcohol misuse disorder 8. Generalized anxiety disorder 9. Urinary retention requiring Castanon catheter placement Hospital Course: Patient after falling was evaluated emergency department as above. Multiple rib fractures and possible pulmonary contusion were noted. Patient was monitored in the hospital did not show evidence of complications related to these injuries He was seen by skilled therapy and felt to be quite unsteady unstable on his feet and would need placement in group home prior to discharge. Patient demonstrated this himself with a non injury fall while on the commode Patient was modestly hypotensive although time somewhat hypertensive which is usual pattern. Antihypertensive medications were modified slightly Patient's pain was controlled with intermittent oxycodone and there was some but minimal sedation secondary to this Patient showed no evidence of alcohol withdrawal during the status of his hospitalization Status at Discharge Cognitive/behavioral status at discharge: at baseline, oriented Functional status at discharge: uses cane/walker Overall status at discharge: patient is progressing back to baseline Time Spent with Patient Time spent: Greater than 30 minutes Exam Vital Signs (past 8 hours): - 05/19/22 03:45 05/19/22 07:00 Temperature 98.7 F 98.1 F Pulse Rate 91 H 90 Respiratory Rate 15 16 Blood Pressure 99/43 L 135/60 Pulse Oximetry 90 L 93 Oxygen Flow Rate 0 0 Oxygen Delivery Method Room Air Oxygen Flow Rate 0 Objective Labs 05/18/22 05:12 05/18/22 05:12 [facility] Medical History Alcoholism Alcoholism in recovery (01/10/16) Atherosclerosis of [place] coronary artery of [place] heart without angina pectoris (12/22/14) Atrial flutter Depression (12/22/14) Essential hypertension (12/22/14) Former smoker (01/15/15) Generalized anxiety disorder History of radiation therapy Hx of adenomatous colonic polyps (12/22/10) Hyperlipidemia Lower urinary tract symptoms Malignant neoplasm of prostate (12/22/10) MRSA (methicillin resistant staph aureus) culture positive Paroxysmal atrial fibrillation (12/22/14) 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 (12/22/14) Pulmonary emphysema (12/22/14) Tremor Urinary retention Surgical History History of angioplasty (10/06/14) Inguinal hernia Status post appendectomy Status post transurethral resection of prostate (~05/2016) Family History Mother Blood disease Hyperlipidemia Hypertension Hearing impairment Father Cancer Social History household members: spouse Smoking Status: Current every day smoker alcohol intake: current Discharge Assessment & Plan Assessment and Plan Plan of Treatment: Patient will be going to group home for continued rehabilitation prior to returning home Minor changes in patient's antihypertensive medication otherwise essentially no change in medication overall Discharge Plan Discharge Plan Patient Disposition: SNF Consult as needed: Dental, Hearing, Mental health, Podiatry and Vision Discharge orders & Medications Prescriptions: New nicotine 21 mg/24 hr Patch 24 Hour 21 mg topical DAILY Qty: 7 0RF metoprolol succinate 25 mg Tablet Extended Release 24 Hr 25 mg PO DAILY Qty: 60 0RF carbidopa-levodopa 25-100 mg Tablet 1 ea PO BEDTIME Qty: 30 0RF oxycodone 5 mg Tablet 5 mg PO Q3HR PRN (Reason: Pain, Moderate (4-6)) Qty: 10 0RF Spiriva with HandiHaler 18 mcg capsule, w/inhalation device 1 cap inhalation DAILY Qty: 30 0RF Rx Instructions: puncture 1 cap using device; one dose = 2 inhalations Continued atorvastatin 40 mg tablet 40 mg PO DAILY Qty: 90 0RF tamsulosin [Flomax] 0.4 mg capsule 0.4 mg PO BID Qty: 180 0RF mometasone 200 mcg/actuation HFA aerosol inhaler 2 puff INHALATION BID Qty: 39 3RF trazodone 50 mg tablet See Rx Instructions .ROUTE .COMPLEX Qty: 180 3RF Dose Instruction: TAKE 1 TO 2 TABLETS BY MOUTH AT BEDTIME NEEDED FOR SLEEP Rx Instructions: TAKE 2 TABLETS BY MOUTH AT BEDTIME NEEDED FOR SLEEP carbidopa-levodopa 50-200 mg tablet extended release 1 tab PO BID Qty: 180 3RF magnesium oxide 400 mg capsule 400 mg PO BID nitroglycerin 0.4 mg tablet, sublingual 0.4 mg SL Q5M PRN (Reason: chest pain) Qty: 60 3RF Rx Instructions: until response; do not exceed 3 doses per episode sertraline 100 mg tablet 100 mg PO DAILY hydrochlorothiazide 12.5 mg tablet 12.5 mg PO DAILY clonazepam 1 mg tablet 1 mg PO Q12H Qty: 60 3RF Discontinued metoprolol succinate 25 mg tablet extended release 24 hr 25 mg PO BID Qty: 180 3RF Follow up/Referrals: Tim Pemberton MD [Primary Care Provider] - Discharge Health Status Multidrug resistant organism: No MDRO Precautions: [place] Diet/Activity/Treatments Diet: Diet as Tolerated Liquid consistency: Normal/Thin Food texture: Regular Catheter: 2-way [facility] Reason for rehabilitation: Recovery r/t decondition Rehab type: Physical therapy and Occupational therapy Visit Report/Discharge Packet Stand Alone Forms: Patient Portal/API Discharge Data Primary Care Provider: Tim Pemberton Quality VTE Deep Vein Thrombosis/Pulmonary Embolism Present on Admission: No
[2022-05-19] MEDS: IPRATROPIUM 0.5 MG/2.5 ML NEB INH (10:06)
[2022-05-19] MEDS: BUDESONIDE 0.5 MG/2 ML NEB INH (10:07)
[2022-05-19 10:12] VITALS: PULSE 86; RESP 16; O2SAT 94
[2022-05-19] MEDS: NICOTINE 21 MG PATCH TOP (10:19)
[2022-05-19] MEDS: ENOXAPARIN 40 MG/0.4 ML SYRINGE SUBCUT (10:19)
[2022-05-19] MEDS: SERTRALINE 50 MG TABLET 100 MG PO (10:20)
[2022-05-19] MEDS: CARBIDOPA-LEVODOPA ER 50/200 TABLET 1 EACH PO (10:20)
[2022-05-19] MEDS: ATORVASTATIN 20 MG TABLET 40 MG PO (10:21)
[2022-05-19] MEDS: TAMSULOSIN 0.4 MG CAPSULE PO (10:21)
[2022-05-19] MEDS: MAGNESIUM OXIDE 400 MG TABLET PO (10:21)
[2022-05-19 11:00] VITALS: BP 114/65; PULSE 944; RESP 16; TEMP 36.9; O2SAT 94
--- NOTE | 2022-05-19 11:24 | CM.DPC ---
DCP Discharge SNF Per MD, pt stable for d/c to SNF. SW spoke to Jessenia at [facility] and she confirms she received the discharge packet and provided her with pt's height and weight and she confirms she has documentation needed for d/c and transport will be via cabulance around 1430 and no COVID swab needed. SAMMIE confirmed SPACE CONTROL AGENT and edger tailer aware of d/c to SNF today 1430. Plan: Patient to d/c to [facility] via facility van at 1430 before safe return home with spouse. CHERYL David
--- NOTE | 2022-05-19 11:24 | CM.DPNOTE ---
DC Note According to Dr Pemberton, patient ready for discharge to SNF today. Patient had a non traumatic fall yesterday, Dr Pemberton explains this has not changed patient's medical course and patient remains medically ready for DC Discussed w.spouse who places SNF choices as 1. [facility] 2. [facility] Spoke w/ Jessenia at [facility] and she has a bed today for patient, p/u scheduled for 1430 Spouse pleased w/this. MARIA E Abreu updated with time KEVIN Floyd and Isela Quiles kindly agree to take over this coordination- DC to [facility] today via their facility van. No COVID PCR needed JW
--- NOTE | 2022-05-19 12:07 | PC.NURSE ---
Patient is much more confused today then yesterday. He will be going to [facility] in [place] at 1430. He is talking about things that do not make sense and thinks that he is going to be picked up by a bus to go somewhere. Try to reorient patient and he doesnt understand. Explained that this Rn was going to give him pain medication for comfort before he goes and he stated that he didnt want pain meds. Explained the situation and he is more agreeable to take meds.
== END 2022-05-19 16:20 | DRG 206 ==
LOC: ED 20:39 → AC 22:05
PROVIDERS: Emergency Medicine; Admitting Provider Family Medicine; Emergency Provider Emergency Medicine; Family Provider Internal Medicine; PCP Internal Medicine; Visit Provider Internal Medicine
DX: S27.321A Contusion of lung, unilateral, initial encounter (principal); S22.42XA Multiple fractures of ribs, left side, initial encounter for closed fracture; F17.290 Nicotine dependence, other tobacco product, uncomplicated; I10 Essential (primary) hypertension; J44.9 Chronic obstructive pulmonary disease, unspecified; I25.10 Atherosclerotic heart disease of native coronary artery without angina pectoris; F10.90 Alcohol use, unspecified, uncomplicated; I48.0 Paroxysmal atrial fibrillation; I95.9 Hypotension, unspecified; F41.1 Generalized anxiety disorder; E78.5 Hyperlipidemia, unspecified; F32.A Depression, unspecified; G20 Parkinson's disease; W18.30XA Fall on same level, unspecified, initial encounter; Z91.81 History of falling; Z20.822 Contact with and (suspected) exposure to COVID-19
CPT/HCPCS: 36415; 70450; 71101; 71250; 72125; 80048; 80053; 81015; 82550; 82553; 83690; 83735; 84484; 85014; 85018; 85025; 85610; 85730; 87086; 87635; 93005; 93010; 94640; 94760; 96374; 96376; 97161; 97166; 97530; 99223; 99232; 99233; 99238; 99284; 99285; C9803; J1170; J1650; J2270

== ENCOUNTER 2022-07-05 15:25 | Emergency (ER) | payer MEDICARE, OTHER, SELFPAY ==
[2022-05-16 21:37] VITALS: BMI 23.7
[2022-07-05 16:10] VITALS: BP 124/61; PULSE 69; RESP 22; TEMP 36.6; O2SAT 97; BMI 21.4
[2022-07-05 19:53] VITALS: BP 169/74; PULSE 65; RESP 16; O2SAT 98
--- NOTE | 2022-07-05 19:59 | PC.NURSE ---
Patient got frustrated and mad earlier and cut his catheter off. assisted with removal of remainder. Patient has voided small amounts since arrival to ER.
--- NOTE | 2022-07-05 21:15 | PC.NURSE ---
patient voided large amount of urine. Able to tell when he needs to urinate. Does not feel like he is retaining at this time.
--- NOTE | 2022-07-05 21:26 | ED.MALEGU ---
HPI - Male Genitourinary General Chief complaint: Urogenital-Male Stated complaint: urinary retention, pulled out his catheter Time Seen by Provider: 07/05/22 21:26 Source: patient Mode of arrival: Wheelchair History of Present Illness HPI Narrative: Patient is 69-year-old male history of polio affected his left arm, Parkinson's disease hyperlipidemia, coronary artery disease presenting today with Castanon catheter issue. He fell in April broke multiple ribs was admitted to the hospital had Castanon catheter placed then spent 45 days in rehab facility. Castanon catheter had never been removed. Patient got tired of it took scissors and cut it. The balloon deflated was able to pull the rest of the Peace out of the penis. She thinks she got all of it there are no pieces left although she did not bring the catheter in with her. Patient has since voided multiple times in a brief. He is not any more confused there is no fever no abdominal pain or other symptoms Related Data Home Medications Medication Instructions Recorded Confirmed magnesium oxide 400 mg PO BID 12/27/17 05/16/22 sertraline 100 mg tablet 100 mg PO DAILY 06/07/21 05/16/22 hydrochlorothiazide 12.5 mg tablet 12.5 mg PO DAILY 09/06/21 05/16/22 Previous Rx's Medication Instructions Recorded atorvastatin 40 mg tablet 40 mg PO DAILY #90 tabs 10/16/19 tamsulosin 0.4 mg capsule (Flomax) 0.4 mg PO BID #180 caps 10/16/19 mometasone 200 mcg/actuation HFA 2 puff inhalation BID #39 grams 04/13/20 aerosol inhaler nitroglycerin 0.4 mg sublingual 0.4 mg sublingual Q5M PRN chest 11/16/20 tablet pain #60 tabs carbidopa ER 50 mg-levodopa 200 mg 1 tab PO BID #180 tabs 02/14/22 tablet,extended release carbidopa 25 mg-levodopa 100 mg 1 ea PO BEDTIME #30 tabs 05/19/22 tablet clonazepam 1 mg tablet 1 mg PO Q12H #60 tabs 05/19/22 metoprolol succinate 25 mg 25 mg PO DAILY #60 tabs 05/19/22 tablet,extended release 24 hr nicotine 21 mg/24 hr daily 21 mg topical DAILY #7 ea 03/03/23 transdermal patch oxycodone 5 mg tablet 5 mg PO Q3HR PRN Pain, Moderate 05/19/22 (4-6) #10 tabs tiotropium bromide 18 mcg capsule 1 cap inhalation DAILY #30 05/19/22 with inhalation device (Spiriva inhalations with HandiHaler) trazodone 50 mg tablet See Rx Instructions .Route 06/05/22 .COMPLEX #180 tabs Disabled Parking #1 ea 06/26/22 Allergies Allergy/AdvReac Type Severity Reaction Status Date / Time No Known Drug Allergies Allergy Verified 05/16/22 15:43 Review of Systems Review of Systems ROS Unobtainable: All systems reviewed & are unremarkable except as noted in HPI and below Patient History Medical History Alcoholism Alcoholism in recovery (01/10/16) Atherosclerosis of [place] coronary artery of [place] heart without angina pectoris (12/22/14) Atrial flutter Depression (12/22/14) Essential hypertension (12/22/14) Former smoker (01/15/15) Generalized anxiety disorder History of radiation therapy Hx of adenomatous colonic polyps (12/22/10) Hyperlipidemia Lower urinary tract symptoms Malignant neoplasm of prostate (12/22/10) MRSA (methicillin resistant staph aureus) culture positive Paroxysmal atrial fibrillation (12/22/14) 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 (12/22/14) Pulmonary emphysema (12/22/14) Tremor Urinary retention Surgical History History of angioplasty (10/06/14) Inguinal hernia Status post appendectomy Status post transurethral resection of prostate (~05/2016) Family History Mother Blood disease Hyperlipidemia Hypertension Hearing impairment Father Cancer Social History household members: spouse Smoking Status: Current every day smoker alcohol intake: current Smoking Status: Current every day smoker tobacco type: cigarettes and e-cigarettes alcohol intake frequency: 0-2 drinks per day Substance Use Type: does not use Exam Initial Vital Signs Initial Vital Signs: Vital Signs Temperature 98 F 07/05/22 16:10 Pulse Rate 69 07/05/22 16:10 Respiratory Rate 22 07/05/22 16:10 Blood Pressure 124/61 07/05/22 16:10 Pulse Oximetry 97 07/05/22 16:10 Oxygen Delivery Method Room Air 07/05/22 16:10 GENERAL: Alert pleasant 77-year-old male CARDIOVASCULAR: peripheral pulses in tact, cap refill <2 sec RESPIRATORY: No respiratory distress, speaks in full sentences without difficulty ABDOMEN: Soft, nontender, no guarding or rebound EXTREMITIES: Normal range of motion, no clubbing or edema. Neurovascularly intact NEUROLOGICAL: Cranial nerves II through XII grossly intact. Normal gait and speech. SKIN: Warm, dry, no petechiae, no rashes or lesions. Course Vital Signs Vital signs: Vital Signs - 8 hr 07/05/22 21:42 Pulse Rate 78 Respiratory Rate 12 Blood Pressure 149/78 H Pulse Oximetry 97 Oxygen Delivery Method Room Air MDM - Male Genitourinary MDM Narrative Medical decision making narrative: Patient is a 77-year-old male who had Castanon catheter placed try admission. He is voiding without it now multiple times. No need to replace the catheter. They have an appointment with Dr. Krishnamurthy urology next week. He is afebrile normal vitals no evidence of infection Discharge Plan Departure Patient Disposition: Home Clinical Impression: Urinary incontinence Instructions: Urinary Incontinence -- Male Activity Restrictions/Additional Instructions: *You have been diagnosed with urinary incontinence *What to do: At this time keep depends on commode at bedside. No need to reinsert Castanon catheter. *Continue to take medications as directed *Follow up with your primary care provider in 2-3 days or call [phone] Follow-up with Dr. Krishnamurthy as scheduled next week *Return to ER if you should have increased confusion weakness, fever or any new, worsening or concerning symptoms Prescriptions: No Action atorvastatin 40 mg tablet 40 mg PO DAILY Qty: 90 0RF tamsulosin [Flomax] 0.4 mg capsule 0.4 mg PO BID Qty: 180 0RF mometasone 200 mcg/actuation HFA aerosol inhaler 2 puff INHALATION BID Qty: 39 3RF carbidopa-levodopa 50-200 mg tablet extended release 1 tab PO BID Qty: 180 3RF trazodone 50 mg tablet See Rx Instructions .ROUTE .COMPLEX Qty: 180 3RF Dose Instruction: TAKE 1 TO 2 TABLETS BY MOUTH AT BEDTIME NEEDED FOR SLEEP Rx Instructions: TAKE 2 TABLETS BY MOUTH AT BEDTIME NEEDED FOR SLEEP (DME) Disabled Parking See Rx Instructions .ROUTE .MEDSUPPLY Qty: 1 0RF Rx Instructions: Patient qualifies for disabled parking as per the attached form. magnesium oxide 400 mg capsule 400 mg PO BID nitroglycerin 0.4 mg tablet, sublingual 0.4 mg SL Q5M PRN (Reason: chest pain) Qty: 60 3RF Rx Instructions: until response; do not exceed 3 doses per episode sertraline 100 mg tablet 100 mg PO DAILY hydrochlorothiazide 12.5 mg tablet 12.5 mg PO DAILY nicotine 21 mg/24 hr Patch 24 Hour 21 mg topical DAILY Qty: 7 0RF metoprolol succinate 25 mg Tablet Extended Release 24 Hr 25 mg PO DAILY Qty: 60 0RF carbidopa-levodopa 25-100 mg Tablet 1 ea PO BEDTIME Qty: 30 0RF oxycodone 5 mg Tablet 5 mg PO Q3HR PRN (Reason: Pain, Moderate (4-6)) Qty: 10 0RF clonazepam 1 mg tablet 1 mg PO Q12H Qty: 60 3RF Spiriva with HandiHaler 18 mcg capsule, w/inhalation device 1 cap inhalation DAILY Qty: 30 0RF Rx Instructions: puncture 1 cap using device; one dose = 2 inhalations Referrals: Tim Pemberton MD [Primary Care Provider] - Ladarius Krishnamurthy MD [Physician] - Stand Alone Forms: Patient Portal/API
[2022-07-05 21:42] VITALS: BP 149/78; PULSE 78; RESP 12; O2SAT 97
== END 2022-07-05 21:43 | disposition home or self-care (01) ==
PROVIDERS: Emergency Provider Emergency Medicine; Family Provider Internal Medicine; PCP Internal Medicine
DX: R32 Unspecified urinary incontinence (principal)
CPT/HCPCS: 51798; 99282

== ENCOUNTER → 2022-07-07 12:51 | Outpatient (CLI) | payer MEDICARE, OTHER, SELFPAY ==
[2022-05-16 21:37] VITALS: BMI 23.7
[2022-07-07 15:17] LABS: Prostate Specific Antigen 0.603 ng/mL (0.10-4.00)
== END ==
PROVIDERS: Family Provider Internal Medicine; PCP Internal Medicine; Referring Provider Urology; Visit Provider Urology
DX: C61 Malignant neoplasm of prostate (principal)
CPT/HCPCS: 36415; 84153

== ENCOUNTER 2022-07-08 21:56 | Emergency (ER) | payer MEDICARE, OTHER, SELFPAY ==
[2022-05-16 21:37] VITALS: BMI 23.7
[2022-07-08 22:01] VITALS: BP 115/64; PULSE 88; RESP 18; TEMP 36.9; O2SAT 98; BMI 23.2
--- NOTE | 2022-07-08 23:00 | ED_ITS ---
HPI - Fall General Chief Complaint: Fall Stated Complaint: multiple falls Time Seen by Provider: 07/08/22 22:47 Source: patient, family and EMS Mode of arrival: EMS History of Present Illness HPI Narrative: Patient is a 77-year-old male. Has history of restless leg. Is on carbidopa levodopa. His states that he is never had a formal diagnosis of Parkinson's disease. Has issues with balance. He did spend an extended period time in a rehab/nursing facility where the states that he kept falling. He is now home. Living with his . Falls frequently. This does seem to be balance issues not syncopal episodes. He did fall this evening. Sustained a skin tear to the back of his right hand and cut to his forehead. Patient reports no specific orthopedic complaints. No neck pain. He is not on anticoagulation. Related Data Home Medications Medication Instructions Recorded Confirmed magnesium oxide 400 mg PO BID 12/27/17 05/16/22 sertraline 100 mg tablet 100 mg PO DAILY 06/07/21 05/16/22 hydrochlorothiazide 12.5 mg tablet 12.5 mg PO DAILY 09/06/21 05/16/22 Previous Rx's Medication Instructions Recorded atorvastatin 40 mg tablet 40 mg PO DAILY #90 tabs 10/16/19 tamsulosin 0.4 mg capsule (Flomax) 0.4 mg PO BID #180 caps 10/16/19 mometasone 200 mcg/actuation HFA 2 puff inhalation BID #39 grams 04/13/20 aerosol inhaler nitroglycerin 0.4 mg sublingual 0.4 mg sublingual Q5M PRN chest 11/16/20 tablet pain #60 tabs carbidopa ER 50 mg-levodopa 200 mg 1 tab PO BID #180 tabs 02/14/22 tablet,extended release carbidopa 25 mg-levodopa 100 mg 1 ea PO BEDTIME #30 tabs 05/19/22 tablet clonazepam 1 mg tablet 1 mg PO Q12H #60 tabs 05/19/22 metoprolol succinate 25 mg 25 mg PO DAILY #60 tabs 05/19/22 tablet,extended release 24 hr nicotine 21 mg/24 hr daily 21 mg topical DAILY #7 ea 05/19/22 transdermal patch oxycodone 5 mg tablet 5 mg PO Q3HR PRN Pain, Moderate 05/19/22 (4-6) #10 tabs tiotropium bromide 18 mcg capsule 1 cap inhalation DAILY #30 05/19/22 with inhalation device (Spiriva inhalations with HandiHaler) trazodone 50 mg tablet See Rx Instructions .Route 06/05/22 .COMPLEX #180 tabs Disabled Parking #1 ea 06/26/22 Allergies Allergy/AdvReac Type Severity Reaction Status Date / Time No Known Drug Allergies Allergy Verified 07/08/22 22:01 Review of Systems Constitutional Constitutional: Reports system reviewed and no additional complaints, except as documented Respiratory Respiratory: Reports system reviewed and no additional complaints, except as documented Gastrointestinal Gastrointestinal: Reports system reviewed and no additional complaints, except as documented Musculoskeletal Musculoskeletal: Reports system reviewed and no additional complaints, except as documented Integumentary/Breasts Skin/Breast: Reports system reviewed and no additional complaints, except as documented Neurologic Neurologic: Reports system reviewed and no additional complaints, except as documented Hematologic/Lymphatic On Anticoagulants: No Patient History Medical History Alcoholism Alcoholism in recovery (01/10/16) Atherosclerosis of [place] coronary artery of [place] heart without angina pectoris (12/22/14) Atrial flutter Depression (12/22/14) Essential hypertension (12/22/14) Former smoker (01/15/15) Generalized anxiety disorder History of radiation therapy Hx of adenomatous colonic polyps (12/22/10) Hyperlipidemia Lower urinary tract symptoms Malignant neoplasm of prostate (12/22/10) MRSA (methicillin resistant staph aureus) culture positive Paroxysmal atrial fibrillation (12/22/14) 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 (12/22/14) Pulmonary emphysema (12/22/14) Tremor Urinary retention Surgical History History of angioplasty (10/06/14) Inguinal hernia Status post appendectomy Status post transurethral resection of prostate (~05/2016) Family History Mother Blood disease Hyperlipidemia Hypertension Hearing impairment Father Cancer Social History household members: spouse Smoking Status: Current every day smoker alcohol intake: current Smoking Status: Current every day smoker tobacco type: cigarettes and e-cigarettes alcohol intake frequency: 0-2 drinks per day Substance Use Type: does not use Exam Initial Vital Signs Initial Vital Signs: Vital Signs Temperature 98.5 F 07/08/22 22:01 Pulse Rate 88 07/08/22 22:01 Respiratory Rate 18 07/08/22 22:01 Blood Pressure 115/64 07/08/22 22:01 Pulse Oximetry 98 07/08/22 22:01 Oxygen Delivery Method Room Air 07/08/22 22:01 [facility] Head: contusion and laceration Face and sinus: normal facial exam Mouth: oral mucosae normal Chest Chest: No tenderness Resp Effort & Inspection: normal respiratory effort Auscultation: clear to auscultation bilaterally Cardio Rate: regular rate Rhythm: abnormal rhythm Skin Other: The patient has a skin tear to the dorsum of his right hand. He also has a 2 cm laceration to his forehead right at the hairline in midline Neuro General: patient alert, patient awake and moves all extremities Extrem General: capillary refill normal Procedures Laceration Repair Laceration 1: Site: other (Forehead) Size (cm): 2 Description: linear Depth: simple, single layer Local Anesthetic: lidocaine 1% Amount of anesthesia used (mL): 3 Pre-repair: wound explored and deep structures intact Skin layer closed with: nylon Skin layer suture size: 4-0 Number of sutures: 3 Technique: simple, interrupted Course Orders Ordered: ED Orders 07/08/22 23:01 CT head/brain wo con Stat 07/08/22 23:07 Urine Culture Stat Urine Microscopic Stat Discontinued Medications Bacitracin (Bacitracin Oint 0.9 Gm Pckt) 1 applic TOP NOW ONE Stop: 07/08/22 23:02 Last Admin: 07/09/22 00:16 Dose: 1 applic Documented By: PAULETTE Vital Signs Vital signs: Vital Signs - 8 hr 07/08/22 22:01 Temperature 98.5 F Pulse Rate 88 Respiratory Rate 18 Blood Pressure 115/64 Pulse Oximetry 98 Oxygen Delivery Method Room Air - Fall Lab Data Attestation: I reviewed the patient's lab results. Labs: Lab Results 07/08/22 Range/Units 23:07 Urine RBC 1-5/hpf (0-5/HPF) Urine WBC 10-30/hpf H (0-5/HPF) Urine Bacteria Moderate (10-30) H (None) Ur Culture Indicated? Specimen cultured Urine Dip Bedside Urine Glucose Negative Bedside Urine Bilirubin - Negative Bedside Urine Ketone +/- 5 Urine Specific [place] 1.015 Bedside Urine Occult Blood + Bedside Urine pH 6.0 Bedside Urine Protein +/- 15 Bedside Urine Urobilinogen - Negative Bedside Urine Nitrite - Negative Bedside Urine Leukocytes + 70 Esterase Imaging Data Chest x-ray: Radiologist's Impression: PROCEDURE:? CT HEAD/BRAIN WO CON ? INDICATIONS:? multiple falls with head injury ? TECHNIQUE:? Noncontrast 4.5 mm thick angled axial sections acquired from the foramen magnum to the vertex, with coronal and sagittal reformats.? For radiation dose reduction, the following was used:? automated exposure control, adjustment of mA and/or kV according to patient size.? ? COMPARISON:? [facility], CT, CT HEAD/BRAIN WO CON, 06/16/2018, 1:31.? [facility], CT, CT HEAD/BRAIN WO CON, 05/16/2022, 16:00. ? FINDINGS:? Image quality:? Excellent.? ? CSF spaces:? Basal cisterns are patent.? No extra-axial fluid collections.? The ventricles are symmetric in size and shape.? ? Brain:? No intracranial bleeds or masses.? There is cerebral volume loss for age, with resultant ventricular and sulcal prominence.? There are periventricular and deep white matter chronic small vessel ischemic changes.? There is intracranial internal carotid artery atherosclerosis.? ? Skull and face:? Calvarium and visualized facial bones appear intact, without suspicious lesions.? ? Sinuses:? Visualized sinuses and mastoids are clear.? ? ? IMPRESSION:? No acute intracranial hemorrhage or other acute intracranial abnormality can be seen.? Stable from prior. ? Note is made of age-appropriate brain parenchymal volume loss and chronic small vessel ischemic changes. [facility] Narrative Medical decision making narrative: Forehead laceration was closed as described above. The skin tear to the back of his hand was cleaned and covered with topical antibiotic ointment. Head CT is unremarkable. The falls that he has been having do not seem to be new in his having some fairly significant issues with balance. He does have a walker at. Does not report any pelvic pain or other extremity injuries. Will discharge patient home with return precautions care instructions. He was discharged home with his . They both expressed understanding and agreement. Discharge Plan Departure Patient Disposition: Home Clinical Impression: Skin tear of right hand without complication, Forehead laceration, Multiple falls Instructions: How to Prevent Falls Activity Restrictions/Additional Instructions: The stitches that replacing your forehead do need to be removed in the next 7-10 days. You can either do this at the walk-in clinic or your primary doctor. Until then you can bathe like normal. You can put topical antibiotic ointment over the stitches and also over the skin tear of your right hand. I do recommend that you follow-up with your primary doctor. Return to the emergency department for new or worsening symptoms. Prescriptions: No Action atorvastatin 40 mg tablet 40 mg PO DAILY Qty: 90 0RF tamsulosin [Flomax] 0.4 mg capsule 0.4 mg PO BID Qty: 180 0RF mometasone 200 mcg/actuation HFA aerosol inhaler 2 puff INHALATION BID Qty: 39 3RF carbidopa-levodopa 50-200 mg tablet extended release 1 tab PO BID Qty: 180 3RF trazodone 50 mg tablet See Rx Instructions .ROUTE .COMPLEX Qty: 180 3RF Dose Instruction: TAKE 1 TO 2 TABLETS BY MOUTH AT BEDTIME NEEDED FOR SLEEP Rx Instructions: TAKE 2 TABLETS BY MOUTH AT BEDTIME NEEDED FOR SLEEP (DME) Disabled Parking See Rx Instructions .ROUTE .MEDSUPPLY Qty: 1 0RF Rx Instructions: Patient qualifies for disabled parking as per the attached form. magnesium oxide 400 mg capsule 400 mg PO BID nitroglycerin 0.4 mg tablet, sublingual 0.4 mg SL Q5M PRN (Reason: chest pain) Qty: 60 3RF Rx Instructions: until response; do not exceed 3 doses per episode sertraline 100 mg tablet 100 mg PO DAILY hydrochlorothiazide 12.5 mg tablet 12.5 mg PO DAILY nicotine 21 mg/24 hr Patch 24 Hour 21 mg topical DAILY Qty: 7 0RF metoprolol succinate 25 mg Tablet Extended Release 24 Hr 25 mg PO DAILY Qty: 60 0RF carbidopa-levodopa 25-100 mg Tablet 1 ea PO BEDTIME Qty: 30 0RF oxycodone 5 mg Tablet 5 mg PO Q3HR PRN (Reason: Pain, Moderate (4-6)) Qty: 10 0RF clonazepam 1 mg tablet 1 mg PO Q12H Qty: 60 3RF Spiriva with HandiHaler 18 mcg capsule, w/inhalation device 1 cap inhalation DAILY Qty: 30 0RF Rx Instructions: puncture 1 cap using device; one dose = 2 inhalations Referrals: Tim Pemberton MD [Primary Care Provider] - Stand Alone Forms: Patient Portal/API
--- NOTE | 2022-07-08 23:01 | DI.CT.S_ITS ---
PROCEDURE: CT HEAD/BRAIN WO CON INDICATIONS: multiple falls with head injury TECHNIQUE: Noncontrast 4.5 mm thick angled axial sections acquired from the foramen magnum to the vertex, with coronal and sagittal reformats. For radiation dose reduction, the following was used: automated exposure control, adjustment of mA and/or kV according to patient size. COMPARISON: [facility], CT, CT HEAD/BRAIN WO CON, 06/16/2018, 1:31. [facility], CT, CT HEAD/BRAIN WO CON, 05/16/2022, 16:00. FINDINGS: Image quality: Excellent. CSF spaces: Basal cisterns are patent. No extra-axial fluid collections. The ventricles are symmetric in size and shape. Brain: No intracranial bleeds or masses. There is cerebral volume loss for age, with resultant ventricular and sulcal prominence. There are periventricular and deep white matter chronic small vessel ischemic changes. There is intracranial internal carotid artery atherosclerosis. Skull and face: Calvarium and visualized facial bones appear intact, without suspicious lesions. Sinuses: Visualized sinuses and mastoids are clear. IMPRESSION: No acute intracranial hemorrhage or other acute intracranial abnormality can be seen. Stable from prior. Note is made of age-appropriate brain parenchymal volume loss and chronic small vessel ischemic changes. Dictated by: Colt Cazares M.D. on 07/08/2022 at 22:21 Approved by: Colt Cazares M.D. on 07/08/2022 at 22:23
[2022-07-08 23:35] LABS: RBC Urine 1-5/HPF (0-5/HPF); WBC Urine 10-30/HPF (0-5/HPF)
[2022-07-08 23:36] LABS: Bacteria Urine Moderate (10-30); Culture Indicated Urine Specimen Cultured
[2022-07-09] MEDS: BACITRACIN OINT 0.9 GM PCKT 1 APPLIC TOP (00:16)
== END 2022-07-09 00:28 | disposition home or self-care (01) ==
PROVIDERS: Emergency Provider Emergency Medicine; Family Provider Internal Medicine; PCP Internal Medicine
DX: S01.81XA Laceration without foreign body of other part of head, initial encounter (principal); S61.411A Laceration without foreign body of right hand, initial encounter; S09.90XA Unspecified injury of head, initial encounter; G20 Parkinson's disease; R29.6 Repeated falls; W18.30XA Fall on same level, unspecified, initial encounter
CPT/HCPCS: 12011; 70450; 81003; 81015; 87077; 87086; 87186; 99283; 99284

== ENCOUNTER → 2022-07-13 14:59 | Outpatient (CLI) | payer MEDICARE, OTHER, SELFPAY ==
[2022-05-16 21:37] VITALS: BMI 23.7
== END ==
PROVIDERS: Family Provider Internal Medicine; PCP Internal Medicine; Visit Provider Urology
DX: C61 Malignant neoplasm of prostate (principal); N39.498 Other specified urinary incontinence; N30.00 Acute cystitis without hematuria; R39.9 Unspecified symptoms and signs involving the genitourinary system; Z87.898 Personal history of other specified conditions; Z87.891 Personal history of nicotine dependence
CPT/HCPCS: 51798; 81002; 87086; 99214

== ENCOUNTER 2022-07-17 10:17 | Emergency (ER) | payer MEDICARE, OTHER, SELFPAY ==
[2022-05-16 21:37] VITALS: BMI 23.7
[2022-07-17] VITALS (9 sets, daily range): BP systolic 105–138; BP diastolic 54–64; PULSE 57–61; RESP 14–16; TEMP 36.6; O2SAT 96–99
--- NOTE | 2022-07-17 10:37 | DI.RAD.S_ITS ---
PROCEDURE: XR RIBS RT MIN 3V W CXR 1V INDICATIONS: unwit fall TECHNIQUE: 3 views of the right ribs were acquired, along with a single view chest. COMPARISON: [facility], CR, XR RIBS LT MIN 3V W CXR1V, 05/16/2022, 15:52. [facility], CT, CT CHEST WO CON, 05/16/2022, 19:02. FINDINGS: Surgical changes and devices: None. Bones and chest wall: There are acute, mildly displaced right 8th, 9th and 10th rib fractures. Old left inferior rib fractures noted. Left hemidiaphragm eventration and bibasilar atelectasis. No suspicious bony lesions. Overlying soft tissues appear unremarkable. Lungs and pleura: No pleural effusions or pneumothorax. Lungs appear clear. Mediastinum: Mediastinal contours appear normal. Heart size is normal. IMPRESSION: 1. Acute, mildly displaced right 8th, 9th and 10th rib fractures. Dictated by: Vicki Tran M.D. on 07/17/2022 at 12:24 Approved by: Vicki Tran M.D. on 07/17/2022 at 12:27
--- NOTE | 2022-07-17 12:10 | ED_ITS ---
HPI - General Adult General Chief complaint: Trauma Stated complaint: fall, poss broken ribs Time Seen by Provider: 07/17/22 11:39 Source: patient and family Mode of arrival: Wheelchair Limitations: no limitations History of Present Illness HPI narrative: Patient is a 77-year-old male. Has a history of shaking episodes but no diagnosis of Parkinson's disease. Does fall frequently. Does not have syncopal episodes just loses his balance. He did have an unwitnessed fall this morning although the patient states that he fell because he just lost his balance. He was not having chest pain or shortness of breath. He is here because he is having pain to his right ribs. No abdominal pain. No upper lower extremity pain. He also states he is pain to the right side of his neck. Some question as whether not this is new or old although it is tender to the touch. He is taking all of his medications as directed. Patient's family is at bedside and did provide some of the HPI. Related Data Home Medications Medication Instructions Recorded Confirmed magnesium oxide 400 mg PO BID 12/27/17 07/13/22 sertraline 100 mg tablet 100 mg PO DAILY 06/07/21 07/13/22 hydrochlorothiazide 12.5 mg tablet 12.5 mg PO DAILY 09/06/21 07/13/22 Previous Rx's Medication Instructions Recorded atorvastatin 40 mg tablet 40 mg PO DAILY #90 tabs 10/16/19 tamsulosin 0.4 mg capsule (Flomax) 0.4 mg PO BID #180 caps 10/16/19 mometasone 200 mcg/actuation HFA 2 puff inhalation BID #39 grams 04/13/20 aerosol inhaler nitroglycerin 0.4 mg sublingual 0.4 mg sublingual Q5M PRN chest 11/16/20 tablet pain #60 tabs carbidopa ER 50 mg-levodopa 200 mg 1 tab PO BID #180 tabs 02/14/22 tablet,extended release carbidopa 25 mg-levodopa 100 mg 1 ea PO BEDTIME #30 tabs 05/19/22 tablet clonazepam 1 mg tablet 1 mg PO Q12H #60 tabs 05/19/22 metoprolol succinate 25 mg 25 mg PO DAILY #60 tabs 05/19/22 tablet,extended release 24 hr nicotine 21 mg/24 hr daily 21 mg topical DAILY #7 ea 05/19/22 transdermal patch oxycodone 5 mg tablet 5 mg PO Q3HR PRN Pain, Moderate 05/19/22 (4-6) #10 tabs tiotropium bromide 18 mcg capsule 1 cap inhalation DAILY #30 05/19/22 with inhalation device (Spiriva inhalations with HandiHaler) trazodone 50 mg tablet See Rx Instructions .Route 06/05/22 .COMPLEX #180 tabs Disabled Parking #1 ea 06/26/22 ciprofloxacin HCl 500 mg tablet 500 mg PO BID #14 tabs 07/12/22 (Cipro) ciprofloxacin HCl 500 mg tablet 500 mg PO BID #20 tabs 07/13/22 Allergies Allergy/AdvReac Type Severity Reaction Status Date / Time No Known Drug Allergies Allergy Verified 07/13/22 14:28 Review of Systems Constitutional Constitutional: Reports system reviewed and no additional complaints, except as documented Cardiovascular Cardiovascular: Reports system reviewed and no additional complaints, except as documented Respiratory Respiratory: Reports system reviewed and no additional complaints, except as documented Gastrointestinal Gastrointestinal: Reports system reviewed and no additional complaints, except as documented Integumentary/Breasts Skin/Breast: Reports system reviewed and no additional complaints, except as documented Neurologic Neurologic: Reports system reviewed and no additional complaints, except as documented Hematologic/Lymphatic On Anticoagulants: No Patient History Medical History Alcoholism Alcoholism in recovery (01/10/16) Atherosclerosis of [place] coronary artery of [place] heart without angina pectoris (12/22/14) Atrial flutter Depression (12/22/14) Essential hypertension (12/22/14) Former smoker (01/15/15) Generalized anxiety disorder History of radiation therapy History of urinary retention Hx of adenomatous colonic polyps (12/22/10) Hyperlipidemia Lower urinary tract symptoms Malignant neoplasm of prostate (12/22/10) MRSA (methicillin resistant staph aureus) culture positive Paroxysmal atrial fibrillation (12/22/14) 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 (12/22/14) Pulmonary emphysema (12/22/14) Tremor Urinary retention Surgical History History of angioplasty (10/06/14) Inguinal hernia Status post appendectomy Status post transurethral resection of prostate (~05/2016) Family History Mother Blood disease Hyperlipidemia Hypertension Hearing impairment Father Cancer Social History household members: spouse Smoking Status: Current every day smoker alcohol intake: current Smoking Status: Current every day smoker tobacco type: cigarettes and e-cigarettes alcohol intake frequency: 0-2 drinks per day Substance Use Type: does not use Exam Initial Vital Signs Initial Vital Signs: Vital Signs Temperature 97.8 F 07/17/22 10:22 Pulse Rate 57 L 07/17/22 10:22 Respiratory Rate 14 07/17/22 10:22 Blood Pressure 105/54 L 07/17/22 10:22 Pulse Oximetry 99 07/17/22 10:22 Oxygen Delivery Method Room Air 07/17/22 10:22 Const General: cooperative, comfortable and No ill appearing HENMT Head: laceration (Well-healed laceration to forehead) Chest Other: Tenderness to palpation right lower ribs Resp Effort & Inspection: normal respiratory effort Auscultation: clear to auscultation bilaterally Cardio Rate: regular rate Rhythm: regular rhythm GI Inspection: normal to inspection and non-distended Back/Spine/Pelvis Cervical Spine: cervical muscular tenderness and No cervical spinal tenderness Skin Other: Well-healed laceration to forehead with [address] Neuro General: patient alert, patient awake and moves all extremities Extrem Other: Full range of motion of all 4 extremities. Pelvis is stable. Course Orders Ordered: ED Orders 07/17/22 10:37 XR ribs RT min 3V w CXR1V Stat 07/17/22 12:10 CT cervical spine wo con Stat Vital Signs Vital signs: Vital Signs - 8 hr 07/17/22 10:22 07/17/22 10:31 07/17/22 10:36 Temperature 97.8 F Pulse Rate 57 L 60 Respiratory Rate 14 Blood Pressure 105/54 L 112/58 L Pulse Oximetry 99 98 Oxygen Delivery Method Room Air Room Air 07/17/22 11:02 07/17/22 11:30 07/17/22 12:00 Temperature Pulse Rate 59 L 60 59 L Respiratory Rate Blood Pressure Pulse Oximetry 99 96 96 Oxygen Delivery Method 07/17/22 12:22 07/17/22 12:22 07/17/22 12:30 Temperature Pulse Rate 60 Respiratory Rate Blood Pressure 138/64 120/56 L Pulse Oximetry 98 Oxygen Delivery Method 07/17/22 12:30 07/17/22 13:00 Temperature Pulse Rate 61 57 L Respiratory Rate 16 Blood Pressure Pulse Oximetry 97 97 Oxygen Delivery Method Room Air Room Air Medical Decision Making Imaging Data rib x-ray: Radiologist's Impression: PROCEDURE:? XR RIBS RT MIN 3V W CXR 1V ? INDICATIONS:? unwit fall ? TECHNIQUE:? 3 views of the right ribs were acquired, along with a single view chest.? ? COMPARISON:? [facility], CR, XR RIBS LT MIN 3V W CXR1V, 05/16/2022, 15:52.? [facility], CT, CT CHEST WO CON, 05/16/2022, 19:02. ? FINDINGS:? ? Surgical changes and devices:? None.? ? Bones and chest wall:? There are acute, mildly displaced right 8th, 9th and 10th rib fractures.? Old left inferior rib fractures noted.? Left hemidiaphragm eventration and bibasilar atelectasis.? No suspicious bony lesions.? Overlying soft tissues appear unremarkable.? ? Lungs and pleura:? No pleural effusions or pneumothorax.? Lungs appear clear.? ? Mediastinum:? Mediastinal contours appear normal.? Heart size is normal.? ? IMPRESSION:? ? 1. Acute, mildly displaced right 8th, 9th and 10th rib fractures. CT - cervical spine: Radiologist's Impression: PROCEDURE:? CT CERVICAL SPINE WO CON ? INDICATIONS:? R paraspinal pain after fall ? TECHNIQUE:? Noncontrast 3 mm thick sections acquired from the skull base to the T4 level.? Sagittal and coronal reformats were then constructed.? For radiation dose reduction, the following was used:? automated exposure control, adjustment of mA and/or kV according to patient size.? ? COMPARISON:? [facility], CT, CT CERVICAL SPINE WO CON, 05/16/2022, 19:02. ? FINDINGS:? Image quality:? There are significant motion artifacts.? ? Bones:? No fractures or dislocations.? There is grade 1 anterolisthesis of C3 on C4 and trace retrolisthesis of C4 on C5.? Degenerative disc disease, [id number] at C4-C5, C5-C6 and C6-C7.? Bilateral facet arthropathy, most pronounced at C2-C3 bilaterally and C3-C4 on the left.? Moderate atlantoaxial joint degeneration.? Visualized superior ribs are intact.? ? Soft tissues:? Prevertebral soft tissues are normal in thickness.? No paravertebral hematomas.? No apical pneumothoraces.? Severe atherosclerotic calcifications of the carotid arteries bilaterally and aorta. ? ? IMPRESSION:? ? 1. No cervical spine fractures.? 2. Degenerative changes as described. MDM Narrative Medical decision making narrative: The 3 stitches in his forehead was removed. The wound is well healing. He does have 3 right-sided rib fractures which I assume is from his most recent fall. The underlying lung is unremarkable. He is tolerating the discomfort fairly well. His cervical spine CT is unremarkable. His pain is actually paraspinal but given his age in his multiple falls the CT scan was ordered. We did discuss the rib fractures. It was in agreement from the patient and his family bedside myself that sending him home on opioid pain medications would not be the best given his unsteadiness at baseline. He understands he can take Tylenol. We did discuss the importance of returning for potential worsening issues such as pneumonia. He will continue to take the rest of his medications as directed. Both he and his family at bedside expressed understanding and agreement this plan. Discharge Plan Departure Patient Disposition: Home Clinical Impression: Multiple rib fractures Instructions: DI for Rib Fracture Activity Restrictions/Additional Instructions: You do have 3 rib fractures on the right side. Unfortunately this diagnosis is uncomfortable. You can take Tylenol for discomfort to try to control this as much as possible. I do recommend you keep your appointment with your primary doctor tomorrow. Return to the emergency department for new or worsening symptoms. Prescriptions: No Action atorvastatin 40 mg tablet 40 mg PO DAILY Qty: 90 0RF tamsulosin [Flomax] 0.4 mg capsule 0.4 mg PO BID Qty: 180 0RF mometasone 200 mcg/actuation HFA aerosol inhaler 2 puff INHALATION BID Qty: 39 3RF carbidopa-levodopa 50-200 mg tablet extended release 1 tab PO BID Qty: 180 3RF trazodone 50 mg tablet See Rx Instructions .ROUTE .COMPLEX Qty: 180 3RF Dose Instruction: TAKE 1 TO 2 TABLETS BY MOUTH AT BEDTIME NEEDED FOR SLEEP Rx Instructions: TAKE 2 TABLETS BY MOUTH AT BEDTIME NEEDED FOR SLEEP (DME) Disabled Parking See Rx Instructions .ROUTE .MEDSUPPLY Qty: 1 0RF Rx Instructions: Patient qualifies for disabled parking as per the attached form. magnesium oxide 400 mg capsule 400 mg PO BID nitroglycerin 0.4 mg tablet, sublingual 0.4 mg SL Q5M PRN (Reason: chest pain) Qty: 60 3RF Rx Instructions: until response; do not exceed 3 doses per episode sertraline 100 mg tablet 100 mg PO DAILY hydrochlorothiazide 12.5 mg tablet 12.5 mg PO DAILY ciprofloxacin HCl [Cipro] 500 mg tablet 500 mg PO BID Qty: 14 0RF nicotine 21 mg/24 hr Patch 24 Hour 21 mg topical DAILY Qty: 7 0RF metoprolol succinate 25 mg Tablet Extended Release 24 Hr 25 mg PO DAILY Qty: 60 0RF carbidopa-levodopa 25-100 mg Tablet 1 ea PO BEDTIME Qty: 30 0RF oxycodone 5 mg Tablet 5 mg PO Q3HR PRN (Reason: Pain, Moderate (4-6)) Qty: 10 0RF clonazepam 1 mg tablet 1 mg PO Q12H Qty: 60 3RF Spiriva with HandiHaler 18 mcg capsule, w/inhalation device 1 cap inhalation DAILY Qty: 30 0RF Rx Instructions: puncture 1 cap using device; one dose = 2 inhalations ciprofloxacin HCl 500 mg tablet 500 mg PO BID Qty: 20 0RF Referrals: Tim Pemberton MD [Primary Care Provider] - Stand Alone Forms: Patient Portal/API
--- NOTE | 2022-07-17 12:10 | DI.CT.S_ITS ---
PROCEDURE: CT CERVICAL SPINE WO CON INDICATIONS: R paraspinal pain after fall TECHNIQUE: Noncontrast 3 mm thick sections acquired from the skull base to the T4 level. Sagittal and coronal reformats were then constructed. For radiation dose reduction, the following was used: automated exposure control, adjustment of mA and/or kV according to patient size. COMPARISON: [facility], CT, CT CERVICAL SPINE WO CON, 05/16/2022, 19:02. FINDINGS: Image quality: There are significant motion artifacts. Bones: No fractures or dislocations. There is grade 1 anterolisthesis of C3 on C4 and trace retrolisthesis of C4 on C5. Degenerative disc disease, [id number] at C4-C5, C5-C6 and C6-C7. Bilateral facet arthropathy, most pronounced at C2-C3 bilaterally and C3-C4 on the left. Moderate atlantoaxial joint degeneration. Visualized superior ribs are intact. Soft tissues: Prevertebral soft tissues are normal in thickness. No paravertebral hematomas. No apical pneumothoraces. Severe atherosclerotic calcifications of the carotid arteries bilaterally and aorta. IMPRESSION: 1. No cervical spine fractures. 2. Degenerative changes as described. Dictated by: Vicki Tran M.D. on 07/17/2022 at 12:28 Approved by: Vicki Tran M.D. on 07/17/2022 at 12:32
== END 2022-07-17 13:15 | disposition home or self-care (01) ==
PROVIDERS: Emergency Provider Emergency Medicine; Family Provider Internal Medicine; PCP Internal Medicine
DX: S22.41XA Multiple fractures of ribs, right side, initial encounter for closed fracture (principal); R29.6 Repeated falls; R55 Syncope and collapse; W19.XXXA Unspecified fall, initial encounter; Z79.899 Other long term (current) drug therapy
CPT/HCPCS: 71101; 72125; 99284

== ENCOUNTER → 2022-08-03 14:40 | Outpatient (CLI) | payer MEDICARE, OTHER, SELFPAY ==
[2022-05-16 21:37] VITALS: BMI 23.7
== END ==
PROVIDERS: Family Provider Internal Medicine; PCP Internal Medicine; Visit Provider Urology
DX: R33.9 Retention of urine, unspecified (principal); R39.9 Unspecified symptoms and signs involving the genitourinary system; R35.1 Nocturia; C61 Malignant neoplasm of prostate; Z90.79 Acquired absence of other genital organ(s); Z92.3 Personal history of irradiation; N30.00 Acute cystitis without hematuria; Z91.81 History of falling
CPT/HCPCS: 51798; 81002; 87086; 99214

== ENCOUNTER → 2023-03-30 09:21 | Outpatient (CLI) | payer MEDICARE, OTHER, SELFPAY ==
[2022-05-16 21:37] VITALS: BMI 23.7
[2023-03-30 09:53] LABS: Add Manual Diff / Slide Review NO; Basophils Absolute Auto 100 /uL (0-100); Basophils Percent Auto 1.2 % (0-2); Eosinophils Absolute Auto 400 /uL (0-450); Eosinophils Percent Auto 6.3 % (2-4); Hematocrit 39.8 % (41-53); Hemoglobin 12.9 g/dL (13.5-17.5); Lymphocytes Absolute Auto 1600 /uL (1100-4500); Lymphocytes Percent Auto 25.3 % (25-40); Mean Corpuscular HGB Conc 32.4 % (30-36); Mean Corpuscular Hemoglobin 27.9 PG (26-34); Mean Corpuscular Volume 86.2 fL (80-100); Monocytes Absolute Auto 600 /uL (0-900); Monocytes Percent Auto 10.1 % (3-14); Neutrophils Absolute Auto 3600 /uL (1500-7000); Neutrophils Percent Auto 57.1 % (50-75); Platelet Count 266 X10^3/uL (150-400); Red Blood Cell Count 4.62 X10^6/uL (4.5-5.9); Red Cell Distribution Width 14.6 % (11.6-14.8); White Blood Cell Count 6.3 X10^3/uL (4.5-11.0)
[2023-03-30 10:08] LABS: Alanine Aminotransferase 5 IU/L (<50); Albumin 4.3 g/dL (3.5-5.0); Albumin Globulin Ratio 1.3 (1.0-2.8); Alkaline Phosphatase 65 U/L (38-126); Aspartate Aminotransferase 19 IU/L (17-59); BUN Creatinine Ratio 13.9 (6-22); Bilirubin Total 0.6 mg/dL (0.2-1.3); Blood Urea Nitrogen 11 mg/dL (9-20); Calcium 9.7 mg/dL (8.4-10.2); Carbon Dioxide 30 mmol/L (22-32); Chloride 101 mmol/L (98-107); Cholesterol 168 mg/dL (140-199); Estimated Glomerular Filt Rate > 60 mL/min (>60); Globulin 3.2 g/dL (1.7-4.1); Glucose 104 mg/dL (80-110); HDL Cholesterol 82 mg/dL (40-60); HEMOLYSIS < 15 (0-50); LDL Cholesterol Calculated 64 mg/dL (<100); Potassium 4.3 mmol/L (3.4-5.1); Sodium 137 mmol/L (137-145); Total Protein 7.5 g/dL (6.3-8.2); Triglycerides 109 mg/dL (35-150)
[2023-03-30 10:37] LABS: TSH w/ Reflex to FT4 0.86 uIU/mL (0.47-4.68)
== END ==
PROVIDERS: Family Provider Internal Medicine; PCP Internal Medicine; Referring Provider Internal Medicine; Visit Provider Internal Medicine
DX: F09 Unspecified mental disorder due to known physiological condition (principal); I10 Essential (primary) hypertension; E78.5 Hyperlipidemia, unspecified
CPT/HCPCS: 36415; 80053; 80061; 84443; 85025

== ENCOUNTER 2024-01-26 19:59 | Emergency (ER) | payer MEDICARE, OTHER, SELFPAY ==
[2022-05-16 21:37] VITALS: BMI 23.7
[2024-01-26] VITALS (10 sets, daily range): BP systolic 150–186; BP diastolic 65–72; PULSE 57–68; RESP 17; TEMP 37.1; O2SAT 95–98; BMI 22.3
--- NOTE | 2024-01-26 20:15 | DI.RAD.S_ITS ---
PROCEDURE: XR RIBS RT 2V INDICATIONS: fall onto dresser, pain TECHNIQUE: 4 views of the ribs were acquired. COMPARISON: None. FINDINGS: Surgical changes and devices: None. Bones and chest wall: Age indeterminate deformity involving left posterior lateral 8th through 10th ribs are seen. No suspicious bony lesions. Overlying soft tissues appear unremarkable. Lungs and pleura: The visualized lung appears clear. No pleural effusions or pneumothorax are visible. IMPRESSION: Age indeterminate deformities involving right posterior lateral 8th through 10th ribs. No other fracture or dislocation. The visualized right lung is clear. Dictated by: Rafita Sol M.D. on 01/26/2024 at 21:09 Approved by: Rafita Sol M.D. on 01/26/2024 at 21:12
--- NOTE | 2024-01-26 22:23 | ED.FALL ---
HPI - Fall General Chief Complaint: Fall Stated Complaint: fell multiple times today, rib pain Time Seen by Provider: 01/26/24 22:23 Source: patient and family Mode of arrival: Wheelchair History of Present Illness HPI Narrative: Patient is a 78-year-old male history of Parkinson's, hyperlipidemia uses a walker at baseline presents to the ED from home for evaluation of mechanical trip and fall earlier today states that he was using his walker got stuck on the floor and fell hit the right side of his ribs did hit his head no LOC not on any blood thinners was able to stand bear weight ambulate with his walker immediately after, however he has had persistent pain to his right ribs therefore decided come into the ED for further evaluation treatment. No headache no visual disturbances, unsure of tetanus vaccination status. Does also note skin tear to his right upper extremity otherwise not complaining of any other pain or symptoms Related Data Home Medications Medication Instructions Recorded Confirmed magnesium oxide 400 mg PO BID 12/27/17 12/14/23 sertraline 100 mg tablet 100 mg PO DAILY 06/07/21 12/14/23 Previous Rx's Medication Instructions Recorded atorvastatin 40 mg tablet 40 mg PO DAILY #90 tabs 10/16/19 tamsulosin 0.4 mg capsule (Flomax) 0.4 mg PO BID #180 caps 10/16/19 mometasone 200 mcg/actuation HFA 2 puff inhalation BID #39 grams 04/13/20 aerosol inhaler nitroglycerin 0.4 mg sublingual 0.4 mg sublingual Q5M PRN chest 11/16/20 tablet pain #60 tabs tiotropium bromide 18 mcg capsule 1 cap inhalation DAILY #30 05/19/22 with inhalation device (Spiriva inhalations with HandiHaler) trazodone 50 mg tablet See Rx Instructions .Route 06/05/22 .COMPLEX #180 tabs Disabled Parking #1 ea 06/26/22 carbidopa 25 mg-levodopa 100 mg 1 tab PO BEDTIME #90 tabs 09/28/22 tablet carbidopa ER 50 mg-levodopa 200 mg 1 tab PO BID #180 tabs 09/28/22 tablet,extended release metoprolol succinate 25 mg 25 mg PO DAILY #90 tabs 11/16/22 tablet,extended release 24 hr ketoconazole 2 % topical cream 1 applic topical BID #60 grams 11/28/22 lidocaine 5 % patch and menthol 6 See Rx Instructions topical 01/26/24 % gel topical kit .COMPLEX #1 ea methocarbamol 500 mg tablet 500 mg PO BEDTIME 5 days #5 tabs 01/26/24 Allergies Allergy/AdvReac Type Severity Reaction Status Date / Time No Known Drug Allergies Allergy Verified 12/14/23 15:17 Review of Systems Review of Systems Narrative: General: Denies fever, chills, weight loss HEENT: Denies headache, eye drainage, eye irritation, head trauma, sore throat, voice change Cardiovascular: Denies any chest pain, palpitations, shortness of breath, tachycardia Respiratory: Denies any shortness of breath, cough, wheeze, stridor GI/: Denies any abdominal pain, nausea, vomiting, diarrhea, bright red blood per rectum, melanotic stools, urinary frequency, urinary retention, dysuria, hematuria MSK: D positive right-sided rib pain Skin: Skin tear to the right upper extremity Neuro: Denies any headache, lightheadedness, dizziness, fainting, weakness Psych: Denies SI/HI Patient History Medical History (Updated 01/26/24 @ 23:29 by Vasiliy Galindo DO) Major neurocognitive disorder Alcohol use disorder [place] History of external beam radiation therapy History of urinary retention Multiple falls Multiple fractures of ribs History of radiation therapy Tremor Lower urinary tract symptoms Alcoholism Hx of adenomatous colonic polyps (12/22/10) Alcoholism in recovery (01/10/16) Former smoker (01/15/15) Depression (12/22/14) Pulmonary emphysema (12/22/14) 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 (12/22/14) Essential hypertension (12/22/14) Paroxysmal atrial fibrillation (12/22/14) Atherosclerosis of [place] coronary artery of [place] heart without angina pectoris (12/22/14) Hyperlipidemia Malignant neoplasm of prostate (12/22/10) Urinary retention Generalized anxiety disorder MRSA (methicillin resistant staph aureus) culture positive Atrial flutter Surgical History (Updated 08/29/22 @ 11:23 by Tim Pemberton MD) Inguinal hernia Status post transurethral resection of prostate (~05/2016) History of angioplasty (10/06/14) Status post appendectomy Family History Mother Blood disease Hyperlipidemia Hypertension Hearing impairment Father Cancer Social History household members: spouse Smoking Status: Former smoker alcohol intake: current Smoking Status: Former smoker tobacco type: cigarettes and e-cigarettes alcohol intake frequency: 0-2 drinks per day Substance Use Type: does not use Exam Narrative Exam Narrative: General: Cooperative, comfortable, well-developed, not in acute distress HEENT: Normocephalic, atraumatic, PERRLA, normal sclera, eyelids normal, Neck: Active full range of motion, atraumatic Chest: Normal to inspection, negative crepitus, no overlying erythema ecchymosis Respiratory: Normal respiratory effort, not in acute respiratory distress, clear to auscultation bilaterally negative cough, wheeze, tachypnea, rhonchi, rales Cardiology: Regular rate rhythm negative gallop, murmur, rubs GI/: Normal to inspection, soft, nonrigid, no tenderness to palpation, exam deferred MSK: Moderate tenderness to palpation of the right lower anterior ribs ecchymosis noted but now palpable step-off, skin tear noted to the right upper extremity otherwise neurovascularly intact bilateral upper and lower extremities no other tenderness to palpation of any bony prominences Skin: No rashes lesions noted Neuro: Alert awake oriented x3, moves all 4 extremities spontaneously, cranial nerves intact, able to answer all questions appropriately follows commands appropriately Psych: Cooperative, negative suicidal or homicidal ideations Initial Vital Signs Initial Vital Signs: Vital Signs Temperature 98.8 F 01/26/24 20:03 Pulse Rate 68 01/26/24 20:03 Respiratory Rate 17 01/26/24 20:03 Blood Pressure 186/72 H 01/26/24 20:03 Pulse Oximetry 97 01/26/24 20:03 Oxygen Delivery Method Room Air 01/26/24 20:03 Course Orders Ordered: ED Orders 01/26/24 20:15 XR ribs RT 2V Stat 01/26/24 22:28 CT cervical spine wo con Stat CT chest wo con Stat CT head/brain wo con Stat Discontinued Medications Diphtheria/Tetanus/Acell Pertussis (Tet,Diph,Pertuss(Acell),Vac/Pf 0.5 Ml Syringe) 0.5 ml IM .ONCE ONE Stop: 01/26/24 22:30 Last Admin: 01/26/24 22:58 Dose: 0.5 ml Documented By: LEOBARDO Lidocaine (Lidocaine 5% Patch) 1 each TOP NOW ONE Stop: 01/26/24 22:29 Last Admin: 01/26/24 22:58 Dose: 1 each Documented By: LEOBARDO Vital Signs Vital signs: Vital Signs - 8 hr 01/26/24 20:03 01/26/24 21:27 01/26/24 21:28 Temperature 98.8 F Pulse Rate 68 62 Respiratory Rate 17 Blood Pressure 186/72 H Pulse Oximetry 97 98 98 Oxygen Delivery Method Room Air 01/26/24 21:28 01/26/24 21:30 Temperature Pulse Rate 60 Respiratory Rate Blood Pressure 169/71 H Pulse Oximetry 98 Oxygen Delivery Method MDM - Fall Differential Diagnosis Differential diagnosis: Likely other (Rib fracture, abrasion, laceration, muscle contusion) Imaging Data CT scan - chest: Radiologist's Impression: [address] [address] [address] Scan Report Signed Patient: Papa Serrano Jr MR#: [id number] : 1945 Acct:[id number] Age/Sex: 78 / M Date of Service: 01/26/24 Loc: ED Accession Number: [id number] Procedure: CT chest wo con Ordering Provider: Vasiliy Galindo D.O. PROCEDURE: CT CHEST WO CON INDICATIONS: trauma, pain to left anterior ribs TECHNIQUE: Noncontrast 5 mm thick sections acquired from the pulmonary apices to the posterior costophrenic angles. 1 mm lung window, 5 mm thick coronal and sagittal and 7 mm axial MIP reformats were then acquired. For radiation dose reduction, the following was used: automated exposure control, adjustment of mA and/or kV according to patient size. COMPARISON: [facility], CT, CT CHEST WO CON, 05/16/2022, 19:02. FINDINGS: Image quality: Diagnostic. Lower Neck: No enlarged lymph nodes. Thyroid: No thyroid nodules which require sonographic follow up, per consensus guidelines. Axillae: No enlarged lymph nodes. Chest Wall: Unremarkable. Bones: Old healed fractures are noted involving left posterior medial 8th through 11th ribs with chronic appearing deformity. Old healed fractures are also noted involving right posterior lateral 9th and 10th ribs. Acute appearing right anterolateral 8th rib fracture is seen series 3, image 97. No acute displaced rib fracture is noted. Chronic appearing anterior wedge compression deformity involving superior endplate of T12 is seen with up to 20% loss of T12 vertebral body height anteriorly. Lungs and Pleura: No pneumothorax or pleural effusions. Scattered atelectasis in posterior and lateral periphery of bilateral mid to lower lung field is seen. No consolidation or suspicious nodules. Heart: Heart size is normal. No pericardial effusion. Thoracic Vessels: The aorta and pulmonary arteries demonstrate normal size. 3 vessel coronary artery atherosclerotic calcifications are seen. Mediastinum and Noelle: No enlarged lymph nodes. Esophagus: No wall thickening. No hiatal hernia. Upper Abdomen: Visualized upper abdomen solid organs and bowel loops appear normal. Ectasias of infrarenal abdominal aorta measures up to 2.7 cm in size is seen. Series 3, image 134. IMPRESSION: 1. Acute appearing right anterolateral 8th rib fracture with minimal displacement at fracture site. 2. Chronic appearing deformities involving right posterior lateral 9th and 10th ribs as well as left posterior medial 8th through 11th ribs. 3. No acute vertebral body compression fracture. Chronic appearing anterior wedge compression deformity at T12 level with up to 20% loss of T12 vertebral body height anteriorly. 4. Dependent atelectasis in posterior aspect of mid to lower lung hdez bilaterally. No pleural effusion or pneumothorax. 5. No mediastinal hematoma. No pericardial effusion. Moderate to severe coronary artery atherosclerotic calcifications. CT scan - head: Radiologist's Impression: [place] [address] CT Scan Report Signed Patient: Papa Serrano Jr MR#: [id number] : 1945 Acct:[id number] Age/Sex: 78 / M Date of Service: 01/26/24 Loc: ED Accession Number: [id number] Procedure: CT head/brain wo con Ordering Provider: Vasiliy Galindo D.O. PROCEDURE: CT HEAD/BRAIN WO CON INDICATIONS: Trauma TECHNIQUE: Noncontrast 4.5 mm thick angled axial sections acquired from the foramen magnum to the vertex, with coronal and sagittal reformats. For radiation dose reduction, the following was used: automated exposure control, adjustment of mA and/or kV according to patient size. COMPARISON: [facility], CT, CT HEAD/BRAIN WO CON, 07/08/2022, 23:04. FINDINGS: Image quality: Diagnostic. CSF spaces: Basal cisterns are patent. No extra-axial fluid collections. The ventricles are symmetric in size and shape. Brain: No intracranial bleeds or masses. There is cerebral volume loss for age, with resultant ventricular and sulcal prominence. There are periventricular and deep white matter chronic small vessel ischemic changes. There is intracranial internal carotid artery atherosclerosis. Skull and face: Left frontal scalp hematoma and swelling is seen. Calvarium and visualized facial bones appear intact, without suspicious lesions. Sinuses: Visualized sinuses and mastoids are clear. IMPRESSION: 1. No acute intracranial pathology. 2. Left frontal scalp hematoma and swelling. No acute skull fracture. Bilateral orbital balderas are intact. CT - cervical spine: Radiologist's Impression: [address] [address] [address] Scan Report Signed Patient: Papa Serrano Jr MR#: [id number] : 1945 Acct:[id number] Age/Sex: 78 / M Date of Service: 01/26/24 Loc: ED Accession Number: [id number] Procedure: CT cervical spine wo con Ordering Provider: Vasiliy Galindo D.O. PROCEDURE: CT CERVICAL SPINE WO CON INDICATIONS: trauma TECHNIQUE: Noncontrast 3 mm thick sections acquired from the skull base to the T4 level. Sagittal and coronal reformats were then constructed. For radiation dose reduction, the following was used: automated exposure control, adjustment of mA and/or kV according to patient size. COMPARISON: [facility], CT, CT CERVICAL SPINE WO CON, 07/17/2022, 12:20. FINDINGS: Image quality: Excellent. Bones: No fractures or dislocations. Degenerative disc disease throughout cervical spine is again seen causing [id number] central canal stenosis and bilateral neural foraminal narrowing more notably at C4-5 and C5-6 levels. Visualized superior ribs are intact. Soft tissues: Prevertebral soft tissues are normal in thickness. No paravertebral hematomas. No apical pneumothoraces. IMPRESSION: 1. No acute cervical spine fracture or dislocation. 2. Degenerative disc disease throughout cervical spine not significantly changed from previous study. MDM Narrative Medical decision making narrative: Patient is a 78-year-old male history of Parkinson's hypertension brought in by family for evaluation of mechanical trip and fall, uses a walker at baseline fell to his right side, did state head strike but denies any blood thinners no LOC. CT scan showing chronic rib fractures are well healing with 1 new acute 8th anterior lateral rib fracture, the remainder of the images are unremarkable no acute fractures noted. He has not requiring any supplemental oxygen, he will be sent home with analgesics informed to follow up with primary care outpatient setting safe for discharge home with outpatient follow up Discharge Plan Departure Patient Disposition: Home Clinical Impression: Closed rib fracture, Closed head injury, Ground-level fall, Abrasion of skin, Contusion of muscle Prescriptions: New lidocaine-menthol 5-6 % kit See Rx Instructions .ROUTE .COMPLEX Qty: 1 0RF Rx Instructions: apply LIDIOCAINE PATCH once a day/may leave on for up to 12 hrs; apply MENTHOL GEL 1 - 4 times/day as needed for pain. methocarbamol 500 mg tablet 500 mg PO BEDTIME 5 Days Qty: 5 0RF No Action atorvastatin 40 mg tablet 40 mg PO DAILY Qty: 90 0RF tamsulosin [Flomax] 0.4 mg capsule 0.4 mg PO BID Qty: 180 0RF mometasone 200 mcg/actuation HFA aerosol inhaler 2 puff INHALATION BID Qty: 39 3RF Hold Instructions: patient request trazodone 50 mg tablet See Rx Instructions .ROUTE .COMPLEX Qty: 180 3RF Dose Instruction: TAKE 1 TO 2 TABLETS BY MOUTH AT BEDTIME NEEDED FOR SLEEP Rx Instructions: TAKE 2 TABLETS BY MOUTH AT BEDTIME NEEDED FOR SLEEP (DME) Disabled Parking See Rx Instructions .ROUTE .MEDSUPPLY Qty: 1 0RF Rx Instructions: Patient qualifies for disabled parking as per the attached form. carbidopa-levodopa 25-100 mg tablet 1 tab PO BEDTIME Qty: 90 3RF carbidopa-levodopa 50-200 mg tablet extended release 1 tab PO BID Qty: 180 3RF metoprolol succinate 25 mg tablet extended release 24 hr 25 mg PO DAILY Qty: 90 3RF magnesium oxide 400 mg capsule 400 mg PO BID nitroglycerin 0.4 mg tablet, sublingual 0.4 mg SL Q5M PRN (Reason: chest pain) Qty: 60 3RF Rx Instructions: until response; do not exceed 3 doses per episode ketoconazole 2 % cream 1 applic topical BID Qty: 60 3RF sertraline 100 mg tablet 100 mg PO DAILY Spiriva with HandiHaler 18 mcg capsule, w/inhalation device 1 cap inhalation DAILY Qty: 30 0RF Hold Instructions: patient request Rx Instructions: puncture 1 cap using device; one dose = 2 inhalations Referrals: Tim Pemberton MD [Primary Care Provider] - Stand Alone Forms: Patient Portal/API/Survey
--- NOTE | 2024-01-26 22:28 | DI.CT.S_ITS ---
PROCEDURE: CT CHEST WO CON INDICATIONS: trauma, pain to left anterior ribs TECHNIQUE: Noncontrast 5 mm thick sections acquired from the pulmonary apices to the posterior costophrenic angles. 1 mm lung window, 5 mm thick coronal and sagittal and 7 mm axial MIP reformats were then acquired. For radiation dose reduction, the following was used: automated exposure control, adjustment of mA and/or kV according to patient size. COMPARISON: [facility], CT, CT CHEST WO CON, 05/16/2022, 19:02. FINDINGS: Image quality: Diagnostic. Lower Neck: No enlarged lymph nodes. Thyroid: No thyroid nodules which require sonographic follow up, per consensus guidelines. Axillae: No enlarged lymph nodes. Chest Wall: Unremarkable. Bones: Old healed fractures are noted involving left posterior medial 8th through 11th ribs with chronic appearing deformity. Old healed fractures are also noted involving right posterior lateral 9th and 10th ribs. Acute appearing right anterolateral 8th rib fracture is seen series 3, image 97. No acute displaced rib fracture is noted. Chronic appearing anterior wedge compression deformity involving superior endplate of T12 is seen with up to 20% loss of T12 vertebral body height anteriorly. Lungs and Pleura: No pneumothorax or pleural effusions. Scattered atelectasis in posterior and lateral periphery of bilateral mid to lower lung field is seen. No consolidation or suspicious nodules. Heart: Heart size is normal. No pericardial effusion. Thoracic Vessels: The aorta and pulmonary arteries demonstrate normal size. 3 vessel coronary artery atherosclerotic calcifications are seen. Mediastinum and Noelle: No enlarged lymph nodes. Esophagus: No wall thickening. No hiatal hernia. Upper Abdomen: Visualized upper abdomen solid organs and bowel loops appear normal. Ectasias of infrarenal abdominal aorta measures up to 2.7 cm in size is seen. Series 3, image 134. IMPRESSION: 1. Acute appearing right anterolateral 8th rib fracture with minimal displacement at fracture site. 2. Chronic appearing deformities involving right posterior lateral 9th and 10th ribs as well as left posterior medial 8th through 11th ribs. 3. No acute vertebral body compression fracture. Chronic appearing anterior wedge compression deformity at T12 level with up to 20% loss of T12 vertebral body height anteriorly. 4. Dependent atelectasis in posterior aspect of mid to lower lung hdez bilaterally. No pleural effusion or pneumothorax. 5. No mediastinal hematoma. No pericardial effusion. Moderate to severe coronary artery atherosclerotic calcifications. Dictated by: Rafita Sol M.D. on 01/26/2024 at 23:07 Approved by: Rafita Sol M.D. on 01/26/2024 at 23:13
--- NOTE | 2024-01-26 22:28 | DI.CT.S_ITS ---
PROCEDURE: CT CERVICAL SPINE WO CON INDICATIONS: trauma TECHNIQUE: Noncontrast 3 mm thick sections acquired from the skull base to the T4 level. Sagittal and coronal reformats were then constructed. For radiation dose reduction, the following was used: automated exposure control, adjustment of mA and/or kV according to patient size. COMPARISON: [facility], CT, CT CERVICAL SPINE WO CON, 07/17/2022, 12:20. FINDINGS: Image quality: Excellent. Bones: No fractures or dislocations. Degenerative disc disease throughout cervical spine is again seen causing [id number] central canal stenosis and bilateral neural foraminal narrowing more notably at C4-5 and C5-6 levels. Visualized superior ribs are intact. Soft tissues: Prevertebral soft tissues are normal in thickness. No paravertebral hematomas. No apical pneumothoraces. IMPRESSION: 1. No acute cervical spine fracture or dislocation. 2. Degenerative disc disease throughout cervical spine not significantly changed from previous study. Dictated by: Rafita Sol M.D. on 01/26/2024 at 23:02 Approved by: Rafita Sol M.D. on 01/26/2024 at 23:07
--- NOTE | 2024-01-26 22:28 | DI.CT.S_ITS ---
PROCEDURE: CT HEAD/BRAIN WO CON INDICATIONS: Trauma TECHNIQUE: Noncontrast 4.5 mm thick angled axial sections acquired from the foramen magnum to the vertex, with coronal and sagittal reformats. For radiation dose reduction, the following was used: automated exposure control, adjustment of mA and/or kV according to patient size. COMPARISON: [facility], CT, CT HEAD/BRAIN WO CON, 07/08/2022, 23:04. FINDINGS: Image quality: Diagnostic. CSF spaces: Basal cisterns are patent. No extra-axial fluid collections. The ventricles are symmetric in size and shape. Brain: No intracranial bleeds or masses. There is cerebral volume loss for age, with resultant ventricular and sulcal prominence. There are periventricular and deep white matter chronic small vessel ischemic changes. There is intracranial internal carotid artery atherosclerosis. Skull and face: Left frontal scalp hematoma and swelling is seen. Calvarium and visualized facial bones appear intact, without suspicious lesions. Sinuses: Visualized sinuses and mastoids are clear. IMPRESSION: 1. No acute intracranial pathology. 2. Left frontal scalp hematoma and swelling. No acute skull fracture. Bilateral orbital balderas are intact. Dictated by: Rafita Sol M.D. on 01/26/2024 at 23:01 Approved by: Rafita Sol M.D. on 01/26/2024 at 23:02
[2024-01-26] MEDS: LIDOCAINE 5% PATCH 1 EACH TOP (22:58)
[2024-01-26] MEDS: TET,DIPH,PERTUSS(ACELL),VAC/PF 0.5 ML SYRINGE IM (22:58)
== END 2024-01-26 23:49 | disposition home or self-care (01) ==
PROVIDERS: Emergency Provider Student in an Organized Health Care Education/Training Program; Family Provider Internal Medicine; PCP Internal Medicine
DX: S22.31XA Fracture of one rib, right side, initial encounter for closed fracture (principal); S09.90XA Unspecified injury of head, initial encounter; W18.30XA Fall on same level, unspecified, initial encounter; G20.A1 Parkinson's disease without dyskinesia, without mention of fluctuations; Z23 Encounter for immunization
CPT/HCPCS: 70450; 71100; 71250; 72125; 90471; 99283; 99284; 90715

== ENCOUNTER 2024-04-04 19:48 | Emergency (ER) | payer MEDICARE, OTHER, SELFPAY ==
[2022-05-16 21:37] VITALS: BMI 23.7
[2024-04-04 19:55] VITALS: BP 110/55; PULSE 83; RESP 14; TEMP 36.5; O2SAT 97; BMI 22.4
[2024-04-04 20:20] VITALS: BP 144/65; PULSE 69; O2SAT 97
--- NOTE | 2024-04-04 20:20 | ED.FALL ---
HPI - Fall General Chief Complaint: Fall Stated Complaint: fell hit head on corner of sofa Time Seen by Provider: 04/04/24 20:15 Source: family Mode of arrival: Wheelchair History of Present Illness HPI Narrative: 79-year-old male with history of Parkinson's disease presents for evaluation forehead injury after ground level fall. Patient had received his nightly medications and has been put to bed, but tried to get up to use the restroom. He was supposed to use a walker but tripped and fell, hitting his head against the corner of a sofa. He can not remember if he lost consciousness, at bedside denies use of blood thinners. Related Data Home Medications Medication Instructions Recorded Confirmed magnesium oxide 400 mg PO BID 12/27/17 03/07/24 sertraline 100 mg tablet 100 mg PO DAILY 06/07/21 03/07/24 carbidopa 25 mg-levodopa 100 mg 1 tab PO BEDTIME 03/07/24 03/07/24 tablet carbidopa ER 50 mg-levodopa 200 mg 1.5 tab PO QPM 03/07/24 03/07/24 tablet,extended release Previous Rx's Medication Instructions Recorded atorvastatin 40 mg tablet 40 mg PO DAILY #90 tabs 10/16/19 tamsulosin 0.4 mg capsule (Flomax) 0.4 mg PO BID #180 caps 10/16/19 mometasone 200 mcg/actuation HFA 2 puff inhalation BID #39 grams 04/13/20 aerosol inhaler nitroglycerin 0.4 mg sublingual 0.4 mg sublingual Q5M PRN chest 11/16/20 tablet pain #60 tabs tiotropium bromide 18 mcg capsule 1 cap inhalation DAILY #30 05/19/22 with inhalation device (Spiriva inhalations with HandiHaler) trazodone 50 mg tablet See Rx Instructions .Route 06/05/22 .COMPLEX #180 tabs Disabled Parking #1 ea 06/26/22 metoprolol succinate 25 mg 25 mg PO DAILY #90 tabs 11/16/22 tablet,extended release 24 hr ketoconazole 2 % topical cream 1 applic topical BID #60 grams 11/28/22 lidocaine 5 % patch and menthol 6 See Rx Instructions topical 01/26/24 % gel topical kit .COMPLEX #1 ea Allergies Allergy/AdvReac Type Severity Reaction Status Date / Time No Known Drug Allergies Allergy Verified 03/07/24 14:51 Patient History Medical History PSP (progressive supranuclear palsy) Major neurocognitive disorder Alcohol use disorder [place]uria History of external beam radiation therapy History of urinary retention Multiple falls Multiple fractures of ribs History of radiation therapy Tremor Lower urinary tract symptoms Alcoholism Hx of adenomatous colonic polyps (12/22/10) Alcoholism in recovery (01/10/16) Former smoker (01/15/15) Depression (12/22/14) Pulmonary emphysema (12/22/14) 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 (12/22/14) Essential hypertension (12/22/14) Paroxysmal atrial fibrillation (12/22/14) Atherosclerosis of nome coronary artery of nome heart without angina pectoris (12/22/14) Hyperlipidemia Malignant neoplasm of prostate (12/22/10) Urinary retention Generalized anxiety disorder MRSA (methicillin resistant staph aureus) culture positive Atrial flutter Surgical History Inguinal hernia Status post transurethral resection of prostate (~05/2016) History of angioplasty (10/06/14) Status post appendectomy Family History Mother Blood disease Hyperlipidemia Hypertension Hearing impairment Father Cancer Social History household members: spouse Smoking Status: Former smoker alcohol intake: current Smoking Status: Former smoker tobacco type: cigarettes and e-cigarettes alcohol intake frequency: 0-2 drinks per day Exam Initial Vital Signs Initial Vital Signs: Vital Signs Temperature 97.7 F 04/04/24 19:55 Pulse Rate 83 04/04/24 19:55 Respiratory Rate 14 04/04/24 19:55 Blood Pressure 110/55 L 04/04/24 19:55 Pulse Oximetry 97 04/04/24 19:55 Oxygen Delivery Method Room Air 04/04/24 19:55 Const: Awake, alert frail, debilitated HEENT: 2cm horizontal laceration just superior to L eyebrow, no crepitus, PERRLA, EOMI MSK: Atraumatic, full range of motion, pulses equal, no hip or leg pain Skin: 2 cm horizontal laceration just superior to right eyebrow as described above Neuro: AO x2, CN II-XII grossly intact, moves all extremities Procedures Laceration Repair Laceration 1: Site: face Side (If applicable): right Size (cm): 2 Description: linear Depth: simple, single layer Pre-repair: wound explored and irrigated extensively Skin layer closed with: dermabond Course Orders Ordered: ED Orders 04/04/24 20:20 CT cervical spine wo con Stat CT head/brain wo con Stat Vital Signs Vital signs: Vital Signs - 8 hr 04/04/24 19:55 04/04/24 20:20 04/04/24 20:20 Temperature 97.7 F Pulse Rate 83 69 Respiratory Rate 14 Blood Pressure 110/55 L 144/65 H Pulse Oximetry 97 97 Oxygen Delivery Method Room Air 04/04/24 20:37 04/04/24 20:38 04/04/24 20:38 Temperature Pulse Rate 64 Respiratory Rate Blood Pressure 135/83 Pulse Oximetry 97 97 Oxygen Delivery Method Room Air 04/04/24 21:00 04/04/24 21:00 Temperature Pulse Rate 67 Respiratory Rate Blood Pressure 127/59 L Pulse Oximetry 96 Oxygen Delivery Method MDM - Fall Differential Diagnosis Differential diagnosis: Likely syncope, compression fracture, concussion with loss of consciousness and concussion without loss of consciousness Imaging Data CT - cervical spine: Radiologist's Impression: PROCEDURE: CT CERVICAL SPINE WO CON INDICATIONS: GLF, HEAD INJ TECHNIQUE: Noncontrast 3 mm thick sections acquired from the skull base to the T4 level. Sagittal and coronal reformats were then constructed. For radiation dose reduction, the following was used: automated exposure control, adjustment of mA and/or kV according to patient size. COMPARISON: [facility], CT, CT CERVICAL SPINE WO CON, 01/26/2024, 22:36. [facility], CT, CT CERVICAL SPINE WO CON, 07/17/2022, 12:20. FINDINGS: Image quality: Diagnostic Bones: No acute fractures or dislocations. No acute compression fractures of the vertebral bodies. Craniocervical junction is intact. C1-C2 relationship is preserved. Visualized superior ribs are intact. Severe multilevel cervical spondylosis most pronounced from C4-5 through C6-7. Stable alignment. Soft tissues: Prevertebral soft tissues are normal in thickness. No paravertebral hematomas. No apical pneumothoraces. IMPRESSION: CT cervical spine without acute fracture or traumatic malalignment. Stable appearance of advanced multilevel cervical spondylosis most pronounced from C4-5 through C6-7. Dictated by: Selvin Clemons M.D. on 04/04/2024 at 20:42 Approved by: Selvin Clemons M.D. on 04/04/2024 at 20:44 CT scan - head: Radiologist's Impression: PROCEDURE: CT HEAD/BRAIN WO CON INDICATIONS: glf, l forehead inj TECHNIQUE: Noncontrast 4.5 mm thick angled axial sections acquired from the foramen magnum to the vertex, with coronal and sagittal reformats. For radiation dose reduction, the following was used: automated exposure control, adjustment of mA and/or kV according to patient size. COMPARISON: [facility], CT, CT HEAD/BRAIN WO CON, 01/26/2024, 22:36. [facility], CT, CT HEAD/BRAIN WO CON, 07/08/2022, 23:04. FINDINGS: Image quality: Diagnostic. CSF spaces: Basal cisterns are patent. No extra-axial fluid collections. The ventricles are symmetric in size and shape. Brain: No intracranial bleeds or masses. There is cerebral volume loss for age, with resultant ventricular and sulcal prominence. There are periventricular and deep white matter chronic small vessel ischemic changes. There is intracranial internal carotid artery atherosclerosis. Skull and face: Calvarium and visualized facial bones appear intact, without suspicious lesions. Sinuses: Visualized sinuses and mastoids are clear. IMPRESSION: 1. CT head without acute intracranial abnormalities or acute calvarial fractures. 2. Age-related senescent changes and sequela of chronic small vessel ischemic disease. Dictated by: Selvin Clemons M.D. on 04/04/2024 at 20:40 Approved by: Selvin Clemons M.D. on 04/04/2024 at 20:41 MDM Narrative Medical decision making narrative: Ground level fall with forehead laceration. CT imaging negative for acute findings. states that patient was up-to-date on his tetanus. Wound repaired per procedure notes. DC home with . Discharge Plan Departure Patient Disposition: Home Clinical Impression: Forehead laceration Instructions: DI for Laceration Repair-Skin Glue Activity Restrictions/Additional Instructions: The skin glue will naturally come off in a week. Keep as clean and dry as possible. If it gets wet pat the area dry gently Prescriptions: No Action atorvastatin 40 mg tablet 40 mg PO DAILY Qty: 90 0RF tamsulosin [Flomax] 0.4 mg capsule 0.4 mg PO BID Qty: 180 0RF mometasone 200 mcg/actuation HFA aerosol inhaler 2 puff INHALATION BID Qty: 39 3RF Hold Instructions: patient request trazodone 50 mg tablet See Rx Instructions .ROUTE .COMPLEX Qty: 180 3RF Dose Instruction: TAKE 1 TO 2 TABLETS BY MOUTH AT BEDTIME NEEDED FOR SLEEP Rx Instructions: TAKE 2 TABLETS BY MOUTH AT BEDTIME NEEDED FOR SLEEP (DME) Disabled Parking See Rx Instructions .ROUTE .MEDSUPPLY Qty: 1 0RF Rx Instructions: Patient qualifies for disabled parking as per the attached form. metoprolol succinate 25 mg tablet extended release 24 hr 25 mg PO DAILY Qty: 90 3RF magnesium oxide 400 mg capsule 400 mg PO BID nitroglycerin 0.4 mg tablet, sublingual 0.4 mg SL Q5M PRN (Reason: chest pain) Qty: 60 3RF Rx Instructions: until response; do not exceed 3 doses per episode ketoconazole 2 % cream 1 applic topical BID Qty: 60 3RF sertraline 100 mg tablet 100 mg PO DAILY carbidopa-levodopa 25-100 mg tablet 1 tab PO BEDTIME Rx Instructions: 1.5 in AM, 1.5 at 11, 1.5 at 3pm. carbidopa-levodopa 50-200 mg tablet extended release 1.5 tab PO QPM lidocaine-menthol 5-6 % kit See Rx Instructions .ROUTE .COMPLEX Qty: 1 0RF Rx Instructions: apply LIDIOCAINE PATCH once a day/may leave on for up to 12 hrs; apply MENTHOL GEL 1 - 4 times/day as needed for pain. Spiriva with HandiHaler 18 mcg capsule, w/inhalation device 1 cap inhalation DAILY Qty: 30 0RF Hold Instructions: patient request Rx Instructions: puncture 1 cap using device; one dose = 2 inhalations Referrals: Tim Pemberton MD [Primary Care Provider] - Stand Alone Forms: Patient Portal/API/Survey
[2024-04-04 20:37] VITALS: O2SAT 97
[2024-04-04 20:38] VITALS: BP 135/83; PULSE 64; O2SAT 97
[2024-04-04 21:00] VITALS: BP 127/59; PULSE 67; O2SAT 96
== END 2024-04-04 21:31 | disposition home or self-care (01) ==
PROVIDERS: Emergency Provider Emergency Medicine; Family Provider Internal Medicine; PCP Internal Medicine
DX: S01.81XA Laceration without foreign body of other part of head, initial encounter (principal); W01.190A Fall on same level from slipping, tripping and stumbling with subsequent striking against furniture, initial encounter; G20.A1 Parkinson's disease without dyskinesia, without mention of fluctuations
CPT/HCPCS: 12011; 70450; 72125; 99281; 99284

== ENCOUNTER → 2024-05-09 15:22 | Outpatient (CLI) | payer MEDICARE, OTHER, SELFPAY ==
[2022-05-16 21:37] VITALS: BMI 23.7
[2024-05-09 16:04] LABS: Appearance Urine UA CLEAR; Bilirubin Urine UA NEGATIVE (NEGATIVE); Color Urine UA YELLOW; Glucose Urine UA NEGATIVE (Negative); Ketones Urine UA NEGATIVE (NEGATIVE); Leukocyte Esterase Urine UA 3+ (NEGATIVE); Nitrite Urine UA NEGATIVE (Negative); Occult Blood Urine UA TRACE-INTACT (Negative); Protein Urine UA TRACE (Negative); Specific Gravity Urine UA <=1.005 (1.000-1.035); Urobilinogen Urine UA 0.2 E.U./dL (0.2)
[2024-05-09 16:20] LABS: RBC Urine 0-1/HPF (0-5/HPF); Urine Volume Low Vol <10mL (spun); WBC Urine 10-30/HPF (0-5/HPF)
[2024-05-09 16:21] LABS: Bacteria Urine Occasional (0-1); Culture Indicated Urine Specimen Cultured; Squamous Epithelial Cell Urine 0-1 /HPF (0-5/HPF)
[2024-05-09 16:37] LABS: Add Manual Diff / Slide Review NO; Basophils Absolute Auto 100 /uL (0-100); Basophils Percent Auto 0.7 % (0-2); Eosinophils Absolute Auto 200 /uL (0-450); Eosinophils Percent Auto 2.3 % (2-4); Hematocrit 37.1 % (41-53); Hemoglobin 12.2 g/dL (13.5-17.5); Lymphocytes Absolute Auto 1500 /uL (1100-4500); Lymphocytes Percent Auto 17.4 % (25-40); Mean Corpuscular HGB Conc 32.8 % (30-36); Mean Corpuscular Hemoglobin 28.9 PG (26-34); Mean Corpuscular Volume 88.1 fL (80-100); Monocytes Absolute Auto 800 /uL (0-900); Monocytes Percent Auto 9.3 % (3-14); Neutrophils Absolute Auto 5900 /uL (1500-7000); Neutrophils Percent Auto 70.3 % (50-75); Platelet Count 270 X10^3/uL (150-400); Red Blood Cell Count 4.22 X10^6/uL (4.5-5.9); Red Cell Distribution Width 14.1 % (11.6-14.8); White Blood Cell Count 8.4 X10^3/uL (4.5-11.0)
[2024-05-09 16:51] LABS: Alanine Aminotransferase 11 IU/L (<50); Albumin 4.2 g/dL (3.5-5.0); Albumin Globulin Ratio 1.4 (1.0-2.8); Alkaline Phosphatase 77 U/L (38-126); Aspartate Aminotransferase 24 IU/L (17-59); BUN Creatinine Ratio 17.9 (6-22); Bilirubin Total 0.3 mg/dL (0.2-1.3); Blood Urea Nitrogen 14 mg/dL (9-20); Calcium 8.9 mg/dL (8.4-10.2); Carbon Dioxide 25 mmol/L (22-32); Chloride 103 mmol/L (98-107); Estimated Glomerular Filt Rate > 60 mL/min (>60); Globulin 2.9 g/dL (1.7-4.1); Glucose 101 mg/dL (80-110); HEMOLYSIS < 15 (0-50); Potassium 4.3 mmol/L (3.4-5.1); Sodium 137 mmol/L (137-145); Total Protein 7.1 g/dL (6.3-8.2)
[2024-05-09 17:20] LABS: TSH w/ Reflex to FT4 0.65 uIU/mL (0.47-4.68)
== END ==
PROVIDERS: Family Provider Internal Medicine; PCP Internal Medicine; Referring Provider Internal Medicine; Visit Provider Internal Medicine
DX: I10 Essential (primary) hypertension (principal); E78.5 Hyperlipidemia, unspecified; I48.0 Paroxysmal atrial fibrillation; D64.9 Anemia, unspecified; N39.0 Urinary tract infection, site not specified
CPT/HCPCS: 36415; 80053; 81001; 84443; 85025; 87086

== ENCOUNTER → 2024-06-23 13:48 | Outpatient (CLI) | payer MEDICARE, OTHER, SELFPAY ==
[2022-05-16 21:37] VITALS: BMI 23.7
[2024-06-23 15:13] LABS: TSH w/ Reflex to FT4 0.48 uIU/mL (0.47-4.68)
[2024-06-23 15:32] LABS: Vitamin B12 282 pg/mL (239-931)
[2024-06-26 14:36] LABS: Albumin 3.5 g/dL (2.9-4.4); Alpha 1 Globulin 0.3 g/dL (0.0-0.4); Alpha 2 Globulin 0.9 g/dL (0.4-1.0); Beta 1 Globulin 0.9 g/dL (0.7-1.3); Gamma Globulin 1.1 g/dL (0.4-1.8); Protein, Total 6.8 g/dL (6.0-8.5)
[2024-06-27 00:36] LABS: Methylmalonic Acid,Serum 728 nmol/L (0-378)
== END ==
PROVIDERS: Family Provider Internal Medicine; PCP Internal Medicine; Referring Provider Student in an Organized Health Care Education/Training Program; Visit Provider Student in an Organized Health Care Education/Training Program
DX: R41.89 Other symptoms and signs involving cognitive functions and awareness (principal)
CPT/HCPCS: 36415; 82607; 83921; 84155; 84165; 84443

== ENCOUNTER 2024-07-04 16:44 | Emergency (ER) | payer MEDICARE, OTHER, SELFPAY ==
[2022-05-16 21:37] VITALS: BMI 23.7
[2024-07-04] VITALS (10 sets, daily range): BP systolic 112–206; BP diastolic 57–100; PULSE 70–82; RESP 18–30; TEMP 36.9; O2SAT 97–98; BMI 22.4
--- NOTE | 2024-07-04 16:47 | DI.RAD.S_ITS ---
PROCEDURE: XR CHEST 1V INDICATIONS: chest pain TECHNIQUE: One view of the chest was acquired. COMPARISON: None. FINDINGS: Surgical changes and devices: None. Lungs and pleura: Mild prominence of the interstitial markings. No pleural effusions or pneumothorax. Mediastinum: Mediastinal contours appear normal. Heart size is normal. Bones and chest wall: No suspicious bony lesions. Overlying soft tissues appear unremarkable. IMPRESSION: Mild prominence of the interstitial markings, correlate for signs of pulmonary edema. Dictated by: David Barber M.D. on 07/04/2024 at 17:46 Approved by: David Barber M.D. on 07/04/2024 at 17:49
--- NOTE | 2024-07-04 16:49 | EKG_ITS ---
[facility] [address] [place] [address] Test Date: 2024-07-04 Pat Name: Papa Serrano Jr Department: [facility] Room: Gender: Male [employer]: : 1945 Requested By: Order Number: [id number] Reading MD: Tim Pemberton MD Measurements Intervals [place] Rate: 72 P: DC: QRS: 51 QRSD: 64 T: 97 QT: 404 QTc: 442 Interpretive Statements Atrial fibrillation (new) ST & T wave abnormality, consider lateral ischemia Electronically Signed On 07-06-2024 8:24:11 PDT by Tim Pemberton MD
--- NOTE | 2024-07-04 17:03 | DI.CT.S_ITS ---
PROCEDURE: CT HEAD/BRAIN WO CON INDICATIONS: fall TECHNIQUE: Noncontrast 4.5 mm thick angled axial sections acquired from the foramen magnum to the vertex, with coronal and sagittal reformats. For radiation dose reduction, the following was used: automated exposure control, adjustment of mA and/or kV according to patient size. COMPARISON: [facility], CT, CT HEAD/BRAIN WO CON, 04/04/2024, 20:22. FINDINGS: Image quality: Diagnostic. CSF spaces: Basal cisterns are patent. No extra-axial fluid collections. The ventricles are symmetric in size and shape. Brain: No intracranial bleeds or mass effect. There is cerebral volume loss, with resultant ventricular and sulcal prominence. There are periventricular and deep white matter chronic small vessel ischemic changes. There is intracranial internal carotid artery atherosclerosis. Skull and face: Calvarium and visualized facial bones appear intact, without suspicious lesions. Sinuses: Visualized sinuses and mastoids are clear. IMPRESSION: No acute intracranial pathology. Dictated by: David Barber M.D. on 07/04/2024 at 17:49 Approved by: David Barber M.D. on 07/04/2024 at 17:51
--- NOTE | 2024-07-04 17:03 | DI.CT.S_ITS ---
PROCEDURE: CT CERVICAL SPINE WO CON INDICATIONS: fall TECHNIQUE: Noncontrast 3 mm thick sections acquired from the skull base to the T4 level. Sagittal and coronal reformats were then constructed. For radiation dose reduction, the following was used: automated exposure control, adjustment of mA and/or kV according to patient size. COMPARISON: [facility], CT, CT CERVICAL SPINE WO CON, 04/04/2024, 20:22. FINDINGS: Image quality: Excellent. Bones: No fractures or dislocations. Multilevel degenerative changes of the cervical spine. Visualized superior ribs are intact. Soft tissues: Prevertebral soft tissues are normal in thickness. No paravertebral hematomas. No apical pneumothoraces. IMPRESSION: No displaced fracture or traumatic subluxation. Dictated by: David Barber M.D. on 07/04/2024 at 17:51 Approved by: David Barber M.D. on 07/04/2024 at 17:55
[2024-07-04 17:16] LABS: Add Manual Diff / Slide Review NO; Basophils Absolute Auto 100 /uL (0-100); Basophils Percent Auto 1.2 % (0-2); Eosinophils Absolute Auto 200 /uL (0-450); Eosinophils Percent Auto 1.9 % (2-4); Hematocrit 35.8 % (41-53); Lymphocytes Absolute Auto 1700 /uL (1100-4500); Lymphocytes Percent Auto 19.6 % (25-40); Mean Corpuscular HGB Conc 33.6 % (30-36); Mean Corpuscular Volume 86.4 fL (80-100); Monocytes Absolute Auto 900 /uL (0-900); Monocytes Percent Auto 10.3 % (3-14); Neutrophils Absolute Auto 5800 /uL (1500-7000); Platelet Count 258 X10^3/uL (150-400); Red Blood Cell Count 4.14 X10^6/uL (4.5-5.9); Red Cell Distribution Width 14.3 % (11.6-14.8); White Blood Cell Count 8.7 X10^3/uL (4.5-11.0)
[2024-07-04 17:26] LABS: Prothrombin Time 11.2 SECONDS (9.4-12.5)
[2024-07-04 17:27] LABS: Alanine Aminotransferase 7 IU/L (<50); Albumin Globulin Ratio 1.4 (1.0-2.8); Alkaline Phosphatase 86 U/L (38-126); Aspartate Aminotransferase 20 IU/L (17-59); BUN Creatinine Ratio 23.1 (6-22); Bilirubin Total 0.5 mg/dL (0.2-1.3); Blood Urea Nitrogen 18 mg/dL (9-20); Calcium 8.7 mg/dL (8.4-10.2); Carbon Dioxide 25 mmol/L (22-32); Chloride 105 mmol/L (98-107); Creatine Kinase 92 U/L (55-170); Estimated Glomerular Filt Rate > 60 mL/min (>60); Globulin 2.9 g/dL (1.7-4.1); Glucose 93 mg/dL (80-110); HEMOLYSIS < 15 (0-50); Lipase 175 U/L (23-300); Magnesium 1.7 mg/dL (1.6-2.3); Potassium 4.2 mmol/L (3.4-5.1); Sodium 137 mmol/L (137-145); Total Protein 6.9 g/dL (6.3-8.2)
[2024-07-04 17:28] LABS: PTT Partial Thromboplastin Tim 29 SECONDS (25.1-36.5)
[2024-07-04 17:38] LABS: NT-proBNP (BNP-Adult 18+) 108 pg/mL (<450); Troponin I < 0.012 ng/mL (0.01-0.034)
--- NOTE | 2024-07-04 19:07 | ED.FALL ---
HPI - Fall General Chief Complaint: Fall Stated Complaint: fall Time Seen by Provider: 07/04/24 17:58 Source: EMS Mode of arrival: EMS History of Present Illness HPI Narrative: 79-year-old gentleman with a history hyperlipidemia, Parkinson's disease, cognitive deficits developing, coronary artery disease, paroxysmal atrial fibrillation, alcohol use disorder with no alcohol use for a number of months, was brought in by medics after experiencing a fall at home. He reportedly landed on the carpet after hitting a door. Does have a head laceration and arrives with a C-collar in place in the laceration bandaged. Majority of history is from his . He is not complaining of any pain. He does have some lacerations over the bridge of his nose and above his eyebrow consistent with his glasses hitting the side of the door. No other pain complaints Related Data Home Medications Medication Instructions Recorded Confirmed magnesium oxide 400 mg PO BID 12/27/17 05/09/24 sertraline 100 mg tablet 100 mg PO DAILY 06/07/21 05/09/24 carbidopa 25 mg-levodopa 100 mg 1 tab PO BEDTIME 03/07/24 05/09/24 tablet carbidopa ER 50 mg-levodopa 200 mg 1.5 tab PO QPM 03/07/24 05/09/24 tablet,extended release Previous Rx's Medication Instructions Recorded atorvastatin 40 mg tablet 40 mg PO DAILY #90 tabs 10/16/19 tamsulosin 0.4 mg capsule (Flomax) 0.4 mg PO BID #180 caps 10/16/19 mometasone 200 mcg/actuation HFA 2 puff inhalation BID #39 grams 04/13/20 aerosol inhaler nitroglycerin 0.4 mg sublingual 0.4 mg sublingual Q5M PRN chest 11/16/20 tablet pain #60 tabs tiotropium bromide 18 mcg capsule 1 cap inhalation DAILY #30 05/19/22 with inhalation device (Spiriva inhalations with HandiHaler) trazodone 50 mg tablet See Rx Instructions .Route 06/05/22 .COMPLEX #180 tabs Disabled Parking #1 ea 06/26/22 metoprolol succinate 25 mg 25 mg PO DAILY #90 tabs 11/16/22 tablet,extended release 24 hr ketoconazole 2 % topical cream 1 applic topical BID #60 grams 11/28/22 lidocaine 5 % patch and menthol 6 See Rx Instructions topical 01/26/24 % gel topical kit .COMPLEX #1 ea Allergies Allergy/AdvReac Type Severity Reaction Status Date / Time No Known Drug Allergies Allergy Verified 05/09/24 14:56 Review of Systems Review of Systems Narrative: Pertinent positive and negative findings as per HPI Patient History Medical History PSP (progressive supranuclear palsy) Major neurocognitive disorder Alcohol use disorder [place] History of external beam radiation therapy History of urinary retention Multiple falls Multiple fractures of ribs History of radiation therapy Tremor Lower urinary tract symptoms Alcoholism Hx of adenomatous colonic polyps (12/22/10) Alcoholism in recovery (01/10/16) Former smoker (01/15/15) Depression (12/22/14) Pulmonary emphysema (12/22/14) 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 (12/22/14) Essential hypertension (12/22/14) Paroxysmal atrial fibrillation (12/22/14) Atherosclerosis of [place] coronary artery of [place] heart without angina pectoris (12/22/14) Hyperlipidemia Malignant neoplasm of prostate (12/22/10) Urinary retention Generalized anxiety disorder MRSA (methicillin resistant staph aureus) culture positive Atrial flutter Surgical History Inguinal hernia Status post transurethral resection of prostate (~05/2016) History of angioplasty (10/06/14) Status post appendectomy Family History Mother Blood disease Hyperlipidemia Hypertension Hearing impairment Father Cancer Social History household members: spouse alcohol intake: current tobacco type: cigarettes and e-cigarettes alcohol intake frequency: 0-2 drinks per day Exam Initial Vital Signs Initial Vital Signs: Vital Signs Temperature 98.5 F 07/04/24 16:47 Pulse Rate 70 07/04/24 16:47 Respiratory Rate 18 07/04/24 16:47 Blood Pressure 142/65 H 07/04/24 16:47 Pulse Oximetry 97 07/04/24 16:47 Oxygen Delivery Method Room Air 07/04/24 16:47 General: Chronically ill-appearing, baseline parkinsonian tremor HEENT: Moist mucous membranes, normal sclera with reactive pupils, no subconjunctival hemorrhage. 1 cm laceration over the bridge of the nose and a 3 cm laceration over the brow on the right, all are fairly shallow Neck: No pain to palpation midline Respiratory: Lungs are clear to auscultation Full and symmetrical air movement Cardiac: Regular rate and rhythm no murmurs no bruits Abdomen: Soft, nontender, no rebound or guarding, no flank pain, no abrasions or contusions over the abdomen are torso Skin: Multiple bruises very thin skin, all the bruises in various stages of healing Neurologic: Significant cognitive deficits, baseline parkinsonian tremor, cooperative with exam Extremities: He has a contusion to the left right finger but no tenderness and I suspect this is not from today's fall. Psych: Cooperative, able to respond appropriately to directions Procedures Laceration Repair Lacerations of the bridge of the nose and the brow on the right side: Time of procedure: 19:24 Site: face Side (If applicable): right Size (cm): 1 (1 cm over the bridge of the nose, 3 cm over the right brow) Description: linear (Shallow) Depth: simple, single layer Pre-repair: wound explored and deep structures intact Skin layer closed with: dermabond Course Orders Ordered: ED Orders 07/04/24 15:14 Complete Blood Count AUTO DIFF Stat Comprehensive Metabolic Panel Stat Lipase Stat Magnesium Stat NT-proBNP (BNP-Adult 18+) Stat PTT Partial Thromboplastin Jimmy Stat Prothrombin Time INR Stat Troponin & CK Cardiac Panel Stat 07/04/24 16:47 XR chest 1V Stat EKG-12 Lead Stat 07/04/24 17:03 CT cervical spine wo con Stat CT head/brain wo con Stat Vital Signs Vital signs: Vital Signs - 8 hr 07/04/24 16:47 07/04/24 16:50 07/04/24 17:00 Temperature 98.5 F Pulse Rate 70 70 75 Respiratory Rate 18 23 Blood Pressure 142/65 H Pulse Oximetry 97 97 97 Oxygen Delivery Method Room Air 07/04/24 17:25 07/04/24 17:25 07/04/24 17:30 Temperature Pulse Rate 75 Respiratory Rate 28 H Blood Pressure 112/57 L 147/67 H Pulse Oximetry 97 Oxygen Delivery Method Room Air 07/04/24 17:30 07/04/24 18:00 07/04/24 18:00 Temperature Pulse Rate 72 76 Respiratory Rate 23 19 Blood Pressure 145/75 H Pulse Oximetry 97 97 Oxygen Delivery Method Room Air 07/04/24 18:30 07/04/24 18:30 Temperature Pulse Rate 74 Respiratory Rate 30 H Blood Pressure 145/84 H Pulse Oximetry 98 Oxygen Delivery Method Room Air MDM - Fall Lab Data 07/04/24 15:14 07/04/24 15:14 Labs: Lab Results 07/04/24 Range/Units 15:14 WBC 8.7 (4.5-11.0) X10^3/uL RBC 4.14 L (4.5-5.9) X10^6/uL Hgb 12.0 L (13.5-17.5) g/dL Hct 35.8 L (41-53) % MCV 86.4 (80-100) fL MCH 29.0 (26-34) PG MCHC 33.6 (30-36) % RDW 14.3 (11.6-14.8) % Plt Count 258 (150-400) X10^3/uL Neut % (Auto) 67.0 (50-75) % Lymph % (Auto) 19.6 L (25-40) % [place] % (Auto) 10.3 (3-14) % Eos % (Auto) 1.9 L (2-4) % Baso % (Auto) 1.2 (0-2) % Neut # (Auto) 5800 (2422-3749) /uL Lymph # (Auto) 1700 (0953-0679) /uL [place] # (Auto) 900 (0-900) /uL Eos # (Auto) 200 (0-450) /uL Baso # (Auto) 100 (0-100) /uL PT 11.2 (9.4-12.5) SECONDS INR 1.0 (0.9-1.3) APTT 29 (25.1-36.5) SECONDS Sodium 137 (137-145) mmol/L Potassium 4.2 (3.4-5.1) mmol/L Chloride 105 (98-107) mmol/L Carbon Dioxide 25 (22-32) mmol/L BUN 18 (9-20) mg/dL Creatinine 0.78 (0.66-1.25) mg/dL Estimated GFR > 60 (>60) mL/min BUN/Creatinine Ratio 23.1 H (6-22) Glucose 93 (80-110) mg/dL Calcium 8.7 (8.4-10.2) mg/dL Magnesium 1.7 (1.6-2.3) mg/dL Total Bilirubin 0.5 (0.2-1.3) mg/dL AST 20 (17-59) IU/L ALT 7 (<50) IU/L Alkaline Phosphatase 86 (38-126) U/L Total Creatine Kinase 92 (55-170) U/L Troponin I < 0.012 (0.01-0.034) ng/mL NT-Pro-B Natriuret Pep 108 (<450) pg/mL Total Protein 6.9 (6.3-8.2) g/dL Albumin 4.0 (3.5-5.0) g/dL Globulin 2.9 (1.7-4.1) g/dL Albumin/Globulin Ratio 1.4 (1.0-2.8) Lipase 175 (23-300) U/L MDM Narrative Medical decision making narrative: CC: Fall at home with head laceration Complicating co-morbidities: Alcohol use disorder, Parkinson's disease paroxysmal atrial fibrillation, hypertension, hyperlipidemia multiple falls daily Data collected from: patient, medics but majority is from his . She is his primary caregiver. Notes that he does fall repeatedly, he has broken 4 pairs of glasses and 3 different walkers. She also notes that it has been quite awhile since he has had any type of alcohol. Social determinants of health that may influence the patients condition: Multiple falls, Parkinson's disease Medical records reviewed: Primary care note from May 09 is reviewed ER note from April 04 with similar fall and head laceration reviewed Differential considered: Unsteadiness secondary to his Parkinson's disease, acute alcohol intoxication, intracranial hemorrhage, minor laceration, significant head laceration Exam documented above, pertinent findings include: Cognitive deficits with baseline parkinsonian tremor. Aside from the small abrasions over the bridge of the nose and the right brow no trauma from today. Remainder of exam appears to be at baseline Lab Test results independently reviewed as above. Pertinent findings: CBC is unremarkable with no significant change to his H&H Chemistries are reassuring Troponin is undetectable BNP is appropriate Independently reviewed EKG: EKG shows sinus rhythm of 72, baseline tremor because of his Parkinson's leading to poor baseline on EKG. No obvious ischemia appreciated Imaging studies independently reviewed: Chest x-ray is shows chronic interstitial findings question of congestive heart failure which does not correlate with his low BNP no his symptoms CT scan of the cervical spine is unremarkable CT scan of the head is unremarkable with no intracranial hemorrhage Treatments: Dermabond is used to close the wound over the bridge of the nose as well as the brow Discussion: 79-year-old gentleman with Parkinson's disease, dementia, significant risk for falls with multiple falls. is his primary caregiver. We did spend some time talking about help at home. She notes that they do not have long-term care insurance nor capacity to pay for [facility] care facility. Reviewed repair of lacerations of the nose and forehead along with the anticipated resolution with the skin glue. He has had similar findings in all have healed nicely. At this point there was no evidence for secondary reason for fall such as STEMI, stroke, sepsis. There was no indication for further workup or hospitalization and he is discharged home Discharge Plan Departure Patient Disposition: Home Clinical Impression: Recurrent falls Parkinson's disease Qualifiers: Dyskinesia presence: with dyskinesia Fluctuating manifestations: with fluctuating manifestations Qualified Code(s): G20.B2 - Parkinson's disease with dyskinesia, with fluctuations Dementia Qualifiers: Dementia type: unspecified type Dementia severity: severe Dementia behavioral or psychological symptom: unspecified whether behavioral, psychotic, or mood disturbance or anxiety Qualified Code(s): F03.C0 - Unspecified dementia, severe, without behavioral disturbance, psychotic disturbance, mood disturbance, and anxiety Instructions: DI for Laceration Repair-Skin Glue Activity Restrictions/Additional Instructions: Thank you for coming in today I am sorry that you are still having some any difficulty with falls. Your workup today was unremarkable. There was no sign of bleeding in your head, fractures in your neck, acute heart attack, stroke or infection The cuts over your nose and eyebrow are likely from the glasses that you were wearing. They were fairly shallow and came together nicely with skin glue The glue will peel off over the next 5-6 days. If you can avoid picking at it so it comes off sooner that would be helpful. If it does come off sooner these wounds are still going to heal without stitches If you find that you are getting worse or develop any new symptoms, please feel free to return to the emergency department for further evaluation. Prescriptions: No Action atorvastatin 40 mg tablet 40 mg PO DAILY Qty: 90 0RF tamsulosin [Flomax] 0.4 mg capsule 0.4 mg PO BID Qty: 180 0RF mometasone 200 mcg/actuation HFA aerosol inhaler 2 puff INHALATION BID Qty: 39 3RF Hold Instructions: patient request trazodone 50 mg tablet See Rx Instructions .ROUTE .COMPLEX Qty: 180 3RF Dose Instruction: TAKE 1 TO 2 TABLETS BY MOUTH AT BEDTIME NEEDED FOR SLEEP Rx Instructions: TAKE 2 TABLETS BY MOUTH AT BEDTIME NEEDED FOR SLEEP (DME) Disabled Parking See Rx Instructions .ROUTE .MEDSUPPLY Qty: 1 0RF Rx Instructions: Patient qualifies for disabled parking as per the attached form. metoprolol succinate 25 mg tablet extended release 24 hr 25 mg PO DAILY Qty: 90 3RF magnesium oxide 400 mg capsule 400 mg PO BID nitroglycerin 0.4 mg tablet, sublingual 0.4 mg SL Q5M PRN (Reason: chest pain) Qty: 60 3RF Rx Instructions: until response; do not exceed 3 doses per episode ketoconazole 2 % cream 1 applic topical BID Qty: 60 3RF sertraline 100 mg tablet 100 mg PO DAILY carbidopa-levodopa 25-100 mg tablet 1 tab PO BEDTIME Rx Instructions: 1.5 in AM, 1.5 at 11, 1.5 at 3pm. carbidopa-levodopa 50-200 mg tablet extended release 1.5 tab PO QPM lidocaine-menthol 5-6 % kit See Rx Instructions .ROUTE .COMPLEX Qty: 1 0RF Rx Instructions: apply LIDIOCAINE PATCH once a day/may leave on for up to 12 hrs; apply MENTHOL GEL 1 - 4 times/day as needed for pain. Spiriva with HandiHaler 18 mcg capsule, w/inhalation device 1 cap inhalation DAILY Qty: 30 0RF Hold Instructions: patient request Rx Instructions: puncture 1 cap using device; one dose = 2 inhalations Referrals: Tim Pemberton MD [Primary Care Provider] - Stand Alone Forms: Patient Portal/API/Survey
== END 2024-07-04 19:44 | disposition home or self-care (01) ==
PROVIDERS: Emergency Medicine; Emergency Provider Emergency Medicine; Family Provider Internal Medicine; PCP Internal Medicine
DX: S01.81XA Laceration without foreign body of other part of head, initial encounter (principal); S01.21XA Laceration without foreign body of nose, initial encounter; F02.C0 Dementia in other diseases classified elsewhere, severe, without behavioral disturbance, psychotic disturbance, mood disturbance, and anxiety; G20.B2 Parkinson's disease with dyskinesia, with fluctuations; I10 Essential (primary) hypertension; F17.210 Nicotine dependence, cigarettes, uncomplicated; W18.30XA Fall on same level, unspecified, initial encounter; Z91.81 History of falling
CPT/HCPCS: 12013; 70450; 71045; 72125; 80053; 82550; 83690; 83735; 83880; 84484; 85025; 85610; 85730; 93005; 93010; 99283; 99284

== ENCOUNTER 2024-08-13 01:47 | Emergency (ER) | payer MEDICARE, OTHER, SELFPAY ==
[2022-05-16 21:37] VITALS: BMI 23.7
[2024-08-13] VITALS (10 sets, daily range): BP systolic 109–158; BP diastolic 55–70; PULSE 60–75; RESP 16–18; TEMP 36.9; O2SAT 94–98; BMI 22.3
--- NOTE | 2024-08-13 02:00 | DI.CT.S_ITS ---
PROCEDURE: CT CERVICAL SPINE WO CON INDICATIONS: trauma TECHNIQUE: Noncontrast 3 mm thick sections acquired from the skull base to the T4 level. Sagittal and coronal reformats were then constructed. For radiation dose reduction, the following was used: automated exposure control, adjustment of mA and/or kV according to patient size. COMPARISON: [facility], CT, CT CERVICAL SPINE WO CON, 07/04/2024, 17:15. FINDINGS: Image quality: Excellent. Bones: No fractures or dislocations. Multilevel degenerative changes of the cervical spine. Visualized superior ribs are intact. Soft tissues: Prevertebral soft tissues are normal in thickness. No paravertebral hematomas. No apical pneumothoraces. Partially visualized opacities within the visualized right lower lobe, better evaluated on prior CT chest 01/26/2024. IMPRESSION: No displaced fracture or traumatic subluxation. Findings are concordant with preliminary interpretation provided by [facility]. Dictated by: David Barber M.D. on 08/13/2024 at 8:53 Approved by: David Barber M.D. on 08/13/2024 at 8:57
--- NOTE | 2024-08-13 02:00 | DI.CT.S_ITS ---
PROCEDURE: CT HEAD/BRAIN WO CON INDICATIONS: Trauma TECHNIQUE: Noncontrast 4.5 mm thick angled axial sections acquired from the foramen magnum to the vertex, with coronal and sagittal reformats. For radiation dose reduction, the following was used: automated exposure control, adjustment of mA and/or kV according to patient size. COMPARISON: [facility], CT, CT HEAD/BRAIN WO CON, 07/04/2024, 17:15. FINDINGS: Image quality: Diagnostic. CSF spaces: Basal cisterns are patent. No extra-axial fluid collections. The ventricles are symmetric in size and shape. Brain: No intracranial bleeds or mass effect. There is cerebral volume loss, with resultant ventricular and sulcal prominence. There are periventricular and deep white matter chronic small vessel ischemic changes. There is intracranial internal carotid artery atherosclerosis. Skull and face: Scalp laceration with mendez in the right vertex region. Calvarium and visualized facial bones appear intact, without suspicious lesions. Sinuses: Visualized sinuses and mastoids are clear. IMPRESSION: No acute intracranial pathology. Findings are concordant with preliminary interpretation provided by [facility]. Dictated by: David Barber M.D. on 08/13/2024 at 8:51 Approved by: David Barber M.D. on 08/13/2024 at 8:53
--- NOTE | 2024-08-13 02:01 | ED_ITS ---
HPI - Fall General Chief Complaint: Fall Stated Complaint: GLF Time Seen by Provider: 08/13/24 02:00 History of Present Illness HPI Narrative: 79-year-old male with a past medical history of hyperlipidemia, Parkinson's disease, prostate cancer not undergoing any treatment, paroxysmal AFib not on any blood thinners, alcohol use disorder, presents to the emergency department from home via EMS for evaluation of mechanical trip and fall. Patient was in the kitchen when he had a fall, patient not complaining of any pain or discomfort, is able to normally ambulate with a walker, according to at bedside she states that patient is at his baseline. Patient has paperwork with him that shows comfort measures only, DNR DNI. Patient not complaining of any other symptoms at this time, is able to move all 4 extremities spontaneously. Related Data Home Medications Medication Instructions Recorded Confirmed magnesium oxide 400 mg PO BID 12/27/17 07/10/24 sertraline 100 mg tablet 100 mg PO DAILY 06/07/21 07/10/24 carbidopa 25 mg-levodopa 100 mg 1 tab PO BEDTIME 03/07/24 07/10/24 tablet carbidopa ER 50 mg-levodopa 200 mg 1.5 tab PO QPM 03/07/24 07/10/24 tablet,extended release Previous Rx's Medication Instructions Recorded atorvastatin 40 mg tablet 40 mg PO DAILY #90 tabs 10/16/19 tamsulosin 0.4 mg capsule (Flomax) 0.4 mg PO BID #180 caps 10/16/19 mometasone 200 mcg/actuation HFA 2 puff inhalation BID #39 grams 04/13/20 aerosol inhaler nitroglycerin 0.4 mg sublingual 0.4 mg sublingual Q5M PRN chest 11/16/20 tablet pain #60 tabs tiotropium bromide 18 mcg capsule 1 cap inhalation DAILY #30 05/19/22 with inhalation device (Spiriva inhalations with HandiHaler) trazodone 50 mg tablet See Rx Instructions .Route 06/05/22 .COMPLEX #180 tabs Disabled Parking #1 ea 06/26/22 metoprolol succinate 25 mg 25 mg PO DAILY #90 tabs 11/16/22 tablet,extended release 24 hr ketoconazole 2 % topical cream 1 applic topical BID #60 grams 11/28/22 lidocaine 5 % patch and menthol 6 See Rx Instructions topical 01/26/24 % gel topical kit .COMPLEX #1 ea Allergies Allergy/AdvReac Type Severity Reaction Status Date / Time No Known Drug Allergies Allergy Verified 07/10/24 10:21 Review of Systems Review of Systems Narrative: General: Positive ground level fall, Denies fever, chills, weight loss HEENT: Denies headache, eye drainage, eye irritation, head trauma, sore throat, voice change Cardiovascular: Denies any chest pain, palpitations, tachycardia Respiratory: Denies any shortness of breath, cough, wheeze, stridor GI/: Denies any abdominal pain, nausea, vomiting, diarrhea, bright red blood per rectum, melanotic stools, urinary frequency, urinary retention, dysuria, hematuria MSK: Denies any joint pain, muscle pains, swelling Skin: Laceration to top of scalp Neuro: Denies any headache, lightheadedness, dizziness, fainting, weakness Psych: Denies SI/HI Patient History Medical History PSP (progressive supranuclear palsy) Major neurocognitive disorder Alcohol use disorder [place] History of external beam radiation therapy History of urinary retention Multiple falls Multiple fractures of ribs History of radiation therapy Tremor Lower urinary tract symptoms Alcoholism Hx of adenomatous colonic polyps (12/22/10) Alcoholism in recovery (01/10/16) Former smoker (01/15/15) Depression (12/22/14) Pulmonary emphysema (12/22/14) 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 (12/22/14) Essential hypertension (12/22/14) Paroxysmal atrial fibrillation (12/22/14) Atherosclerosis of [place] coronary artery of [place] heart without angina pectoris (12/22/14) Hyperlipidemia Malignant neoplasm of prostate (12/22/10) Urinary retention Generalized anxiety disorder MRSA (methicillin resistant staph aureus) culture positive Atrial flutter Surgical History Inguinal hernia Status post transurethral resection of prostate (~05/2016) History of angioplasty (10/06/14) Status post appendectomy Family History Mother Blood disease Hyperlipidemia Hypertension Hearing impairment Father Cancer Social History household members: spouse alcohol intake: current tobacco type: cigarettes and e-cigarettes alcohol intake frequency: 0-2 drinks per day Exam Narrative Exam Narrative: General: Cooperative, well-developed, not in acute distress HEENT: 1.5 cm laceration to the top of the scalp not actively bleeding PERRLA, normal sclera, eyelids normal Neck: Active full range of motion, atraumatic Chest: Normal to inspection, negative crepitus, no overlying erythema ecchymosis Respiratory: Normal respiratory effort, not in acute respiratory distress, clear to auscultation bilaterally negative cough, wheeze, tachypnea, rhonchi, rales Cardiology: Regular rate rhythm negative gallop, murmur, rubs GI/: No tenderness to palpation, soft, non rigid, normal to inspection, exam deferred MSK: Full active range of motion in all 4 extremities, atraumatic, no tenderness to palpation of any bony prominences, patient moving all 4 extremities spontaneously no tenderness to palpation of any bony prominences Skin: No rashes or lesions noted Neuro: Patient history of Parkinson's and cognitive deficits, alert to self place, is at baseline ambulates with walker Psych: Cooperative, negative suicidal or homicidal ideations Initial Vital Signs Initial Vital Signs: Vital Signs Temperature 98.4 F 08/13/24 01:55 Pulse Rate 66 08/13/24 01:55 Respiratory Rate 16 08/13/24 01:55 Blood Pressure 155/67 H 08/13/24 01:55 Pulse Oximetry 96 08/13/24 01:55 Oxygen Delivery Method Room Air 08/13/24 01:55 Procedures Laceration Repair Laceration 1: Time of procedure: 02:03 Site: scalp Size (cm): 1.5 Description: linear Depth: simple, single layer Local Anesthetic: lidocaine 1% and with epi Amount of anesthesia used (mL): 5 Skin layer closed with: mendez (3) Course Orders Ordered: ED Orders 08/13/24 02:00 CT cervical spine wo con Stat CT head/brain wo con Stat Vital Signs Vital signs: Vital Signs - 8 hr 08/13/24 01:55 Temperature 98.4 F Pulse Rate 66 Respiratory Rate 16 Blood Pressure 155/67 H Pulse Oximetry 96 Oxygen Delivery Method Room Air MDM - Fall Differential Diagnosis Differential diagnosis: Likely other (Intracranial hemorrhage, skull fracture, cervical neck fracture, laceration,) Imaging Data CT scan - head: Radiologist's Impression: Preliminary read showing no acute intracranial abnormality, CT - cervical spine: Radiologist's Impression: Preliminary read showing multilevel spondylitic changes of the cervical spine without any acute traumatic injury MDM Narrative Medical decision making narrative: 79-year-old male past medical history of Parkinson's with cognitive decline, dementia, alcohol use disorder, hypertension, hyperlipidemia, presenting from home via EMS for evaluation of fall, patient was in the kitchen when he had mechanical trip and fall, patient normally able to ambulate with walker at baseline, patient not on any blood thinners. At time of evaluation patient at baseline according to at bedside, patient is alert to self and place, able to move all 4 extremities spontaneously no tenderness to palpation of any bony prominences on exam 1.5 cm laceration to the top of the scalp not active bleeding 3 mendez were placed. Patient is DNR DNI from measures only. CT scan of the head and neck was performed here in the emergency department. CT scan of the head without any acute abnormalities. CT cervical spine without any acute fractures. Patient has been monitored here for several hours, still at baseline according to at bedside. feels comfortable taking patient home, strict return precautions given verbalized understanding of this and agrees to being discharged home with outpatient follow up Discharge Plan Departure Patient Disposition: Home Clinical Impression: Laceration of scalp, Closed head injury, Ground-level fall Instructions: DI for Laceration Repair -- [place], DI for Closed Head Injury Activity Restrictions/Additional Instructions: You have 3 mendez and need to be removed in a proximally 1 week Please follow up with the primary care doctor Please read the discharge instructions sheet carefully and bring all papers to all doctor follow-up visits, as it may contain information that your doctor may want to see. Disease processes change and evolve, if your symptoms worsen or if you develop any new symptoms that are concerning to you please return for evaluation. Your evaluation today does not show any evidence of any life- threatening/serious illnesses requiring admission to the hospital or surgery. Please follow-up with your doctor for re-evaluation in approximately 1 day. Seek immediate medical attention for any worrisome symptoms. *If you do not have a primary care provider please contact the [facility] Resource line at [phone]. They will ask some questions about your medical history and help get you set up with a doctor in the community. Prescriptions: No Action atorvastatin 40 mg tablet 40 mg PO DAILY Qty: 90 0RF tamsulosin [Flomax] 0.4 mg capsule 0.4 mg PO BID Qty: 180 0RF mometasone 200 mcg/actuation HFA aerosol inhaler 2 puff INHALATION BID Qty: 39 3RF Hold Instructions: patient request trazodone 50 mg tablet See Rx Instructions .ROUTE .COMPLEX Qty: 180 3RF Dose Instruction: TAKE 1 TO 2 TABLETS BY MOUTH AT BEDTIME NEEDED FOR SLEEP Rx Instructions: TAKE 2 TABLETS BY MOUTH AT BEDTIME NEEDED FOR SLEEP (DME) Disabled Parking See Rx Instructions .ROUTE .MEDSUPPLY Qty: 1 0RF Rx Instructions: Patient qualifies for disabled parking as per the attached form. metoprolol succinate 25 mg tablet extended release 24 hr 25 mg PO DAILY Qty: 90 3RF magnesium oxide 400 mg capsule 400 mg PO BID nitroglycerin 0.4 mg tablet, sublingual 0.4 mg SL Q5M PRN (Reason: chest pain) Qty: 60 3RF Rx Instructions: until response; do not exceed 3 doses per episode ketoconazole 2 % cream 1 applic topical BID Qty: 60 3RF sertraline 100 mg tablet 100 mg PO DAILY carbidopa-levodopa 25-100 mg tablet 1 tab PO BEDTIME Rx Instructions: 1.5 in AM, 1.5 at 11, 1.5 at 3pm. carbidopa-levodopa 50-200 mg tablet extended release 1.5 tab PO QPM lidocaine-menthol 5-6 % kit See Rx Instructions .ROUTE .COMPLEX Qty: 1 0RF Rx Instructions: apply LIDIOCAINE PATCH once a day/may leave on for up to 12 hrs; apply MENTH OL GEL 1 - 4 times/day as needed for pain. Spiriva with HandiHaler 18 mcg capsule, w/inhalation device 1 cap inhalation DAILY Qty: 30 0RF Hold Instructions: patient request Rx Instructions: puncture 1 cap using device; one dose = 2 inhalations Referrals: Tim Pemberton MD [Primary Care Provider] - Stand Alone Forms: Patient Portal/API/Survey
[2024-08-13] MEDS: ACETAMINOPHEN 325 MG TABLET 650 MG PO (04:30)
== END 2024-08-13 04:46 | disposition home or self-care (01) ==
PROVIDERS: Emergency Provider Student in an Organized Health Care Education/Training Program; Family Provider Internal Medicine; PCP Internal Medicine
DX: S01.01XA Laceration without foreign body of scalp, initial encounter (principal); S09.90XA Unspecified injury of head, initial encounter; W18.30XA Fall on same level, unspecified, initial encounter; Z85.46 Personal history of malignant neoplasm of prostate; G20.A1 Parkinson's disease without dyskinesia, without mention of fluctuations
CPT/HCPCS: 12001; 70450; 72125; 99283; 99284

== ENCOUNTER 2024-08-20 11:10 | Emergency (ER) | payer MEDICARE, OTHER, SELFPAY ==
[2022-05-16 21:37] VITALS: BMI 23.7
[2024-08-20 11:19] VITALS: BP 111/51; PULSE 60; RESP 18; TEMP 36.9; O2SAT 98; BMI 22.4
[2024-08-20 11:38] VITALS: PULSE 71; RESP 19; O2SAT 96
--- NOTE | 2024-08-20 11:49 | ED_ITS ---
<Statement entered by Vasiliy Galindo DO - 08/20/24 15:18> Dr. Galindo: I was immediately available in the department for consultation. I did not actually see the patient. HPI - Fall General Chief Complaint: Fall Stated Complaint: Needs stitched removed from head, and fell today Time Seen by Provider: 08/20/24 11:57 Source: family Mode of arrival: Wheelchair History of Present Illness HPI Narrative: Mr. Serrano Is a very pleasant 79-year-old gentleman with a past medical history of dementia, Parkinson's disease, hyperlipidemia, prostate cancer not undergoing treatment, paroxysmal AFib not on anticoagulation, alcohol use disorder who presents to the emergency department with his for scalp staple removal and also evaluation of a fall. History is provided entirely by the patient's , patient is only able to provide brief responses. Patient has a frequent falls, they typically occur in the middle of the night when he gets up. He fell on 08/13/2024 and was seen in the emergency department and had 3 mendez placed on a scalp laceration. He is here today to have these removed however he also had a fall last night around 2:00 a.m. and he sustained some facial abrasions and left hand abrasions because of the fall. No bleeding lacerations, not on any blood thinners. He is DNR/DNI, comfort measures only. states he is overall at his baseline, he performed physical therapy this morning with home health and actually did better than usual. He is starting to complain of some headache. No nausea, vomiting, diarrhea, chest pain, shortness of breath, fevers. Left eye held in closure x 1 year, left arm weak from childhood Polio. TDap 01/26/24. Related Data Home Medications ?Medication ?Instructions ?Recorded ?Confirmed magnesium oxide 400 mg PO BID 12/27/1707/10 sertraline 100 mg tablet 100 mg PO DAILY 06/07/21 carbidopa 25 mg-levodopa 100 mg 1 tab PO BEDTIME 03/0707/10/24 tablet carbidopa ER 50 mg-levodopa 200 mg 1.5 tab PO QPM 1207/10/24 tablet,extended release cyanocobalamin (vitamin B-12) mcg PO DAILY 08/20/24 1,000 mcg tablet Previous Rx's ?Medication ?Instructions ?Recorded atorvastatin 40 mg tablet 40 mg PO DAILY #90 tabs 09/18 tamsulosin 0.4 mg capsule (Flomax) 0.4 mg PO BID #180 caps 10/16/19 mometasone 200 mcg/actuation HFA 2 puff inhalation BID #39 grams 04/13/20 aerosol inhaler Held on 04/06/23. Instructions: patient request nitroglycerin 0.4 mg sublingual 0.4 mg sublingual Q5M PRN chest 11/16/20 tablet pain #60 tabs tiotropium bromide 18 mcg capsule 1 cap inhalation NATALIA LY #30 05/19/22 with inhalation device (Spiriva inhalations with HandiHaler) Held on 04/06/23. Instructions: patient request trazodone 50 mg tablet See Rx Instructions .Route 0 06/05/22 .COMPLEX #180 tabs Disabled Parking #1 ea 06/26/22 metoprolol succinate 25 mg 25 mg PO DAILY #90 tabs tablet,extended release 24 hr ketoconazole 2 % topical cream 1 applic topical BID #6 0 grams 11/28/22 lidocaine 5 % patch and menthol 6 See Rx Instructions topical 01/26/24 % gel topical kit .COMPLEX #1 ea Allergies Allergy/AdvReac Type Severity Reaction Status Date / Time No Known Drug Allergies Allergy Verified 08/20/24 11:19 Review of Systems Review of Systems ROS Unobtainable: All systems reviewed & are unremarkable except as noted in HPI and below Patient History Medical History PSP (progressive supranuclear palsy) Major neurocognitive disorder Alcohol use disorder Nocturia History of external beam radiation therapy History of urinary retention Multiple falls Multiple fractures of ribs History of radiation therapy Tremor Lower urinary tract symptoms Alcoholism Hx of adenomatous colonic polyps (12/22/10) Alcoholism in recovery (01/10/16) Former smoker (01/15/15) Depression (12/22/14) Pulmonary emphysema (12/22/14) 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 (12/22/14) Essential hypertension (12/22/14) Paroxysmal atrial fibrillation (12/22/14) Atherosclerosis of [place] coronary artery of [place] heart without angina pectoris (12/22/14) Hyperlipidemia Malignant neoplasm of prostate (12/22/10) Urinary retention Generalized anxiety disorder MRSA (methicillin resistant staph aureus) culture positive Atrial flutter Surgical History Inguinal hernia Status post transurethral resection of prostate (~05/2016) History of angioplasty (10/06/14) Status post appendectomy Family History Mother Blood disease Hyperlipidemia Hypertension Hearing impairment Father Cancer Social History household members: spouse alcohol intake: current Smoking Status: Former smoker tobacco type: cigarettes and e-cigarettes alcohol intake frequency: 0-2 drinks per day Exam Narrative Exam Narrative: GENERAL: 79 year old patient appears older than stated age. Cooperative patient, in no acute distress. HEAD: Normocephalic. Superficial nonbleeding abrasions on forehead. 1 cm closed laceration with [address] on top of scalp. EYES: Pupils equal and round. No scleral icterus. No injection or drainage. Left eye held closed for majority of exam. ENT: Nose without bleeding, purulent drainage. NECK: Trachea midline. No midline cervical tenderness. CARDIOVASCULAR: Regular rate RESPIRATORY: Nonlabored respirations. Speaking in clear, full sentences. Clear to auscultation. Breath sounds equal bilaterally. No wheezes, rales, or rhonchi. GASTROINTESTINAL: Abdomen soft, non-tender, nondistended. EXTREMITIES: No edema or joint tenderness. BACK: No midline tenderness. NEURO: Chronic baseline cognitive deficits. Able to respond yes and no to questions, alert to self. SKIN: Superficial abrasions on forehead, left hand. Initial Vital Signs Initial Vital Signs: Vital Signs Temperature 98.5 F 08/20/24 11:19 Pulse Rate 60 08/20/24 11:19 Respiratory Rate 18 08/20/24 11:19 Blood Pressure 111/51 L 08/20/24 11:19 Pulse Oximetry 98 08/20/24 11:19 Oxygen Delivery Method Room Air 08/20/24 11:19 Procedures [facility] [place] Procedure Name of Procedure: Staple Removal Location: scalp Technique/Description of procedure performed: 3 mendez removed, intact, no bleeding or complications Patient tolerated procedure: Well and No complications Course Orders Ordered: ED Orders 08/20/24 11:47 CT cervical spine wo con Stat CT head/brain wo con Stat Discontinued Medications Acetaminophen (Acetaminophen 325 Mg Tablet) 650 mg PO NOW ONE Stop: 08/20/24 11:53 Last Admin: 08/20/24 12:17 Dose: 650 mg Bacitracin (Bacitracin Oint 0.9 Gm Pckt) 1 applic TOP NOW ONE Stop: 08/20/24 11:48 Last Admin: 08/20/24 12:38 Dose: Not Given Vital Signs Vital signs: Vital Signs - 8 hr 08/20/24 11:19 08/20/24 11:38 08/20/24 12:00 Temperature 98.5 F Pulse Rate 60 71 Respiratory Rate 18 19 Blood Pressure 111/51 L 108/54 L Pulse Oximetry 98 96 Oxygen Delivery Method Room Air 08/20/24 12:00 08/20/24 12:30 Temperature Pulse Rate 67 68 Respiratory Rate 14 24 Blood Pressure 102/60 Pulse Oximetry 97 98 Oxygen Delivery Method Room Air MDM - Fall Medical Records Attestation: I reviewed the patient's medical records. Imaging Data CT scan - head: Radiologist's Impression: PROCEDURE: CT HEAD/BRAIN WO CON INDICATIONS: fall, forhead abrasions TECHNIQUE: Noncontrast 4.5 mm thick angled axial sections acquired from the foramen magnum to the vertex, with coronal and sagittal reformats. For radiation dose reduction, the following was used: automated exposure control, adjustment of mA and/or kV according to patient size. COMPARISON: [facility], CT, CT HEAD/BRAIN WO CON, 08/13/2024, 2:47. [facility], CT, CT HEAD/BRAIN WO CON, 07/04/2024, 17:15. FINDINGS: Image quality: Diagnostic. CSF spaces: Basal cisterns are patent. No extra-axial fluid collections. The ventricles are symmetric in size and shape. Brain: No acute intracranial hemorrhage or mass effect. There is cerebral volume loss, with resultant ventricular and sulcal prominence. There are periventricular and deep white matter chronic small vessel ischemic changes. There is intracranial internal carotid artery atherosclerosis. Skull and face: Skin mendez are seen near the vertex. Calvarium and visualized facial bones appear intact, without suspicious lesions. Sinuses: Visualized sinuses and mastoids are clear. IMPRESSION: No acute intracranial pathology. Approved by: Hadley Hilliard M.D. on 08/20/2024 at 12:11 CT - cervical spine: Radiologist's Impression: PROCEDURE: CT CERVICAL SPINE WO CON INDICATIONS: fall TECHNIQUE: Noncontrast 3 mm thick sections acquired from the skull base to the T4 level. Sagittal and coronal reformats were then constructed. For radiation dose reduction, the following was used: automated exposure control, adjustment of mA and/or kV according to patient size. COMPARISON: [facility], CT, CT CERVICAL SPINE WO CON, 08/13/2024, 2:47. [facility], CT, CT CERVICAL SPINE WO CON, 07/04/2024, 17:15. FINDINGS: Image quality: Excellent. Bones: No acute fractures or dislocations. Visualized superior ribs are intact. Multilevel disc space narrowing and degenerative endplate changes. Multilevel uncovertebral joint and facet hypertrophy. Soft tissues: Prevertebral soft tissues are normal in thickness. No paravertebral hematomas. No apical pneumothoraces. IMPRESSION: No acute displaced fracture or traumatic subluxation. Approved by: Hadley Hilliard M.D. on 08/20/2024 at 12:14 [facility] Narrative Medical decision making narrative: 79-year-old gentleman with a past medical history of dementia, Parkinson's disease, hyperlipidemia, prostate cancer not undergoing treatment, paroxysmal AFib not on anticoagulation, alcohol use disorder who presents to the emergency department with his for scalp staple removal and also evaluation of a fall. He is DNR/DNI, comfort measures only. TDap UTD. Differential diagnosis includes but is not limited to closed head injury, concussion, facial abrasion, recurrent falls, etc. On exam the patient is in no acute distress, nontoxic appearing, Vital signs within normal limits. He is reported to be at his baseline neurologic function according to his , he is able to answer yes and no questions, no pain to palpation of extremities or trunk, no palpable skull fracture. He does have superficial abrasion on the forehead and left hand, [address] that need to be removed. After shared decision-making with the and the patient, we will proceed with imaging of head and neck, treat pain with Tylenol and remove mendez, cleanse and apply bacitracin to wounds. [address] scan of head and cervical spine reveal no acute findings, results were printed and provided to . We are out of bacitracin in the ED, feels comfortable applying triple abx ointment at home. Recommended rest, hydration, Tylenol for pain, bacitracin/ triple antibiotic ointment on abrasions, follow up with the PCP, continuing with physical therapy. Discussed strict ED return precautions. Patient and verbalized understanding of all information agreeable with the plan. He is stable for discharge home. Discharge Plan Departure Patient Disposition: Home Clinical Impression: Fall from ground level, Encounter for removal of mendez Closed head injury Qualifiers: Encounter type: initial encounter Qualified Code(s): S09.90XA - Unspecified injury of head, initial encounter Instructions: DI for Concussion, DI for Closed Head Injury Activity Restrictions/Additional Instructions: Dear Joseph Chris , Thank you for coming to the emergency department. Today you were evaluated for head trauma after fall and also to have your mendez removed. Please apply triple antibiotic ointment or something similar to all abrasions and keep them clean and covered. Use Tylenol if needed for pain. Follow up with your primary care doctor and your physical therapist, return to the emergency department for any new or worsening symptoms. Please follow up with your primary care doctor within the next 2-3 days for ER follow-up. (If you do not have a PCP you can call [phone]. to schedule an appointment with an [facility] Primary Care Provider) IF YOU DEVELOP ANY NEW OR WORSENING SYMPTOMS, RETURN TO THE ER! Please read the attached instructions, they highlight more specific treatments and interventions for you at home. Thank you for letting me participate in your care, Jazz Al PA-C Prescriptions: No Action atorvastatin 40 mg tablet 40 mg PO DAILY Qty: 90 0RF tamsulosin [Flomax] 0.4 mg capsule 0.4 mg PO BID Qty: 180 0RF mometasone 200 mcg/actuation HFA aerosol inhaler 2 puff INHALATION BID Qty: 39 3RF trazodone 50 mg tablet See Rx Instructions .ROUTE .COMPLEX Qty: 180 3RF Dose Instruction: TAKE 1 TO 2 TABLETS BY MOUTH AT BEDTIME NEEDED FOR SLEEP Rx Instructions: TAKE 2 TABLETS BY MOUTH AT BEDTIME NEEDED FOR SLEEP (DME) Disabled Parking See Rx Instructions .ROUTE .MEDSUPPLY Qty: 1 0RF Rx Instructions: Patient qualifies for disabled parking as per the attached form. metoprolol succinate 25 mg tablet extended release 24 hr 25 mg PO DAILY Qty: 90 3RF cyanocobalamin (vitamin B-12) 1,000 mcg tablet PO DAILY magnesium oxide 400 mg capsule 400 mg PO BID nitroglycerin 0.4 mg tablet, sublingual 0.4 mg SL Q5M PRN (Reason: chest pain) Qty: 60 3RF Rx Instructions: until response; do not exceed 3 doses per episode ketoconazole 2 % cream 1 applic topical BID Qty: 60 3RF sertraline 100 mg tablet 100 mg PO DAILY carbidopa-levodopa 25-100 mg tablet 1 tab PO BEDTIME Rx Instructions: 1.5 in AM, 1.5 at 11, 1.5 at 3pm. carbidopa-levodopa 50-200 mg tablet extended release 1.5 tab PO QPM lidocaine-menthol 5-6 % kit See Rx Instructions .ROUTE .COMPLEX Qty: 1 0RF Rx Instructions: apply LIDIOCAINE PATCH once a day/may leave on for up to 12 hrs; apply MENTHOL GEL 1 - 4 times/day as needed for pain. Spiriva with HandiHaler 18 mcg capsule, w/inhalation device 1 cap inhalation DAILY Qty: 30 0RF Rx Instructions: puncture 1 cap using device; one dose = 2 inhalations Referrals: Tim Pemberton MD [Primary Care Provider, Internal Medicine] Stand Alone Forms: Patient Portal/API
[2024-08-20 12:00] VITALS: BP 108/54; PULSE 67; RESP 14; O2SAT 97
[2024-08-20] MEDS: ACETAMINOPHEN 325 MG TABLET 650 MG PO (12:17)
[2024-08-20 12:30] VITALS: BP 102/60; PULSE 68; RESP 24; O2SAT 98
== END 2024-08-20 12:45 | disposition home or self-care (01) ==
PROVIDERS: Emergency Provider Physician Assistant; Family Provider Internal Medicine; PCP Internal Medicine
DX: S09.90XA Unspecified injury of head, initial encounter (principal); S00.81XA Abrasion of other part of head, initial encounter; Z48.02 Encounter for removal of sutures; S60.512A Abrasion of left hand, initial encounter; W19.XXXA Unspecified fall, initial encounter
CPT/HCPCS: 70450; 72125; 99283; 99284

== ENCOUNTER 2024-08-28 01:02 | Emergency (ER) | payer MEDICARE, OTHER, SELFPAY ==
[2022-05-16 21:37] VITALS: BMI 23.7
[2024-08-28 01:11] VITALS: BP 152/78; PULSE 73; RESP 18; TEMP 36.7; O2SAT 98; BMI 20.5
--- NOTE | 2024-08-28 01:21 | DI.CT.S_ITS ---
PROCEDURE: CT CERVICAL SPINE WO CON INDICATIONS: fall with head injury TECHNIQUE: Noncontrast 3 mm thick sections acquired from the skull base to the T4 level. Sagittal and coronal reformats were then constructed. For radiation dose reduction, the following was used: automated exposure control, adjustment of mA and/or kV according to patient size. COMPARISON: [facility], CT, CT CERVICAL SPINE WO CON, 08/20/2024, 11:49. FINDINGS: Image quality: Excellent. Bones: No fractures or dislocations. Multilevel degenerative changes of the cervical spine are redemonstrated. Multilevel spondylolisthesis. Visualized superior ribs are intact. Soft tissues: Prevertebral soft tissues are normal in thickness. No paravertebral hematomas. No apical pneumothoraces. Small opacity within the visualized right lower lobe (2/80). IMPRESSION: No displaced fracture or traumatic subluxation. Multilevel degenerative changes of the spine. Small opacity within the visualized right lower lobe, may be infectious in etiology. Findings are concordant with preliminary interpretation provided by [facility]. Dictated by: David Barber M.D. on 08/28/2024 at 8:03 Approved by: David Barber M.D. on 08/28/2024 at 8:17
--- NOTE | 2024-08-28 01:21 | DI.CT.S_ITS ---
PROCEDURE: CT HEAD/BRAIN WO CON INDICATIONS: fall with head injury TECHNIQUE: Noncontrast 4.5 mm thick angled axial sections acquired from the foramen magnum to the vertex, with coronal and sagittal reformats. For radiation dose reduction, the following was used: automated exposure control, adjustment of mA and/or kV according to patient size. COMPARISON: [facility], CT, CT HEAD/BRAIN WO CON, 08/20/2024, 11:49. FINDINGS: Image quality: Motion degraded. CSF spaces: Basal cisterns are patent. No extra-axial fluid collections. The ventricles are symmetric in size and shape. Brain: No intracranial bleeds or mass effect. There is cerebral volume loss, with resultant ventricular and sulcal prominence. There are periventricular and deep white matter chronic small vessel ischemic changes. There is intracranial internal carotid artery atherosclerosis. Skull and face: Calvarium and visualized facial bones appear intact, without suspicious lesions. Sinuses: Visualized sinuses and mastoids are clear. IMPRESSION: Motion degraded exam which limits evaluation. No acute intracranial pathology is identified. Dictated by: David Barber M.D. on 08/28/2024 at 8:00 Approved by: David Barber M.D. on 08/28/2024 at 8:03
[2024-08-28 02:39] VITALS: BP 138/75; PULSE 61; RESP 20; O2SAT 98
--- NOTE | 2024-08-28 04:29 | ED_ITS ---
HPI - Fall General Chief Complaint: Fall Stated Complaint: Fall, Head trauma, Skin tear Time Seen by Provider: 08/28/24 02:03 Source: patient and family Mode of arrival: Wheelchair History of Present Illness HPI Narrative: 79-year-old gentleman with Parkinson's disease, dementia, hyperlipidemia, increasing instability increasing falls. He is still living at home with his 's primary caregiver care. He was just recently notified that he has full veterans benefits and his now has access to 36 hours of in-home care per week. This evening apparently got out of bed and had an unwitnessed fall on his forehead. Not complaining of significant pain there was some minor contusion and question of forehead deformity so his brings him in for further evaluation. Remainder of findings and concerns are at his baseline with his progressive dementia and increasing risk for falls. No fevers, chills, cough or other symptoms that might suggest reason for his fall beyond gait instability Related Data Home Medications ?Medication ?Instructions ?Recorded ?Confirmed magnesium oxide 400 mg PO BID 12/27/1708/26 sertraline 100 mg tablet 100 mg PO DAILY 06/07/2101/10 carbidopa 25 mg-levodopa 100 mg 1 tab PO BEDTIME 03/0708/26/24 tablet carbidopa ER 50 mg-levodopa 200 mg 1.5 tab PO QPM 02/1708/26/24 tablet,extended release cyanocobalamin (vitamin B-12) mcg PO DAILY 08/20/24 1,000 mcg tablet Previous Rx's ?Medication ?Instructions ?Recorded atorvastatin 40 mg tablet 40 mg PO DAILY #90 tabs 09/18 tamsulosin 0.4 mg capsule (Flomax) 0.4 mg PO BID #180 caps 10/16/19 mometasone 200 mcg/actuation HFA 2 puff inhalation BID #39 grams 04/13/20 aerosol inhaler Held on 04/06/23. Instructions: patient request nitroglycerin 0.4 mg sublingual 0.4 mg sublingual Q5M PRN chest 11/16/20 tablet pain #60 tabs tiotropium bromide 18 mcg capsule 1 cap inhalation NATALIA LY #30 05/19/22 with inhalation device (Spiriva inhalations with HandiHaler) Held on 04/06/23. Instructions: patient request trazodone 50 mg tablet See Rx Instructions .Route 0 06/05/22 .COMPLEX #180 tabs Disabled Parking #1 ea 06/26/22 metoprolol succinate 25 mg 25 mg PO DAILY #90 tabs tablet,extended release 24 hr ketoconazole 2 % topical cream 1 applic topical BID #6 0 grams 11/28/22 lidocaine 5 % patch and menthol 6 See Rx Instructions topical 01/26/24 % gel topical kit .COMPLEX #1 ea Allergies Allergy/AdvReac Type Severity Reaction Status Date / Time No Known Drug Allergies Allergy Verified 08/28/24 01:11 Review of Systems Review of Systems Narrative: Pertinent positive and negative findings as per HPI Patient History Medical History Frequent falls PSP (progressive supranuclear palsy) Major neurocognitive disorder Alcohol use disorder [place]cturia History of external beam radiation therapy History of urinary retention Multiple falls Multiple fractures of ribs History of radiation therapy Tremor Lower urinary tract symptoms Alcoholism Hx of adenomatous colonic polyps (12/22/10) Alcoholism in recovery (01/10/16) Former smoker (01/15/15) Depression (12/22/14) Pulmonary emphysema (12/22/14) 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 (12/22/14) Essential hypertension (12/22/14) Paroxysmal atrial fibrillation (12/22/14) Atherosclerosis of [place] coronary artery of [place] heart without angina pectoris (12/22/14) Hyperlipidemia Malignant neoplasm of prostate (12/22/10) Urinary retention Generalized anxiety disorder MRSA (methicillin resistant staph aureus) culture positive Atrial flutter Surgical History Inguinal hernia Status post transurethral resection of prostate (~05/2016) History of angioplasty (10/06/14) Status post appendectomy Family History Mother Blood disease Hyperlipidemia Hypertension Hearing impairment Father Cancer Social History household members: spouse Smoking Status: Former smoker alcohol intake: current Smoking Status: Former smoker tobacco type: cigarettes and e-cigarettes alcohol intake frequency: 0-2 drinks per day Exam Initial Vital Signs Initial Vital Signs: Vital Signs Temperature 98.1 F 08/28/24 01:11 Pulse Rate 73 08/28/24 01:11 Respiratory Rate 18 08/28/24 01:11 Blood Pressure 152/78 H 08/28/24 01:11 Pulse Oximetry 98 08/28/24 01:11 Oxygen Delivery Method Room Air 08/28/24 01:11 General: Frail, chronically ill-appearing, minor contusion to his forehead with some slight swelling between his eyebrows. No obvious underlying cranial injury. Respiratory: no obvious respiratory distress Skin: Thin, quite friable, multiple bruises over extremities in various stages of healing from his previous falls Neurologic: Parkinsonian stiffness, confusion, minimally interactive Extremities: No obvious fractures Course Orders Ordered: ED Orders 08/28/24 01:21 CT cervical spine wo con Stat CT head/brain wo con Stat Vital Signs Vital signs: Vital Signs - 8 hr 08/28/24 01:11 08/28/24 02:39 Temperature 98.1 F Pulse Rate 73 61 Respiratory Rate 18 20 Blood Pressure 152/78 H 138/75 Pulse Oximetry 98 98 Oxygen Delivery Method Room Air Room Air MDM - Fall MDM Narrative Medical decision making narrative: 79-year-old gentleman with worsening parkinsonian an Alzheimer's type dementia increasing falls with another fall this evening. CT scan of the head and cervical spine are unremarkable. Reassurance is given. He has minor contusion to the head does not need any further evaluation. His was questioning when to bring him in when he falls as he falls frequently. We discussed shifting focus from making sure that all trauma is identified to making sure that all pain is addressed. She is very clear that he is DNR DNI should he have intracranial hemorrhage she would not want him to surgery. Knowing that, my recommendation was that if he seems that he is hurting or an obvious bone deformity that she bring him in and we can help address the pain. If he is not hurting and does end up having an undiagnosed internal injury that allows him to peacefully in his sleep, that is okay. His is going to a dementia support group and just found out this week that she is able to have 36 hours of in-home care for him. We discussed making some of that care nighttime care so that she is able to get some solid sleep wear it quite so much about falling. We also discussed putting his bed mattress on the floor so that if he does fall out of bed there is far less risk injury rolling onto the floor. There is no indication for further workup this time, he is safe for discharge Discharge Plan Departure Patient Disposition: Home Clinical Impression: Dementia Qualifiers: Dementia type: Alzheimer's Alzheimer's disease onset: unspecified onset Dementia severity: severe Dementia behavioral or psychological symptom: without behavioral, psychotic, or mood disturbance or anxiety Qualified Code(s): G30.9 - Alzheimer's disease, unspecified Fall Qualifiers: Encounter type: initial encounter Qualified Code(s): W19.XXXA - Unspecified fall, initial encounter Contusion of forehead Qualifiers: Encounter type: initial encounter Qualified Code(s): S00.83XA - Contusion of other part of head, initial encounter Activity Restrictions/Additional Instructions: Thank you for coming in today There is a small abrasion to your forehead that does not need any stitches or other further care. We did do a CT scan of your head and your neck, there was no bleeding in your head and no sign of any cervical spine fractures Your and I talked about when to bring you into the emergency department. With your increasing falls it can be hard to tell. I have suggested that she base her concern on your level of pain rather than the possible complications of a fall. If you are hurting, we can help with that. At this point in your life, shifting goals to make you as comfortable as possible rather than making sure that all complications are identified is going to be more appropriate. You are always welcome in the ER, I wish you the best Prescriptions: No Action atorvastatin 40 mg tablet 40 mg PO DAILY Qty: 90 0RF tamsulosin [Flomax] 0.4 mg capsule 0.4 mg PO BID Qty: 180 0RF mometasone 200 mcg/actuation HFA aerosol inhaler 2 puff INHALATION BID Qty: 39 3RF trazodone 50 mg tablet See Rx Instructions .ROUTE .COMPLEX Qty: 180 3RF Dose Instruction: TAKE 1 TO 2 TABLETS BY MOUTH AT BEDTIME NEEDED FOR SLEEP Rx Instructions: TAKE 2 TABLETS BY MOUTH AT BEDTIME NEEDED FOR SLEEP (DME) Disabled Parking See Rx Instructions .ROUTE .MEDSUPPLY Qty: 1 0RF Rx Instructions: Patient qualifies for disabled parking as per the attached form. metoprolol succinate 25 mg tablet extended release 24 hr 25 mg PO DAILY Qty: 90 3RF cyanocobalamin (vitamin B-12) 1,000 mcg tablet PO DAILY magnesium oxide 400 mg capsule 400 mg PO BID nitroglycerin 0.4 mg tablet, sublingual 0.4 mg SL Q5M PRN (Reason: chest pain) Qty: 60 3RF Rx Instructions: until response; do not exceed 3 doses per episode ketoconazole 2 % cream 1 applic topical BID Qty: 60 3RF sertraline 100 mg tablet 100 mg PO DAILY carbidopa-levodopa 25-100 mg tablet 1 tab PO BEDTIME Rx Instructions: 1.5 in AM, 1.5 at 11, 1.5 at 3pm. carbidopa-levodopa 50-200 mg tablet extended release 1.5 tab PO QPM lidocaine-menthol 5-6 % kit See Rx Instructions .ROUTE .COMPLEX Qty: 1 0RF Rx Instructions: apply LIDIOCAINE PATCH once a day/may leave on for up to 12 hrs; apply MENTHOL GEL 1 - 4 times/day as needed for pain. Spiriva with HandiHaler 18 mcg capsule, w/inhalation device 1 cap inhalation DAILY Qty: 30 0RF Rx Instructions: puncture 1 cap using device; one dose = 2 inhalations Referrals: Tim Pemberton MD [Primary Care Provider, Internal Medicine] Stand Alone Forms: Patient Portal/API
== END 2024-08-28 04:42 | disposition home or self-care (01) ==
PROVIDERS: Emergency Provider Emergency Medicine; PCP Internal Medicine
DX: S00.83XA Contusion of other part of head, initial encounter (principal); G30.9 Alzheimer's disease, unspecified; W19.XXXA Unspecified fall, initial encounter; R29.6 Repeated falls
CPT/HCPCS: 70450; 72125; 99281; 99284

== ENCOUNTER 2024-08-31 21:40 | Emergency (ER) | payer MEDICARE, OTHER, SELFPAY ==
[2022-05-16 21:37] VITALS: BMI 23.7
[2024-08-31 21:43] VITALS: BP 132/69; PULSE 87; RESP 18; TEMP 37; O2SAT 97; BMI 20.4
--- NOTE | 2024-09-01 00:22 | ED.WOUNDLAC ---
HPI - Wound/Laceration General Chief Complaint: Wound/Laceration Stated Complaint: fell,Rt hand wound Time Seen by Provider: 09/01/24 00:22 Source: family Mode of arrival: Wheelchair History of Present Illness HPI narrative: 79-year-old male past medical history of dementia, AFib not on any anticoagulation hypertension, hyperlipidemia, frequent falls, presents to the emergency department with family for evaluation of right hand injury. According to the family states that patient does have a history of recurrent falls, states that she found him ?tangled up in his walker with a skin tear to his right hand. at bedside states that in his DNR DNI, states that she does not want any imaging of his head, she states that she just wants wound care to his right hand because there was a significant skin tear noted to his right hand. Related Data Home Medications ?Medication ?Instructions ?Recorded ?Confirmed magnesium oxide 400 mg PO BID 12/27/17 08/26/24 sertraline 100 mg tablet 100 mg PO DAILY 06/07/21 08/26/24 carbidopa 25 mg-levodopa 100 mg 1 tab PO BEDTIME 03/07/24 08/26/24 tablet carbidopa ER 50 mg-levodopa 200 mg 1.5 tab PO QPM 03/07/24 08/26/24 tablet,extended release cyanocobalamin (vitamin B-12) mcg PO DAILY 08/20/24 08/26/24 1,000 mcg tablet Previous Rx's ?Medication ?Instructions ?Recorded atorvastatin 40 mg tablet 40 mg PO DAILY #90 tabs 10/16/19 tamsulosin 0.4 mg capsule (Flomax) 0.4 mg PO BID #180 caps 10/16/19 mometasone 200 mcg/actuation HFA 2 puff inhalation BID #39 grams 04/13/20 aerosol inhaler Held on 04/06/23. Instructions: patient request nitroglycerin 0.4 mg sublingual 0.4 mg sublingual Q5M PRN chest 11/16/20 tablet pain #60 tabs tiotropium bromide 18 mcg capsule 1 cap inhalation DAILY #30 05/19/22 with inhalation device (Spiriva inhalations with HandiHaler) Held on 04/06/23. Instructions: patient request trazodone 50 mg tablet See Rx Instructions .Route 06/05/22 .COMPLEX #180 tabs Disabled Parking #1 ea 06/26/22 metoprolol succinate 25 mg 25 mg PO DAILY #90 tabs 11/16/22 tablet,extended release 24 hr ketoconazole 2 % topical cream 1 applic topical BID #60 grams 11/28/22 lidocaine 5 % patch and menthol 6 See Rx Instructions topical 01/26/24 % gel topical kit .COMPLEX #1 ea Allergies Allergy/AdvReac Type Severity Reaction Status Date / Time No Known Drug Allergies Allergy Verified 08/31/24 21:43 Review of Systems Review of Systems Narrative: General: Denies fever, chills, weight loss HEENT: Denies headache, eye drainage, eye irritation, head trauma, sore throat, voice change Cardiovascular: Denies any chest pain, palpitations, tachycardia Respiratory: Denies any shortness of breath, cough, wheeze, stridor GI/: Denies any abdominal pain, nausea, vomiting, diarrhea, bright red blood per rectum, melanotic stools, urinary frequency, urinary retention, dysuria, hematuria MSK: Positive right hand pain Skin: Denies any rashes, lesions, discoloration Neuro: Denies any headache, lightheadedness, dizziness, fainting, weakness Psych: Denies SI/HI Patient History Medical History Frequent falls PSP (progressive supranuclear palsy) Major neurocognitive disorder Alcohol use disorder [place] History of external beam radiation therapy History of urinary retention Multiple falls Multiple fractures of ribs History of radiation therapy Tremor Lower urinary tract symptoms Alcoholism Hx of adenomatous colonic polyps (12/22/10) Alcoholism in recovery (01/10/16) Former smoker (01/15/15) Depression (12/22/14) Pulmonary emphysema (12/22/14) 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 (12/22/14) Essential hypertension (12/22/14) Paroxysmal atrial fibrillation (12/22/14) Atherosclerosis of [place] coronary artery of [place] heart without angina pectoris (12/22/14) Hyperlipidemia Malignant neoplasm of prostate (12/22/10) Urinary retention Generalized anxiety disorder MRSA (methicillin resistant staph aureus) culture positive Atrial flutter Surgical History Inguinal hernia Status post transurethral resection of prostate (~05/2016) History of angioplasty (10/06/14) Status post appendectomy Family History Mother Blood disease Hyperlipidemia Hypertension Hearing impairment Father Cancer Social History household members: spouse alcohol intake: current tobacco type: cigarettes and e-cigarettes alcohol intake frequency: 0-2 drinks per day Exam Narrative Exam Narrative: General: Cooperative, well-developed, not in acute distress HEENT: Normocephalic, atraumatic, PERRLA, normal sclera, eyelids normal Neck: Active full range of motion, atraumatic Chest: Normal to inspection, negative crepitus, no overlying erythema ecchymosis Respiratory: Normal respiratory effort, not in acute respiratory distress, clear to auscultation bilaterally negative cough, wheeze, tachypnea, rhonchi, rales Cardiology: Regular rate rhythm negative gallop, murmur, rubs GI/: No tenderness to palpation, soft, non rigid, normal to inspection, exam deferred MSK: Full active range of motion in all 4 extremities, atraumatic, patient with multiple skin tears noted to posterior aspect of the right hand, no laceration neurovascularly intact Skin: No rashes or lesions noted Neuro: Patient at baseline, history of Parkinson's dementia Psych: Cooperative, negative suicidal or homicidal ideations Initial Vital Signs Initial Vital Signs: Vital Signs Temperature 98.6 F 08/31/24 21:43 Pulse Rate 87 08/31/24 21:43 Respiratory Rate 18 08/31/24 21:43 Blood Pressure 132/69 08/31/24 21:43 Pulse Oximetry 97 08/31/24 21:43 Oxygen Delivery Method Room Air 08/31/24 21:43 Course Vital Signs Vital signs: Vital Signs - 8 hr 08/31/24 21:43 Temperature 98.6 F Pulse Rate 87 Respiratory Rate 18 Blood Pressure 132/69 Pulse Oximetry 97 Oxygen Delivery Method Room Air MDM - Wound/Laceration Differential Diagnosis Differential diagnosis: Likely laceration, abrasion and avulsion of skin MDM Narrative Medical decision making narrative: 79-year-old male with a past medical history of Parkinson's dementia, frequent falls, AFib not on anticoagulation secondary to recurrent falls, hypertension hyperlipidemia presenting from home with for evaluation of right hand injury, she states that patient was found on the floor ?tangled in his walker. She states that she noticed skin tear to his right hand. He is not on any blood thinners. She states that patient is DNR DNI and does not want any imaging of his head and just wants wound care of the patient's right hand, on exam multiple skin tears noted no areas requiring laceration repair, patient is at baseline according to the . Right upper extremity is neurovascularly intact, Patient was dressed with topical antibiotics and gauze, instructed follow up with primary care in outpatient setting strict return precautions were given verbalized understanding of this and agrees to being discharged home with outpatient follow up Discharge Plan Departure Patient Disposition: Home Clinical Impression: Skin tear of right hand without complication Activity Restrictions/Additional Instructions: Please follow up with your primary care doctor Please read the discharge instructions sheet carefully and bring all papers to all doctor follow-up visits, as it may contain information that your doctor may want to see. Disease processes change and evolve, if your symptoms worsen or if you develop any new symptoms that are concerning to you please return for evaluation. Your evaluation today does not show any evidence of any life-threatening/serious illnesses requiring admission to the hospital or surgery. Please follow-up with your doctor for re-evaluation in approximately 1 day. Seek immediate medical attention for any worrisome symptoms. *If you do not have a primary care provider please contact the [facility] Resource line at [phone]. They will ask some questions about your medical history and help get you set up with a doctor in the community. Prescriptions: No Action atorvastatin 40 mg tablet 40 mg PO DAILY Qty: 90 0RF tamsulosin [Flomax] 0.4 mg capsule 0.4 mg PO BID Qty: 180 0RF mometasone 200 mcg/actuation HFA aerosol inhaler 2 puff INHALATION BID Qty: 39 3RF trazodone 50 mg tablet See Rx Instructions .ROUTE .COMPLEX Qty: 180 3RF Dose Instruction: TAKE 1 TO 2 TABLETS BY MOUTH AT BEDTIME NEEDED FOR SLEEP Rx Instructions: TAKE 2 TABLETS BY MOUTH AT BEDTIME NEEDED FOR SLEEP (DME) Disabled Parking See Rx Instructions .ROUTE .MEDSUPPLY Qty: 1 0RF Rx Instructions: Patient qualifies for disabled parking as per the attached form. metoprolol succinate 25 mg tablet extended release 24 hr 25 mg PO DAILY Qty: 90 3RF cyanocobalamin (vitamin B-12) 1,000 mcg tablet PO DAILY magnesium oxide 400 mg capsule 400 mg PO BID nitroglycerin 0.4 mg tablet, sublingual 0.4 mg SL Q5M PRN (Reason: chest pain) Qty: 60 3RF Rx Instructions: until response; do not exceed 3 doses per episode ketoconazole 2 % cream 1 applic topical BID Qty: 60 3RF sertraline 100 mg tablet 100 mg PO DAILY carbidopa-levodopa 25-100 mg tablet 1 tab PO BEDTIME Rx Instructions: 1.5 in AM, 1.5 at 11, 1.5 at 3pm. carbidopa-levodopa 50-200 mg tablet extended release 1.5 tab PO QPM lidocaine-menthol 5-6 % kit See Rx Instructions .ROUTE .COMPLEX Qty: 1 0RF Rx Instructions: apply LIDIOCAINE PATCH once a day/may leave on for up to 12 hrs; apply MENTHOL GEL 1 - 4 times/day as needed for pain. Spiriva with HandiHaler 18 mcg capsule, w/inhalation device 1 cap inhalation DAILY Qty: 30 0RF Rx Instructions: puncture 1 cap using device; one dose = 2 inhalations Referrals: Tim Pemberton MD [Primary Care Provider, Internal Medicine] Stand Alone Forms: Patient Portal/API
[2024-09-01] MEDS: BACITRACIN OINT 0.9 GM PCKT 3 APPLIC TOP (00:38)
--- NOTE | 2024-09-01 00:39 | PC.NURSE ---
Pt has a history of daily falls, multiple normally in a day.
[2024-09-01 00:54] VITALS: BP 135/65; PULSE 69; RESP 14; O2SAT 96
== END 2024-09-01 00:56 | disposition home or self-care (01) ==
PROVIDERS: Emergency Provider Student in an Organized Health Care Education/Training Program; PCP Internal Medicine
DX: S61.411A Laceration without foreign body of right hand, initial encounter (principal); R29.6 Repeated falls; G20.A1 Parkinson's disease without dyskinesia, without mention of fluctuations
CPT/HCPCS: 99282

== ENCOUNTER 2024-09-02 21:51 | Emergency (ER) | payer MEDICARE, OTHER, SELFPAY ==
[2022-05-16 21:37] VITALS: BMI 23.7
[2024-09-02 21:56] VITALS: BP 131/61; PULSE 82; O2SAT 96
[2024-09-02 22:00] VITALS: BP 140/83; PULSE 67; O2SAT 96
[2024-09-02 22:11] VITALS: BP 140/83; PULSE 79; RESP 17; TEMP 37.1; O2SAT 95
[2024-09-02 22:30] VITALS: PULSE 79; O2SAT 95
[2024-09-02] MEDS: OXYCODONE IR 5 MG TABLET PO (22:57)
[2024-09-02 23:00] VITALS: PULSE 68; RESP 17; O2SAT 95
[2024-09-02 23:30] VITALS: PULSE 73; O2SAT 96
[2024-09-03] VITALS: PULSE 71; O2SAT 95
[2024-09-03 00:30] VITALS: PULSE 72; O2SAT 95
--- NOTE | 2024-09-03 00:33 | ED.FALL ---
HPI - Fall General Chief Complaint: Fall Stated Complaint: GLF Time Seen by Provider: 09/02/24 21:57 Source: family and EMS Mode of arrival: EMS History of Present Illness HPI Narrative: 79-year-old gentleman with end-stage Parkinson's disease advanced dementia frequent falls, 2 today, multiple ER visits. With his last ER visit his and I had a very long discussion regarding care plans and continued treatment for his falls. Given the fact that he is DNR essentially comfort care will avoid doing any additional imaging studies, surgery would never be indicated for this gentleman. His was granted 36 hours of additional in-home care and yesterday had the 1st 4 hours of that. Papa tends to get up and out of bed despite best efforts to keep him somewhat confined and has multiple falls. Today he fell forward has laceration on his forehead on top of the previous contusion. He then shortly thereafter fell backward with a contusion to the occiput and a fall that was hard enough that the left hole in the drywall. He seems to indicate that he his having some increased pain. There was no obvious other trauma. Related Data Home Medications ?Medication ?Instructions ?Recorded ?Confirmed magnesium oxide 400 mg PO BID 12/27/17 08/26/24 sertraline 100 mg tablet 100 mg PO DAILY 06/07/21 08/26/24 carbidopa 25 mg-levodopa 100 mg 1 tab PO BEDTIME 03/07/24 08/26/24 tablet carbidopa ER 50 mg-levodopa 200 mg 1.5 tab PO QPM 03/07/24 08/26/24 tablet,extended release cyanocobalamin (vitamin B-12) mcg PO DAILY 08/20/24 08/26/24 1,000 mcg tablet Previous Rx's ?Medication ?Instructions ?Recorded atorvastatin 40 mg tablet 40 mg PO DAILY #90 tabs 10/16/19 tamsulosin 0.4 mg capsule (Flomax) 0.4 mg PO BID #180 caps 10/16/19 mometasone 200 mcg/actuation HFA 2 puff inhalation BID #39 grams 04/13/20 aerosol inhaler Held on 04/06/23. Instructions: patient request nitroglycerin 0.4 mg sublingual 0.4 mg sublingual Q5M PRN chest 11/16/20 tablet pain #60 tabs tiotropium bromide 18 mcg capsule 1 cap inhalation DAILY #30 03/03/23 with inhalation device (Spiriva inhalations with HandiHaler) Held on 04/06/23. Instructions: patient request trazodone 50 mg tablet See Rx Instructions .Route 06/05/22 .COMPLEX #180 tabs Disabled Parking #1 ea 06/26/22 metoprolol succinate 25 mg 25 mg PO DAILY #90 tabs 11/16/22 tablet,extended release 24 hr ketoconazole 2 % topical cream 1 applic topical BID #60 grams 11/28/22 lidocaine 5 % patch and menthol 6 See Rx Instructions topical 01/26/24 % gel topical kit .COMPLEX #1 ea Allergies Allergy/AdvReac Type Severity Reaction Status Date / Time No Known Drug Allergies Allergy Verified 08/31/24 21:43 Patient History Medical History Frequent falls PSP (progressive supranuclear palsy) Major neurocognitive disorder Alcohol use disorder Nocturia History of external beam radiation therapy History of urinary retention Multiple falls Multiple fractures of ribs History of radiation therapy Tremor Lower urinary tract symptoms Alcoholism Hx of adenomatous colonic polyps (12/22/10) Alcoholism in recovery (01/10/16) Former smoker (01/15/15) Depression (12/22/14) Pulmonary emphysema (12/22/14) 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 (12/22/14) Essential hypertension (12/22/14) Paroxysmal atrial fibrillation (12/22/14) Atherosclerosis of [place] coronary artery of [place] heart without angina pectoris (12/22/14) Hyperlipidemia Malignant neoplasm of prostate (12/22/10) Urinary retention Generalized anxiety disorder MRSA (methicillin resistant staph aureus) culture positive Atrial flutter Surgical History Inguinal hernia Status post transurethral resection of prostate (~05/2016) History of angioplasty (10/06/14) Status post appendectomy Family History Mother Blood disease Hyperlipidemia Hypertension Hearing impairment Father Cancer Social History household members: spouse alcohol intake: current tobacco type: cigarettes and e-cigarettes alcohol intake frequency: 0-2 drinks per day Exam Initial Vital Signs Initial Vital Signs: Vital Signs Temperature 98.8 F 09/02/24 22:11 Pulse Rate 79 09/02/24 22:11 Respiratory Rate 17 09/02/24 22:11 Blood Pressure 140/83 09/02/24 22:11 Pulse Oximetry 95 09/02/24 22:11 Oxygen Delivery Method Room Air 09/02/24 22:11 General: Alert and this is at his baseline, somewhat fluent speech not oriented to person time and place. HEENT: He has a 5 cm laceration down the forehead from today's fall, multiple other bruises and contusions over his face and occiput. Respiratory: no obvious respiratory distress Skin: Multiple abrasions and skin tears to on the right hand 1 on the left hand all of been redressed Neurologic: Parkinsonian stiffness, not oriented but does respond to redirection is trying to be cooperative Course Orders Ordered: Discontinued Medications Oxycodone HCl (Oxycodone Ir 5 Mg Tablet) 5 mg PO NOW ONE Stop: 09/02/24 22:51 Last Admin: 09/02/24 22:57 Dose: 5 mg Documented By: MAYLIN Vital Signs Vital signs: Vital Signs - 8 hr 09/02/24 22:11 Temperature 98.8 F Pulse Rate 79 Respiratory Rate 17 Blood Pressure 140/83 Pulse Oximetry 95 Oxygen Delivery Method Room Air MDM - Fall MDM Narrative Medical decision making narrative: 79-year-old gentleman with Parkinson's disease and advanced dementia with multiple falls continuing. Two falls today with his head. With last visit we discussed coming to the emergency department only if there was something that might be addressed such as the suture repair done today. As with our last visit his in a again chose to not proceed with any imaging is this would not change any recommendations. Patient was given 5 mg of oxycodone to try and help with pain behaviors. Again extensive discussion with the regarding appropriateness of transferring to a dementia facility. She has been trying so hard to be able to continue to care for him at home but at this point I believe his care is becoming completely overwhelming and significantly adversely affecting her health. She does have options and will talk to the medicare coordinator that she has been working with through [facility] to arrange for [facility] health care. Their adult son is available and aware of our conversation and agrees with current plans. Procedure: Suture repair forehead 5 cm simple laceration through the skin of his forehead. No underlying bony injury. Wound is cleaned, no obvious debris in the wound 4 cc of 2% lidocaine was injected around the wound 5 0 rapid absorbing gut suture was used to do a subcutaneous closure so that patient would not need to come back for suture removal and would not continue picking at the wound. Band-Aid with antibiotic ointment is placed by nursing staff Patient is safe for discharge home Discharge Plan Departure Patient Disposition: Home Clinical Impression: Forehead laceration Qualifiers: Encounter type: initial encounter Qualified Code(s): S01.81XA - Laceration without foreign body of other part of head, initial encounter Contusion of head Qualifiers: Encounter type: initial encounter Contusion of head detail: scalp Qualified Code(s): S00.03XA - Contusion of scalp, initial encounter Advanced dementia Qualifiers: Dementia type: unspecified type Parkinson's disease Qualifiers: Dyskinesia presence: without dyskinesia Fluctuating manifestations: without fluctuating manifestations Qualified Code(s): G20.A1 - Parkinson's disease without dyskinesia, without mention of fluctuations Activity Restrictions/Additional Instructions: Thank you for coming in. I know this is getting more and more difficult for both you and Papa. I used a absorbable sutures to sew up the cut to his forehead. You do not need to worry about coming back to have stitches taken out and hopefully he will not have anything to pull or pick at. If you are able to keep a Band-Aid and some antibiotic ointment over the wound that would be wonderful but it is not required. I would encourage you to contact your in home caregiver with the [facility] to talk about getting Papa into a dementia facility. You have provided extraordinarily care, but at this time, if full-time care is available, he may be a bit more comfortable. This will also give you more time to take care of yourself and allow you to visit him and be more physically and emotionally present when you are not as frustrated and fatigued I wish you the very best Prescriptions: No Action atorvastatin 40 mg tablet 40 mg PO DAILY Qty: 90 0RF tamsulosin [Flomax] 0.4 mg capsule 0.4 mg PO BID Qty: 180 0RF mometasone 200 mcg/actuation HFA aerosol inhaler 2 puff INHALATION BID Qty: 39 3RF trazodone 50 mg tablet See Rx Instructions .ROUTE .COMPLEX Qty: 180 3RF Dose Instruction: TAKE 1 TO 2 TABLETS BY MOUTH AT BEDTIME NEEDED FOR SLEEP Rx Instructions: TAKE 2 TABLETS BY MOUTH AT BEDTIME NEEDED FOR SLEEP (DME) Disabled Parking See Rx Instructions .ROUTE .MEDSUPPLY Qty: 1 0RF Rx Instructions: Patient qualifies for disabled parking as per the attached form. metoprolol succinate 25 mg tablet extended release 24 hr 25 mg PO DAILY Qty: 90 3RF cyanocobalamin (vitamin B-12) 1,000 mcg tablet PO DAILY magnesium oxide 400 mg capsule 400 mg PO BID nitroglycerin 0.4 mg tablet, sublingual 0.4 mg SL Q5M PRN (Reason: chest pain) Qty: 60 3RF Rx Instructions: until response; do not exceed 3 doses per episode ketoconazole 2 % cream 1 applic topical BID Qty: 60 3RF sertraline 100 mg tablet 100 mg PO DAILY carbidopa-levodopa 25-100 mg tablet 1 tab PO BEDTIME Rx Instructions: 1.5 in AM, 1.5 at 11, 1.5 at 3pm. carbidopa-levodopa 50-200 mg tablet extended release 1.5 tab PO QPM lidocaine-menthol 5-6 % kit See Rx Instructions .ROUTE .COMPLEX Qty: 1 0RF Rx Instructions: apply LIDIOCAINE PATCH once a day/may leave on for up to 12 hrs; apply MENTHOL GEL 1 - 4 times/day as needed for pain. Spiriva with HandiHaler 18 mcg capsule, w/inhalation device 1 cap inhalation DAILY Qty: 30 0RF Rx Instructions: puncture 1 cap using device; one dose = 2 inhalations Referrals: Tim Pemberton MD [Primary Care Provider, Internal Medicine] Stand Alone Forms: Patient Portal/API
[2024-09-03] MEDS: BACITRACIN OINT 0.9 GM PCKT 1 APPLIC TOP (00:40)
[2024-09-03 00:53] VITALS: BP 123/60; PULSE 68; RESP 18; O2SAT 95
== END 2024-09-03 00:58 | disposition home or self-care (01) ==
PROVIDERS: Emergency Provider Emergency Medicine; PCP Internal Medicine
DX: S01.81XA Laceration without foreign body of other part of head, initial encounter (principal); S00.03XA Contusion of scalp, initial encounter; F03.C0 Unspecified dementia, severe, without behavioral disturbance, psychotic disturbance, mood disturbance, and anxiety; G20.A1 Parkinson's disease without dyskinesia, without mention of fluctuations; W19.XXXA Unspecified fall, initial encounter
CPT/HCPCS: 99283

== ENCOUNTER 2024-09-04 00:22 | Inpatient (IN) | payer MEDICARE, OTHER, SELFPAY ==
[2022-05-16 21:37] VITALS: BMI 23.7
[2024-09-04 00:23] VITALS: BP 125/58; PULSE 80; RESP 26; TEMP 36.3; O2SAT 93; BMI 21.6
--- NOTE | 2024-09-04 01:01 | PC.NURSE ---
pt has an approximate 4-5 in laceration noted to the right side of the forehead, unknown what pt hit his head on pt's states the pt was sitting in his recliner then she found him on the floor. pt has been frequently falling d/t his Parkinson's and his dementia. pt also has 2 skin tears to the right hand from a fall yesterday that he was seen for when he hit his hand on his walker
[2024-09-04] MEDS: MIDAZOLAM 5 MG/ML VIAL IM (02:22)
--- NOTE | 2024-09-04 03:05 | PC.NURSE ---
pt resting with eyes closed resp even and unlabored
--- NOTE | 2024-09-04 04:06 | ED.FALL ---
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 Increasing number of falls, has been seen in the emergency department 3 times in the last 4 days. Multiple falls per day. Was seen yesterday with a laceration forehead that was sutured, he comes back today having hit his head yet again reopened that wound and extended it by another 2 cm proximally and distally. He is agitated and not oriented to person time and place. [facility], was recently [facility] for additional home health care, that is no longer adequate. She was told that if he would be or at least could be eligible for snf care benefits when home health care hours have been exhausted. At this time, he has progressed significantly enough that staying home is absolutely not safe. We have agreed to move to full comfort measures for him into that and will also discontinue the majority of his medications. He likely would be an excellent candidate for palliative/hospice care as well. He is brought in yet again this evening by medics after yet another fall. At this time, his is physically exhausted, he wonders and gets up during the night which is how he falls. Will try sedating him slightly so that he is not quite so agitated for the next couple of hours. We will plan on having asking social work to talk with his and work on having him transferred to snf facility. [facility] indicated that [facility] was a facility in [place] with which they do work. If that is ineffective, looking into at least a respite admission to some facility while additional plans for placement are discussed. Patient is not safe for discharge home. Related Data Home Medications ?Medication ?Instructions ?Recorded ?Confirmed sertraline 100 mg tablet 100 mg PO DAILY 06/07/21 09/04/24 Previous Rx's ?Medication ?Instructions ?Recorded tamsulosin 0.4 mg capsule (Flomax) 0.4 mg PO BID #180 caps 10/16/19 mometasone 200 mcg/actuation HFA 2 puff inhalation BID #39 grams 04/13/20 aerosol inhaler tiotropium bromide 18 mcg capsule 1 cap inhalation DAILY #30 05/19/22 with inhalation device (Spiriva inhalations with HandiHaler) Disabled Parking #1 ea 06/26/22 metoprolol succinate 25 mg 25 mg PO DAILY #90 tabs 11/16/22 tablet,extended release 24 hr diazepam 5 mg tablet 5 mg PO Q4H PRN Anxiety #30 tabs 09/09/24 lorazepam 0.5 mg tablet 2 mg (4 x 0.5 mg) PO QID PRN 09/09/24 agitation #30 tabs lorazepam 2 mg/mL oral concentrate 1 mg (0.5 mL) PO Q1HR PRN Anxiety 09/09/24 (Lorazepam Intensol) #30 mL morphine concentrate 10 mg/0.5 mL 10 mg (0.5 mL) PO Q2HR PRN flacc > 09/09/24 oral syringe (FOR ORAL USE ONLY) 3 or RR > 24 #1 ea quetiapine 25 mg tablet 25 mg PO BID #60 tabs 09/09/24 Allergies Allergy/AdvReac Type Severity Reaction Status Date / Time No Known Drug Allergies Allergy Verified 09/04/24 00:26 Patient History <Eusebia Carrera MD - Last Filed: 09/09/24 08:15> Medical History Frequent falls PSP (progressive supranuclear palsy) Major neurocognitive disorder Alcohol use disorder Nocturia History of external beam radiation therapy History of urinary retention Multiple falls Multiple fractures of ribs History of radiation therapy Tremor Lower urinary tract symptoms Alcoholism Hx of adenomatous colonic polyps (12/22/10) Alcoholism in recovery (01/10/16) Former smoker (01/15/15) Depression (12/22/14) Pulmonary emphysema (12/22/14) 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 (12/22/14) Essential hypertension (12/22/14) Paroxysmal atrial fibrillation (12/22/14) Atherosclerosis of koi coronary artery of koi heart without angina pectoris (12/22/14) Hyperlipidemia Malignant neoplasm of prostate (12/22/10) Urinary retention Generalized anxiety disorder MRSA (methicillin resistant staph aureus) culture positive Atrial flutter Surgical History Inguinal hernia Status post transurethral resection of prostate (~05/2016) History of angioplasty (10/06/14) Status post appendectomy Family History Mother Blood disease Hyperlipidemia Hypertension Hearing impairment Father Cancer Social History household members: spouse Smoking Status: Former smoker alcohol intake: current Smoking Status: Former smoker tobacco type: cigarettes and e-cigarettes alcohol intake frequency: 0-2 drinks per day Exam <Eusebia Carrera MD - Last Filed: 09/09/24 08:15> Initial Vital Signs Initial Vital Signs: Vital Signs Temperature 97.4 F L 09/04/24 00:23 Pulse Rate 80 09/04/24 00:23 Respiratory Rate 26 H 09/04/24 00:23 Blood Pressure 125/58 L 09/04/24 00:23 Pulse Oximetry 93 09/04/24 00:23 Oxygen Delivery Method Room Air 09/04/24 00:23 General: Frail, agitated, not oriented to person time and place HEENT: Laceration that was repaired yesterday over his forehead has ruptured open an extended to approximately 8 cm vertically over his forehead. Respiratory: Lungs are clear to auscultation, no wheezing no rales no rhonchi. Full and symmetrical air movement Cardiac: Regular rate and rhythm no murmurs no bruits Abdomen: Soft, nontender, Skin: Quite thin, covered in bruises, multiple skin tears Neurologic: Muscle rigidity, he is able to move all extremities Extremities: No bony trauma, multiple bruises Psych: Agitated, not oriented to person time and place <Vasiliy Galindo DO - Last Filed: 09/05/24 06:08> Initial Vital Signs Initial Vital Signs: Vital Signs Temperature 97.4 F L 09/04/24 00:23 Pulse Rate 80 09/04/24 00:23 Respiratory Rate 26 H 09/04/24 00:23 Blood Pressure 125/58 L 09/04/24 00:23 Pulse Oximetry 93 09/04/24 00:23 Oxygen Delivery Method Room Air 09/04/24 00:23 Procedures <Eusebia Carrera MD - Last Filed: 09/09/24 08:15> Laceration Repair Forehead laceration: Time of procedure: 04:28 Site: face Side (If applicable): right Size (cm): 10 Description: linear Depth: simple, single layer Pre-repair: wound explored and deep structures intact Skin layer closed with: mendez Number of sutures: 4 Course <Eusebia Carrera MD - Last Filed: 09/09/24 08:15> Orders Ordered: Acetaminophen (Acetaminophen 325 Mg Tablet) 650 mg PO Q6H PRN PRN Reason: Fever/Mild Pain (1-3) Diazepam (Diazepam 10 Mg/2 Ml Syringe) 5 mg IV Q6HR PRN PRN Reason: Anxiety Last Admin: 09/05/24 11:14 Dose: 5 mg Documented By: HELENE Diazepam (Diazepam 5 Mg Tablet) 5 mg PO Q4H PRN PRN Reason: Anxiety Last Admin: 09/09/24 07:30 Dose: 5 mg Documented By: Admin: 09/08/24 04:26 Dose: 5 mg Documented By: Admin: 09/07/24 20:34 Dose: 5 mg Documented By: Admin: 09/06/24 18:44 Dose: 5 mg Documented By: Admin: 09/06/24 02:59 Dose: 5 mg Documented By: Admin: 09/05/24 14:29 Dose: 5 mg Documented By: HELENE Ipratropium Mccoy (Ipratropium 0.5 Mg/2.5 Ml Neb) 0.5 mg INH Q2H PRN PRN Reason: Shortness Of Breath Lorazepam (Lorazepam 0.5 Mg Tablet) 2 mg PO QID PRN PRN Reason: agitation Last Admin: 09/06/24 05:43 Dose: 2 mg Documented By: Admin: 09/05/24 19:38 Dose: 2 mg Documented By: Admin: 09/05/24 10:04 Dose: 2 mg Documented By: Admin: 09/04/24 22:02 Dose: 2 mg Documented By: Admin: 09/04/24 16:44 Dose: 2 mg Documented By: BETZAIDA Lorazepam (Lorazepam 2 Mg/Ml Oral Kari) 1 mg PO Q1HR PRN PRN Reason: Anxiety Metoprolol Succinate (Metoprolol Er 25 Mg Tablet) 25 mg PO DAILY [facility] Last Admin: 09/09/24 07:31 Dose: 25 mg Documented By: Admin: 09/08/24 10:03 Dose: 25 mg Documented By: Admin: 09/07/24 09:15 Dose: 25 mg Documented By: Admin: 09/06/24 11:34 Dose: Not Given Documented By: Admin: 09/05/24 10:00 Dose: 25 mg Documented By: HELENE Morphine Sulfate (Morphine 10 Mg/0.5 Ml Oral Syringe) 10 mg PO Q2HR PRN PRN Reason: flacc > 3 or RR > 24 Last Admin: 09/08/24 15:07 Dose: 10 mg Documented By: Admin: 09/08/24 03:20 Dose: 10 mg Documented By: Admin: 09/07/24 20:35 Dose: 10 mg Documented By: Admin: 09/07/24 17:16 Dose: 10 mg Documented By: Admin: 09/06/24 17:32 Dose: 10 mg Documented By: Admin: 09/06/24 05:43 Dose: 10 mg Documented By: Admin: 09/05/24 19:13 Dose: 10 mg Documented By: Admin: 09/05/24 11:17 Dose: 10 mg Documented By: HELENE Naloxone HCl (Naloxone 0.4 Mg/Ml Vial) 0.2 mg IV Q2MIN PRN PRN Reason: Opiate Reversal Quetiapine Fumarate (Quetiapine 25 Mg Tablet) 25 mg PO BID SCOTT Last Admin: 09/09/24 07:30 Dose: 25 mg Documented By: Admin: 09/08/24 21:04 Dose: 25 mg Documented By: Admin: 09/08/24 10:03 Dose: 25 mg Documented By: Admin: 09/07/24 20:34 Dose: 25 mg Documented By: Admin: 09/07/24 09:10 Dose: 25 mg Documented By: Admin: 09/06/24 21:01 Dose: 25 mg Documented By: Admin: 09/06/24 11:32 Dose: 25 mg Documented By: Admin: 09/05/24 20:56 Dose: 25 mg Documented By: Admin: 09/05/24 10:00 Dose: 25 mg Documented By: Admin: 09/04/24 22:05 Dose: 25 mg Documented By: Admin: 09/04/24 19:31 Dose: 25 mg Documented By: Admin: 09/04/24 12:24 Dose: 25 mg Documented By: BETZAIDA Sertraline HCl (Sertraline 50 Mg Tablet) 100 mg PO DAILY [facility] Last Admin: 09/09/24 07:31 Dose: 100 mg Documented By: Admin: 09/08/24 10:03 Dose: 100 mg Documented By: Admin: 09/07/24 09:10 Dose: 100 mg Documented By: Admin: 09/06/24 11:34 Dose: Not Given Documented By: Admin: 09/05/24 10:00 Dose: 100 mg Documented By: HELENE Tamsulosin HCl (Tamsulosin 0.4 Mg Capsule) 0.4 mg PO BID [facility] Last Admin: 09/09/24 07:30 Dose: 0.4 mg Documented By: Admin: 09/08/24 21:04 Dose: 0.4 mg Documented By: Admin: 09/08/24 10:03 Dose: 0.4 mg Documented By: Admin: 09/07/24 20:34 Dose: 0.4 mg Documented By: Admin: 09/07/24 09:10 Dose: 0.4 mg Documented By: Admin: 09/06/24 21:01 Dose: 0.4 mg Documented By: Admin: 09/06/24 11:34 Dose: Not Given Documented By: Admin: 09/05/24 20:56 Dose: 0.4 mg Documented By: Admin: 09/05/24 10:00 Dose: 0.4 mg Documented By: HELENE Discontinued Medications Acetaminophen (Acetaminophen 325 Mg Tablet) 650 mg PO Q6H PRN PRN Reason: Mild Pain (1-3) Ipratropium Mccoy (Ipratropium 0.5 Mg/2.5 Ml Neb) 0.5 mg INH Q4HRWA [facility] Last Admin: 09/05/24 21:30 Dose: Not Given Documented By: Admin: 09/05/24 18:09 Dose: 0.5 mg Documented By: Admin: 09/05/24 13:47 Dose: Not Given Documented By: Admin: 09/05/24 08:35 Dose: 0.5 mg Documented By: SAT Lorazepam (Lorazepam 2 Mg/Ml Inj) 2 mg IM NOW ONE Stop: 09/04/24 01:31 Last Admin: 09/04/24 02:35 Dose: Not Given Documented By: REANNA Lorazepam (Lorazepam 0.5 Mg Tablet) 2 mg PO NOW ONE Stop: 09/04/24 04:07 Last Admin: 09/04/24 04:17 Dose: 2 mg Documented By: REANNA Midazolam HCl (Midazolam 5 Mg/Ml Vial) 5 mg IM NOW ONE Stop: 09/04/24 02:20 Last Admin: 09/04/24 02:22 Dose: 5 mg Documented By: REANNA Vital Signs Vital signs: Vital Signs - 8 hr 09/04/24 17:41 09/04/24 17:43 09/04/24 17:43 Pulse Rate 104 H 88 Blood Pressure 124/61 Pulse Oximetry 95 <Vasiliy Galindo DO - Last Filed: 09/05/24 06:08> Orders Ordered: Acetaminophen (Acetaminophen 325 Mg Tablet) 650 mg PO Q6H PRN PRN Reason: Fever/Mild Pain (1-3) Diazepam (Diazepam 10 Mg/2 Ml Syringe) 5 mg IV Q6HR PRN PRN Reason: Anxiety Last Admin: 09/05/24 11:14 Dose: 5 mg Documented By: HELENE Diazepam (Diazepam 5 Mg Tablet) 5 mg PO Q4H PRN PRN Reason: Anxiety Last Admin: 09/09/24 07:30 Dose: 5 mg Documented By: Admin: 09/08/24 04:26 Dose: 5 mg Documented By: Admin: 09/07/24 20:34 Dose: 5 mg Documented By: Admin: 09/06/24 18:44 Dose: 5 mg Documented By: Admin: 09/06/24 02:59 Dose: 5 mg Documented By: Admin: 09/05/24 14:29 Dose: 5 mg Documented By: HELENE Ipratropium Mccoy (Ipratropium 0.5 Mg/2.5 Ml Neb) 0.5 mg INH Q2H PRN PRN Reason: Shortness Of Breath Lorazepam (Lorazepam 0.5 Mg Tablet) 2 mg PO QID PRN PRN Reason: agitation Last Admin: 09/06/24 05:43 Dose: 2 mg Documented By: Admin: 09/05/24 19:38 Dose: 2 mg Documented By: Admin: 09/05/24 10:04 Dose: 2 mg Documented By: Admin: 09/04/24 22:02 Dose: 2 mg Documented By: Admin: 09/04/24 16:44 Dose: 2 mg Documented By: BETZAIDA Lorazepam (Lorazepam 2 Mg/Ml Oral Kari) 1 mg PO Q1HR PRN PRN Reason: Anxiety Metoprolol Succinate (Metoprolol Er 25 Mg Tablet) 25 mg PO DAILY [facility] Last Admin: 09/09/24 07:31 Dose: 25 mg Documented By: Admin: 09/08/24 10:03 Dose: 25 mg Documented By: Admin: 09/07/24 09:15 Dose: 25 mg Documented By: Admin: 09/06/24 11:34 Dose: Not Given Documented By: Admin: 09/05/24 10:00 Dose: 25 mg Documented By: HELENE Morphine Sulfate (Morphine 10 Mg/0.5 Ml Oral Syringe) 10 mg PO Q2HR PRN PRN Reason: flacc > 3 or RR > 24 Last Admin: 09/08/24 15:07 Dose: 10 mg Documented By: Admin: 09/08/24 03:20 Dose: 10 mg Documented By: Admin: 09/07/24 20:35 Dose: 10 mg Documented By: Admin: 09/07/24 17:16 Dose: 10 mg Documented By: Admin: 09/06/24 17:32 Dose: 10 mg Documented By: Admin: 09/06/24 05:43 Dose: 10 mg Documented By: Admin: 09/05/24 19:13 Dose: 10 mg Documented By: Admin: 09/05/24 11:17 Dose: 10 mg Documented By: HELENE Naloxone HCl (Naloxone 0.4 Mg/Ml Vial) 0.2 mg IV Q2MIN PRN PRN Reason: Opiate Reversal Quetiapine Fumarate (Quetiapine 25 Mg Tablet) 25 mg PO BID [facility] Last Admin: 09/09/24 07:30 Dose: 25 mg Documented By: Admin: 09/08/24 21:04 Dose: 25 mg Documented By: Admin: 09/08/24 10:03 Dose: 25 mg Documented By: Admin: 09/07/24 20:34 Dose: 25 mg Documented By: Admin: 09/07/24 09:10 Dose: 25 mg Documented By: Admin: 09/06/24 21:01 Dose: 25 mg Documented By: Admin: 09/06/24 11:32 Dose: 25 mg Documented By: Admin: 09/05/24 20:56 Dose: 25 mg Documented By: Admin: 09/05/24 10:00 Dose: 25 mg Documented By: Admin: 09/04/24 22:05 Dose: 25 mg Documented By: Admin: 09/04/24 19:31 Dose: 25 mg Documented By: Admin: 09/04/24 12:24 Dose: 25 mg Documented By: BETZAIDA Sertraline HCl (Sertraline 50 Mg Tablet) 100 mg PO DAILY [facility] Last Admin: 09/09/24 07:31 Dose: 100 mg Documented By: Admin: 09/08/24 10:03 Dose: 100 mg Documented By: Admin: 09/07/24 09:10 Dose: 100 mg Documented By: Admin: 09/06/24 11:34 Dose: Not Given Documented By: Admin: 09/05/24 10:00 Dose: 100 mg Documented By: HELENE Tamsulosin HCl (Tamsulosin 0.4 Mg Capsule) 0.4 mg PO BID [facility] Admin: 09/09/24 07:30 Dose: 0.4 mg Documented By: Admin: 09/08/24 21:04 Dose: 0.4 mg Documented By: Admin: 09/08/24 10:03 Dose: 0.4 mg Documented By: Admin: 09/07/24 20:34 Dose: 0.4 mg Documented By: Admin: 09/07/24 09:10 Dose: 0.4 mg Documented By: Admin: 09/06/24 21:01 Dose: 0.4 mg Documented By: Admin: 09/06/24 11:34 Dose: Not Given Documented By: Admin: 09/05/24 20:56 Dose: 0.4 mg Documented By: Admin: 09/05/24 10:00 Dose: 0.4 mg Documented By: HELENE Discontinued Medications Acetaminophen (Acetaminophen 325 Mg Tablet) 650 mg PO Q6H PRN PRN Reason: Mild Pain (1-3) Ipratropium Mccoy (Ipratropium 0.5 Mg/2.5 Ml Neb) 0.5 mg INH Q4HRWA [facility] Last Admin: 09/05/24 21:30 Dose: Not Given Documented By: Admin: 09/05/24 18:09 Dose: 0.5 mg Documented By: Admin: 09/05/24 13:47 Dose: Not Given Documented By: Admin: 09/05/24 08:35 Dose: 0.5 mg Documented By: ABHINAV Lorazepam (Lorazepam 2 Mg/Ml Inj) 2 mg IM NOW ONE Stop: 09/04/24 01:31 Last Admin: 09/04/24 02:35 Dose: Not Given Documented By: REANNA Lorazepam (Lorazepam 0.5 Mg Tablet) 2 mg PO NOW ONE Stop: 09/04/24 04:07 Last Admin: 09/04/24 04:17 Dose: 2 mg Documented By: REANNA Midazolam HCl (Midazolam 5 Mg/Ml Vial) 5 mg IM NOW ONE Stop: 09/04/24 02:20 Last Admin: 09/04/24 02:22 Dose: 5 mg Documented By: REANNA Vital Signs Vital signs: Vital Signs - 8 hr 09/04/24 17:41 09/04/24 17:43 09/04/24 17:43 Pulse Rate 104 H 88 Blood Pressure 124/61 Pulse Oximetry 95 MDM - Fall <Eusebia Carrera MD - Last Filed: 09/09/24 08:15> [facility] Narrative Medical decision making narrative: 79-year-old gentleman with progressive parkinsonian/ supranuclear palsy type dementia rapidly getting worse. Increasing number of falls, has been seen in the emergency department 3 times in the last 4 days. Multiple falls per day. Was seen yesterday with a laceration forehead that was sutured, he comes back today having hit his head yet again reopened that wound and extended it by another 2 cm proximally and distally. [place] were used to reapproximate edges. He is agitated and not oriented to person time and place. His [facility], was recently approved for additional home health care, that is no longer adequate. She was told that if he would be or at least could be eligible for snf care benefits when home health care hours have been exhausted. At this time, he has progressed significantly enough that staying home is absolutely not safe. -We have agreed to move to full comfort measures for him into that and will also discontinue the majority of his medications. -we will ask social work to get involved and see if she is able find a snf facility where he might be admitted for palliative/hospice care -he responded moderately well to IM Versed. I did not last very long. We will try 2 mg of Ativan. If that is not effective next step we will be adding Seroquel. Goal is to keep his agitation levels diminished enough that he is not actively trying to crawl out of bed at all times -we will plan on continuing majority of medications. Carbidopa levodopa has not been effective for a number of months. We will discontinue blood pressure medication -we will continue with b.i.d. tamsulosin to try and avoid acute urinary retention. Placing a Castanon catheter is not going to be an option with his agitation and pulling at all of his bedding and clothing POLST form is filled out to reflect full comfort care after discussion with his this evening. She will need to sign the form tomorrow when she comes back and talks with the manager social. <Vasiliy Galindo, - Last Filed: 09/05/24 06:08> [facility] Narrative Medical decision making narrative: 79-year-old gentleman with progressive parkinsonian/ supranuclear palsy type dementia rapidly getting worse. Increasing number of falls, has been seen in the emergency department 3 times in the last 4 days. Multiple falls per day. Was seen yesterday with a laceration forehead that was sutured, he comes back today having hit his head yet again reopened that wound and extended it by another 2 cm proximally and distally. [place] were used to reapproximate edges. He is agitated and not oriented to person time and place. His [facility], was recently approved for additional home health care, that is no longer adequate. She was told that if he would be or at least could be eligible for snf care benefits when home health care hours have been exhausted. At this time, he has progressed significantly enough that staying home is absolutely not safe. -We have agreed to move to full comfort measures for him into that and will also discontinue the majority of his medications. -we will ask social work to get involved and see if she is able find a snf facility where he might be admitted for palliative/hospice care -he responded moderately well to IM Versed. I did not last very long. We will try 2 mg of Ativan. If that is not effective next step we will be adding Seroquel. Goal is to keep his agitation levels diminished enough that he is not actively trying to crawl out of bed at all times -we will plan on continuing majority of medications. Carbidopa levodopa has not been effective for a number of months. We will discontinue blood pressure medication -we will continue with b.i.d. tamsulosin to try and avoid acute urinary retention. Placing a Castanon catheter is not going to be an option with his agitation and pulling at all of his bedding and clothing POLST form is filled out to reflect full comfort care after discussion with his this evening. She will need to sign the form tomorrow when she comes back and talks with the manager social. 1800: Patient was signed out to me by Dr. Villafuerte, patient has end-stage progressive Parkinson's/dementia, has been seen here multiple times over the past several days for recurrent falls, patient presents with again given unsafe at home, is requesting that patient be placed on palliative/hospice care. Patient's family has already met with social work states that they are working on trying to get patient in a facility with hospice/palliative care, did fill POLST form and patient now comfort care only DNR DNI given patient with elevating agitation on comfort care we will require admission to the hospital for placement and comfort care orders. 1999: The patient's management plan was discussed Dr. Rodriguez, who agrees to admit the patient to their service and assumes care of this patient at this time. Full admission orders will be placed by the primary team. Discharge Plan Departure Patient Disposition: Admitted As Inpatient Clinical Impression: Rapidly progressive dementia, Agitation, Multiple falls, Need for comfort care Admit Date/Time: 09/04/24 20:03 Admit Provider: Vadim Rodriguez
[2024-09-04] MEDS: LORazepam 0.5 MG TABLET 2 MG PO ×3 (04:17→22:02)
--- NOTE | 2024-09-04 05:02 | PC.NURSE ---
Pt placed in hospital bed with bed alarm set.
--- NOTE | 2024-09-04 06:12 | PC.NURSE ---
Pt has been seen multiple times for falls over the last 3 days. This nurse has had him each time. Today he will await for a [facility] consultation.
[2024-09-04] MEDS: QUETIAPINE 25 MG TABLET PO ×3 (12:24→22:05)
--- NOTE | 2024-09-04 14:24 | PT-IP ANOTE ---
Physical Therapy order received and chart reviewed. Spoke with review manager. Pt is not appropriate for Physical Therapy evaluation nor Occupational Therapy evaluation today. Respite bed is being investigated. Will check back tomorrow to determine if evaluation is needed.
--- NOTE | 2024-09-04 14:26 | PC.NURSE ---
Pt was changed and repositioned on to his right side and pillow between knees and ankles placed @1410. incontinent care was provided to the patient. Bed alarm activated, both side rails up, blankets provided. Family in room aware of call light for any needs.
--- NOTE | 2024-09-04 14:45 | PC.NURSE ---
This RN and SYSTEMS PLANNER Herminia changed patients brief and turned patient onto right side
[2024-09-04 17:41] VITALS: PULSE 104
[2024-09-04 17:43] VITALS: BP 124/61; PULSE 88; O2SAT 95
--- NOTE | 2024-09-04 17:55 | CM.DANOTE ---
ED TEST LAB TECHNICIAN DCP Assessment Note: Pt is a 79yo male, resident of [place], is seen in the ED for GLF, hx of Parkinsonism and having recurrent/daily falls. This would be the patient's 4th ED visit in the last week. Pt lives in a house with his , Betsy. Pt's Primary Care Provider is Dr. Tim Pemberton and insurance is Medicare, [facility] and [employer] [facility] ([place] 100% Service Connection. Reviewed chart and discussed with multidisciplinary team pt's medical status and initial discharge needs. Per ED Provider, pt is on comfort care and is not safe at home for a hospice plan at home due to multiple falls and not enough caregiving support. ED TEST LAB TECHNICIAN met w/patient at bedside; introduced self and role. Present in the room is pt's , Betsy. Patient was found in bed, somnolent and not oriented. Pt recounted the past few days of reocurring ED visits and falls; states that she understands the recommendation by ED Provider of SNF with Comfort measures. Pt states patient has been authorized SNF and home health care through his 100% Service Connection. Pt states pt has established care with [facility] and has history with an admission at [facility]. ED TEST LAB TECHNICIAN reviews that since pt does not have an admission diagnosis, a SNF plan needs to be initiated in the ED. Pt confirms there are no financial resources for private pay, will need to rely on what Medicare or the [place] can cover. She provided the following contacts at [place] (who have stated they can authorize SNF stay for [place] to be payor; they are not in office on this date due to Holiday): - Bruna Ibarra, [facility] Filer Repairer (ph#[phone]) - Steve Asencio, Disabled [facility] [phone] (ph#[phone]) ED TEST LAB TECHNICIAN reviewed [facility] contracted Facilities list with pt . Pt identifies preference for the closest [place] contracted facility and this is [facility] in [place]. ED TEST LAB TECHNICIAN calls [facility], it is reported that there are beds available but will need VA authorization before acceptance. ED TEST LAB TECHNICIAN faxed clinicals for their review in the meantime. ph#[phone], fax#[phone]. ED TEST LAB TECHNICIAN sent clinicals to [facility] to notify that patient is being seen in the ED at this time. Plan: Pending acceptance at SNF LTC bed placement, awaiting [place] insurance authorization as well. Will need to send referral to Hospice agency who services accepting SNF. ED staff will follow closely for coordination of discharge plans. BRANDON Healy Discharge Planning/Care Management CM Discharge Assessment Start: 09/04/24 16:44 Freq: Status: Active Protocol: Document 09/04/24 16:45 MW (Rec: 09/04/24 16:50 MW [id number]) Discharge Planning Assessment Assigned Discharge CHERYL Mortensen Cable Testers Helper DPOA/Assigned Betsy, Spouse Designee Name Contact Information [phone] Advance Directives? Yes Advance Directives No on File History Provided By Patient,Medical Record Prior Living House Arrangements Comment [place] Household Members spouse Type of Relies on Others transporation used prior to admit Independent with ADL No 's Is patient alert and No oriented? Needs Assistance Bathing,Grooming,Meal Prep,Toileting,Managing With Medications,Home Chores / Shopping Caregiver for No Another Community Services Home Health Aid,Home Health Nurse used prior to admission: DME Already Rented / Hospital Bed,Wheelchair,Elevated Toilet Seat,FWW / Owned Walker Patient/Family Intermediate Facility Preference Discharge Plan Hospice Medicare Choice List Yes Provided Medicare choice list family reviewed on electronic tablet with SNF/HH Preference Any [place] contracted facility in [place] or in [facility] Contact Name/Phone [facility] Has Agency SNF been Yes contacted Review Status In Process Please Provide Date 09/04/24 Initial DC Assessment Was Performed Next Review Type Continued Stay Review
[2024-09-04 21:38] VITALS: BP 115/85; PULSE 105; RESP 15; TEMP 37; O2SAT 93
[2024-09-04 21:47] VITALS: BMI 21.6
--- NOTE | 2024-09-05 02:21 | PM.HP.1 ---
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 Of note the patient presented to the ER 3 times over the last 4 days.? The patient had multiple falls per day.? The patient was seen yesterday in the ER with laceration of the forehead and was sutured.? The patient is currently very agitated and is oriented to person place or time.? The patient's also has been working with the [email or web address] and was approved for additional home health care but despite that per her report, this is not adequate.? The patient's wishes for the patient to be placed in halfway facility as the patient has very high risk of falling at home and she is unable to care for him despite having home health.? In addition the patient's wishes for a care facility with palliative/hospice care. In our ER, the patient was given Ativan as well as IM Versed.? The patient's did fine the postform with DNR/DNI with full comfort measures.? Our ER physician requested admission for placement to SNF with comfort care. [facility] Medical History Frequent falls PSP (progressive supranuclear palsy) Major neurocognitive disorder Alcohol use disorder Nocturia History of external beam radiation therapy History of urinary retention Multiple falls Multiple fractures of ribs History of radiation therapy Tremor Lower urinary tract symptoms Alcoholism Hx of adenomatous colonic polyps (12/22/10) Alcoholism in recovery (01/10/16) Former smoker (01/15/15) Depression (12/22/14) Pulmonary emphysema (12/22/14) 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 (12/22/14) Essential hypertension (12/22/14) Paroxysmal atrial fibrillation (12/22/14) Atherosclerosis of [place] coronary artery of [place] heart without angina pectoris (12/22/14) Hyperlipidemia Malignant neoplasm of prostate (12/22/10) Urinary retention Generalized anxiety disorder MRSA (methicillin resistant staph aureus) culture positive Atrial flutter Surgical History Inguinal hernia Status post transurethral resection of prostate (~05/2016) History of angioplasty (10/06/14) Status post appendectomy Family History Mother Blood disease Hyperlipidemia Hypertension Hearing impairment Father Cancer Social History household members: spouse Smoking Status: Former smoker alcohol intake: current Meds Home Medications and Allergies Home Medications ?Medication ?Instructions ?Recorded ?Confirmed ?Type magnesium oxide 400 mg PO BID 12/27/17 09/04/24 History atorvastatin 40 mg tablet 40 mg PO DAILY #90 tabs 10/16/19 09/04/24 Rx tamsulosin 0.4 mg capsule (Flomax) 0.4 mg PO BID #180 caps 10/16/19 09/04/24 Rx mometasone 200 mcg/actuation HFA 2 puff inhalation BID #39 grams 04/13/20 09/04/24 Rx aerosol inhaler Held on 04/06/23. Instructions: patient request nitroglycerin 0.4 mg sublingual 0.4 mg sublingual Q5M PRN chest 11/16/20 09/04/24 Rx tablet pain #60 tabs sertraline 100 mg tablet 100 mg PO DAILY 06/07/21 09/04/24 History tiotropium bromide 18 mcg capsule 1 cap inhalation DAILY #30 05/19/22 09/04/24 Rx with inhalation device (Spiriva inhalations with HandiHaler) trazodone 50 mg tablet See Rx Instructions .Route 06/05/22 09/04/24 Rx .COMPLEX #180 tabs Disabled Parking #1 ea 06/26/22 09/04/24 Rx metoprolol succinate 25 mg 25 mg PO DAILY #90 tabs 11/16/22 09/04/24 Rx tablet,extended release 24 hr ketoconazole 2 % topical cream 1 applic topical BID #60 grams 11/28/22 09/04/24 Rx lidocaine 5 % patch and menthol 6 See Rx Instructions topical 01/26/24 09/04/24 Rx % gel topical kit .COMPLEX #1 ea carbidopa 25 mg-levodopa 100 mg 1 tab PO BEDTIME 03/07/24 09/04/24 History tablet carbidopa ER 50 mg-levodopa 200 mg 1.5 tab PO QPM 03/07/24 09/04/24 History tablet,extended release cyanocobalamin (vitamin B-12) mcg PO DAILY 08/20/24 08/26/24 History 1,000 mcg tablet Allergies Allergy/AdvReac Type Severity Reaction Status Date / Time No Known Drug Allergies Allergy Verified 09/04/24 00:26 Review of Systems Review of Systems ROS: Yes unobtainable due to mental condition Exam Vital Signs (past 8 hours): - 09/04/24 21:38 Temperature 98.6 F Pulse Rate 105 H Respiratory Rate 15 Blood Pressure 115/85 Pulse Oximetry 93 Oxygen Flow Rate 0 Oxygen Delivery Method Room Air Oxygen Flow Rate 0 Narrative Exam Narrative: Physical Exam: GENERAL: The patient is not in any acute distressed. Non verbal HEENT: Nonicteric sclerae, PERRLA, EOMI. Oropharynx clear. Moist mucous membranes. Conjunctivae appear well perfused. HEART: Regular rate and rhythm without murmurs. No lower extremities edema. LUNGS: Clear to auscultation bilaterally. No wheezing, crackles or rhonchi ABDOMEN: Soft, positive bowel sounds, nontender. SKIN: No rash, no excessive bruising, petechiae, or purpura. NEUROLOGIC: Nonverbal Assessment & Plan Assessment & Plan narrative: Comfort care.? Met the patient to medical inpatient.? Of note the patient has recurrent falls with multiple head injury in the past few days.? The patient's wishes to place the patient in a halfway facility with hospice care.? No aggressive measures per patient's with DNR/DNI CODE STATUS.? Again the patient has severe dementia/Parkinson's disease and is progressively getting worse over the last few weeks to months. BPH.? Resume home Flomax. Agitation.? Will have as needed IV medication. Recurrent fall PT OT and likely placement with comfort measures only. DVT prophylaxis none due to comfort measures only. CODE STATUS DNR/DNI with comfort measures only. Disposition awaiting placement to SNF with comfort care - As the provider of this telehealth evaluation, requested by the patient's evaluating physician, I attest that I introduced myself to the patient, provided my credentials and determined that telemedicine via a real-time, 2 way interactive audio and video platform is an appropriate and effective means of providing this service. - I reviewed the patient's chart and had a discussion with the member of the patient's treatment team. - The patient and I mutually agreed with continuation of this evaluation via telemedicine. The patient consented for the telemedicine evaluation. - This virtual encounter was taken place from [place] by Dr. Vadim Rodriguez. The patient was evaluated at [facility]. The encounter was approximately 35 minutes. The nurse was present during the entire time of the encounter and was able to move the stethoscope in appropriate directions. Time-Based Coding :: [TOTAL MINUTES] spent with patient and on the chart (including review of chart, obtaining history, exam, reviewing outside data, placing orders, documenting exam and treatment plan, and counseling patient) on [DATE].
--- NOTE | 2024-09-05 07:31 | P.PN_ITS ---
Subjective Subjective Date Patient Seen: 09/05/24 Time Patient Seen: 07:31 Interval history: 79-year-old male well known to me with progressive neurologic disease probably some degree of progressive supranuclear palsy or similar. Very impulsive with of course he was cognitive decline and multiple falls. 3 ER visits over 4 days with variety of relatively minor injury so far. Lacerations etcetera Unable to be cared for in the home setting at this point. Spouse has been primary caregiver and has done an heroic job of trying to care for her spouse but obviously it was too much for anyone person and he was not safe at home as demonstrated by the multiple falls. Been cared for in the ER over several days and placement was not able to be found so he was admitted to the hospital. Initially admitted to the hospitalist service but I will take over his care as I am his PCP This morning patient was minimally responsive. When I say his name loud enough he makes some kind of a moaning noise. Son is with him here in the room. Agrees with plan for comfort care basically and minimizing medications. Had a discussion with him about medications such as the tamsulosin and the inhalers that might help keep him more comfortable in his worth continuing least he was long as he can take them. If he can not take them then he can not take them as he was mental status declines etcetera Exam Vital Signs (past 8 hours): Oxygen Delivery Method Room Air Oxygen Flow Rate 0 PFSH Medical History Frequent falls PSP (progressive supranuclear palsy) Major neurocognitive disorder Alcohol use disorder Nocturia History of external beam radiation therapy History of urinary retention Multiple falls Multiple fractures of ribs History of radiation therapy Tremor Lower urinary tract symptoms Alcoholism Hx of adenomatous colonic polyps (12/22/10) Alcoholism in recovery (01/10/16) Former smoker (01/15/15) Depression (12/22/14) Pulmonary emphysema (12/22/14) 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 (12/22/14) Essential hypertension (12/22/14) Paroxysmal atrial fibrillation (12/22/14) Atherosclerosis of [place] coronary artery of [place] heart without angina pectoris (12/22/14) Hyperlipidemia Malignant neoplasm of prostate (12/22/10) Urinary retention Generalized anxiety disorder MRSA (methicillin resistant staph aureus) culture positive Atrial flutter Surgical History Inguinal hernia Status post transurethral resection of prostate (~05/2016) History of angioplasty (10/06/14) Status post appendectomy Family History Mother Blood disease Hyperlipidemia Hypertension Hearing impairment Father Cancer Social History household members: spouse Smoking Status: Former smoker alcohol intake: current Assessment & Plan Assessment & Plan narrative: 1. Failure to thrive secondary to progressive neurologic disease-patient will need placement outside the home. Probably palliative type hospice care moving forward 2. BPH-patient would benefit from continuation on his tamsulosin given his lower urinary tract symptoms and BPH. Will continue that for comfort at this point 3. COPD-patient was significant COPD would also benefit from a comfort standpoint to continue on his inhalers 4. Paroxysmal atrial fibrillation-I would be hesitant to fully discontinue his metoprolol given the AFib history. Will continue that for now. Patient also with known coronary disease and would benefit from beta-hugh therapy although not primary reason for continuation in the setting of comfort care/palliative care in my mind. That would be more the atrial fibrillation. 5. Depression-patient has been on sertraline for the long-term. It would be inappropriate to suddenly discontinue this even in the setting of comfort care. Will continue it for now to prevent any rebound symptoms with sudden discontinuation 6. Disposition-will get discharge planning involved as he can not return home will need to find alternative placement. Fortunately patient is [place] which hopefully will make this an easier process. Time-Based Coding :: [TOTAL MINUTES] spent with patient and on the chart (including review of chart, obtaining history, exam, reviewing outside data, placing orders, documenting exam and treatment plan, and counseling patient) on [DATE]. [employer] Desktop Publisher Document charge(s): Yes Charge Codes Subsequent inpatient/observation care: [id number]
[2024-09-05] MEDS: IPRATROPIUM 0.5 MG/2.5 ML NEB INH ×2 (08:35→18:09)
[2024-09-05 08:45] VITALS: PULSE 85; RESP 22; O2SAT 94
--- NOTE | 2024-09-05 08:45 | OT.IPNOTE ---
Discharge OT eval orders as pt is comfort care and awaiting on LTC bed.
--- NOTE | 2024-09-05 08:52 | PT-IP ANOTE ---
PT eval order received. Pt. on comfort measures only. will d/c PT eval order.
[2024-09-05] MEDS: TAMSULOSIN 0.4 MG CAPSULE PO ×2 (10:00→20:56)
[2024-09-05] MEDS: QUETIAPINE 25 MG TABLET PO ×2 (10:00→20:56)
[2024-09-05] MEDS: METOPROLOL ER 25 MG TABLET PO (10:00)
[2024-09-05] MEDS: SERTRALINE 50 MG TABLET 100 MG PO (10:00)
[2024-09-05] MEDS: LORazepam 0.5 MG TABLET 2 MG PO ×2 (10:04→19:38)
--- NOTE | 2024-09-05 10:28 | CM.DPNOTE ---
DCP Continued: Reviewed EMR and team rounds for pt?s medical status. Pt admitted to Acute Care for Comfort care while a intermediate accountant care placement can be found. DCP able to obtain contacts at the [place], attempting to make connection for discharge coordination and insurance authorization. Poornima Miles, [place] Community and SnfLibrary Associate at [facility] (ph#[phone]) Chivo Bentley, [place] PACT Senior Appliance Worker at [facility] (ph# [phone] ext. [phone]) Plan: Pending [place] insurance authorization and SNF LTC placement at [facility] or another [place] contracted facility. CM Team will continue to follow for coordination of discharge plans. WEST HealySW
[2024-09-05] MEDS: diazePAM 10 MG/2 ML SYRINGE 5 MG IV (11:14)
[2024-09-05] MEDS: MORPHINE 10 MG/0.5 ML ORAL SYRINGE PO ×2 (11:17→19:13)
[2024-09-05] MEDS: diazePAM 5 MG TABLET PO (14:29)
[2024-09-05 18:15] VITALS: PULSE 85; RESP 20; O2SAT 98
[2024-09-06] MEDS: diazePAM 5 MG TABLET PO ×2 (02:59→18:44)
[2024-09-06] MEDS: MORPHINE 10 MG/0.5 ML ORAL SYRINGE PO ×2 (05:43→17:32)
[2024-09-06] MEDS: LORazepam 0.5 MG TABLET 2 MG PO (05:43)
--- NOTE | 2024-09-06 08:15 | PC.NURSE ---
Patient sleeping in bed this morning, did not disturb to provide uninterupted sleep per comfort care orders. RR 18 shallow, mouth breathing. Castanon in place and intact, brief is dry. Bed alarm on for safety. Continue to monitor, continue with plan of care.
--- NOTE | 2024-09-06 09:21 | PM.PN.1 ---
Subjective Subjective Date Patient Seen: 09/06/24 Time Patient Seen: 09:21 Interval history: Patient seen in follow-up of failure to thrive. Apparently patient with Parkinson's and progressive neurologic disease which has made staying outside of the home a requirement. During hospitalization it was decided he would be transition to comfort care. Patient minimally arousable today. With no other Exam Vital Signs (past 8 hours): Oxygen Delivery Method Room Air Oxygen Flow Rate 0 Narrative Exam Narrative: Sleeping male in no obvious distress Patient with ecchymosis around right eye with stapled laceration from forehead to mid scalp. All seems to be healing well. Lungs are clear. Heart is regular rate and rhythm [facility] Medical History Frequent falls PSP (progressive supranuclear palsy) Major neurocognitive disorder Alcohol use disorder Nocturia History of external beam radiation therapy History of urinary retention Multiple falls Multiple fractures of ribs History of radiation therapy Tremor Lower urinary tract symptoms Alcoholism Hx of adenomatous colonic polyps (12/22/10) Alcoholism in recovery (01/10/16) Former smoker (01/15/15) Depression (12/22/14) Pulmonary emphysema (12/22/14) 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 (12/22/14) Essential hypertension (12/22/14) Paroxysmal atrial fibrillation (12/22/14) Atherosclerosis of [place] coronary artery of [place] heart without angina pectoris (12/22/14) Hyperlipidemia Malignant neoplasm of prostate (12/22/10) Urinary retention Generalized anxiety disorder MRSA (methicillin resistant staph aureus) culture positive Atrial flutter Surgical History Inguinal hernia Status post transurethral resection of prostate (~05/2016) History of angioplasty (10/06/14) Status post appendectomy Family History Mother Blood disease Hyperlipidemia Hypertension Hearing impairment Father Cancer Social History household members: spouse Smoking Status: Former smoker alcohol intake: current Assessment & Plan Assessment & Plan narrative: Failure to thrive. Apparently secondary to progressive neurologic disease apparently progressive supranuclear palsy. At this point patient has been moved to palliative or comfort care. Seems comfortable. On appropriate medicines. Will continue. BPH. On tamsulosin will follow. COPD. Stable. Continuing his inhalers. Will follow from there. Not sure how much he will get from that. Paroxysmal atrial fibrillation patient is still on his metoprolol. No real active change and no need to change at this point. Depression. Patient on sertraline. We will continue. Disposition. Discussed with social service. Looking for placement. Probably will be palliative or comfort care. 45 minutes spent with nursing social service patient dictation orders chart review Time-Based Coding :: [TOTAL MINUTES] spent with patient and on the chart (including review of chart, obtaining history, exam, reviewing outside data, placing orders, documenting exam and treatment plan, and counseling patient) on [DATE].
[2024-09-06] MEDS: QUETIAPINE 25 MG TABLET PO ×2 (11:32→21:01)
[2024-09-06 11:34] VITALS: BP 110/59; PULSE 92
[2024-09-06 12:00] VITALS: PULSE 92; RESP 17; TEMP 36.2; O2SAT 93
--- NOTE | 2024-09-06 13:42 | CM.DPC ---
Addendum entered by CHERYL David 09/06/24 14:41: ADD: Met bedside with pt's son and updated on re-review by [facility] and also additional referrals to two other SNFs below. Son confirms spouse is decision maker but his and his mom's preference would be [facility] if possible in [facility] but they would be agreeable to [facility] or [facility] if needed. Son confirms they do not currently have enough assist to bring pt home on Hospice at this time. Son will update his mom (pt's spouse) and they will both be bedside tomorrow for updates. BF Original Note: DCP Comfort Cont: Per MD, pt remains on comfort medications and care and recommending placement for Comfort/Hospice as spouse unable to manage at home at this time. Per RN, pt mostly sleeping and will open eyes and able to manage some of his meds po with applesauce or elixir but then falls back to sleep. Castanon cath placed. Very minimal po intake, few sips of liquid. Not attempting to get up, no behaviors. Vitals seem stable and does not appear imminent at this time. SW attempted following SNFs contracted with [place]: [facility]- confirmed their concerns were pt agitation and exit seeking. Updated that pt comfort care, mostly sleeping and no behaviors. Faxed updated clinicals and RN notes to review. Their admin team will need to review on Mon (today Sat). [facility]- left msg on admissions phone regarding pt status and requested review. Faxed clinicals. [facility]- left msg on admissions phone regarding pt status and requested review. Faxed clinicals. [facility] needed if SNF secured. Plan: SW to follow for attempts at SNF under [place] as pt comfort care and family cannot afford private pay vs home with CGs through [place] if pt remains obtunded with Hospice. CHERYL David
[2024-09-06] MEDS: TAMSULOSIN 0.4 MG CAPSULE PO (21:01)
[2024-09-07] MEDS: SERTRALINE 50 MG TABLET 100 MG PO (09:10)
[2024-09-07] MEDS: TAMSULOSIN 0.4 MG CAPSULE PO ×2 (09:10→20:34)
[2024-09-07] MEDS: QUETIAPINE 25 MG TABLET PO ×2 (09:10→20:34)
[2024-09-07 09:15] VITALS: BP 114/64; PULSE 100
[2024-09-07] MEDS: METOPROLOL ER 25 MG TABLET PO (09:15)
[2024-09-07 09:20] VITALS: BP 114/64; PULSE 108; RESP 16; TEMP 36.6; O2SAT 95
[2024-09-07 09:45] VITALS: PULSE 91
--- NOTE | 2024-09-07 10:12 | P.PN_ITS ---
Subjective Subjective Date Patient Seen: 09/07/24 Time Patient Seen: 10:12 Interval history: Patient seen in follow-up of failure to thrive and progressive neurologic disorder. Nursing says he was more awake today and actually talking to them. Wanting to go home. I did not find up myself but no other changes. Patient with no complaints of pain or other changes. Exam Vital Signs (past 8 hours): - 09/07/24 09:15 09/07/24 09:20 Temperature 97.9 F Pulse Rate 100 H 108 H Respiratory Rate 16 Blood Pressure 114/64 114/64 Pulse Oximetry 95 Oxygen Flow Rate 0 Oxygen Delivery Method Room Air Oxygen Flow Rate 0 Narrative Exam Narrative: Sleeping elderly male with healing mendez right upper head and continued purplish ecchymosis around eye. Neck supple without adenopathy lungs are clear heart is regular rate and rhythm PFSH Medical History Frequent falls PSP (progressive supranuclear palsy) Major neurocognitive disorder Alcohol use disorder Nocturia History of external beam radiation therapy History of urinary retention Multiple falls Multiple fractures of ribs History of radiation therapy Tremor Lower urinary tract symptoms Alcoholism Hx of adenomatous colonic polyps (12/22/10) Alcoholism in recovery (01/10/16) Former smoker (01/15/15) Depression (12/22/14) Pulmonary emphysema (12/22/14) 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 (12/22/14) Essential hypertension (12/22/14) Paroxysmal atrial fibrillation (12/22/14) Atherosclerosis of [place] coronary artery of [place] heart without angina pectoris (12/22/14) Hyperlipidemia Malignant neoplasm of prostate (12/22/10) Urinary retention Generalized anxiety disorder MRSA (methicillin resistant staph aureus) culture positive Atrial flutter Surgical History Inguinal hernia Status post transurethral resection of prostate (~05/2016) History of angioplasty (10/06/14) Status post appendectomy Family History Mother Blood disease Hyperlipidemia Hypertension Hearing impairment Father Cancer Social History household members: spouse Smoking Status: Former smoker alcohol intake: current Assessment & Plan Assessment & Plan narrative: Failure to thrive. Worsening of progressive neurologic condition progressive supranuclear palsy. Apparently decision is made by primary acute care physical therapist and family for palliative or comfort care. Needs to be transferred for long-term care can not do it at home anymore. Will be working on that as a time. Laceration right forehead. Healing well. [place] will need to removed in the near future. Probably Sunday or Sunday. BPH. Continue tamsulosin COPD stable. Usual inhalers Paroxysmal atrial fibrillation. Rate is controlled on metoprolol will continue Depression. No change in sertraline dose. Disposition. Stable. Discussed with social service. Probably will not know about placement until tomorrow at least. Will see how things go comfort care seems to be going well. Time-Based Coding :: [TOTAL MINUTES] spent with patient and on the chart (including review of chart, obtaining history, exam, reviewing outside data, placing orders, documenting exam and treatment plan, and counseling patient) on [DATE].
[2024-09-07] MEDS: MORPHINE 10 MG/0.5 ML ORAL SYRINGE PO ×2 (17:16→20:35)
[2024-09-07] MEDS: diazePAM 5 MG TABLET PO (20:34)
[2024-09-08] MEDS: MORPHINE 10 MG/0.5 ML ORAL SYRINGE PO ×2 (03:20→15:07)
[2024-09-08] MEDS: diazePAM 5 MG TABLET PO (04:26)
--- NOTE | 2024-09-08 07:35 | PM.PN.IH.1 ---
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 Wharton. Discussed with him this morning Still looking for placement which was not really expected to happen until after the weekend This morning patient sedated and minimally if at all responsive Exam Vital Signs (past 8 hours): Oxygen Delivery Method Room Air Oxygen Flow Rate 0 PFSH Medical History Frequent falls PSP (progressive supranuclear palsy) Major neurocognitive disorder Alcohol use disorder Nocturia History of external beam radiation therapy History of urinary retention Multiple falls Multiple fractures of ribs History of radiation therapy Tremor Lower urinary tract symptoms Alcoholism Hx of adenomatous colonic polyps (12/22/10) Alcoholism in recovery (01/10/16) Former smoker (01/15/15) Depression (12/22/14) Pulmonary emphysema (12/22/14) 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 (12/22/14) Essential hypertension (12/22/14) Paroxysmal atrial fibrillation (12/22/14) Atherosclerosis of [place] coronary artery of [place] heart without angina pectoris (12/22/14) Hyperlipidemia Malignant neoplasm of prostate (12/22/10) Urinary retention Generalized anxiety disorder MRSA (methicillin resistant staph aureus) culture positive Atrial flutter Surgical History Inguinal hernia Status post transurethral resection of prostate (~05/2016) History of angioplasty (10/06/14) Status post appendectomy Family History Mother Blood disease Hyperlipidemia Hypertension Hearing impairment Father Cancer Social History household members: spouse Smoking Status: Former smoker alcohol intake: current Assessment & Plan Assessment & Plan narrative: 1. Progressive neurologic disease-patient has reached the end of his course for home care. Trying to place him in an alternative facility. He was quality of life he was diminished to the point where palliative care/comfort care seems to be the most appropriate option. Discussed with the patient but mostly with family who he had been in agreement. 2. Laceration had-sutured closed on the and then fell again reopened part of it on the with mendez placed. Too early to remove mendez at this point need to continue monitoring. No evidence of complication at this point but will ultimately need those mendez removed. Too early to remove mendez today but consider perhaps Sunday this week (twenty-fifth or twenty-sixth) 3. COPD-stable continue inhalers 4. BPH with LUTS-continue tamsulosin for comfort 5. Paroxysmal atrial fibrillation-continue metoprolol for blood pressure and AFib 6. Depression-continue sertraline. Sudden discontinuation of an SSRI would be inappropriate, in my opinion, in the setting of comfort care. Time-Based Coding :: [TOTAL MINUTES] spent with patient and on the chart (including review of chart, obtaining history, exam, reviewing outside data, placing orders, documenting exam and treatment plan, and counseling patient) on [DATE]. PROFEE Purchasing And Claims Supervisor Document charge(s): Yes Charge Codes Subsequent inpatient/observation care: 44052
[2024-09-08 10:03] VITALS: BP 114/64; PULSE 99
[2024-09-08] MEDS: QUETIAPINE 25 MG TABLET PO ×2 (10:03→21:04)
[2024-09-08] MEDS: METOPROLOL ER 25 MG TABLET PO (10:03)
[2024-09-08] MEDS: TAMSULOSIN 0.4 MG CAPSULE PO ×2 (10:03→21:04)
[2024-09-08] MEDS: SERTRALINE 50 MG TABLET 100 MG PO (10:03)
[2024-09-08 10:33] VITALS: PULSE 95
--- NOTE | 2024-09-08 13:38 | CM.DPC ---
DCP SNF Planning Cont for Comfort Per MD, pt remains stable for d/c to SNF for ongoing Comfort Care. SAMMIE faxed updated clinicals and called the following SNFs regarding previous referral: [facility]- meeting this morning and then confirmed they can accept tomorrow 09/09 if they get [facility] auth [facility]- reviewed and can accept but not until 09/10 [facility]- left msg requesting call back SW called [facility] [employer] Specialist Molly [phone] and updated and she confirms they approved [facility] and called admissions and updated but confirmed pt currently does not have transportation coverage through [facility] at this time. SAMMIE met bedside with pt who was sitting up eating and drinking some with spouse and family member bedside and updated on above and they confirm their preference remains [facility] and very appreciative and discussed discharge transport options and in agreement that pt would not be able to get into private vehicle at d/c and w/c van likely not a safe option either as pt with dementia and has been quite obtunded at times and discussed stretcher transport and possible chance it might not be fully covered by insurance. SAMMIE updated MD on SNF acceptance for tomorrow and he confirms stretcher transport is his recommendation for safety and family made aware. PASRR done BLS form completed and attached POLST and needs MD signature and CC Mariel kindly scheduled BLS transport for tomorrow 09/09 at 1100 to [facility]. Updated admissions at [facility] and they confirm they can accept tomorrow anytime. Isela Ramires MSW
[2024-09-09] MEDS: TAMSULOSIN 0.4 MG CAPSULE PO (07:30)
[2024-09-09] MEDS: QUETIAPINE 25 MG TABLET PO (07:30)
[2024-09-09] MEDS: diazePAM 5 MG TABLET PO (07:30)
[2024-09-09 07:31] VITALS: BP 118/43; PULSE 94
[2024-09-09] MEDS: SERTRALINE 50 MG TABLET 100 MG PO (07:31)
[2024-09-09] MEDS: METOPROLOL ER 25 MG TABLET PO (07:31)
[2024-09-09 07:35] VITALS: BP 118/43; PULSE 94; RESP 16; TEMP 36.1; O2SAT 94
--- NOTE | 2024-09-09 07:38 | P.DS_ITS ---
History of Present Illness History of Present Illness Date Patient Seen: 09/09/24 Time Patient Seen: 07:38 Chief complaint: Fall; Head Injury No thinners Narrative: 79-year-old male with past medical history of progressive severe Parkinson's disease, supranuclear palsy type dementia with rapid progression, BPH, hyperlipidemia presents with recurrent fall.? Of note the patient presented to the ER 3 times over the last 4 days.? The patient had multiple falls per day.? The patient was seen yesterday in the ER with laceration of the forehead and was sutured.? The patient is currently very agitated and is oriented to person place or time.? The patient's also has been working with the [facility] and was approved for additional home health care but despite that per her report, this is not adequate.? The patient's wishes for the patient to be placed in halfway facility as the patient has very high risk of falling at home and she is unable to care for him despite having home health.? In addition the patient's wishes for a care facility with palliative/hospice care. In our ER, the patient was given Ativan as well as IM Versed.? The patient's did fine the postform with DNR/DNI with full comfort measures.? Our ER physician requested admission for placement to SNF with comfort care. {from Dr. Rodriguez's H&P 09/05/24} Discharge Providers Provider Date of admission: 09/04/24 20:03 Discharge Date: 09/09/24 Primary care physician: Tim Pemberton MD Consults: 09/04/24 13:43 Consult to POTASH FLAKER - Behavioral Health Specialist Stat Comment: Behavioral Health Specialist Consult needed for:: Not safe at home Consult to Occupational Therapy Evaluate & Treat Comment: Physician Instructions: Evaluate and treat 09/05/24 07:30 Consult to Discharge Planning Routine Comment: 09/05/24 17:32 Consult to Discharge Planning Routine Comment: Discharge provider: Tim Pemberton MD Summary Hospital Course Discharge Diagnosis: 1. Multiple ground level falls 2. Scalp and facial laceration secondary to falls 3. Progressive supranuclear palsy 4. Rapidly progressive dementia 5. Parkinson's disease 6. COPD 7. Paroxysmal atrial fibrillation 8. BPH with lower urinary tract symptoms 9. Hypertension 10. Hyperlipidemia 11. Generalized anxiety disorder 12. Coronary artery disease without angina pectoris 13. Alcohol use disorder 14. Prostate cancer Hospital Course: As above patient presented to our ER multiple times in the several days prior to admission after falling at home sustaining multiple lacerations about his head. Eventually was determined that he was certainly not safe to return home in after consultation with the patient and family determined that he would best be served by probably entering into a palliative care/hospice care environment in his halfway facility as he could not be cared for in the home setting. No facility he was found within a reasonable timeframe so he was eventually admitted to [facility] while continuing to search for appropriate facility for placement. He was basically made a comfort care only patient. He did have times of increased cognition interacting with family and staff in other times he was really quite sedated His wounds that has been sutured and then stapled closed on his forehead and scalp were healing nicely Patient was not having a great deal in the way of symptoms. He was somewhat sedated but he was able to interact with family members and staff intermittently. He was medications were minimize to only those that might be providing some degree of comfort such as helping him with bladder emptying and his inhalers for his chronic lung disease etcetera. His carbidopa/levodopa was held, as it, over time, did not appear to provide any benefit for patient's movement disorder/neurologic disease Appropriate facility for discharge he was found in [place] and he was felt to be stable for transport there by the 09 of September Status at Discharge Cognitive/behavioral status at discharge: at baseline, confused Functional status at discharge: bed bound Overall status at discharge: patient is not back to baseline Time Spent with Patient Time spent: Greater than 30 minutes Exam Vital Signs (past 8 hours): - 09/09/24 07:31 09/09/24 07:35 Temperature 97 F L Pulse Rate 94 H 94 H Respiratory Rate 16 Blood Pressure 118/43 L 118/43 L Pulse Oximetry 94 Oxygen Delivery Method Room Air Oxygen Flow Rate 0 PFSH Medical History Frequent falls PSP (progressive supranuclear palsy) Major neurocognitive disorder Alcohol use disorder Nocturia History of external beam radiation therapy History of urinary retention Multiple falls Multiple fractures of ribs History of radiation therapy Tremor Lower urinary tract symptoms Alcoholism Hx of adenomatous colonic polyps (12/22/10) Alcoholism in recovery (01/10/16) Former smoker (01/15/15) Depression (12/22/14) Pulmonary emphysema (12/22/14) 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 (12/22/14) Essential hypertension (12/22/14) Paroxysmal atrial fibrillation (12/22/14) Atherosclerosis of [place] coronary artery of [place] heart without angina pectoris (12/22/14) Hyperlipidemia Malignant neoplasm of prostate (12/22/10) Urinary retention Generalized anxiety disorder MRSA (methicillin resistant staph aureus) culture positive Atrial flutter Surgical History Inguinal hernia Status post transurethral resection of prostate (~05/2016) History of angioplasty (10/06/14) Status post appendectomy Family History Mother Blood disease Hyperlipidemia Hypertension Hearing impairment Father Cancer Social History household members: spouse Smoking Status: Former smoker alcohol intake: current Discharge Assessment & Plan Assessment and Plan Plan of Treatment: Patient will continue on meds aimed at comfort primarily including quetiapine which he was helped with agitation and anxiety he was well as benzodiazepines and morphine for pain and more generalized anxiety control Patient will be continued on his inhalers for his COPD, he was metoprolol to help prevent issues with his atrial fibrillation, and tamsulosin to help with bladder emptying Patient will need his mendze removed from his forehead laceration on the - or 12 of September as they were placed on the 04 of September so [address] They appear to be healing nicely. Discharge Plan Discharge Plan Patient Disposition: [facility] Other facility: [place], [place] Consult as needed: Dental, Hearing, Mental health, Podiatry and Vision Discharge orders & Medications Prescriptions: New lorazepam 0.5 mg Tablet 2 mg PO QID PRN (Reason: agitation) Qty: 30 0RF diazepam 5 mg Tablet 5 mg PO Q4H PRN (Reason: Anxiety) Qty: 30 0RF morphine concentrate 10 mg/0.5 mL Syringe 10 mg PO Q2HR PRN (Reason: flacc > 3 or RR > 24) Qty: 1 0RF quetiapine 25 mg Tablet 25 mg PO BID Qty: 60 0RF lorazepam [Lorazepam Intensol] 2 mg/mL Concentrate 1 mg PO Q1HR PRN (Reason: Anxiety) Qty: 30 0RF Continued tamsulosin [Flomax] 0.4 mg capsule 0.4 mg PO BID Qty: 180 0RF mometasone 200 mcg/actuation HFA aerosol inhaler 2 puff INHALATION BID Qty: 39 3RF metoprolol succinate 25 mg tablet extended release 24 hr 25 mg PO DAILY Qty: 90 3RF sertraline 100 mg tablet 100 mg PO DAILY Spiriva with HandiHaler 18 mcg capsule, w/inhalation device 1 cap inhalation DAILY Qty: 30 0RF Rx Instructions: puncture 1 cap using device; one dose = 2 inhalations Discontinued atorvastatin 40 mg tablet 40 mg PO DAILY Qty: 90 0RF trazodone 50 mg tablet See Rx Instructions .ROUTE .COMPLEX Qty: 180 3RF Dose Instruction: TAKE 1 TO 2 TABLETS BY MOUTH AT BEDTIME NEEDED FOR SLEEP Rx Instructions: TAKE 2 TABLETS BY MOUTH AT BEDTIME NEEDED FOR SLEEP cyanocobalamin (vitamin B-12) 1,000 mcg tablet 1,000 mcg PO DAILY magnesium oxide 400 mg capsule 400 mg PO BID nitroglycerin 0.4 mg tablet, sublingual 0.4 mg SL Q5M PRN (Reason: chest pain) Qty: 60 3RF Rx Instructions: until response; do not exceed 3 doses per episode ketoconazole 2 % cream 1 applic topical BID Qty: 60 3RF carbidopa-levodopa 25-100 mg tablet 1 tab PO BEDTIME Rx Instructions: 1.5 in AM, 1.5 at 11, 1.5 at 3pm. carbidopa-levodopa 50-200 mg tablet extended release 1.5 tab PO QPM lidocaine-menthol 5-6 % kit See Rx Instructions .ROUTE .COMPLEX Qty: 1 0RF Rx Instructions: apply LIDIOCAINE PATCH once a day/may leave on for up to 12 hrs; apply MENTHOL GEL 1 - 4 times/day as needed for pain. No Action (DME) Disabled Parking See Rx Instructions .ROUTE .MEDSUPPLY Qty: 1 0RF Rx Instructions: Patient qualifies for disabled parking as per the attached form. Follow up/Referrals: Tim Pemberton MD [Primary Care Provider, Internal Medicine] Discharge Health Status Multidrug resistant organism: No MDRO Precautions: [place] Diet/Activity/Treatments Diet: Diet as Tolerated Liquid consistency: Normal/Thin Food texture: Regular Visit Report/Discharge Packet Stand Alone Forms: Patient Portal/API Discharge Data Primary Care Provider: Tim Pemberton Charge Codes Discharge inpatient/observation: [id number]
--- NOTE | 2024-09-09 11:32 | PC.NURSE ---
Pt transferred to [facility] via ambulance transportation. and daughter at bedside. Report given to new facility, all questions answered. All belongings accounted for.
--- NOTE | 2024-09-09 11:46 | CM.DPNOTE ---
DCP note MITER SAW OPERATOR reviewed EMR per provider cleared to dc today to [facility] for comfort care. placed orders/scripts/meds in chart. MITER SAW OPERATOR completed BLS form. Gave scripts/meds/BLS form/PASRR to Mariel. Mariel kindly agreed to fax. MITER SAW OPERATOR spoke with [facility] kirstei multiple times throughout morning. per Kirstie, did not get VA auth yet but can accept today on pt's medicare comfort care and will coordinate with VA on getting auth. per previous CM notes, was verbally told they would auth. per Kirstie, historically VA has needed hospice start date to auth? per CM notes, no indication from [facility] on needing that. MITER SAW OPERATOR left approximately 8 or so voicemails with [facility] [employer] Molly [phone] and [place] detentionhome energy inspector Poornima Miles [phone] about missing auth. no response as of time of this note. MITER SAW OPERATOR spoke with Vivian at [facility], agreed to tentatively have referral in case needed for VA auth. RE Floyd faxed referral information. RE Floyd faxed dc information to [facility]. updated BANK ANALYST. MITER SAW OPERATOR updated RN and gave report number. RE Floyd placed scripts/med list in chart. Lengthy phone conversation with son Anibal report understanding insurance may not cover BLS but ultimately remain in agreement with plan to transport via BLS. updated on medicare comfort care until VA auths. expressed understanding. agreed to pass along updates to pt's spouse. P: dc today to [facility] via [facility] at 11am. Kirstie at [facility] to pursue official VA auth. CM team will continue to follow as needed CHERYL Nielsen
== END 2024-09-09 11:15 | DRG 951 ==
LOC: ED 20:01 → AC 20:05
PROVIDERS: Admitting Provider Internal Medicine; Emergency Provider Student in an Organized Health Care Education/Training Program; PCP Internal Medicine; Referring Provider Student in an Organized Health Care Education/Training Program; Visit Provider Internal Medicine
DX: Z51.5 Encounter for palliative care (principal); F02.811 Dementia in other diseases classified elsewhere, unspecified severity, with agitation; F02.83 Dementia in other diseases classified elsewhere, unspecified severity, with mood disturbance; G20.A1 Parkinson's disease without dyskinesia, without mention of fluctuations; I48.0 Paroxysmal atrial fibrillation; I25.10 Atherosclerotic heart disease of native coronary artery without angina pectoris; R62.7 Adult failure to thrive; N40.1 Benign prostatic hyperplasia with lower urinary tract symptoms; I10 Essential (primary) hypertension; E78.5 Hyperlipidemia, unspecified; F41.1 Generalized anxiety disorder; F10.90 Alcohol use, unspecified, uncomplicated; C61 Malignant neoplasm of prostate; S01.81XA Laceration without foreign body of other part of head, initial encounter; W18.30XA Fall on same level, unspecified, initial encounter; Z91.81 History of falling; Z66 Do not resuscitate; Z87.891 Personal history of nicotine dependence; Z68.21 Body mass index [BMI] 21.0-21.9, adult
CPT/HCPCS: 12013; 12015; 94640; 96372; 99232; 99239; 99283; 99284; J2250; J3360